=== PATIENT | female | born 1935 | race Caucasian/White ===

== ENCOUNTER → 2021-12-27 14:00 | Outpatient (CLI) | payer MEDICARE, OTHER, SELFPAY ==
--- NOTE | ~2021-12-27 | XR_ITS ---
XR thoracic spine 2V DATE: 12/27/2021 14:44 INDICATION: Thoracic back pain TECHNIQUE: AP, lateral, swimmer views COMPARISON: None FINDINGS: There is diffuse osteopenia. There is severe degenerative disc disease at C4-5, C5-6 and C6-7. There is prominent loss of height and anterior wedging consistent with compression fracture at approx imately T7. There is biconcavity of multiple lower thoracic vertebral bodies. There is moderate compression fracture deformity at approximately L1. There is degenerative change of the thoracic and lumbar spine. There is rotatory levoscoliosis of the lumbar spine. Cardiomegaly, aortic atherosclerosis. Large hiatal hernia with air-fluid levels. IMPRESSION: Diffuse osteopenia; multiple compression fracture deformities of the thoracic and upper l umbar spine Large hiatal hernia Cardiomegaly, aortic atherosclerosis Reviewed, dictated and finalized at location B. CTOR CONSUMER AFFAIRS IMPRESSION: Diffuse osteopenia; multiple compression fracture deformities of th e thoracic and upper lumbar spine Large hiatal hernia Cardiomegaly, aortic atherosclerosis
--- NOTE | ~2021-12-27 | XR_ITS ---
XR lumbar spine 2-3V DATE: 12/27/2021 14:44 INDICATION: Low back pain TECHNIQUE: Standing AP, lateral and coned lateral lumbosacral views COMPARISON: None FINDINGS: There is prominent diffuse osteopenia. There is prominent rotatory levoscoliosis of the lumbar spine. There is severe degenerative disc disease throughout the lumbar and lumbosacral spine. The sacroiliac joints are intact. Multiple surgical clips are noted along the lower aortic, aortocaval and bilateral iliac lymph node c hains. IMPRESSION: Diffuse osteopenia Prominent rotatory levoscoliosis and severe degenerative disc disease of the lumbar spine Reviewed, dictated and finalized at location B. TRICAL MAINTENANCE WORKER IMPRESSION: Diffuse osteopenia Prominent rotatory levoscoliosis and severe degenerative disc disease of the lenin mbar spine
== END ==
PROVIDERS: PCP Internal Medicine; Visit Provider Nurse Practitioner Family
DX: M54.50 Low back pain, unspecified (principal); M85.88 Other specified disorders of bone density and structure, other site; M41.86 Other forms of scoliosis, lumbar region; M51.36 Other intervertebral disc degeneration, lumbar region; K44.9 Diaphragmatic hernia without obstruction or gangrene; I51.7 Cardiomegaly; I70.0 Atherosclerosis of aorta; M53.84 Other specified dorsopathies, thoracic region
CPT/HCPCS: 72070; 72100

== ENCOUNTER → 2022-01-03 09:47 | Outpatient (CLI) | payer MEDICARE, OTHER, SELFPAY ==
--- NOTE | ~2022-01-03 | MR_ITS ---
EXAMINATION: MR thoracic spine wo con EXAM DATE: 01/03/2022 10:57 INDICATION: Closed fracture of thoracic vertebra. TECHNIQUE: Multi-sequential, multiplanar MR images of the thoracic spine were obtained without contra st. Sagittal T1, T2, T2 fat saturation, axial T2 weighted images reviewed. There is no prior study for comparison. FINDINGS: There is mild acute compression fracture of the T10 vertebral body. Loss of multiple other vertebral body heights, moderate at the T7 level but no other thoracic vertebral bodies have edema to suggest acute compressions. There is moderate thoracolumbar levoscoliosis. The spinal cord signal in tensity and intrinsic morphology is normal. Mild to moderate thoracic disc disease. The thoracic cent ral canal and neural foramen are patent. Mild to moderate thoracic facet arthropathy. IMPRESSION: 1. Mild acute compression fracture superior endplate of T10. 2. Other chronic midthoracic compression fractures. 3. Mild to moderate spondylosis. Reviewed, dictated and finalized at location B. WAY PAINTER
--- NOTE | ~2022-01-03 | MR_ITS ---
EXAMINATION: MR lumbar spine wo [facility] EXAM DATE: 01/03/2022 11:05 INDICATION: Low back pain . TECHNIQUE: Multi-sequential, multiplanar MR images of the lumbar spine were obtained without contrast . Sagittal T1, T2, T2 fat saturation images. Axial T2 weighted images. There is no prior study for comparison. FINDINGS: There is moderate thoracolumbar levoscoliosis. Moderate to severe disc disease L3-4 and L5- S1, moderate at the other lumbar levels. Mild diffuse loss of lumbar vertebral body heights, with gail ma in the L3 and L4 vertebral bodies which suggests mild subacute compression fractures. There is 2 m m retrolisthesis L2 on L3, 3 mm retrolisthesis L3 on L4, 4 mm retrolisthesis L4 on L5. The conus medu llaris terminates at the L1/2 level and has normal signal intensity and morphology. Level by level evaluation: T12-L1: Disc does not extend beyond the endplate margin. Facet arthropathy: Minimal. Neural foraminal stenosis: No stenosis. Central canal stenosis: No stenosis. L1-L2: There is a mild diffuse disc bulge. Facet arthropathy: Mild. Neural foraminal stenosis: Mild right. Central canal stenosis: No stenosis. L2-L3: There is a mild to moderate diffuse disc bulge. Facet arthropathy: Mild to moderate. Neural foraminal stenosis: Mild to moderate right, mild left. Central canal stenosis: Mild. L3-L4: There is a moderate diffuse disc bulge. Facet arthropathy: Mild. Neural foraminal stenosis: Moderate right, mild to moderate left. Central canal stenosis: Mild. L4-L5: There is a moderate diffuse disc bulge. Facet arthropathy: Moderate. Ligamentum flavum enlargement. Neural foraminal stenosis: Moderate to severe left, mild to moderate right. Central canal stenosis: Mild to moderate. L5-S1: [id number] Facet arthropathy: Moderate left, mild to moderate right. Neural foraminal stenosis: Moderate to severe left, mild right. Central canal stenosis: Mild. IMPRESSION: 1. L4-5 and L5-S1 moderate to severe left neural foraminal stenosis. 2. Diffuse mild loss of vertebral body height with L3 and L4 edema suggesting subacute component. 3. Moderate thoracolumbar levoscoliosis. 4. Spondylosis as above. Reviewed, dictated and finalized at location B. DARD MACHINE STITCHER
== END ==
PROVIDERS: PCP Internal Medicine; Visit Provider Nurse Practitioner Family
DX: M48.54XA Collapsed vertebra, not elsewhere classified, thoracic region, initial encounter for fracture (principal); M54.6 Pain in thoracic spine; M47.814 Spondylosis without myelopathy or radiculopathy, thoracic region; M48.07 Spinal stenosis, lumbosacral region; M41.85 Other forms of scoliosis, thoracolumbar region; M47.816 Spondylosis without myelopathy or radiculopathy, lumbar region
CPT/HCPCS: 72146; 72148

== ENCOUNTER 2023-01-06 14:38 | Inpatient (IN) | payer MEDICARE, OTHER, SELFPAY ==
--- NOTE | ~2023-01-06 | CT_ITS ---
EXAMINATION: CT brain wo con DATE: 01/06/2023 15:43 INDICATION: fall . TECHNIQUE: Computed tomography (CT) of the head was performed without intravenous contrast. The mA wa s adjusted according to patient size. Iterative reconstruction technique was employed. The dose-lengt h product was 605.33 mGy-cm. COMPARISON: None. FINDINGS: No acute intracranial hemorrhage or extra-axial fluid collection. No hydrocephalus, mass, or herniation. No acute ischemic infarct. Unremarkable dural venous sinus attenuation. No acute osseous abnormality. The aerated spaces are clear. Mild atrophy and moderate chronic white matter change. Mild atherosclerotic intracranial calcificatio n. Bilateral old basal ganglia lacunar infarcts. IMPRESSION: No acute intracranial process. Reviewed, dictated and finalized at location K. KSMITH SUPERVISOR
--- NOTE | ~2023-01-06 | CT_ITS ---
EXAMINATION: CT cervical spine wo con DATE: 01/06/2023 15:43 INDICATION: fall TECHNIQUE: Computed tomography (CT) of the cervical spine was performed without intravenous contrast. Automated exposure control and iterative reconstruction technique were employed. The dose-length pro duct was 95.54 mGy-cm. COMPARISON: None. FINDINGS: Vertebral Body Alignment: Intact. . Craniocervical and atlantoaxial alignment: Moderate degenerative change. Alignment intact. Osseous structures/fracture: No evidence of a lytic or blastic process in the visualized spine. No e vidence of acute fracture. . Cervical soft tissues: The paraspinal soft tissues planes are maintained. Biapical pleural scarring. Subcentimeter thyroid hypodensities which require no additional workup. Degenerative changes: Degenerative changes, without severe neural foraminal or central canal narrowin g. IMPRESSION: No acute fracture or traumatic malalignment in the cervical spine. Reviewed, dictated and finalized at location K. KNITTER HELPER
--- NOTE | ~2023-01-06 | XR_ITS ---
EXAM: XR wrist RT 2V DATE: 01/06/2023 16:17 HISTORY: fall . COMPARISON: None available. FINDINGS: Decreased mineralization. Comminuted, intra-articular fracture of the distal right radius with one shaft width anterior displacement and mild impaction. No lytic or blastic lesion. Joint spac es are maintained. No erosion or periosteal change. Soft tissue swelling about the wrist. IMPRESSION: Comminuted, intra-articular, anteriorly displaced and mildly impacted fracture of the dis daniel right radius. Reviewed, dictated and finalized at location K. UM ARC WELDER IMPRESSION: Comminuted, intra-articular, anteriorly displaced and mildly impact ed fracture of the distal right radius.
--- NOTE | ~2023-01-06 | XR_ITS ---
EXAM: XR hip RT 2V w AP pelvis DATE: 01/06/2023 16:17 HISTORY: fall, pain Rt wrist, Rt hip . COMPARISON: None available. FINDINGS: Decreased mineralization. Numerous surgical clips project over the lower abdomen and pelvi s. Severe degenerative change in the lumbar spine. Mildly comminuted fracture of the right femoral ne ck. Medial angulation of the femur, with mild superior and anterior displacement. IMPRESSION: Mildly comminuted fracture of the right femoral neck. Reviewed, dictated and finalized at location K. RWRITER SOLICITATION DIRECTOR
--- NOTE | ~2023-01-06 | XR_ITS ---
EXAM: XR hip RT min 2V DATE: 01/09/2023 20:33 HISTORY: RT BIPOLAR HIP - POST OP . COMPARISON: 01/06/2023. FINDINGS: Osteopenia. Multiple surgical clips overlying the right iliac vessels. New right hip arthr oplasty, in good position. Subcutaneous gas. No unexpected radiopaque foreign body. IMPRESSION: Expected postsurgical changes, with no radiographic evidence of procedure or hardware rel ated complication. Reviewed, dictated and finalized at location K. PING MACHINE OPERATOR IMPRESSION: Expected postsurgical changes, with no radiographic evidence of pro cedure or hardware related complication.
--- NOTE | ~2023-01-06 | US_ITS ---
EXAMINATION: US venous doppler UE RT DATE: 01/08/2023 21:10 INDICATION: New discoloration in the upper extremity. TECHNIQUE: Grayscale ultrasound images without and with compression and Doppler ultrasound images of the right upper extremity veins were obtained. COMPARISON: None. FINDINGS: The right radial and ulnar veins were obscured by bandage material and not visualized The visualized portions of the right internal jugular vein, subclavian vein, axillary vein, brachial veins, basilic vein, and cephalic vein are patent. Irregular hypoechoic area in the deep soft tissues deep in the ar ea of clinical concern. IMPRESSION: 1. Radial and ulnar veins not evaluable. 2. No deep venous thrombosis in the remaining visualized right upper extremity veins. 3. Irregular, hypoechoic area in the region of clinical concern, which may represent a hematoma, phle gmon, or early abscess, depending on the clinical context Reviewed, dictated and finalized at location K. LITIES MECHANICAL DESIGN ENGINEER IMPRESSION: 1. Radial and ulnar veins not evaluable. 2. No deep venous thrombosis in the remaining visualized right upper extremity veins. 3. Irregular, hypoechoic area in the region of clinical concern, which may repr esent a hematoma, phlegmon, or early abscess, depending on the clinical context
--- NOTE | ~2023-01-06 | XR_ITS ---
EXAMINATION: XR surgery orthopedic DATE: 01/09/2023 16:00 SUPPORTABILITY ENGINEER INDICATION: ORIF RT WRIST . TECHNIQUE: 3 fluoroscopic images of the right wrist were obtained during ORIF right wrist performed b y the surgeon. I was not present in the operating room. Fluoroscopy exposure time was 5 minutes and 5 seconds. Air Kerma 7.2663 mGy. DAP 0.1440 mGym2. COMPARISON: Right wrist 01/06/2023 FINDINGS: Screw and plate fixation of a distal right radial fracture, into near-anatomic alignment. IMPRESSION: Fluoroscopic documentation of ORIF right wrist. Please refer to the operative note for complete proce dural details . Reviewed, dictated and finalized at location K. ORTABILITY ENGINEER IMPRESSION: Fluoroscopic documentation of ORIF right wrist. Please refer to the operative n ote for complete procedural details .
--- NOTE | ~2023-01-06 | XR_ITS ---
EXAMINATION: XR chest 1V Exam Date/Time: 01/06/2023 15:54 WILDLIFE CONTROL OPERATOR HISTORY: ams Comparison: None available. RESULT: Lines, tubes, and devices: None. Lungs and pleura: Lordotic positioning with mild rightward rotation. Senescent change, otherwise rajan ar. Cardiomediastinal silhouette: Aortic ectasia. Likely hiatal hernia.. Other: No acute osseous or upper abdominal finding. Osteopenia. IMPRESSION: No acute cardiopulmonary process. Reviewed, dictated and finalized at location K. LIFE CONTROL OPERATOR
[2023-01-06 14:50] VITALS: BP 147/83; PULSE 69; RESP 18; TEMP 36.8; O2SAT 94
[2023-01-06 15:39] LABS: Basophils Percent Auto 0.3 % (0.2-1.2); Eosinophils Absolute Auto 0.1 K/mm3 (0-0.3); Eosinophils Percent Auto 0.5 % (0-4.4); Hematocrit 34.8 % (37.0-47.0); Hemoglobin 11.5 g/dL (12.0-15.0); Immature Granulocyte Absolute 0.07 K/mm3 (0.00-0.031); Immature Granulocyte Percent A 0.6 % (0-0.5); Lymphocytes Absolute Auto 2.48 K/mm3 (0.9-3.2); Lymphocytes Percent Auto 21.7 % (18.3-44.2); Mean Corpuscular Hemoglobin 31.9 pg (26-34); Mean Corpuscular Volume 96.7 fl (80-100); Mean Platelet Volume 8.4 fl (7.4-10.4); Monocytes Absolute Auto 0.8 K/mm3 (0.1-0.6); Neutrophils Percent Auto 69.9 % (45.5-73.1); Platelet Count Result 327 k/mm3 (150-375); Red Cell Distribution Width 12.9 % (11.5-14.5); White Blood Count 11.4 K/mm3 (4.5-10.0)
[2023-01-06 15:49] LABS: Alanine Aminotransferase 23 U/L (6-35); Albumin Level 4.3 g/dL (3.5-5.1); Alkaline Phosphatase 112 U/L (38-126); Anion Gap 6 mmol/L (8-16); Aspartate Amino Transferase 32 U/L (14-36); Bilirubin,Total 0.5 mg/dL (0.2-1.3); Blood Urea Nitrogen 13 mg/dL (7-17); Calcium 8.4 mg/dL (8.4-10.2); Carbon Dioxide 27 mmol/L (22-30); Chloride 98 mmol/L (98-107); Estimated CRCL calculation 33 ml/min; Estimated Glomerular Filt Rate 59; Glucose 132 mg/dL (65-110); INR 1.1; Partial Thromboplastin Time 24.2 SECONDS (22.3-36.8); Prothrombin Time 13.4 Seconds (11.1-14.7); Sodium 131 mmol/L (137-145)
[2023-01-06 15:51] LABS: Appearance Urine Clear (Clear); Bilirubin Urine Negative (Negative); Blood Urine Negative (Negative); Color Urine Yellow (Yellow); Glucose Urine UA Negative (Negative); Ketones Urine Negative (Negative); Leukocyte Esterase Ur Negative LEU/UL (Negative); Nitrate Urine Negative (Negative); Protein Urine Negative (Negative); Specific Grav Ur 1.015 (1.001-1.035); Urobilinogen Urine 0.2 mg/dL (<2.0)
[2023-01-06 15:53] LABS: Mucus Urine Rare /lpf; RBC Urine 0-2 /hpf (0-2); WBC Urine 0-3 /hpf
[2023-01-06 15:54] LABS: Add Urine Microscopic? NO
[2023-01-06 16:09] LABS: Influenza A QL RT-PCR Negative (Negative); Influenza B QL RT-PCR Negative (Negative); SARS-CoV-2 RNA PCR Negative
--- NOTE | 2023-01-06 16:15 | PC.NURSE ---
Pt was stuck multiple times for IV access to bilateral arms.
[2023-01-06 16:29] VITALS: BP 149/79; PULSE 70; RESP 18; O2SAT 96
[2023-01-06] MEDS: MORPHINE SULFATE (*CRX) 2 MG/ML INJ IV PUSH (16:33)
--- NOTE | 2023-01-06 17:00 | ED.FALL ---
HPI - Fall General Chief Complaint: Fall Stated Complaint: right groin pain, right rib pain Time Seen by Provider: 01/06/23 14:57 Source: RN notes reviewed History of Present Illness HPI Narrative: Patient presents emergency department from home via EMS for fall. Patient states she was walking her house with her arms fall when she tripped on the step and fell states she landed on her right side and notes pain to her right hip and her right wrist. States she does not believe she struck her head and denies any loss of consciousness she states she is on a Plavix daily. She was unable to get up and ambulate following the fall she denies any vision changes, chest pain shortness of breath abdominal pain nausea vomiting or any other symptoms for Related Data Home Medications Medication Instructions Recorded Confirmed clopidogrel 75 mg tablet (Plavix) 75 mg PO DAILY 07/14/20 B-complex with vitamin C 1 tablet PO DAILY 09/22/20 calcium carbonate 200 mg calcium 200 mg PO ONCE 09/22/20 (500 mg) chewable tablet (Tums) Allergies Allergy/AdvReac Type Severity Reaction Status Date / Time cetirizine [From Zyrtec] Allergy Unknown unknown Verified 01/06/23 14:56 levofloxacin Allergy Unknown unknown Verified 01/06/23 14:56 Penicillins Allergy Unknown unknown Verified 01/06/23 14:56 Sulfa (Sulfonamide Allergy Unknown unknown Verified 01/06/23 14:56 Antibiotics) Review of Systems Review of Systems: Gen.: Denies fevers or chills Eyes: Denies eye pain or visual change ENT: Denies congestion Respiratory: Denies shortness of breath or cough CV: Denies chest pain or palpitations GI: Denies abdominal pain nausea, emesis or diarrhea Musculoskeletal: See HPI Neuro: Denies numbness, tingling, weakness or focal weakness Skin: Denies rash Except as documented, all other systems reviewed and negative [facility] Past Medical History Medical History (Updated 01/06/23 @ 17:05 by Wong Mckinney DO) GERD (gastroesophageal reflux disease) Social History Social History Smoking status: Never smoker Alcohol use details: Occasional Substance use: never Exam Narrative: APPEARANCE: No acute distress, nontoxic, resting in bed EYES: EOMI PERRL HEENT: Normocephalic, atraumatic, OMM Neck: C-collar present, no midline cervical spine tenderness to palpation, mild tenderness bilateral perigee muscles C5-7 RESPIRATORY: No respiratory distress Clear to auscultation bilaterally with no rhonchi wheezing or rales. CARDIOVASCULAR: Regular rate and rhythm without murmurs rubs or gallops. ABDOMINAL: Soft, nontender, nondistended, no rebound or guarding MUSCULOSKELETAl: Moves all extremities. No clubbing, cyanosis or edema. Tender palpation diffusely of the right wrist pain with any movement of the wrist no tenderness of the right elbow or shoulder, radial pulse 2+ neurovascular intact, no tenderness of the left upper extremity in the left lower extremity, tender palpation of the right anterior and lateral hip pain with any movement of the hip no tenderness of the right knee or ankle dorsalis pedis pulse 2+ neurovascular intact NEURO: Awake and alert x 3. Following commands, speech normal, no focal deficits SKIN:: Warm, dry. No rashes lesions or abrasions PSYCHIATRIC: Normal affect/mood, Course Course Emergency Course: Discussed with patient and son who is present results of work-up the patient states she has seen Dr. Hamilton before in the past Called and discussed with Dr. Yancey orthopedics presentation work-up he is unable as it is the weekend to evaluate and see the patient Discussed with Dr. Palomo orthopedics presentation work-up agrees with consult Discussed with ELY Lewis for Dr. Mclean presentation work-up agrees with admission Discussed with patient and family results of workup and diagnosis. Discussed need for admission. Patient and family understand and agree to current treatment pl
[2023-01-06] MEDS: ONDANSETRON INJ 4 MG/2 ML VIAL IV PUSH (17:24)
[2023-01-06 17:30] VITALS: BP 148/77; PULSE 74; RESP 16; O2SAT 95
--- NOTE | 2023-01-06 17:30 | PM.IMHP ---
H&P: HPI History of Present Illness Date/Time: 01/06/23 17:30 Chief Complaint: Right wrist and hip pain after fall. Narrative: This is a very pleasant and remarkably healthy 87-year-old female with history of TIA in 2020 and ovarian cancer in 1999 who presented to the ED via EMS from home for evaluation of right wrist and hip pain after a fall. Patient provides the following history. She was in her usual state of health today and when out to lunch with some friends. Upon returning home she had her arms full when walking into her apartment. Her shoe got tripped up on the 1st step and she fell onto her side, landing on her right hand/arm and hip. She does not think that she struck her head and there was no loss consciousness. She also denies antecedent symptoms prior to the fall, stating it was purely mechanical. At the time my evaluation a majority of her pain is in her right groin and she describes a severe spasming pain. EMS was summoned and when they were in the process of transferring her to the cot she had what sounded like a vagal episode where she became pale, sweaty, nauseated, lightheaded, and her heart rate was briefly in the 30s. She has not had any further episodes. She was found to have fractures of the distal right radius and right femoral neck. She is being admitted in this setting. Review of Systems Review of Systems: Twelve systems were reviewed. She denies paresthesias, skin color, and temperature changes distal to the fracture sites. No recent cold or flu symptoms. No exertional chest pain shortness a breath. No syncope or near syncope. Occasional constipation. No urinary symptoms. No history of venous thromboembolism. Except as documented, all other systems were reviewed and are negative. [facility] Past Medical History Medical History Closed displaced fracture of right femoral neck Gastroesophageal reflux disease Ovarian cancer (1999) Transient ischemic attack (2020) Surgical History Surgical History History of appendectomy History of total hysterectomy Family History Family History Other Family history non-contributory Social History Social History (Reviewed 01/07/23 @ 15:03 by OSCAR Cordova Social History: Surrogate medical decision maker: Francisco Lang, son. Code status: Full code. Smoking status: Never smoker Second hand tobacco smoke exposure: No Alcohol intake: never Alcohol use details: Occasional Substance use: never Lack of Transportation: No Lack of Food: Never True Current Housing: I Have Housing Concerned About Future Housing: No Difficulty Paying Gas/Electric Bills: No Difficulty Paying for Meds: No Currently Unemployed: No Education: Trade/Vocational Certificate Difficulty w/ Childcare or Family Care: No Additional living arrangements comments: Lives alone in [place]. Has 2 sons, 1 passed from lung cancer. She is very active and enjoys dancing several days a week. 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 care concerns: No Meds Home Medications and Allergies Home Medications Medication Instructions Recorded Confirmed Type clopidogrel 75 mg tablet (Plavix) 75 mg PO DAILY 07/14/20 01/06/23 History B-complex with vitamin C 1 tablet PO DAILY 09/22/20 01/06/23 History calcium carbonate 200 mg calcium 200 mg PO ONCE 09/22/20 01/06/23 History (500 mg) chewable tablet (Tums) Flonase Allergy Relief 1 puff EACH NARE BID 01/06/23 01/06/23 History Tylenol 500 mg BYMOUTH PRN PRN Pain 01/06/23 01/06/23 History docusate sodium 100 mg capsule 100 mg PO QID PRN Allergy Symptoms 01/06/23 01/06/23 History (Dulcolax Stool Softener (docusate)) furosemide 20 mg tablet 20 mg PO DAILY 01/06/23 01/06/23 History polyethylene glycol 3350 17 gram 17 g P
[2023-01-06] MEDS: diazePAM INJ (*CRX) 10 MG/2 ML SYRINGE 2.5 MG IV PUSH (17:52)
[2023-01-06 18:00] VITALS: BMI 22.8
--- NOTE | 2023-01-06 18:20 | ADMGEN ---
This patient, Jossy Lang, was admitted to 3 [facility] Surg Room 311-01 @ 1800. Patient/family oriented to hospital policies and general routines including ID bracelet, bed and alarms, visiting hours, pain management, procedures, bathroom and other care routines, personal items, smoking policy, room service/diet, and visiting hours. Information on how to activate the Rapid Response Team has been discussed. Patient/Family are encouraged to report perceived risks to care and to ask questions if they do not understand what they are told or what they should do.
[2023-01-06 18:55] VITALS: BMI 22.8
[2023-01-06 20:00] VITALS: PULSE 78; RESP 16; O2SAT 94
[2023-01-06 22:00] VITALS: BP 130/58; PULSE 85; RESP 16; TEMP 37; O2SAT 89
[2023-01-06] MEDS: HYDROcodone/acetaminophen (*CRX) 5-325 MG TABLET 1 TAB PO (22:07)
[2023-01-06] MEDS: SODIUM CHLORIDE 0.9% IV 1,000 ML 100 ML IV CONT (22:08)
[2023-01-06] MEDS: BACLOFEN 5 MG TABLET PO (22:08)
[2023-01-07] VITALS (11 sets, daily range): BP systolic 129–144; BP diastolic 62–74; PULSE 72–83; RESP 16–18; TEMP 36.8–37; O2SAT 88–97
[2023-01-07] MEDS: diazePAM INJ (*CRX) 10 MG/2 ML SYRINGE 2.5 MG IV PUSH (01:42)
[2023-01-07 06:26] LABS: Basophils Percent Auto 0.2 % (0.2-1.2); Eosinophils Percent Auto 0.2 % (0-4.4); Hemoglobin 9.9 g/dL (12.0-15.0); Immature Granulocyte Absolute 0.05 K/mm3 (0.00-0.031); Immature Granulocyte Percent A 0.5 % (0-0.5); Lymphocytes Absolute Auto 1.34 K/mm3 (0.9-3.2); Lymphocytes Percent Auto 13.3 % (18.3-44.2); Mean Corpuscular Hemoglobin 31.8 pg (26-34); Mean Corpuscular Volume 96.5 fl (80-100); Mean Platelet Volume 8.5 fl (7.4-10.4); Monocytes Absolute Auto 0.8 K/mm3 (0.1-0.6); Monocytes Percent Auto 8.3 % (2.6-8.5); Neutrophils Absolute Auto 7.8 K/mm3 (1.3-6.7); Neutrophils Percent Auto 77.5 % (45.5-73.1); Platelet Count Result 243 k/mm3 (150-375); Red Blood Count 3.11 M/mm3 (4.2-5.4); Red Cell Distribution Width 13.2 % (11.5-14.5); White Blood Count 10.1 K/mm3 (4.5-10.0)
[2023-01-07 06:50] LABS: Alanine Aminotransferase 20 U/L (6-35); Albumin Level 3.5 g/dL (3.5-5.1); Alkaline Phosphatase 80 U/L (38-126); Anion Gap 1 mmol/L (8-16); Aspartate Amino Transferase 25 U/L (14-36); Blood Urea Nitrogen 13 mg/dL (7-17); Calcium 7.8 mg/dL (8.4-10.2); Carbon Dioxide 28 mmol/L (22-30); Chloride 101 mmol/L (98-107); Estimated CRCL calculation 33 ml/min; Estimated Glomerular Filt Rate 59; Glucose 118 mg/dL (65-110); Magnesium 2.4 mg/dL (1.6-2.3); Potassium 4.5 mmol/L (3.4-5.0); Sodium 130 mmol/L (137-145)
--- NOTE | 2023-01-07 09:15 | PM.IMPN ---
Progress Note: A&P Assessment and Plan (1) Closed fracture of right distal radius: Code(s): S52.501A - Unspecified fracture of the lower end of right radius, initial encounter for closed fracture Status: Acute Assessment and Plan: Xray shows Comminuted, intra-articular, anteriorly displaced and mildly impacted fracture of the distal right radius. Ortho consulted await recommendations Ortho to manage Pain medications adjusted for severe pain Add tizanidine for muscle spasm (2) Closed displaced fracture of right femoral neck: Code(s): S72.001A - Fracture of unspecified part of neck of right femur, initial encounter for closed fracture Status: Acute Assessment and Plan: Hip xray shows mildly comminuted fracture of the right femoral neck Ortho consulted thank you for your help Ortho to manage care Pain medications ordered DVT deferred to ortho PT/OT when appropriate (3) Vasovagal response: Code(s): R55 - Syncope and collapse Status: Acute Assessment and Plan: Echo ordered Probably the reason for the fall Na does appear to be a bit low 130 Consider giving fluids will need ortho BP when able (4) Fall from ground level: Code(s): W18.30XA - Fall on same level, unspecified, initial encounter Status: Acute Assessment and Plan: Stated that she tripped and fell PT/OT when appropriate Orthostatic BP Adjust therapy as indicated (5) Hyponatremia: Code(s): E87.1 - Hypo-osmolality and hyponatremia Status: Acute Assessment and Plan: Na 130 Continue to trend sodium Adjust therapy as indicated Urine labs (6) History of TIA (transient ischemic attack): Code(s): Z86.73 - Personal history of transient ischemic attack (TIA), and cerebral infarction without residual deficits Status: Acute Assessment and Plan: Stable at this time Time Spent With Patient Time: 52 minutes Time with patient: Greater than 35 minutes Subjective Date/time seen: 01/07/23914 Interval history: 01/07/23914 Patient was lying in bed flat as a board. Patient stated that she is in lot of pain. she stated that if she moves just a little bit that she is in excruciating pain and she is also experiencing a lot of spasms especially in the right groin. Patient denies any chest pain, shortness a breath, nausea, vomiting. patient is currently on oxygen however does not wear oxygen at home. Will adjust pain medications and add a muscle relaxer since she said she that did help her last night. 01/06/231729 This is a very pleasant and remarkably healthy 87-year-old female with history of TIA in 2020 and ovarian cancer in 1999 who presented to the ED via EMS from home for evaluation of right wrist and hip pain after a fall. Patient provides the following history. She was in her usual state of health today and when out to lunch with some friends. Upon returning home she had her arms full when walking into her apartment. Her shoe got tripped up on the 1st step and she fell onto her left side, landing on her right hand/arm and hip. She does not think that she struck ground and there was no loss consciousness. She also denies antecedent symptoms prior to the fall, stating it was purely mechanical. At the time my evaluation a majority of her pain is in her right groin and she describes a severe spasming pain. EMS was summoned and when they were in the process of transferring her to the cot she had what sounded like a vagal episode where she became pale, sweaty, nauseated, lightheaded, and her heart rate was briefly in the 30s. She has not had any further episodes. She was found to have fractures of the distal right radius and right femoral neck. She is being admitted in this setting. Review of Systems Review of Systems: All systems reviewed & are unremarkable except a
[2023-01-07] MEDS: SODIUM CHLORIDE 0.9% IV 1,000 ML 100 ML IV CONT ×2 (09:57→21:15)
[2023-01-07] MEDS: FUROSEMIDE 20 MG TABLET PO (09:57)
[2023-01-07] MEDS: FLUTICASONE PROPIONATE 0.05% NA SPR 16 GM BTL (*BKC) 1 SPRAY NASAL ×2 (09:58→21:13)
[2023-01-07] MEDS: HYDROmorphone HCL INJ (*CRX) 1 MG/ML SYR 0.5 MG IV PUSH ×3 (09:58→21:11)
--- NOTE | 2023-01-07 10:59 | PM.CNOR ---
Assessment and Plan Assessment and plan (1) Closed displaced fracture of right femoral neck: Code(s): S72.001A - Fracture of unspecified part of neck of right femur, initial encounter for closed fracture Status: Acute Assessment and Plan: 87 YO FEMALE WITH FALL AND NOW WITH BOTH RIGHT FEMORAL NECK AND RIGHT DISTAL RADIUS FRACTURE. SHE WILL REQUIRE BOTH RIGHT HIP HEMIARTHROPLASTY WITH BIPOLAR PROSTHESIS AND ORIF RIGHT DISTAL RADIUS IN ORDER TO FACILITATE HER WEIGHT BEARING WITH A WALKER. SHE IS VERY ACTIVE AND ORIENTED TO HER SURROUNDINGS. DISCUSSED NONOPERATIVE AND OPERATIVE TREATMENT OPTIONS WITH THE PATIENT. THE PATIENT'S QUESTIONS WERE ANSWERED. THE PATIENT DESIRES OPERATIVE TREATMENT. DISCUSSED RIGHT HIP HEMIARTHROPLASTY AND ORIF RIGHT DISTAL RADIUS . RISKS OF SURGERY INCLUDING BUT NOT LIMITED TO NEUROVASCULAR DAMAGE, WOUND COMPLICATIONS, BLOOD CLOT, PULMONARY EMBOLUS, STROKE, UT, ANESTHETIC RISKS UP TO AND INCLUDING WERE REVIEWED. CONTINUED PAIN AND POSSIBLE DYSFUNCTION WERE EXPLAINED. NO GUARANTEES WERE OFFERED. THE PATIENT UNDERSTANDS AND WISHES TO PROCEED. (2) Closed fracture of right distal radius: Code(s): S52.501A - Unspecified fracture of the lower end of right radius, initial encounter for closed fracture Status: Acute History of Present Illness HPI Consult date: 01/07/23 Chief complaint: Right hip fracture, right distal radius fracture Narrative: GIOVANY IS HERE FOR EVALUATION OF HER RIGHT HIP PAIN AND RIGHT WRIST PAIN. SHE HAD A FALL ONTO HER RIGHT HIP AND WRIST AND WAS SEEN IN THE ED AND DIAGNOSED WITH A RIGHT FEMORAL NECK FRACTURE AND COMMINUTED RIGHT DISTAL RADIUS FRACTURE. SHE C/O RIGHT HIP AND WRIST PAIN AND DENIES ANY OTHER UPPER AND LOWER EXTREMITY PAIN OR BACK AND NECK PAIN. Review of Systems Review of Systems: All systems reviewed & are unremarkable except as noted in HPI and below Eyes: Eyes: Reports no additional eye complaints ENT: Reports system reviewed and no additional complaints, except as documented Cardiovascular: Cardiovascular: Reports no additional cardiovascular complaints Respiratory: Respiratory: Reports no additional respiratory complaints Gastrointestinal: Gastrointestinal: Reports no additional gastrointestinal complaints Genitourinary: Genitourinary: Reports no additional female genitourinary complaints Musculoskeletal: Musculoskeletal: Reports no additional musculoskeletal complaints Neurologic: Reports system reviewed and no additional complaints, except as documented PMFSH Past Medical History Medical History (Updated 01/07/23 @ 11:12 by Arsen Dockery MD) Closed displaced fracture of right femoral neck Gastroesophageal reflux disease Ovarian cancer (1999) Transient ischemic attack (2020) Surgical History Surgical History History of appendectomy History of total hysterectomy Family History Family History Other Family history non-contributory Social History Social History Social History: Surrogate medical decision maker: Francisco Lang, adela. Code status: Full code. Smoking status: Never smoker Second hand tobacco smoke exposure: No Alcohol intake: never Alcohol use details: Occasional Substance use: never Lack of Transportation: No Lack of Food: Never True Current Housing: I Have Housing Concerned About Future Housing: No Difficulty Paying Gas/Electric Bills: No Difficulty Paying for Meds: No Currently Unemployed: No Education: Trade/Vocational Certificate Difficulty w/ Childcare or Family Care: No Additional living arrangements comments: Lives alone in [place]. Has 2 sons, 1 passed from lung cancer. She is very active and enjoys dancing several days a week. Additional occupation/education comments: Retired
[2023-01-07] MEDS: SENNA/DOCUSATE SODIUM TABLET 1 TAB PO (21:12)
[2023-01-07] MEDS: TIZANIDINE HCL 2 MG TABLET PO (21:12)
[2023-01-08] VITALS (11 sets, daily range): BP systolic 124–140; BP diastolic 61–73; PULSE 70–82; RESP 13–18; TEMP 36.6–37.2; O2SAT 93–95
[2023-01-08 05:52] LABS: Basophils Percent Auto 0.2 % (0.2-1.2); Eosinophils Absolute Auto 0.2 K/mm3 (0-0.3); Eosinophils Percent Auto 1.5 % (0-4.4); Hematocrit 30.3 % (37.0-47.0); Hemoglobin 10.1 g/dL (12.0-15.0); Immature Granulocyte Absolute 0.03 K/mm3 (0.00-0.031); Immature Granulocyte Percent A 0.3 % (0-0.5); Lymphocytes Absolute Auto 1.28 K/mm3 (0.9-3.2); Lymphocytes Percent Auto 11.8 % (18.3-44.2); Mean Corpuscular HGB Conc 33.3 g/dl (32-36); Mean Corpuscular Hemoglobin 32.4 pg (26-34); Mean Corpuscular Volume 97.1 fl (80-100); Mean Platelet Volume 8.4 fl (7.4-10.4); Monocytes Absolute Auto 0.8 K/mm3 (0.1-0.6); Monocytes Percent Auto 7.6 % (2.6-8.5); Neutrophils Absolute Auto 8.6 K/mm3 (1.3-6.7); Neutrophils Percent Auto 78.6 % (45.5-73.1); Platelet Count Result 193 k/mm3 (150-375); Red Blood Count 3.12 M/mm3 (4.2-5.4); Red Cell Distribution Width 12.9 % (11.5-14.5); White Blood Count 10.9 K/mm3 (4.5-10.0)
[2023-01-08 06:02] LABS: Alanine Aminotransferase 19 U/L (6-35); Albumin Level 3.4 g/dL (3.5-5.1); Alkaline Phosphatase 78 U/L (38-126); Anion Gap 5 mmol/L (8-16); Aspartate Amino Transferase 29 U/L (14-36); Bilirubin,Total 1.3 mg/dL (0.2-1.3); Blood Urea Nitrogen 10 mg/dL (7-17); Calcium 7.7 mg/dL (8.4-10.2); Carbon Dioxide 24 mmol/L (22-30); Chloride 99 mmol/L (98-107); Estimated CRCL calculation 36 ml/min; Estimated Glomerular Filt Rate > 60; Glucose 105 mg/dL (65-110); Potassium 3.7 mmol/L (3.4-5.0); Sodium 128 mmol/L (137-145)
[2023-01-08] MEDS: HYDROmorphone HCL INJ (*CRX) 1 MG/ML SYR 0.5 MG IV PUSH ×2 (06:03→10:37)
[2023-01-08] MEDS: FLUTICASONE PROPIONATE 0.05% NA SPR 16 GM BTL (*BKC) 1 SPRAY NASAL ×2 (08:19→20:23)
[2023-01-08] MEDS: FUROSEMIDE 20 MG TABLET PO (08:19)
--- NOTE | 2023-01-08 12:28 | PM.IMPN ---
Progress Note: A&P Assessment and Plan (1) Closed fracture of right distal radius: Code(s): S52.501A - Unspecified fracture of the lower end of right radius, initial encounter for closed fracture Status: Acute Assessment and Plan: The patient presented to the ED for evaluation of right wrist and hip pain following a mechanical ground level fall as detailed in HPI. X-ray revealed fractures of the right distal radius and femoral neck. Analgesics as needed Plavix has been placed on hold in anticipation of surgery which she has been taking for a couple of years for suspected TIA. Patient started on normal saline due to low sodium. This was discontinued when sodium continued to drop. Orthopedics consulted Patient plan for right hip surgery on 01/09/2023 (2) Closed displaced fracture of right femoral neck: Code(s): S72.001A - Fracture of unspecified part of neck of right femur, initial encounter for closed fracture Status: Acute Assessment and Plan: X-ray positive for comminuted, intra-articular, anteriorly displaced and mildly impacted fracture of the distal right radius. orthopedics following right arm splinted (3) Vasovagal response: Code(s): R55 - Syncope and collapse Status: Acute Assessment and Plan: She had a vagal response when EMS was transferring her to the cot, likely due to pain. She has not had a recurrence of these symptoms. She does not give any history to suggest that she would be at an increased risk for adverse cardiac events with surgery however I think it would be prudent to monitor her on telemetry overnight given these events. Echocardiogram ordered. (4) Fall from ground level: Code(s): W18.30XA - Fall on same level, unspecified, initial encounter Status: Acute Assessment and Plan: see above (5) Hyponatremia: Code(s): E87.1 - Hypo-osmolality and hyponatremia Status: Acute Assessment and Plan: Patient originally started on normal saline due to a sodium of 130. Repeat labs revealed sodium of 128 on normal saline. Normal saline discontinued. Will order urine sodium and creatinine to calculate FENA score (6) History of TIA (transient ischemic attack): Code(s): Z86.73 - Personal history of transient ischemic attack (TIA), and cerebral infarction without residual deficits Status: Acute Assessment and Plan: Patient on Plavix because of this. Plan Her home medications will be reviewed and resumed as appropriate. Time Spent With Patient Time with patient: Greater than 35 minutes Subjective Date/time seen: 01/08/23 12:28 Interval history: Patient lying in bed when I enter the room. Patient stated that she is unable to move the lower half of her body due to the her right hip pain. Patient is eagerly waiting for Ortho to conduct surgery. Patient denies any other complaints. Review of Systems Review of Systems: All systems reviewed & are unremarkable except as noted in HPI and below Exam Narrative: GENERAL: uncomfortable, no acute distress HENMT: moist mucous membranes EYES: EOM intact b/l NECK: no lymphadenopathy RESPIRATORY: clear to auscultation CARDIO: RRR GI: soft, nontender, bowel sounds present SKIN: no rashes EXTREMITIES: tenderness over right hip; no swelling, bruising or redness present over the right hip. Right arm bandaged and patient moving it freely. Cap refill +2. Objective Data Vital Signs Vital Signs: Vital Signs - 24 hr 01/07/23 14:00 01/07/23 16:00 01/07/23 20:00 Temperature 98.6 F Pulse Rate 76 83 78 Respiratory Rate 16 18 Blood Pressure 144/71 H Pulse Oximetry 94 96 Oxygen Delivery Nasal Cannula Oxygen Flow Rate 2 01/07/23 20:00 01/08/23 00:00 01/07/23 22:00 Temperature 98.3 F Pulse Rate 78 75 80 Respiratory Rate 17 Blood Pressure 143/74 H Pulse Oximetry 97 Oxygen Del
[2023-01-08] MEDS: HYDROcodone/acetaminophen (*CRX) 5-325 MG TABLET 1 TAB PO ×2 (12:53→18:51)
--- NOTE | 2023-01-08 15:34 | WPDANESEPPF ---
Anes - Initial Pre Proc Eval Procedure: Operation Date: 01/09/23 14:00 Proposed Procedures p Right Bipolar Hip Replacement - Arsen Dockery MD s Open Reduction Internal Fixation Right Distal Radius Fracture - Arsen Dockery MD Date/Time: 01/08/23 15:34 Surgeon: Kyle Mclean MD Pre Op Diagnosis: Right hip fracture, right distal radius fracture Patient Data Age: 87 Gender: F Height: 1.6 m Weight: 57.4 kg Last Vital Signs Temp 36.8 C 01/08/23 14:00 Pulse 76 01/08/23 14:00 Resp 18 01/08/23 14:00 BP 133/69 01/08/23 14:00 Pulse Ox 95 01/08/23 14:00 O2 Del Method Nasal Cannula 01/08/23 08:51 O2 Flow Rate 2 01/08/23 08:51 Allergies Allergy/AdvReac Type Severity Reaction Status Date / Time [facility] Allergy Unknown unknown Verified 01/06/23 14:56 levofloxacin Allergy Unknown unknown Verified 01/06/23 14:56 Penicillins Allergy Unknown unknown Verified 01/06/23 14:56 Sulfa (Sulfonamide Allergy Unknown unknown Verified 01/06/23 14:56 Antibiotics) Home Medications Medication Instructions Recorded Confirmed Type clopidogrel 75 mg tablet (Plavix) 75 mg PO DAILY 07/14/20 01/06/23 History B-complex with vitamin C 1 tablet PO DAILY 09/22/20 01/06/23 History calcium carbonate 200 mg calcium 200 mg PO ONCE 09/22/20 01/06/23 History (500 mg) chewable tablet (Tums) Flonase Allergy Relief 1 puff EACH NARE BID 01/06/23 01/06/23 History Tylenol 500 mg BYMOUTH PRN PRN Pain 01/06/23 01/06/23 History docusate sodium 100 mg capsule 100 mg PO QID PRN Allergy Symptoms 01/06/23 01/06/23 History (Dulcolax Stool Softener (docusate)) furosemide 20 mg tablet 20 mg PO DAILY 01/06/23 01/06/23 History polyethylene glycol 3350 17 gram 17 g PO PRN PRN Constipation 01/06/23 01/06/23 History oral powder packet (Miralax) Laboratory Tests 0201/08/23 01/08/23 05:33 05:33 14:41 WBC 10.9 K/mm3 H K/mm3 (4.5-10.0) RBC 3.12 M/mm3 L M/mm3 (4.2-5.4) Hgb 10.1 g/dL L g/dL (12.0-15.0) Hct 30.3 % L % (37.0-47.0) MCV 97.1 fl fl (80-100) MCH 32.4 pg pg (26-34) MCHC 33.3 g/dl g/dl (32-36) RDW 12.9 % % (11.5-14.5) Plt Count 193 k/mm3 k/mm3 (150-375) MPV 8.4 fl fl (7.4-10.4) Immature Gran % (Auto) 0.3 % % (0-0.5) Neut % (Auto) 78.6 % H % (45.5-73.1) Lymph % (Auto) 11.8 % L % (18.3-44.2) Lassen % (Auto) 7.6 % % (2.6-8.5) Eos % (Auto) 1.5 % % (0-4.4) Baso % (Auto) 0.2 % % (0.2-1.2) Lymph # (Auto) 1.28 K/mm3 K/mm3 (0.9-3.2) Lassen # (Auto) 0.8 K/mm3 H K/mm3 (0.1-0.6) Eos # (Auto) 0.2 K/mm3 K/mm3 (0-0.3) Baso # (Auto) 0.0 K/mm3 K/mm3 (0.0-0.1) Abs Immat Gran (auto) 0.03 K/mm3 K/mm3 (0.00-0.031) Absolute Neuts (auto) 8.6 K/mm3 H K/mm3 (1.3-6.7) Absolute Nucleated RBC 0.0 K/mm3 K/mm3 (0.0-0.012) Nucleated RBC % 0.0 % % (0.0-0.2) Sodium 128 mmol/L L mmol/L (137-145) Potassium 3.7 mmol/L mmol/L (3.4-5.0) Chloride 99 mmol/L mmol/L (98-107) Carbon Dioxide 24 mmol/L mmol/L (22-30) Anion Gap 5 mmol/L L mmol/L (8-16) BUN 10 mg/dL mg/dL (7-17) Creatinine 0.80 mg/dL mg/dL (0.7-1.0) Estim Creat Clear Calc 36 ml/min ml/min Estimated GFR > 60 (59 - ) Glucose 105 mg/dL mg/dL (65-110) Calcium 7.7 mg/dL L mg/dL (8.4-10.2) Magnesium 2.0 mg/dL mg/dL (1.6-2.3) Total Bilirubin 1.3 mg/dL mg/dL (0.2-1.3) AST 29 U/L U/L (14-36) ALT 19 U/L U/L (6-35) Alkaline Phosphatase 78 U/L U/L (38-126) Total Protein 6.0 g/dL L g/dL (6.3-8.2) Albumin 3.4 g/dL L g/dL (3.5-5.1) Ur Random Sodium Pending Urine Creatinine
[2023-01-08 17:16] LABS: Creatinine Urine 45.7 mg/dL
[2023-01-08 17:19] LABS: Sodium Urine Random 98 meq/L
[2023-01-08] MEDS: SENNA/DOCUSATE SODIUM TABLET 1 TAB PO (20:23)
--- NOTE | 2023-01-08 21:43 | ECHO_ITS ---
Patient Info Name: Jossy Lang Age: 87 years : 1935 Gender: Female Ht: 63 in Wt: 128 lbs BSA: 1.61 m2 HR: 79 bpm BP: 143 / 74 mmHg Technical Quality: Good Exam Date: 01/08/2023 11:20 AM Exam Location: [facility] Pulmonary Exam Room: 311 Patient Status: Inpatient Admit Date: 01/06/2023 Staff Ordering Physician: Debbie Apple PA-C [employer] Superintendent: Jossy Timmons RDCS Attending Provider: Kyle Mclean MD Referring Physician: Ambika FLAHERTY; Exam Type: CA echo doppler color flow Study Info Indications - murmur vasovagel response Complete two-dimensional, color flow and Doppler transthoracic echocardiogram is performed. Summary 1. Complete two-dimensional, color flow and Doppler transthoracic echocardiogram is performed. 2. Left ventricular chamber dimension is normal. 3. Left ventricular systolic function is normal, estimated at 60-65%. 4. The left ventricular diastolic function is grade I diastolic dysfunction. 5. E/e' 10 is mildly elevated. 6. Left atrial chamber dimension is mildly enlarged. 7. There is mild aortic valve sclerosis. 8. There is trace mitral valve regurgitation. 9. Mild pulmonary hypertension, estimated pulmonary arterial systolic pressure is 42 mmHg. Left Ventricle E/e' 10 is mildly elevated. Left ventricular chamber dimension is normal. Left ventricular systolic function is normal, estimated at 60-65%. The left ventricular diastolic function is grade I diastolic dysfunction. Right Ventricle Right ventricular chamber dimension is normal. Right ventricular systolic function is normal. Left Atria Left atrial chamber dimension is mildly enlarged. Right Atria Right atrial chamber dimension is normal. Aortic Valve The aortic valve is trileaflet. There is mild aortic valve sclerosis. There is no aortic valve stenosis. There is no aortic valve regurgitation. Pulmonic Valve There is no pulmonic regurgitation. Mitral Valve There is no mitral valve stenosis. There is trace mitral valve regurgitation. Tricuspid Valve There is no tricuspid valve regurgitation. Mild pulmonary hypertension, estimated pulmonary arterial systolic pressure is 42 mmHg. Pericardium/Pleural There is no pericardial effusion. Inferior Vena Cava Normal inferior vena cava with >50% collapse upon inspiration consistent with normal right atrial pressure, 5 mmHg. Aorta The aortic root size at the sinus of Valsalva is normal. Left Ventricular Outflow Tract Name Value Normal LVOT 2D LVOT Diameter 2.0 cm LVOT Doppler LVOT Peak Gradient 8 mmHg LVOT Mean Gradient 5 mmHg LVOT VTI 29 cm LVOT VTI/AV VTI Ratio 0.8 LVOT Stroke Volume 87 ml LVOT CO 18.7 l/min LVOT CI 11.6 l/min/m2 Pulmonic Valve Name Value Normal
[2023-01-09] VITALS (14 sets, daily range): BP systolic 113–144; BP diastolic 62–84; PULSE 62–74; RESP 12–16; TEMP 36.1–36.6; O2SAT 94–99
--- NOTE | 2023-01-09 07:11 | WPDHPUPDATE1 ---
History and Physical Update Update Date/Time: 01/09/23 07:11 History and Physical has been reviewed, including an updated exam of the patient. There are NO changes in the patient's condition. Risks, benefits, and alternatives have been discussed and questions answered. Patient agrees to proceed with procedure.
[2023-01-09 07:31] LABS: Basophils Percent Auto 0.2 % (0.2-1.2); Eosinophils Absolute Auto 0.2 K/mm3 (0-0.3); Eosinophils Percent Auto 2.2 % (0-4.4); Hematocrit 32.4 % (37.0-47.0); Hemoglobin 10.7 g/dL (12.0-15.0); Immature Granulocyte Absolute 0.04 K/mm3 (0.00-0.031); Immature Granulocyte Percent A 0.4 % (0-0.5); Lymphocytes Absolute Auto 1.25 K/mm3 (0.9-3.2); Lymphocytes Percent Auto 13.8 % (18.3-44.2); Mean Corpuscular Hemoglobin 32.2 pg (26-34); Mean Corpuscular Volume 97.6 fl (80-100); Mean Platelet Volume 8.8 fl (7.4-10.4); Monocytes Absolute Auto 0.8 K/mm3 (0.1-0.6); Monocytes Percent Auto 9.2 % (2.6-8.5); Neutrophils Absolute Auto 6.7 K/mm3 (1.3-6.7); Neutrophils Percent Auto 74.2 % (45.5-73.1); Platelet Count Result 201 k/mm3 (150-375); Red Blood Count 3.32 M/mm3 (4.2-5.4); Red Cell Distribution Width 12.6 % (11.5-14.5); White Blood Count 9.1 K/mm3 (4.5-10.0)
[2023-01-09 07:38] LABS: Alanine Aminotransferase 18 U/L (6-35); Albumin Level 3.6 g/dL (3.5-5.1); Alkaline Phosphatase 84 U/L (38-126); Anion Gap 2 mmol/L (8-16); Aspartate Amino Transferase 27 U/L (14-36); Bilirubin,Total 1.4 mg/dL (0.2-1.3); Blood Urea Nitrogen 11 mg/dL (7-17); Carbon Dioxide 30 mmol/L (22-30); Chloride 93 mmol/L (98-107); Estimated CRCL calculation 36 ml/min; Estimated Glomerular Filt Rate > 60; Glucose 112 mg/dL (65-110); Potassium 3.4 mmol/L (3.4-5.0); Sodium 125 mmol/L (137-145)
[2023-01-09] MEDS: FUROSEMIDE 20 MG TABLET PO (08:06)
[2023-01-09] MEDS: SENNA/DOCUSATE SODIUM TABLET 1 TAB PO (08:06)
[2023-01-09] MEDS: VITAMIN B COMPLEX/VIT C CAPSULE 1 EACH PO (08:07)
[2023-01-09] MEDS: FLUTICASONE PROPIONATE 0.05% NA SPR 16 GM BTL (*BKC) 1 SPRAY NASAL ×2 (08:07→21:06)
[2023-01-09] MEDS: TIZANIDINE HCL 2 MG TABLET PO (08:07)
[2023-01-09] MEDS: HYDROmorphone HCL INJ (*CRX) 1 MG/ML SYR 0.5 MG IV PUSH (08:11)
[2023-01-09 09:31] LABS: Urea Random Urine 699 MG/DL
--- NOTE | 2023-01-09 11:45 | PC.NURSE ---
Pt transferred off floor to OR at 1145AM . Report given.
[2023-01-09] MEDS: LACTATED RINGERS 1,000 ML 30 ML IV CONT ×2 (12:20→17:41)
[2023-01-09] MEDS: TRANEXAMIC ACID 1,000MG/ISO100 1,000 MG/100 ML BAG 200 MG IVPB (12:45)
[2023-01-09] MEDS: ceFAZolin 2 GM/D5W 50 ML 2 GM/50 ML BAG IVPB (13:45)
--- NOTE | 2023-01-09 14:09 | PM.IMPN ---
Progress Note: A&P Assessment and Plan (1) Closed fracture of right distal radius: Code(s): S52.501A - Unspecified fracture of the lower end of right radius, initial encounter for closed fracture Status: Acute Assessment and Plan: The patient presented to the ED for evaluation of right wrist and hip pain following a mechanical ground level fall as detailed in HPI. X-ray revealed fractures of the right distal radius and femoral neck. Analgesics as needed Plavix has been placed on hold in anticipation of surgery which she has been taking for a couple of years for suspected TIA. Patient started on normal saline due to low sodium. This was discontinued when sodium continued to drop. Orthopedics consulted Patient plan for right hip surgery on 01/09/2023 (2) Closed displaced fracture of right femoral neck: Code(s): S72.001A - Fracture of unspecified part of neck of right femur, initial encounter for closed fracture Status: Acute Assessment and Plan: X-ray positive for comminuted, intra-articular, anteriorly displaced and mildly impacted fracture of the distal right radius. orthopedics following right arm splinted (3) Vasovagal response: Code(s): R55 - Syncope and collapse Status: Acute Assessment and Plan: She had a vagal response when EMS was transferring her to the cot, likely due to pain. She has not had a recurrence of these symptoms. She does not give any history to suggest that she would be at an increased risk for adverse cardiac events with surgery however I think it would be prudent to monitor her on telemetry overnight given these events. Echocardiogram ordered. (4) Fall from ground level: Code(s): W18.30XA - Fall on same level, unspecified, initial encounter Status: Acute Assessment and Plan: see above (5) Hyponatremia: Code(s): E87.1 - Hypo-osmolality and hyponatremia Status: Acute Assessment and Plan: Patient originally started on normal saline due to a sodium of 130. Repeat labs revealed sodium of 128 on normal saline. Normal saline discontinued. Will order urine sodium and creatinine inaccurate due to patient being furosemide. Will discontinue furosemide and reorder labs tomorrow. Patient stated today that she has a chronic history of hyponatremia and and has dealt with it for many years. (6) History of TIA (transient ischemic attack): Code(s): Z86.73 - Personal history of transient ischemic attack (TIA), and cerebral infarction without residual deficits Status: Acute Assessment and Plan: Patient on Plavix because of this. Plan Her home medications will be reviewed and resumed as appropriate. Time Spent With Patient Time with patient: 25 - 35 minutes Subjective Date/time seen: 01/09/23 14:09 Interval history: Patient resting in bed with [id number] and family friend at bedside. patient's stay that it was okay to discuss medical care in front of visitors. Patient undergoing right hip and arm surgery today. Patient is still having right hip/ groin pain. Right arm is not bothering her much. Patient denies shortness of breath, calf swelling, calf tenderness, and chest pain Review of Systems Review of Systems: All systems reviewed & are unremarkable except as noted in HPI and below Exam Narrative: GENERAL: uncomfortable, no acute distress HENMT: moist mucous membranes EYES: EOM intact b/l NECK: no lymphadenopathy RESPIRATORY: clear to auscultation CARDIO: RRR GI: soft, nontender, bowel sounds present SKIN: no rashes EXTREMITIES: tenderness over right hip; no swelling, bruising or redness present over the right hip. Right arm bandaged and patient moving it freely. Cap refill +2. Objective Data Vital Signs Vital Signs: Vital Signs - 24 hr 01/08/23 16:00 01/08/23 20:00 01/08/23 21:46 Temperature 99.0 F Pulse Ra
[2023-01-09] MEDS: TRANEXAMIC ACID 1,000 MG/10 ML AMPUL 1000 MG IV PUSH (15:23)
[2023-01-09] MEDS: BUPivacaine HCL 0.5% 10 ML AMP INFILTRATE (17:19)
--- NOTE | 2023-01-09 17:47 | W.PM.PROC2 ---
Procedure Note - Detailed Date of Procedure 01/09/23 Pre-op Diagnosis Right hip fracture, right distal radius fracture Post-op Diagnosis Same Procedure Performed RIGHT HIP HEMIARTHROPLASTY WITH BIPOLAR PROSTHESIS, RIGHT DISTAL RADIUS ORIF Surgeon Arsen Dockery MD Anesthesia General Description of Procedure THE PATIENT WAS TAKEN TO THE OPERATING ROOM IN STABLE CONDITION. SHE WAS PLACED IN THE LATERAL DECUBITUS AND THE RIGHT LOWER EXTREMITY WAS PREPPED AND DRAPED IN THE STERILE FASHION. INCISION WAS MADE IN THE POSTERIOR LATERAL SIDE OF THE HIP, DOWN TO THE FASCIA LAYER. THE FASCIA WAS INCISED. THE HIP WAS EXPOSED. THE SHORT EXTERNAL ROTATORS WERE EXPOSED AND THERE WAS A LARGE HEMATOMA. THE CAPSULE WAS INCISED EXPOSING THE FRACTURE. THE FRACTURE EXTENDED JUST PROXIMAL TO THE CALCAR. THE FEMORAL HEAD WAS REMOVED. IT MEASURED 45 MM. AN OSTEOTOMY WAS MADE TO THE FEMORAL NECK ABOUT 1 CM PROXIMAL TO THE LESSER TROCHANTER. NEXT THE FEMUR WAS PREPARED WITH INITIAL CANAL FINDER THEN SEQUENTIAL REAMING UNTIL A #11 REAMER AND BROACHING TILL A #11 BROACH FIT WELL IN 15 OF ANTE VERSION. EVENTUALLY A +9 STANDARD OFFSET NECK BIPOLAR TRIAL IN A 45 MM SHELL WAS PLACED. THE SHUCK TEST WAS EXCELLENT AND THE STABILITY IN FLEXION AND ROTATION WAS EXCELLENT. LEG LENGTHS WERE GROSSLY EQUAL. TRIALS WERE REMOVED. AN ECHO FRACTURE STEM #11 PRESS FIT STEM WAS PLACED WITH A STANDARD OFFSET IN 15 DEG OF ANTEVERSION. A +9 BIPOLAR HEAD NECK TRIAL WAS PLACED AGAIN. THE HIP WAS TRIALED AND THE STABILITY WAS EXCELLENT WERE THE LEG LENGTHS AND THE SHUCK TEST. NEXT A BIPOLAR HEAD NECK +9 IMPLANT WITH A 45 MM COBALT CHROME SHELL WAS PLACED AND TRIALED ONCE AGAIN SHOWING EXCELLENT STABILITY AND GROSSLY EQUAL LEG LENGTHS. THE WOUND WAS IRRIGATED WITH STERILE BETADINE AND WATER FOR 3 MIN. THEN WASHED AGAIN. THE CAPSULE AND THE EXTERNAL ROTATORS WERE APPROXIMATED WITH NUMBER 1 VICRYL. THE FASCIA WITH No 2 QUIL AND THE SUB CUTANEOUS LAYER WITH 2-0 ABSORBABLE SUTURE WITH A RUNNING 3-0 SUBCUTICULAR LAYER WITH STRATAFIX WELL. DERMABOND WAS PLACED AND STERILE DRESSING WAS APPLIED. PATIENT WAS PLACED BACK ON TO THE SUPINE POSITION. NEXT, THE RIGHT UPPER EXTREMITY WAS PREPPED AND DRAPED. THE SURGICAL TEAM WAS RE GOWNED AND GLOVED. THE TOURNIQUET WAS INFLATED. A STANDARD HENRYS APPROACH TO THE FOREARM AND DISTAL RADIUS WAS USED. DISSECTION CONTINUED UNTIL THE FCR WAS IDENTIFIED AND RETRACTED. THE FLEXOR DIGITORUM AND FLEXOR POLLICIS WAS IDENTIFIED AND RETRACTED. THE PRONATOR QUADRATUS MUSCLE WAS IDENTIFIED THEN INCISED EXPOSING THE FRACTURE SITE. THE FRACTURE WAS HIGHLY COMMINUTED. THE FRACTURE WAS REDUCED AND HELD WITH GUIDE WIRES. A [employer] BIOMET VOLAR LOCKING PLATE WAS PLACED AND SECURED WITH MULTIPLE SCREWS. THE XRAYS SHOWED FRACTURE AND HARDWARE IN GOOD POSITION. THE WOUND WAS WASHED. THE TOURNIQUET WAS DEFLATED, THE BLEEDERS WERE CAUTERIZED. THE FASCIAL LAYER AND SUBCUTANEOUS LAYER WAS APPROXIMATED WITH 3-0 VICRYL. THE SKIN WAS REPAIRED WITH BUDDY. A STERILE DRESSING WAS PLACED AND PLASTER SPLINT WAS APPLIED. THE PATIENT WAS EXTUBATED. Estimated Blood Loss -200.0 Urine Output -650.0 Drains No Pathology None sent Complications No immediate complications Condition Stable Disposition PACU
[2023-01-09 19:45] LABS: Sodium 129 mmol/L (137-145)
[2023-01-09] MEDS: HYDROcodone/acetaminophen (*CRX) 5-325 MG TABLET 1 TAB PO (22:40)
[2023-01-09] MEDS: DEXTROSE 5%/0.45% SOD CHL 1,000 ML 80 ML IV CONT (22:40)
[2023-01-10] VITALS (13 sets, daily range): BP systolic 103–116; BP diastolic 53–66; PULSE 72–87; RESP 16–18; TEMP 36.2–37.7; O2SAT 92–100
[2023-01-10 01:31] LABS: Sodium 124 mmol/L (137-145)
[2023-01-10] MEDS: HYDROcodone/acetaminophen (*CRX) 5-325 MG TABLET 1 TAB PO ×2 (05:41→17:05)
[2023-01-10 07:51] LABS: Basophils Percent Auto 0.3 % (0.2-1.2); Eosinophils Percent Auto 0.2 % (0-4.4); Hematocrit 25.6 % (37.0-47.0); Hemoglobin 8.5 g/dL (12.0-15.0); Immature Granulocyte Absolute 0.07 K/mm3 (0.00-0.031); Immature Granulocyte Percent A 0.7 % (0-0.5); Lymphocytes Absolute Auto 1.16 K/mm3 (0.9-3.2); Lymphocytes Percent Auto 11.1 % (18.3-44.2); Mean Corpuscular HGB Conc 33.2 g/dl (32-36); Mean Corpuscular Hemoglobin 32.6 pg (26-34); Mean Corpuscular Volume 98.1 fl (80-100); Mean Platelet Volume 9.2 fl (7.4-10.4); Monocytes Absolute Auto 1.1 K/mm3 (0.1-0.6); Neutrophils Absolute Auto 8.2 K/mm3 (1.3-6.7); Neutrophils Percent Auto 77.7 % (45.5-73.1); Platelet Count Result 197 k/mm3 (150-375); Red Blood Count 2.61 M/mm3 (4.2-5.4); Red Cell Distribution Width 12.4 % (11.5-14.5); White Blood Count 10.5 K/mm3 (4.5-10.0)
[2023-01-10 07:57] LABS: Alanine Aminotransferase 19 U/L (6-35); Albumin Level 2.9 g/dL (3.5-5.1); Alkaline Phosphatase 70 U/L (38-126); Anion Gap 4 mmol/L (8-16); Aspartate Amino Transferase 39 U/L (14-36); Bilirubin,Total 0.9 mg/dL (0.2-1.3); Blood Urea Nitrogen 15 mg/dL (7-17); Calcium 7.5 mg/dL (8.4-10.2); Carbon Dioxide 28 mmol/L (22-30); Chloride 94 mmol/L (98-107); Estimated CRCL calculation 36 ml/min; Estimated Glomerular Filt Rate > 60; Glucose 134 mg/dL (65-110); Potassium 3.8 mmol/L (3.4-5.0); Sodium 126 mmol/L (137-145)
--- NOTE | 2023-01-10 08:05 | P.PNAN_ITS ---
Anes - Prog Note Post-Op Date/Time: 01/10/23 08:05 Cardiovascular status: normal Respiratory status: other (On NC O2) Airway patency: baseline Mental status: baseline Post-Op hydration status: normal Vital Signs: Last Vital Signs Temp 36.3 C L 01/10/23 04:12 Pulse 79 01/10/23 04:12 Resp 16 01/10/23 04:12 BP 116/66 01/10/23 04:12 Pulse Ox 97 01/10/23 04:12 O2 Del Method Nasal Cannula 01/09/23 20:00 O2 Flow Rate 2 01/09/23 20:00 Pain Score (VAS): 2 I/O: Intake & Output 01/09/23 01/10/23 01/10/23 23:59 07:59 15:59 Intake Total 550 Output Total 90 350 Balance 460 -350 Laboratory Tests 01/10/23 07:00 01/10/23 07:00 01/09/23 01/09/23 01/10/23 09:12 19:22 01:20 WBC RBC Hgb Hct MCV MCH MCHC RDW Plt Count MPV Immature Gran % (Auto) Neut % (Auto) Lymph % (Auto) [place] % (Auto) Eos % (Auto) Baso % (Auto) Lymph # (Auto) [place] # (Auto) Eos # (Auto) Baso # (Auto) Abs Immat Gran (auto) Absolute Neuts (auto) Absolute Nucleated RBC Nucleated RBC % Sodium 129 L 124 L Potassium Chloride Carbon Dioxide Anion Gap BUN Creatinine Estim Creat Clear Calc Estimated GFR Glucose Calcium Total Bilirubin AST ALT Alkaline Phosphatase Total Protein Albumin Ur Random Urea 699 01/10/23 01/10/23 07:00 07:00 WBC 10.5 H RBC 2.61 L Hgb 8.5 L Hct 25.6 L MCV 98.1 MCH 32.6 MCHC 33.2 RDW 12.4 Plt Count 197 MPV 9.2 Immature Gran % (Auto) 0.7 H Neut % (Auto) 77.7 H Lymph % (Auto) 11.1 L [place] % (Auto) 10.0 H Eos % (Auto) 0.2 Baso % (Auto) 0.3 Lymph # (Auto) 1.16 [place] # (Auto) 1.1 H Eos # (Auto) 0.0 Baso # (Auto) 0.0 Abs Immat Gran (auto) 0.07 H Absolute Neuts (auto) 8.2 H Absolute Nucleated RBC 0.0 Nucleated RBC % 0.0 Sodium 126 L Potassium 3.8 Chloride 94 L Carbon Dioxide 28 Anion Gap 4 L BUN 15 Creatinine 0.80 Estim Creat Clear Calc 36 Estimated GFR > 60 Glucose 134 H Calcium 7.5 L Total Bilirubin 0.9 AST 39 H ALT 19 Alkaline Phosphatase 70 Total Protein 6.0 L Albumin 2.9 L Ur Random Urea Post-procedural complaints: none Patient Feedback: Patient satisfied with anesthetic care.
[2023-01-10] MEDS: FUROSEMIDE 20 MG TABLET PO (08:27)
[2023-01-10] MEDS: ENOXAPARIN 40 MG/0.4 ML SYRINGE SUB-Q (08:27)
[2023-01-10] MEDS: VITAMIN B COMPLEX/VIT C CAPSULE 1 EACH PO (08:27)
[2023-01-10] MEDS: SENNA/DOCUSATE SODIUM TABLET 2 TAB PO ×2 (08:27→16:58)
[2023-01-10] MEDS: FLUTICASONE PROPIONATE 0.05% NA SPR 16 GM BTL (*BKC) 1 SPRAY NASAL ×2 (08:27→20:05)
[2023-01-10] MEDS: CLOPIDOGREL BISULFATE 75 MG TABLET PO (08:27)
[2023-01-10] MEDS: polyethylene glycoL 3350 17 GM POWD.PACK PO (08:29)
[2023-01-10] MEDS: DEXTROSE 5%/0.45% SOD CHL 1,000 ML 80 ML IV CONT (10:41)
--- NOTE | 2023-01-10 14:29 | PM.IMPN ---
Progress Note: A&P Assessment and Plan (1) Closed fracture of right distal radius: Code(s): S52.501A - Unspecified fracture of the lower end of right radius, initial encounter for closed fracture Status: Acute Assessment and Plan: The patient presented to the ED for evaluation of right wrist and hip pain following a mechanical ground level fall as detailed in HPI. X-ray revealed fractures of the right distal radius and femoral neck. Analgesics as needed Plavix has been placed on hold in anticipation of surgery which she has been taking for a couple of years for suspected TIA. Patient started on normal saline due to low sodium. This was discontinued when sodium continued to drop. Orthopedics consulted Patient plan for right hip surgery on 01/09/2023 01/10/23 Patient postop day 1 patient working with PT and OT at discharge patient will go to [facility]. (2) Closed displaced fracture of right femoral neck: Code(s): S72.001A - Fracture of unspecified part of neck of right femur, initial encounter for closed fracture Status: Acute Assessment and Plan: X-ray positive for comminuted, intra-articular, anteriorly displaced and mildly impacted fracture of the distal right radius. orthopedics following right arm splinted 01/10/23 Patient postop day 1 swelling in the right fingers minimal pain (3) Vasovagal response: Code(s): R55 - Syncope and collapse Status: Acute Assessment and Plan: She had a vagal response when EMS was transferring her to the cot, likely due to pain. She has not had a recurrence of these symptoms. She does not give any history to suggest that she would be at an increased risk for adverse cardiac events with surgery however I think it would be prudent to monitor her on telemetry overnight given these events. Echocardiogram revealed EF at 60 65%, grade 1 diastolic dysfunction, mild pulmonary hypertension, valve disease (4) Fall from ground level: Code(s): W18.30XA - Fall on same level, unspecified, initial encounter Status: Acute Assessment and Plan: see above (5) Hyponatremia: Code(s): E87.1 - Hypo-osmolality and hyponatremia Status: Acute Assessment and Plan: Patient originally started on normal saline due to a sodium of 130. Normal ceiling discontinued after sodium continued to drop. Will discontinue furosemide and reorder labs tomorrow. Patient stated today that she has a chronic history of hyponatremia and and has dealt with it for many years. (6) History of TIA (transient ischemic attack): Code(s): Z86.73 - Personal history of transient ischemic attack (TIA), and cerebral infarction without residual deficits Status: Acute Assessment and Plan: Patient on Plavix because of this. Plan Her home medications will be reviewed and resumed as appropriate. Time Spent With Patient Time with patient: 25 - 35 minutes Subjective Date/time seen: 01/10/23 14:29 Interval history: Patient sitting up in chair talking to her sister at the bedside. Patient is in good spirits and states that she is in a lot of pain still. She has a working with therapy. Patient postop day 1. Patient has no new complaints at this time other than persistent hip pain. Review of Systems Review of Systems: All systems reviewed & are unremarkable except as noted in HPI and below Exam Narrative: GENERAL: uncomfortable, no acute distress HENMT: moist mucous membranes EYES: EOM intact b/l NECK: no lymphadenopathy RESPIRATORY: clear to auscultation CARDIO: RRR GI: soft, nontender, bowel sounds present SKIN: no rashes EXTREMITIES: tenderness over right hip; minimal swelling and bruising at surgical site, Tegaderm intact and dry.. Right arm bandaged and patient moving it freely. Cap refill +2. Right fingers swollen postoperatively. Objective Data
--- NOTE | 2023-01-10 20:00 | PM.PNORT ---
Progress Note: A&P Assessment and Plan (1) Closed displaced fracture of right femoral neck: Code(s): S72.001A - Fracture of unspecified part of neck of right femur, initial encounter for closed fracture Status: Acute Assessment and Plan: POD 1 DOING WELL. CONTINUE PT. SNF ONCE STABLE PER MEDICINE (2) Closed fracture of right distal radius: Code(s): S52.501A - Unspecified fracture of the lower end of right radius, initial encounter for closed fracture Status: Acute Subjective Subjective Date/Time Seen: 01/10/23 20:00 POD 1 DOING WELL. WAS IN CHAIR ALL DAY. NO CALF PAIN Exam Extrem: Other: VSS AFEBRILE DRESSING DRY NV INTACT NEG HOMANS SIGN, FINGERS PINK AND WARM CAP REFILL BRISK , NV INTACT RIGHT HAND Objective Data Vital Signs Vital Signs: Vital Signs - 24 hr 01/09/23 20:45 01/10/23 00:00 01/10/23 04:11 Temperature 36.6 C 36.3 C L Pulse Rate 74 78 79 Respiratory Rate 16 16 Blood Pressure 127/70 116/66 Pulse Oximetry 98 97 Oxygen Delivery Oxygen Flow Rate 01/10/23 04:12 01/10/23 04:00 01/10/23 08:31 Temperature 36.3 C L 36.9 C Pulse Rate 79 82 73 Respiratory Rate 16 18 Blood Pressure 116/66 103/58 L Pulse Oximetry 97 98 Oxygen Delivery Oxygen Flow Rate 01/10/23 10:11 01/10/23 09:45 01/10/23 08:00 Temperature Pulse Rate 72 Respiratory Rate Blood Pressure Pulse Oximetry Oxygen Delivery Nasal Cannula Nasal Cannula Oxygen Flow Rate 2 1 01/10/23 08:00 01/10/23 12:00 01/10/23 12:31 Temperature 36.9 C Pulse Rate 77 73 Respiratory Rate 18 Blood Pressure 103/58 L Pulse Oximetry 98 98 Oxygen Delivery Nasal Cannula Oxygen Flow Rate 2 01/10/23 16:00 01/10/23 16:31 Temperature 37.7 C H Pulse Rate 80 87 Respiratory Rate 18 Blood Pressure 112/57 L Pulse Oximetry 100 Oxygen Delivery Oxygen Flow Rate Intake/Output Intake/Output: Intake & Output 01/07/23 01/08/23 01/09/23 01/10/23 23:59 23:59 23:59 23:59 Intake Total 2880 220 1200 1300 Output Total 1600 2600 690 675 Balance 1280 -2380 510 625 Meds/Results Medications: Active Medications Generic Name Dose Route Start Last Admin Trade Name Freq PRN Reason Stop Dose Admin Acetaminophen 650 mg 01/06/23 21:43 Acetaminophen 325 Mg Tablet PO Q6H PRN Mild Pain (1-3) or Fever Acetaminophen 650 mg 01/09/23 18:46 Acetaminophen 325 Mg Tablet PO Q6H PRN Mild Pain (1-3) or Fever Hydrocodone Bitart/Acetaminophen 1 tab 01/09/23 18:46 01/10/23 17:05 Hydrocodone/Acetaminophen (*Crx) 5-325 Mg Tablet PO 1 tab Q3H PRN Administration Pain Rated 4-6 Calcium Carbonate 400 mg 01/07/23 00:05 Calcium Carbonate (Tums) 500 Mg (200 Mg Elemental) PO Q4H PRN Heartburn Clopidogrel Bisulfate 75 mg 01/10/23 09:00 01/10/23 08:27 Clopidogrel Bisulfate 75 Mg Tablet PO 75 mg DAILY CAPRICE Administration Docusate Sodium 100 mg 01/07/23 00:02 Docusate Sodium 100 Mg Capsule PO QID PRN Constipation Enoxaparin Sodium 40 mg 01/09/23 09:00 01/10/23 08:27 Enoxaparin 40 Mg/0.4 Ml Syringe SUB-Q 40 mg DAILY CAPRICE Administration Fluticasone Propionate 1 spray 01/07/23 09:00 01/10/23 08:27 Fluticasone Propionate 0.05% Na Spr 16 Gm Btl (*Bkc) NASAL 1 spray Q12HR CAPRICE Administration Hydromorphone HCl 0.5 mg 01/07/23 09:34 01/09/23 08:11 Hydromorphone Hcl Inj (*Crx) 1 Mg/Ml Syr IV PUSH 0.5 mg Q4H PRN Administration Pain Rated 7-10 Dextrose/Sodium Chloride 1,000 mls @ 80 mls/hr 01/09/23 18:46 01/10/23 10:41 Dextrose 5% Sodium Chloride 0.45% IV CONT 80 mls/hr .[id number] CAPRICE Administration Morphine Sulfate 2 mg 01/09/23 18:46 Morphine Sulfate (*Crx) 2 Mg/Ml Inj IV PUSH Q3H PRN Pain Rated 7-10 Naloxone HCl 0.1 mg 01/09/23 18:46 Naloxone Hcl 0.4 Mg/Ml Vial IV PUSH Q2M PRN Opiate Reversal Ondansetron HCl 4 mg 01/09/23 1
[2023-01-10 20:58] LABS: Glucose Point of Care 122 mg/dl (65-105)
[2023-01-11] VITALS (9 sets, daily range): BP systolic 115–119; BP diastolic 59–66; PULSE 73–85; RESP 16; TEMP 36.8–37; O2SAT 92–95
[2023-01-11] MEDS: HYDROcodone/acetaminophen (*CRX) 5-325 MG TABLET 1 TAB PO ×2 (08:27→17:39)
[2023-01-11] MEDS: SENNA/DOCUSATE SODIUM TABLET 2 TAB PO ×2 (08:28→17:30)
[2023-01-11] MEDS: ENOXAPARIN 40 MG/0.4 ML SYRINGE SUB-Q (08:28)
[2023-01-11] MEDS: CLOPIDOGREL BISULFATE 75 MG TABLET PO (08:29)
[2023-01-11] MEDS: polyethylene glycoL 3350 17 GM POWD.PACK PO (08:29)
[2023-01-11] MEDS: FLUTICASONE PROPIONATE 0.05% NA SPR 16 GM BTL (*BKC) 1 SPRAY NASAL ×2 (08:29→20:36)
[2023-01-11] MEDS: VITAMIN B COMPLEX/VIT C CAPSULE 1 EACH PO (08:30)
--- NOTE | 2023-01-11 10:02 | PM.PNORT ---
Progress Note: A&P Assessment and Plan (1) Closed displaced fracture of right femoral neck: Code(s): S72.001A - Fracture of unspecified part of neck of right femur, initial encounter for closed fracture Status: Acute Assessment and Plan: POD #2: Right Hip Bipolar Continue PT/OT. WBAT. Walker. HIGH FALL RISK. Continue pain control. Add on IV Tylenol 1x dose. Ice hip. Protect skin. DVT prophylaxis with resumed home medications. SCDs. Incentive Spirometry Use reviewed. Monitor Dressing. Change daily. Bowel Regimen. Dispo: SNF vs [facility] pending progress with PT/OT, pain control and medical stability. (2) Closed fracture of right distal radius: Code(s): S52.501A - Unspecified fracture of the lower end of right radius, initial encounter for closed fracture Status: Acute Assessment and Plan: POD #2: ORIF Right Wrist Ice/Elevate. Per Dr. Dockery, okay to weight bear as tolerated to improve lower extremity mobility. Forearm walker would be helpful for pain control. Pain medication as needed. Add on NOW dose IV tylenol. Goal to transition off of IV narcotics. Monitor skin. NV checks. Dispo: SNF vs. [facility] Follow up with Dr. Dockery in 2 weeks for splint change. Appt scheduled. Subjective Subjective Date/Time Seen: 01/11/23 10:02 Post Op day: 2 Interval history: POD #2: RIGHT HIP HEMIARTHROPLASTY WITH BIPOLAR PROSTHESIS RIGHT DISTAL RADIUS ORIF Patient reports uncontrolled pain this AM. Difficulty working with PT due to pain. Right wrist with minimal pain. Right groin pain is most significant. No other concerns. Review of Systems Review of Systems: All systems reviewed & are unremarkable except as noted in HPI and below Exam Const: General: comfortable and no acute distress Resp: Effort & Inspection: normal respiratory effort Cardio: Rate: regular rate Rhythm: regular rhythm GI: Inspection: non-distended : Other: Kowalski catheter in place. Urinary Catheter: Urinary Catheter: patent and draining and urine clear Skin: General skin exam: normal color Other: Incision right hip c/d/i. Surrounding tissue without redness/warmth. Mild swelling consistent with recent surgery. No drainage. Neuro: Cognition (Neuro): normal cognition Speech: normal speech Extrem: Right upper extremity: elbow/forearm (splint in place forearm to wrist ), wrist (diffuse tenderness ) and Extremity exam: right hand (moderate swelling, sensation intact, moves fingers, good capillary refill ) Right lower extremity: normal to inspection, normal capillary refill, hip/thigh Details: tenderness Location: of the hip (Thigh soft ) Location: laterally and anteriorly, swelling Location: at the hip, abnormal ROM (limited consistent with recent surgery ) Details: pain with active ROM during and pain with passive ROM during and other (Incision c/d/i. ); no deformity and no unusual warmth, knee Details: normal to inspection; no tenderness and no swelling, lower leg (Negative Vahe's Sign ) Details: normal to inspection and no edema; no tenderness, ankle (+ankle dorsiflexion/plantarflexion) Details: normal to inspection and no edema; no tenderness, no swelling and no ecchymosis and foot Details: normal capillary refill, toes with normal ROM, vascular exam Details: dorsalis pedis pulse present and motor-sensory exam Details: light-touch normal; no tenderness Objective Data Vital Signs Vital Signs: Vital Signs - 24 hr 01/10/23 10:11 01/10/23 12:00 01/10/23 12:31 Temperature 36.9 C Pulse Rate 77 73 Respiratory Rate 18 Blood Pressure 103/58 L Pulse Oximetry 98 Oxygen Delivery Nasal Cannula Oxygen Flow Rate 2 01/10/23 16:00 01/10/23 16:31 01/10/23 20:04 Temperature 37.7 C H 37.1 C Pulse Rate 80 87 Respiratory Rate 18 Blood Pressure 112/57 L Pulse Oximetry 100 92 Oxygen Delivery Oxygen Flow Rate 01/10/23 21:01 01/10/23 20:00 01/10/23 20:00 Temperature 36.2 C L Pul
[2023-01-11] MEDS: MORPHINE SULFATE (*CRX) 2 MG/ML INJ IV PUSH (11:15)
[2023-01-11 12:22] LABS: Hematocrit 24.5 % (37.0-47.0); Hemoglobin 8.3 g/dL (12.0-15.0); Mean Corpuscular HGB Conc 33.9 g/dl (32-36); Mean Corpuscular Hemoglobin 32.4 pg (26-34); Mean Corpuscular Volume 95.7 fl (80-100); Platelet Count Result 214 k/mm3 (150-375); Red Blood Count 2.56 M/mm3 (4.2-5.4); Red Cell Distribution Width 12.6 % (11.5-14.5); White Blood Count 9.3 K/mm3 (4.5-10.0)
[2023-01-11 12:35] LABS: Anion Gap 2 mmol/L (8-16); Blood Urea Nitrogen 14 mg/dL (7-17); Calcium 7.4 mg/dL (8.4-10.2); Carbon Dioxide 29 mmol/L (22-30); Chloride 93 mmol/L (98-107); Estimated CRCL calculation 41 ml/min; Estimated Glomerular Filt Rate > 60; Glucose 104 mg/dL (65-110); Potassium 3.4 mmol/L (3.4-5.0); Sodium 124 mmol/L (137-145)
--- NOTE | 2023-01-11 15:19 | PM.IMPN ---
Progress Note: A&P Assessment and Plan (1) Closed fracture of right distal radius: Code(s): S52.501A - Unspecified fracture of the lower end of right radius, initial encounter for closed fracture Status: Acute Assessment and Plan: The patient presented to the ED for evaluation of right wrist and hip pain following a mechanical ground level fall as detailed in HPI. X-ray revealed fractures of the right distal radius and femoral neck. Analgesics as needed Plavix has been placed on hold in anticipation of surgery which she has been taking for a couple of years for suspected TIA. Patient started on normal saline due to low sodium. This was discontinued when sodium continued to drop. Orthopedics consulted Patient plan for right hip surgery on 01/09/2023 01/10/23 Patient postop day 1 patient working with PT and OT at discharge patient will go to [facility]. 01/11/23 POD2 continue with PT/OT awaiting placement (2) Closed displaced fracture of right femoral neck: Code(s): S72.001A - Fracture of unspecified part of neck of right femur, initial encounter for closed fracture Status: Acute Assessment and Plan: X-ray positive for comminuted, intra-articular, anteriorly displaced and mildly impacted fracture of the distal right radius. orthopedics following right arm splinted 01/10/23 Patient postop day 1 swelling in the right fingers minimal pain (3) Vasovagal response: Code(s): R55 - Syncope and collapse Status: Acute Assessment and Plan: She had a vagal response when EMS was transferring her to the cot, likely due to pain. She has not had a recurrence of these symptoms. She does not give any history to suggest that she would be at an increased risk for adverse cardiac events with surgery however I think it would be prudent to monitor her on telemetry overnight given these events. Echocardiogram revealed EF at 60 65%, grade 1 diastolic dysfunction, mild pulmonary hypertension, valve disease (4) Fall from ground level: Code(s): W18.30XA - Fall on same level, unspecified, initial encounter Status: Acute Assessment and Plan: see above (5) Hyponatremia: Code(s): E87.1 - Hypo-osmolality and hyponatremia Status: Acute Assessment and Plan: Patient originally started on normal saline due to a sodium of 130. Normal ceiling discontinued after sodium continued to drop. Will discontinue furosemide and reorder labs tomorrow. Patient stated today that she has a chronic history of hyponatremia and and has dealt with it for many years. (6) History of TIA (transient ischemic attack): Code(s): Z86.73 - Personal history of transient ischemic attack (TIA), and cerebral infarction without residual deficits Status: Acute Assessment and Plan: Patient on Plavix because of this. Plan Her home medications will be reviewed and resumed as appropriate. Subjective Date/time seen: 01/11/23 15:19 Interval history: patient in bed today while being interviewed. Patient stated that she was unable to work with PT this morning due to the pain. Other than right hip pain patient has no other complaints. Review of Systems Review of Systems: All systems reviewed & are unremarkable except as noted in HPI and below Exam Narrative: GENERAL: uncomfortable, no acute distress HENMT: moist mucous membranes EYES: EOM intact b/l NECK: no lymphadenopathy RESPIRATORY: clear to auscultation CARDIO: RRR GI: soft, nontender, bowel sounds present SKIN: no rashes EXTREMITIES: tenderness over right hip; minimal swelling and bruising at surgical site, Tegaderm intact and dry.. Right arm bandaged and patient moving it freely. Cap refill +2. Right fingers swollen postoperatively. Objective Data Vital Signs Vital Signs: Vital Signs - 24 hr 01/10/23 16:00 01/10/23 16:31 01/10
[2023-01-11 16:27] LABS: Anion Gap 4 mmol/L (8-16); Blood Urea Nitrogen 15 mg/dL (7-17); Calcium 7.9 mg/dL (8.4-10.2); Carbon Dioxide 31 mmol/L (22-30); Chloride 90 mmol/L (98-107); Estimated CRCL calculation 33 ml/min; Estimated Glomerular Filt Rate 59; Glucose 141 mg/dL (65-110); Potassium 3.2 mmol/L (3.4-5.0); Sodium 125 mmol/L (137-145)
[2023-01-12] VITALS (8 sets, daily range): BP systolic 107–118; BP diastolic 56–57; PULSE 60–87; RESP 12; TEMP 36.6–37.3; O2SAT 91–100
[2023-01-12] MEDS: HYDROcodone/acetaminophen (*CRX) 5-325 MG TABLET 1 TAB PO ×3 (04:01→11:54)
[2023-01-12 07:54] LABS: Sodium Urine Random 17 meq/L
[2023-01-12 08:14] LABS: Hematocrit 24.5 % (37.0-47.0); Mean Corpuscular HGB Conc 32.7 g/dl (32-36); Mean Corpuscular Hemoglobin 32.4 pg (26-34); Mean Corpuscular Volume 99.2 fl (80-100); Mean Platelet Volume 9.1 fl (7.4-10.4); Platelet Count Result 248 k/mm3 (150-375); Red Blood Count 2.47 M/mm3 (4.2-5.4); Red Cell Distribution Width 12.8 % (11.5-14.5); White Blood Count 8.3 K/mm3 (4.5-10.0)
[2023-01-12] MEDS: ENOXAPARIN 40 MG/0.4 ML SYRINGE SUB-Q (08:20)
[2023-01-12] MEDS: SENNA/DOCUSATE SODIUM TABLET 2 TAB PO ×2 (08:20→16:46)
[2023-01-12] MEDS: CLOPIDOGREL BISULFATE 75 MG TABLET PO (08:20)
[2023-01-12] MEDS: VITAMIN B COMPLEX/VIT C CAPSULE 1 EACH PO (08:20)
[2023-01-12] MEDS: FLUTICASONE PROPIONATE 0.05% NA SPR 16 GM BTL (*BKC) 1 SPRAY NASAL (08:20)
[2023-01-12] MEDS: polyethylene glycoL 3350 17 GM POWD.PACK PO (08:21)
[2023-01-12 08:22] LABS: Anion Gap 1 mmol/L (8-16); Blood Urea Nitrogen 11 mg/dL (7-17); Calcium 7.6 mg/dL (8.4-10.2); Carbon Dioxide 31 mmol/L (22-30); Chloride 95 mmol/L (98-107); Estimated CRCL calculation 41 ml/min; Estimated Glomerular Filt Rate > 60; Glucose 104 mg/dL (65-110); Potassium 3.3 mmol/L (3.4-5.0); Sodium 127 mmol/L (137-145)
--- NOTE | 2023-01-12 09:31 | PM.PNORT ---
Progress Note: A&P Assessment and Plan (1) Closed displaced fracture of right femoral neck: Code(s): S72.001A - Fracture of unspecified part of neck of right femur, initial encounter for closed fracture Status: Acute Assessment and Plan: POD #3: Right Hip Bipolar Continue PT/OT. WBAT. Walker. HIGH FALL RISK. Continue pain control. Ice hip. Protect skin. DVT prophylaxis with resumed home medications. SCDs. Incentive Spirometry Use reviewed. Monitor Dressing. Change daily. Bowel Regimen. Dispo: SNF vs [facility] pending progress with PT/OT, pain control and medical stability. (2) Closed fracture of right distal radius: Code(s): S52.501A - Unspecified fracture of the lower end of right radius, initial encounter for closed fracture Status: Acute Assessment and Plan: POD #3: ORIF Right Wrist Ice/Elevate. Per Dr. Dockery, okay to weight bear as tolerated to improve lower extremity mobility. Forearm walker would be helpful for pain control. Requires assistance with meals due to limited use of right hand. Pain medication as needed. Monitor skin. NV checks. Dispo: SNF vs. [facility] Follow up with Dr. Dockery in 2 weeks for splint change. Appt scheduled. Subjective Subjective Date/Time Seen: 01/12/23 09:31 Post Op day: 3 Interval history: POD #3: RIGHT HIP HEMIARTHROPLASTY WITH BIPOLAR PROSTHESIS RIGHT DISTAL RADIUS ORIF Patient reports improvement in pain this AM. She has not yet worked with PT. No new concerns. Review of Systems Review of Systems: All systems reviewed & are unremarkable except as noted in HPI and below Exam Const: General: comfortable and no acute distress Resp: Effort & Inspection: normal respiratory effort Cardio: Rate: regular rate Rhythm: regular rhythm GI: Inspection: non-distended Skin: General skin exam: normal color Other: Incision right hip c/d/i. Surrounding tissue without redness/warmth. Mild swelling consistent with recent surgery. No drainage. Neuro: Cognition (Neuro): normal cognition Speech: normal speech Extrem: Right upper extremity: elbow/forearm (splint in place forearm to wrist ), wrist (diffuse tenderness ) and Extremity exam: right hand (moderate swelling, sensation intact, moves fingers, good capillary refill ) Right lower extremity: normal to inspection, normal capillary refill, hip/thigh Details: tenderness Location: of the hip (Thigh soft ) Location: laterally and anteriorly, swelling Location: at the hip, abnormal ROM (limited consistent with recent surgery ) Details: pain with active ROM during and pain with passive ROM during and other (Incision c/d/i. ); no deformity and no unusual warmth, knee Details: normal to inspection; no tenderness and no swelling, lower leg (Negative Vahe's Sign ) Details: normal to inspection and no edema; no tenderness, ankle (+ankle dorsiflexion/plantarflexion) Details: normal to inspection and no edema; no tenderness, no swelling and no ecchymosis and foot Details: normal capillary refill, toes with normal ROM, vascular exam Details: dorsalis pedis pulse present and motor-sensory exam Details: light-touch normal; no tenderness Objective Data Vital Signs Vital Signs: Vital Signs - 24 hr 01/11/23 12:00 01/11/23 16:00 01/11/23 20:00 Temperature Pulse Rate 75 82 82 Respiratory Rate 16 Blood Pressure Pulse Oximetry 95 Oxygen Delivery Room Air 01/11/23 22:09 01/11/23 20:00 01/12/23 00:00 Temperature 37.0 C Pulse Rate 85 83 87 Respiratory Rate 16 Blood Pressure 115/59 L Pulse Oximetry 95 Oxygen Delivery 01/12/23 04:00 01/12/23 05:22 Temperature 37.3 C Pulse Rate 82 84 Respiratory Rate 12 Blood Pressure 118/57 L Pulse Oximetry 91 Oxygen Delivery Intake/Output Intake/Output: Intake & Output 01/09/23 01/10/23 01/11/23 01/12/23 23:59 23:59 23:59 23:59 Intake Total 1200 1300 1390 250 Output Total 146 936 1727 350 Balance 510 625 -360 -100
[2023-01-12] MEDS: ONDANSETRON INJ 4 MG/2 ML VIAL IV PUSH (11:54)
--- NOTE | 2023-01-12 13:24 | PCDIET ---
Brief nutrition note: Screened for length of stay after fracture of hip and radius post fall. Appetite has been fair, 53% average intakes. Pt says she is not very hungry. Likely discharge today so no further intervention. Continue to follow until discharge.
--- NOTE | 2023-01-12 15:31 | PM.DS ---
DS: Admitting Diagnosis Discharge Date 01/12/23 Admitting Diagnosis fall, right hip and radius fracture DS: Discharge Diagnosis Discharge Diagnosis (1) Closed fracture of right distal radius: Code(s): S52.501A - Unspecified fracture of the lower end of right radius, initial encounter for closed fracture Status: Acute Assessment and Plan: The patient presented to the ED for evaluation of right wrist and hip pain following a mechanical ground level fall as detailed in HPI. X-ray revealed fractures of the right distal radius and femoral neck. Analgesics as needed Plavix has been placed on hold in anticipation of surgery which she has been taking for a couple of years for suspected TIA. Patient started on normal saline due to low sodium. This was discontinued when sodium continued to drop. Orthopedics consulted Patient plan for right hip surgery on 01/09/2023 01/10/23 Patient postop day 1 patient working with PT and OT at discharge patient will go to [facility]. 01/11/23 POD2 continue with PT/OT awaiting placement 01/12/2023 patient accepted into rehab Postop day 3 Clear to discharge. (2) Closed displaced fracture of right femoral neck: Code(s): S72.001A - Fracture of unspecified part of neck of right femur, initial encounter for closed fracture Status: Acute Assessment and Plan: X-ray positive for comminuted, intra-articular, anteriorly displaced and mildly impacted fracture of the distal right radius. orthopedics following right arm splinted 01/10/23 Patient postop day 1 swelling in the right fingers minimal pain See above for more detailed information (3) Vasovagal response: Code(s): R55 - Syncope and collapse Status: Acute Assessment and Plan: She had a vagal response when EMS was transferring her to the cot, likely due to pain. She has not had a recurrence of these symptoms. She does not give any history to suggest that she would be at an increased risk for adverse cardiac events with surgery however I think it would be prudent to monitor her on telemetry overnight given these events. Echocardiogram revealed EF at 60 65%, grade 1 diastolic dysfunction, mild pulmonary hypertension, valve disease (4) Fall from ground level: Code(s): W18.30XA - Fall on same level, unspecified, initial encounter Status: Acute Assessment and Plan: see above (5) Hyponatremia: Code(s): E87.1 - Hypo-osmolality and hyponatremia Status: Acute Assessment and Plan: Patient originally started on normal saline due to a sodium of 130. Normal ceiling discontinued after sodium continued to drop. Will discontinue furosemide and reorder labs tomorrow. Patient stated today that she has a chronic history of hyponatremia and and has dealt with it for many years. 01/12/23 improving, stable (6) History of TIA (transient ischemic attack): Code(s): Z86.73 - Personal history of transient ischemic attack (TIA), and cerebral infarction without residual deficits Status: Acute Assessment and Plan: Patient on Plavix because of this. Plan Her home medications will be reviewed and resumed as appropriate. DS: Summary Hospital Course Reason for hospitalization: fall, right hip and right radius fracture Hospital Course: Patient presented to the ED on 01/06/2023 via EMS for a fall. Patient had been walking in her house and tripped over the step and fell on her right hip and right wrist. Patient on Plavix. Patient did not hit her head or lose consciousness. X-ray of the right arm revealed comminuted, intra-articular, anterior displaced and mildly impacted fracture of the right distal radius. Hip x-ray revealed mildly comminuted fracture of the right femoral neck. Orthopedics consulted. Pain medications as needed. Patient's Plavix put on hold. Patient found to have be
== END 2023-01-12 17:50 | DRG 522 ==
LOC: ANHED 17:05 → ANH3MEDSUR 17:35
PROVIDERS: Nurse Practitioner; Orthopaedic Surgery; Admitting Provider Chiropractor; Emergency Provider Emergency Medicine; PCP Internal Medicine; Visit Provider Internal Medicine Critical Care Medicine
PROC: 0SRR01A Replacement of Right Hip Joint, Femoral Surface with Metal Synthetic Substitute, Uncemented, Open Approach (ICD-10-PCS; CPT 27125; principal; 2023-01-09 14:00)
PROC: 0SRR01A Replacement of Right Hip Joint, Femoral Surface with Metal Synthetic Substitute, Uncemented, Open Approach (ICD-10-PCS; CPT 25575; 2023-01-09 14:00)
DX: S72.001A Fracture of unspecified part of neck of right femur, initial encounter for closed fracture (principal); S52.571A Other intraarticular fracture of lower end of right radius, initial encounter for closed fracture; E87.1 Hypo-osmolality and hyponatremia; K21.9 Gastro-esophageal reflux disease without esophagitis; R55 Syncope and collapse; W19.XXXA Unspecified fall, initial encounter; Z20.822 Contact with and (suspected) exposure to COVID-19; Z79.02 Long term (current) use of antithrombotics/antiplatelets; Z86.73 Personal history of transient ischemic attack (TIA), and cerebral infarction without residual deficits; Z85.43 Personal history of malignant neoplasm of ovary
CPT/HCPCS: 29125; 36415; 51702; 70450; 71045; 72125; 73100; 73502; 80048; 80053; 81003; 82570; 82948; 83735; 84295; 84300; 84540; 85025; 85027; 85610; 85730; 86850; 86900; 86901; 87636; 93306; 93971; 96374; 96375; 97110; 97161; 97165; 97530; 97535; 99199; 99285; A9270; C1713; C1776; G0378; J0131; J0171; J0690; J1170; J1650; J1885; J2270; J2405; J2704; J2795; J3010; J3360; J7030; J7120

== ENCOUNTER 2023-03-13 09:56 | Outpatient (CLI) | payer MEDICARE, OTHER, SELFPAY ==
--- NOTE | ~2023-03-13 | US_ITS ---
EXAMINATION:US venous doppler LE RT INDICATION:DVT of the lower extremity TECHNIQUE: Multiple grayscale, color flow and Doppler images of the right lower extremity deep venous systems were obtained and reviewed. COMPARISON:No prior studies for comparison. FINDINGS: The common femoral, superficial femoral and popliteal veins demonstrate normal respiratory variation, augmentation and compressibility. Color flow is also seen within the posterior tibial, pe roneal, greater saphenous and profunda veins. IMPRESSION: 1: No lower extremity deep venous thrombosis. Reviewed, dictated and finalized at location A.
== END 2023-03-13 09:57 | disposition home or self-care (01) ==
PROVIDERS: PCP Internal Medicine; Visit Provider Internal Medicine
DX: I82.409 Acute embolism and thrombosis of unspecified deep veins of unspecified lower extremity (principal)
CPT/HCPCS: 93971

== ENCOUNTER 2023-06-25 12:19 | Outpatient (CLI) | payer MEDICARE, OTHER, SELFPAY ==
--- NOTE | ~2023-06-25 | XR_ITS ---
AP view of the pelvis and AP and lateral views of the left hip Clinical history: Pain Findings: No acute fracture or dislocation is seen. Osseous alignment is anatomic. Right hip arthropl asty is in place. There is minimal degenerative change of the left hip joint. Also surgical clips are present in the pelvis and visualized abdomen. Impression: No fracture or dislocation seen. Right hip arthroplasty in place. Reviewed, dictated and finalized at location M. Impression: No fracture or dislocation seen. Right hip arthroplasty in place.
== END 2023-06-25 12:20 | disposition home or self-care (01) ==
LOC: ANHIMG 12:21
PROVIDERS: PCP Internal Medicine; Visit Provider Internal Medicine
DX: R10.32 Left lower quadrant pain (principal); Z96.641 Presence of right artificial hip joint
CPT/HCPCS: 73502

== ENCOUNTER 2023-06-29 14:37 | Inpatient (IN) | payer MEDICARE, OTHER, SELFPAY ==
[2023-06-29] VITALS (7 sets, daily range): BP systolic 100–132; BP diastolic 40–68; PULSE 62–79; RESP 12–18; TEMP 36.2–37.3; O2SAT 97–100; BMI 23.3
--- NOTE | ~2023-06-29 | XR_ITS ---
EXAMINATION: XR hip LT 2V w AP pelvis INDICATION: Left hip pain TECHNIQUE: AP view the pelvis and two views of the left hip are obtained. COMPARISON: 06/25/2023 FINDINGS: There is an acute subcapital left femoral neck fracture. Changes of right hip arthroplasty are noted. No additional fracture is identified. There are phleboliths of the left pelvis. Abdominal and pelvic surgical clips likely reflect lymph node dissection. IMPRESSION: 1. Subcapital left femoral neck fracture. Reviewed, dictated and finalized at location F.
--- NOTE | ~2023-06-29 | XR_ITS ---
EXAMINATION: XR surgery orthopedic DATE: 06/30/2023 11:17 INDICATION: Left hip fracture TECHNIQUE: 2 fluoroscopic images of the left hip were obtained during procedure performed by Dr. Giovany peterson. Radiologist was not present for the imaging or procedure. The amount of fluoroscopy time used du ring this procedure was 2.5 minutes. COMPARISON: 06/29/2023 FINDINGS: Interval reduction and leg screw fixation of the previously seen subcapital fracture of the proximal left femur which is in essentially anatomic alignment on the provided images. No new fractures identi fied. Minimal osteoarthritis at the left hip. Unchanged surgical clips in the left pelvis. IMPRESSION: 1. Essentially anatomic alignment post reduction leg screw fixation of a subcapital fracture of the p roximal left femur. Reviewed, dictated and finalized at location B. IMPRESSION: 1. Essentially anatomic alignment post reduction leg screw fixation of a subcap ital fracture of the proximal left femur.
[2023-06-29 15:39] LABS: Basophils Percent Auto 0.3 % (0.2-1.2); Eosinophils Absolute Auto 0.1 K/mm3 (0-0.3); Eosinophils Percent Auto 1.4 % (0-4.4); Hematocrit 31.3 % (37.0-47.0); Hemoglobin 10.1 g/dL (12.0-15.0); Immature Granulocyte Absolute 0.01 K/mm3 (0.00-0.031); Immature Granulocyte Percent A 0.2 % (0-0.5); Lymphocytes Absolute Auto 2.34 K/mm3 (0.9-3.2); Lymphocytes Percent Auto 36.6 % (18.3-44.2); Mean Corpuscular HGB Conc 32.3 g/dl (32-36); Mean Corpuscular Hemoglobin 31.4 pg (26-34); Mean Corpuscular Volume 97.2 fl (80-100); Mean Platelet Volume 8.5 fl (7.4-10.4); Monocytes Absolute Auto 0.7 K/mm3 (0.1-0.6); Monocytes Percent Auto 10.9 % (2.6-8.5); Neutrophils Absolute Auto 3.2 K/mm3 (1.3-6.7); Neutrophils Percent Auto 50.6 % (45.5-73.1); Platelet Count Result 313 k/mm3 (150-375); Red Blood Count 3.22 M/mm3 (4.2-5.4); White Blood Count 6.4 K/mm3 (4.5-10.0)
[2023-06-29 15:49] LABS: INR 1.1; Prothrombin Time 14.1 Seconds (11.1-14.7)
[2023-06-29 15:50] LABS: Partial Thromboplastin Time 28.5 SECONDS (22.3-36.8)
[2023-06-29 15:54] LABS: Alanine Aminotransferase 15 U/L (6-35); Albumin Level 3.7 g/dL (3.5-5.1); Alkaline Phosphatase 91 U/L (38-126); Anion Gap 6 mmol/L (8-16); Aspartate Amino Transferase 26 U/L (14-36); Bilirubin,Total 0.7 mg/dL (0.2-1.3); Blood Urea Nitrogen 14 mg/dL (7-17); Calcium 8.5 mg/dL (8.4-10.2); Carbon Dioxide 28 mmol/L (22-30); Chloride 95 mmol/L (98-107); Estimated Glomerular Filt Rate 59; Glucose 101 mg/dL (65-110); Potassium 3.6 mmol/L (3.4-5.0); Sodium 129 mmol/L (137-145)
--- NOTE | 2023-06-29 16:05 | ED.GENADULT ---
HPI - General Adult General Chief complaint: Extremity Injury, Lower Stated complaint: Hip Fracture after Fall Time Seen by Provider: 06/29/23 15:01 History of Present Illness HPI narrative: 88-year-old female presented to ED for evaluation of left hip pain. Patient did have an outpatient x-ray on 06/25 that was negative. Patient was having continued pain so she had an outpatient CT scan on 06/29 which did show a left femur fracture. Patient presented to the ED for evaluation. Patient denies any falls or specific injury. Patient states she had been walking at the [employer] in [place] and afterward she began having left hip pain. Patient did have a prior fall in December resulting in a hip fracture that was repaired by Dr. Dockery. Related Data Home Medications Medication Instructions Recorded Confirmed B-complex with vitamin C 1 tablet PO DAILY 09/22/20 06/29/23 Flonase Allergy Relief 1 puff EACH NARE DAILY PRN 01/06/23 06/29/23 allergies polyethylene glycol 3350 17 gram 17 g PO DAILY PRN Constipation 01/06/23 06/29/23 oral powder packet (Miralax) Miralax 17 mg PO DAILY PRN Constipation 06/29/23 06/29/23 acetaminophen 325 mg tablet 650 mg PO Q4H PRN pain 1-3 06/29/23 06/29/23 (Tylenol) melatonin 10 mg capsule 10 mg PO HS 06/29/23 06/29/23 simethicone 80 mg chewable tablet 80 mg PO DAILY PRN flatulence 06/29/23 06/29/23 tramadol 50 mg tablet 50 mg PO Q8H PRN Pain (Scale Score 06/29/23 06/29/23 4-6) Allergies Allergy/AdvReac Type Severity Reaction Status Date / Time cetirizine [From Zyr[facility]] Allergy Unknown unknown Verified 06/29/23 18:17 levofloxacin Allergy Unknown unknown Verified 06/29/23 18:17 Penicillins Allergy Unknown unknown Verified 06/29/23 18:17 Sulfa (Sulfonamide Allergy Unknown unknown Verified 06/29/23 18:17 Antibiotics) Review of Systems Review of Systems: All systems reviewed & are unremarkable except as noted in HPI and below PMFSH Past Medical History Medical History Closed displaced fracture of right femoral neck Gastroesophageal reflux disease History of TIA (transient ischemic attack) Ovarian cancer (1999) Pulmonary HTN Transient ischemic attack (2020) Surgical History Surgical History History of appendectomy History of total hysterectomy Family History Family History Other Family history non-contributory Social History Social History Social History: Surrogate medical decision maker: Francisco Lang, adela. Code status: Full code. Smoking status: Never smoker Second hand tobacco smoke exposure: No Alcohol intake: never Alcohol use details: Occasional Substance use: never Lack of Transportation: No Lack of Food: Never True Current Housing: I Have Housing Concerned About Future Housing: No Difficulty Paying Gas/Electric Bills: No Difficulty Paying for Meds: No Currently Unemployed: No Education: Don't Know Difficulty w/ Childcare or Family Care: No Additional living arrangements comments: Lives alone in [place]. Has 2 sons, 1 passed from lung cancer. She is very active and enjoys dancing several days a week. 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 care concerns: No Exam Narrative: APPEARANCE: Well appearing, no pain, no distress, well-nourished. HEAD: normocephalic, atraumatic. EYES: PERRLA/EOMI, conjunctivae clear. NOSE: Normal no drainage EARS:TMS clear with good light reflex. THROAT: Pharynx clear, no exudate. NECK: Supple. No adenopathy, no masses. RESPIRATORY: Airway patent, respirations nonlabored. Clear to auscultation bilaterally, no rales, rhonchi, wheezing. CARDIOVASCULAR: Regular rate and rhythm without murmurs rubs or gallops. ABDOMINAL: Soft, nontender, non
[2023-06-29 17:22] LABS: Appearance Urine Clear (Clear); Bacteria Urine None Seen /hpf; Bilirubin Urine Negative (Negative); Blood Urine Negative (Negative); Color Urine Yellow (Yellow); Glucose Urine UA Negative (Negative); Ketones Urine Negative (Negative); Leukocyte Esterase Ur 1+ LEU/UL (Negative); Nitrate Urine Negative (Negative); Non Pathogenic Casts 0-2; Protein Urine Negative (Negative); RBC Urine 0-2 /hpf (0-2); Specific Grav Ur 1.006 (1.001-1.035); Squamous Epithelial Cell Urine None seen /hpf (Few); Urobilinogen Urine 0.2 mg/dL (<2.0)
[2023-06-29 17:24] LABS: Add Urine Microscopic? YES
--- NOTE | 2023-06-29 18:09 | ADMGEN ---
This patient, Jossy Lang, was admitted to [facility] Surg Room 307-01. Patient/family oriented to hospital policies and general routines including ID bracelet, bed and alarms, visiting hours, pain management, procedures, bathroom and other care routines, personal items, smoking policy, room service/diet, and visiting hours. Information on how to activate the Rapid Response Team has been discussed. Patient/Family are encouraged to report perceived risks to care and to ask questions if they do not understand what they are told or what they should do.
--- NOTE | 2023-06-29 23:28 | PM.IMHP ---
H&P: HPI History of Present Illness Date/Time: 06/29/23 23:28 Chief Complaint: Left hip pain Narrative: 88-year-old female presented to ED for evaluation of left hip pain.? Patient did have an outpatient x-ray on 06/25 that was negative.? Patient was having continued pain so she had an outpatient CT scan on 06/29 which did show a left femur fracture.? Patient presented to the ED for evaluation.? Patient denies any falls or specific injury.? Patient states she had been walking at the [employer] in [place] and afterward she began having left hip pain.? Patient did have a prior fall in December resulting in a hip fracture that was repaired by Dr. Dockery. She currently denies any pain at rest however pain is triggered by any movement. No pain in upper body. No history of hypertension, prior cardiac procedure, or chronic oxygen use Review of Systems Review of Systems: All systems reviewed & are unremarkable except as noted in HPI and below PMFSH Past Medical History Medical History Closed displaced fracture of right femoral neck Gastroesophageal reflux disease History of TIA (transient ischemic attack) Ovarian cancer (1999) Pulmonary HTN Transient ischemic attack (2020) Surgical History Surgical History History of appendectomy History of total hysterectomy Family History Family History Other Family history non-contributory Social History Social History Social History: Surrogate medical decision maker: Francisco Lang, adela. Code status: Full code. Smoking status: Never smoker Second hand tobacco smoke exposure: No Alcohol intake: never Alcohol use details: Occasional Substance use: never Lack of Transportation: No Lack of Food: Never True Current Housing: I Have Housing Concerned About Future Housing: No Difficulty Paying Gas/Electric Bills: No Difficulty Paying for Meds: No Currently Unemployed: No Education: Don't Know Difficulty w/ Childcare or Family Care: No Additional living arrangements comments: Lives alone in [place]. Has 2 sons, 1 passed from lung cancer. She is very active and enjoys dancing several days a week. 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 mg PO DAILY PRN Constipation 06/29/23 06/29/23 History acetaminophen 325 mg tablet 650 mg PO Q4H PRN pain 1-3 06/29/23 06/29/23 History (Tylenol) melatonin 10 mg capsule 10 mg PO HS 06/29/23 06/29/23 History simethicone 80 mg chewable tablet 80 mg PO DAILY PRN flatulence 06/29/23 06/29/23 History tramadol 50 mg tablet 50 mg PO Q8H PRN Pain (Scale Score 06/29/23 06/29/23 History 4-6) Allergies Allergy/AdvReac Type Severity Reaction Status Date / Time cetirizine [From [facility]] Allergy Unknown unknown Verified 06/29/23 18:17 levofloxacin Allergy Unknown unknown Verified 06/29/23 18:17 Penicillins Allergy Unknown unknown Verified 06/29/23 18:17 Sulfa (Sulfonamide Allergy Unknown unknown Verified 06/29/23 18:17 Antibiotics) Vital Signs Vital Signs - 24 hr 06/29/23 14:43 06/29/23 14:55 06/29/23 15:01 Temperature 97.9 F Pul
[2023-06-29] MEDS: MELATONIN 5 MG TABLET 10 MG PO (23:52)
[2023-06-30] VITALS (19 sets, daily range): BP systolic 111–151; BP diastolic 58–85; PULSE 64–96; RESP 12–20; TEMP 35.5–36.7; O2SAT 92–100
[2023-06-30] LABS: INR 1.1; Prothrombin Time 14.2 Seconds (11.1-14.7)
[2023-06-30 00:01] LABS: Partial Thromboplastin Time 30.2 SECONDS (22.3-36.8)
[2023-06-30 04:39] LABS: Anion Gap 3 mmol/L (8-16); Basophils Percent Auto 0.8 % (0.2-1.2); Blood Urea Nitrogen 12 mg/dL (7-17); Calcium 8.4 mg/dL (8.4-10.2); Carbon Dioxide 28 mmol/L (22-30); Chloride 98 mmol/L (98-107); Eosinophils Absolute Auto 0.2 K/mm3 (0-0.3); Eosinophils Percent Auto 3.3 % (0-4.4); Estimated CRCL calculation 34 ml/min; Estimated Glomerular Filt Rate > 60; Glucose 97 mg/dL (65-110); Hematocrit 30.7 % (37.0-47.0); Hemoglobin 10.1 g/dL (12.0-15.0); Immature Granulocyte Absolute 0.01 K/mm3 (0.00-0.031); Immature Granulocyte Percent A 0.2 % (0-0.5); Lymphocytes Absolute Auto 2.04 K/mm3 (0.9-3.2); Lymphocytes Percent Auto 39.3 % (18.3-44.2); Mean Corpuscular HGB Conc 32.9 g/dl (32-36); Mean Corpuscular Volume 97.2 fl (80-100); Mean Platelet Volume 8.6 fl (7.4-10.4); Monocytes Absolute Auto 0.6 K/mm3 (0.1-0.6); Monocytes Percent Auto 12.1 % (2.6-8.5); Neutrophils Absolute Auto 2.3 K/mm3 (1.3-6.7); Neutrophils Percent Auto 44.3 % (45.5-73.1); Platelet Count Result 322 k/mm3 (150-375); Potassium 3.4 mmol/L (3.4-5.0); Red Blood Count 3.16 M/mm3 (4.2-5.4); Sodium 129 mmol/L (137-145); White Blood Count 5.2 K/mm3 (4.5-10.0)
--- NOTE | 2023-06-30 08:05 | PM.CNOR ---
Assessment and Plan Assessment and plan (1) Closed left hip fracture: Qualifiers: Encounter type: initial encounter Qualified Code(s): S72.002A - Fracture of unspecified part of neck of left femur, initial encounter for closed fracture Code(s): S72.002A - Fracture of unspecified part of neck of left femur, initial encounter for closed fracture Status: Acute Assessment and Plan: GIOVANY IS HERE FOR LEFT FEMORAL NECK FRACTURE. SHE WILL REQUIRE PERCUTANEOUS PINNING LEFT FEMORAL NECK FRACTURE. DISCUSSED NONOPERATIVE AND OPERATIVE TREATMENT OPTIONS WITH THE PATIENT. THE PATIENT'S QUESTIONS WERE ANSWERED. THE PATIENT DESIRES OPERATIVE TREATMENT. RISKS OF SURGERY INCLUDING BUT NOT LIMITED TO NEUROVASCULAR DAMAGE, WOUND COMPLICATIONS, BLOOD CLOT, PULMONARY EMBOLUS, STROKE, [place], ANESTHETIC RISKS UP TO AND INCLUDING WERE REVIEWED. CONTINUED PAIN AND POSSIBLE DYSFUNCTION WERE EXPLAINED. NO GUARANTEES WERE OFFERED. THE PATIENT UNDERSTANDS AND WISHES TO PROCEED. History of Present Illness HPI Consult date: 06/30/23 Chief complaint: Left Femur Fracture Narrative: GIOVANY FELL ABOT A WEEK AGO AND HAD LEFT HIP PAIN. SHE EVENTUALLY WAS SEEN BY HER 1A MD WHO ORDERED A CT SCAN AND THIS SHOWED A MINIMALLY DISPLACED LEFT FEMORAL NECK FRACTURE. SHE WAS SEEN IN THE ED AND THIS WAS CONFIRMED WITH A XRAY. SHE C/O OF LEFT HIP PAIN. SHE DENIES ANY OTHER EXTREMITY OR BACK OR NEDCK PAIN. HISTORY, EXAM AND RADIOGRAPHS REVIEWED WITH THE PATIENT. REFERRING PHYSICIAN RECORDS AND IMAGES REVIEWED. CONDITION, NATURE, ETIOLOGY AND COURSE OF NATURAL HISTORY REVIEWED. CONSERVATIVE AND OPERATIVE TREATMENT OPTIONS REVIEWED WELL THE RISKS AND BENEFITS OF EACH. Review of Systems Review of Systems: All systems reviewed & are unremarkable except as noted in HPI and below PMFSH Past Medical History Medical History (Updated 06/30/23 @ 08:11 by Arsen Dockery MD) Closed displaced fracture of right femoral neck Closed left hip fracture Gastroesophageal reflux disease History of TIA (transient ischemic attack) Ovarian cancer (1999) Pulmonary HTN Transient ischemic attack (2020) Surgical History Surgical History History of appendectomy History of total hysterectomy Family History Family History Other Family history non-contributory Social History Social History Social History: Surrogate medical decision maker: Francisco Lang, son. Code status: Full code. Smoking status: Never smoker Second hand tobacco smoke exposure: No Alcohol intake: never Alcohol use details: Occasional Substance use: never Lack of Transportation: No Lack of Food: Never True Current Housing: I Have Housing Concerned About Future Housing: No Difficulty Paying Gas/Electric Bills: No Difficulty Paying for Meds: No Currently Unemployed: No Education: Don't Know Difficulty w/ Childcare or Family Care: No Additional living arrangements comments: Lives alone in [place]. Has 2 sons, 1 passed from lung cancer. She is very active and enjoys dancing several days a week. 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
--- NOTE | 2023-06-30 09:36 | WPDANESEPPF ---
Anes - Initial Pre Proc Eval Procedure: Operation Date: 06/30/23 11:00 Proposed Procedures p Hip Pinning Cannulated Screws(Left) - Arsen Dockery MD Date/Time: 06/30/23 09:36 Surgeon: Doroteo Walker MD Pre Op Diagnosis: Left Femur Fracture Patient Data Age: 88 Gender: F Height: 1.57 m Weight: 58 kg Last Vital Signs Temp 36.3 C L 06/30/23 06:00 Pulse 64 06/30/23 08:20 Resp 16 06/30/23 06:00 BP 142/76 H 06/30/23 06:00 Pulse Ox 94 06/30/23 08:20 O2 Del Method Room Air 06/30/23 08:20 Allergies Allergy/AdvReac Type Severity Reaction Status Date / Time cetirizine [From [facility]] Allergy Unknown unknown Verified 06/29/23 18:17 levofloxacin Allergy Unknown unknown Verified 06/29/23 18:17 Penicillins Allergy Unknown unknown Verified 06/29/23 18:17 Sulfa (Sulfonamide Allergy Unknown unknown Verified 06/29/23 18:17 Antibiotics) Home Medications Medication Instructions Recorded Confirmed Type B-complex with vitamin C 1 tablet PO DAILY 09/22/20 06/29/23 History Flonase Allergy Relief 1 puff EACH NARE DAILY PRN 01/06/23 06/29/23 History allergies polyethylene glycol 3350 17 gram 17 g PO DAILY PRN Constipation 01/06/23 06/29/23 History oral powder packet (Miralax) clopidogrel 75 mg tablet 75 mg PO QAM #30 tabs 01/26/23 06/29/23 Rx docusate sodium 100 mg capsule 100 mg PO Q12HR #30 caps 01/26/23 06/29/23 Rx furosemide 20 mg tablet 20 mg PO DAILY #30 tabs 01/26/23 06/29/23 Rx Miralax 17 mg PO DAILY PRN Constipation 06/29/23 06/29/23 History acetaminophen 325 mg tablet 650 mg PO Q4H PRN pain 1-3 06/29/23 06/29/23 History (Tylenol) melatonin 10 mg capsule 10 mg PO HS 06/29/23 06/29/23 History simethicone 80 mg chewable tablet 80 mg PO DAILY PRN flatulence 06/29/23 06/29/23 History tramadol 50 mg tablet 50 mg PO Q8H PRN Pain (Scale Score 06/29/23 06/29/23 History 4-6) Laboratory Tests 06/29/23 06/29/23 06/29/23 15:28 17:11 23:40 WBC 6.4 K/mm3 (4.5-10.0) RBC 3.22 L M/mm3 (4.2-5.4) Hgb 10.1 L g/dL (12.0-15.0) Hct 31.3 L % (37.0-47.0) MCV 97.2 fl (80-100) MCH 31.4 pg (26-34) MCHC 32.3 g/dl (32-36) RDW 14.0 % (11.5-14.5) Plt Count 313 D k/mm3 (150-375) MPV 8.5 fl (7.4-10.4) Immature Gran % (Auto) 0.2 % (0-0.5) Neut % (Auto) 50.6 % (45.5-73.1) Lymph % (Auto) 36.6 % (18.3-44.2) [place] % (Auto) 10.9 H % (2.6-8.5) Eos % (Auto) 1.4 % (0-4.4) Baso % (Auto) 0.3 % (0.2-1.2) Lymph # (Auto) 2.34 K/mm3 (0.9-3.2) [place] # (Auto) 0.7 H K/mm3 (0.1-0.6) Eos # (Auto) 0.1 K/mm3 (0-0.3) Baso # (Auto) 0.0 K/mm3 (0.0-0.1) Abs Immat Gran (auto) 0.01 K/mm3 (0.00-0.031) Absolute Neuts (auto) 3.2 K/mm3 (1.3-6.7) Absolute Nucleated RBC 0.0 K/mm3 (0.0-0.012) Nucleated RBC % 0.0 % (0.0-0.2) PT 14.1 Seconds 14.2 Seconds (11.1-14.7) (11.1-14.7) INR 1.1 1.1 APTT 28.5 SECONDS 30.2 SECONDS (22.3-36.8) (22.3-36.8) Sodium 129 L mmol/L (137-145) Potassium 3.6 mmol/L (3.4-5.0) Chloride 95 L mmol/L (98-107) Carbon Dioxide 28 mmol/L (22-30) Anion Gap 6 L mmol/L (8-16) BUN 14 D mg/dL (7-17) Creatinine 0.90 mg/dL (0.7-1.0) Estim Creat Clear Calc Not Reportable Estimated GFR 59 (59 - ) Glucose 101 mg/dL (65-110) Calcium 8.5 mg/dL (8.4-10.2) Total Bilirubin 0.7 mg/dL (0.2-1.3) AST 26 U/L (14-36) ALT 15 U/L (6-35) Alkaline Phosphatase 91 U/L (38-126) Total Protein 7.0 g/dL (6.3-8.2) Albumin 3.7 g/dL (3.5-5.1) Urine Color Yellow (Yellow) Urine Appearance Clear (Clear) Ur
--- NOTE | 2023-06-30 09:49 | P.OP_ITS ---
Procedure Note - Detailed Date of Procedure 06/30/23 Pre-op Diagnosis Left Femur Fracture Post-op Diagnosis Same Procedure Performed PERCUTANEOUS PINNING LEFT FEMORAL NECK FRACTURE Surgeon Arsen Dockery MD Anesthesia General Description of Procedure THE PATIENT WAS TAKEN TO THE OPERATING ROOM AND PLACED UNDER GENERAL ANESTHESIA. THE PATIENT WAS PLACED ON A FRACTURE TABLE. C ARM WAS USED TO REDUCE THE FRACTURE TO NEAR ANATOMIC POSITION. THE LEFT LOWER EXTREMITY WAS PREPPED AND DRAPED IN THE STERIL FASHION FROM THE KNEE TO THE ILIAC CREST. THE INCISION WAS MADE ON THE LATERAL HIP JUST DISTAL TO THE GREATER TROCHANTER DOWN TO THE BONE. BLEEDERS WERE CAUTERIZED. 3 GUIDE PINS WERE PLACED THROUGH THE FEMORAL NECK AND PASSED THE FRACTURE SITE AND IN TO THE SUBCHONDRAL BONE OF THE FEMORAL HEAD. THREE ARTHREX 7.0 CANNULATED SCREWS WERE PLACED OVER THE GUIDE PINS AND THESE WERE SHOWN TO BE IN GOOD POSITION PER FLUOROSCOPY ON BOTH THE AP AND LATERAL VIEWS. ALL SCREWS HAD EXCELLENT BITES. THE WOUND WAS WASHED WELL. THE DEEP FASCIAL LAYER WAS APPROXIMATED WITH #1 VICRYL SUTURE, THE SUBCUTANEOUS LAYE R WITH 2-0 VICRYL AND THE SKIN WAS APPROXIMATED WITH BUDDY. A STERILE DRESSING WAS PLACED. THE PATIENT WAS EXTUBATED AND SENT TO RECOVERY ROOM Estimated Blood Loss 20 Drains No Complications No immediate complications Condition Stable Disposition PACU
[2023-06-30] MEDS: ceFAZolin 2 GM/D5W 50 ML 2 GM/50 ML BAG IVPB ×2 (10:25→20:52)
[2023-06-30] MEDS: TRANEXAMIC ACID 1,000 MG/10 ML AMPUL 1000 MG IV PUSH (10:40)
[2023-06-30] MEDS: SODIUM CHLORIDE 0.9% IV 1,000 ML 30 ML IV CONT ×2 (11:17→12:33)
[2023-06-30] MEDS: fentaNYL CITRATE INJ (*CRX) 100 MCG/2 ML VIAL 25 MCG IV PUSH ×6 (11:31→12:02)
[2023-06-30] MEDS: ONDANSETRON INJ 4 MG/2 ML VIAL IV PUSH (12:11)
[2023-06-30] MEDS: diphenhydrAMINE HCl INJ 50 MG/ML VIAL 12.5 MG IV PUSH (12:33)
[2023-06-30] MEDS: TRANEXAMIC ACID 1,000MG/ISO100 1,000 MG/100 ML BAG 200 MG IVPB (12:54)
--- NOTE | 2023-06-30 14:29 | PM.IMPN ---
Progress Note: A&P Assessment and Plan (1) Closed left hip fracture: Qualifiers: Encounter type: initial encounter Qualified Code(s): S72.002A - Fracture of unspecified part of neck of left femur, initial encounter for closed fracture Code(s): S72.002A - Fracture of unspecified part of neck of left femur, initial encounter for closed fracture Status: Acute Assessment and Plan: Patient presents to the ED after outpatient x-ray for evaluation of left hip pain revealed a left femur fracture. Orthopedics consulted. Patient does not know what the cause of the fracture would be. Denies osteoporosis and cancer. Percutaneous pinning of left femoral neck fracture done on 06/30/2023. Pain control, DVT prophylaxis and PT and OT per Orthopedics. (2) History of TIA (transient ischemic attack): Code(s): Z86.73 - Personal history of transient ischemic attack (TIA), and cerebral infarction without residual deficits Status: Acute Assessment and Plan: Plavix on hold. Restart per Orthopedics Recommendation. (3) GERD (gastroesophageal reflux disease): Qualifiers: Esophagitis presence: without esophagitis Qualified Code(s): K21.9 - Gastro-esophageal reflux disease without esophagitis Code(s): K21.9 - Gastro-esophageal reflux disease without esophagitis Status: Acute Assessment and Plan: IV Protonix b.i.d.. For GI prophylaxis. Subjective Date/time seen: 06/30/23 14:29 Interval history: I examined patient postoperatively. she is doing well although her left hip is really bothering her. She does not know how she fractured her hip. She is not have any history of osteoporosis or cancer. My concern would be for a pathological fracture. She recently had right hip surgery due to a fracture caused by a fall. Planus have PT and OT evaluate patient and assess her for rehab. She does have edema around the incision site approximately the size of a grapefruit. There would be concern for a hematoma. Plan to monitor her H& H. Dr. Dockery has been contacted. Insert all of patient's and son's questions to the best my ability. Exam Narrative: GENERAL: Comfortable, no acute distress HENMT: moist mucous membranes EYES: EOM intact b/l NECK: no lymphadenopathy RESPIRATORY: clear to auscultation CARDIO: RRR GI: soft, nontender, bowel sounds present SKIN: no rashes EXTREMITIES: lateral Left hip edema, no bruising or redness. Objective Data Vital Signs Vital Signs: Vital Signs - 24 hr 06/29/23 14:43 06/29/23 14:55 06/29/23 15:01 Temperature 97.9 F Pulse Rate 77 Respiratory Rate 18 Blood Pressure 119/40 L 121/68 100/67 Pulse Oximetry 97 Oxygen Delivery Room Air Oxygen Flow Rate 06/29/23 16:00 06/29/23 17:13 06/29/23 18:13 Temperature 99.1 F Pulse Rate 62 73 79 Respiratory Rate 16 Blood Pressure 112/67 132/65 131/68 Pulse Oximetry 100 97 98 Oxygen Delivery Oxygen Flow Rate 06/29/23 22:00 06/30/23 06:00 06/30/23 08:20 Temperature 97.1 F L 97.3 F L Pulse Rate 63 67 64 Respiratory Rate 12 16 Blood Pressure 123/59 L 142/76 H Pulse Oximetry 97 94 94 Oxygen Delivery Room Air Oxygen Flow Rate 06/30/23 08:00 06/30/23 11:17 06/30/23 11:30 Temperature 97.6 F Pulse Rate 96 89 Respiratory Rate 14 18 Blood Pressure 123/83 131/72 Pulse Oximetry 100 100 Oxygen Delivery Room Air Simple Face Mask Simple Face Mask Oxygen Flow Rate 8 8 06/30/23 11:45 06/30/23 11:47 06/30/23 12:00 Temperature Pulse Rate 85 85 Respiratory Rate 12 16 Blood Pressure 140/75 141/71 H Pulse Oximetry 100 98 95 Oxygen Delivery Simple Face Mask Room Air Room Air Oxygen Flow Rate 8 06/30/23 12:15 06/30/23 12:30 06/30/23 12:45 Temperature Pulse Rate 80 82 82 Respiratory Rate 18 16 20 Blood Pressure 151/68 H 142/70 H 139/71 Pulse Oximetry 97 95 94 Oxygen Delivery Room Air Ro
[2023-06-30 14:54] LABS: Hematocrit 39.6 % (37.0-47.0); Hemoglobin 12.5 g/dL (12.0-15.0)
[2023-06-30] MEDS: SENNA/DOCUSATE SODIUM TABLET 2 TAB PO (17:15)
[2023-06-30] MEDS: FUROSEMIDE 20 MG TABLET PO (17:16)
[2023-06-30] MEDS: VITAMIN B COMPLEX/VIT C CAPSULE 1 EACH PO (17:16)
[2023-06-30] MEDS: diazePAM (*CRX) 5 MG TABLET PO (20:51)
[2023-06-30] MEDS: PANTOPRAZOLE SODIUM IV 40 MG VIAL IV PUSH (20:51)
[2023-06-30] MEDS: MELATONIN 5 MG TABLET 10 MG PO (20:51)
[2023-06-30] MEDS: FAMOTIDINE 20 MG TABLET PO (20:53)
[2023-06-30] MEDS: DOCUSATE SODIUM 100 MG CAPSULE PO (20:55)
[2023-06-30 21:16] LABS: Hematocrit 32.3 % (37.0-47.0); Hemoglobin 10.2 g/dL (12.0-15.0)
[2023-07-01] MEDS: ceFAZolin 2 GM/D5W 50 ML 2 GM/50 ML BAG IVPB ×2 (01:56→10:31)
[2023-07-01] MEDS: HYDROcodone/acetaminophen (*CRX) 7.5-325 MG TABLET 1 TAB PO (02:04)
[2023-07-01 04:30] VITALS: BP 121/55; PULSE 70; RESP 14; TEMP 35.8; O2SAT 93
[2023-07-01 06:21] LABS: Basophils Percent Auto 0.2 % (0.2-1.2); Eosinophils Absolute Auto 0.1 K/mm3 (0-0.3); Hematocrit 27.5 % (37.0-47.0); Hemoglobin 8.8 g/dL (12.0-15.0); Immature Granulocyte Absolute 0.03 K/mm3 (0.00-0.031); Immature Granulocyte Percent A 0.3 % (0-0.5); Lymphocytes Absolute Auto 2.39 K/mm3 (0.9-3.2); Lymphocytes Percent Auto 26.4 % (18.3-44.2); Mean Corpuscular Hemoglobin 31.8 pg (26-34); Mean Corpuscular Volume 99.3 fl (80-100); Mean Platelet Volume 8.6 fl (7.4-10.4); Monocytes Absolute Auto 1.1 K/mm3 (0.1-0.6); Monocytes Percent Auto 11.6 % (2.6-8.5); Neutrophils Absolute Auto 5.5 K/mm3 (1.3-6.7); Neutrophils Percent Auto 60.5 % (45.5-73.1); Platelet Count Result 308 k/mm3 (150-375); Red Blood Count 2.77 M/mm3 (4.2-5.4); Red Cell Distribution Width 13.9 % (11.5-14.5); White Blood Count 9.1 K/mm3 (4.5-10.0)
[2023-07-01 06:38] LABS: Anion Gap 3 mmol/L (8-16); Blood Urea Nitrogen 11 mg/dL (7-17); Carbon Dioxide 26 mmol/L (22-30); Chloride 99 mmol/L (98-107); Estimated CRCL calculation 31 ml/min; Estimated Glomerular Filt Rate 59; Glucose 92 mg/dL (65-110); Potassium 3.4 mmol/L (3.4-5.0); Sodium 128 mmol/L (137-145)
[2023-07-01 07:23] VITALS: BP 106/44; PULSE 69; RESP 18; TEMP 36.1; O2SAT 91
[2023-07-01] MEDS: PANTOPRAZOLE SODIUM IV 40 MG VIAL IV PUSH ×2 (08:37→20:12)
[2023-07-01] MEDS: VITAMIN B COMPLEX/VIT C CAPSULE 1 EACH PO (08:37)
[2023-07-01] MEDS: SENNA/DOCUSATE SODIUM TABLET 2 TAB PO (08:37)
[2023-07-01] MEDS: ACETAMINOPHEN 325 MG TABLET 650 MG PO (08:39)
[2023-07-01] MEDS: polyethylene glycoL 3350 17 GM POWD.PACK PO (08:39)
[2023-07-01] MEDS: DOCUSATE SODIUM 100 MG CAPSULE PO ×2 (08:39→20:12)
--- NOTE | 2023-07-01 08:43 | WPDANESPN ---
Anes - Prog Note Post-Op Date/Time: 07/01/23 08:43 Cardiovascular status: normal Respiratory status: normal Airway patency: baseline Mental status: baseline Post-Op hydration status: normal Vital Signs: Last Vital Signs Temp 36.1 C L 07/01/23 07:23 Pulse 69 07/01/23 07:23 Resp 18 07/01/23 07:23 BP 106/44 L 07/01/23 07:23 Pulse Ox 91 07/01/23 07:23 O2 Del Method Room Air 06/30/23 22:40 O2 Flow Rate 8 06/30/23 11:45 Pain Score (VAS): 03/05 I/O: Intake & Output 06/30/23 07/01/23 07/01/23 23:59 07:59 15:59 Intake Total 290 650 Output Total 600 Balance 290 50 Laboratory Tests 07/01/23 06:02 07/01/23 06:02 06/30/23 06/30/23 07/01/23 14:44 21:05 06:02 WBC 9.1 RBC 2.77 L Hgb 12.5 10.2 L 8.8 L Hct 39.6 32.3 L 27.5 L MCV 99.3 MCH 31.8 MCHC 32.0 RDW 13.9 Plt Count 308 MPV 8.6 Immature Gran % (Auto) 0.3 Neut % (Auto) 60.5 Lymph % (Auto) 26.4 [place] % (Auto) 11.6 H Eos % (Auto) 1.0 Baso % (Auto) 0.2 Lymph # (Auto) 2.39 [place] # (Auto) 1.1 H Eos # (Auto) 0.1 Baso # (Auto) 0.0 Abs Immat Gran (auto) 0.03 Absolute Neuts (auto) 5.5 Absolute Nucleated RBC 0.0 Nucleated RBC % 0.0 Sodium 128 L Potassium 3.4 Chloride 99 Carbon Dioxide 26 Anion Gap 3 L BUN 11 Creatinine 0.90 Estim Creat Clear Calc 31 Estimated GFR 59 Glucose 92 Calcium 8.0 L Microbiology 06/29/23 17:11 Unspecified Urine Culture - Final Post-procedural complaints: none Patient Feedback: Patient satisfied with anesthetic care.
--- NOTE | 2023-07-01 09:27 | PCOTNOTE ---
The patient's OT eval was not able to be completed on 06/30/2023.
--- NOTE | 2023-07-01 09:29 | PCOTNOTE ---
The patient's OT eval was not able to be completed on 07/01/2023.
[2023-07-01] MEDS: FAMOTIDINE 20 MG TABLET PO ×2 (09:30→20:12)
[2023-07-01] MEDS: FUROSEMIDE 20 MG TABLET PO (09:30)
[2023-07-01 11:23] VITALS: BP 106/63; PULSE 61; RESP 20; TEMP 36.2; O2SAT 100
--- NOTE | 2023-07-01 12:34 | PM.IMPN ---
Progress Note: A&P Assessment and Plan (1) Closed left hip fracture: Qualifiers: Encounter type: initial encounter Qualified Code(s): S72.002A - Fracture of unspecified part of neck of left femur, initial encounter for closed fracture Code(s): S72.002A - Fracture of unspecified part of neck of left femur, initial encounter for closed fracture Status: Acute Assessment and Plan: Patient presents to the ED after outpatient x-ray for evaluation of left hip pain revealed a left femur fracture. Orthopedics consulted. Patient does not know what the cause of the fracture would be. Denies osteoporosis and cancer. Percutaneous pinning of left femoral neck fracture done on 06/30/2023. Pain control, DVT prophylaxis and PT and OT per Orthopedics. Postop day 1 (2) History of TIA (transient ischemic attack): Code(s): Z86.73 - Personal history of transient ischemic attack (TIA), and cerebral infarction without residual deficits Status: Acute Assessment and Plan: Plavix on hold. Restart per Orthopedics Recommendation. (3) GERD (gastroesophageal reflux disease): Qualifiers: Esophagitis presence: without esophagitis Qualified Code(s): K21.9 - Gastro-esophageal reflux disease without esophagitis Code(s): K21.9 - Gastro-esophageal reflux disease without esophagitis Status: Acute Assessment and Plan: IV Protonix b.i.d.. For GI prophylaxis. Subjective Date/time seen: 07/01/23 12:34 Interval history: Patient doing well today with no new complaints. She continues to have pain in her left hip. She is working with PT and OT. She will likely need rehab at discharge. Her hemoglobin did drop for points from the surgery. Dr. Winkler will be in to see her and together we will determine if she needs transfusion. Patient does not have any symptoms of lightheadedness, dizziness, shortness of breath, fatigue or flushing. Exam Narrative: GENERAL: Comfortable, no acute distress HENMT: moist mucous membranes EYES: EOM intact b/l NECK: no lymphadenopathy RESPIRATORY: clear to auscultation CARDIO: RRR GI: soft, nontender, bowel sounds present SKIN: no rashes EXTREMITIES: lateral Left hip edema that is improved from day of surgery, mild bruising around incision site Objective Data Vital Signs Vital Signs: Vital Signs - 24 hr 06/30/23 12:45 06/30/23 13:00 06/30/23 13:15 Temperature Pulse Rate 82 73 71 Respiratory Rate 20 14 16 Blood Pressure 139/71 124/67 129/70 Pulse Oximetry 94 96 96 Oxygen Delivery Room Air Room Air Room Air 06/30/23 14:25 06/30/23 13:35 06/30/23 13:50 Temperature 96.9 F L 96.6 F L Pulse Rate 66 71 Respiratory Rate 18 18 Blood Pressure 126/61 124/74 Pulse Oximetry 95 92 Oxygen Delivery Room Air 06/30/23 14:20 06/30/23 15:20 06/30/23 19:23 Temperature 97.6 F 98.0 F 96.4 F L Pulse Rate 70 65 81 Respiratory Rate 18 18 16 Blood Pressure 116/85 123/60 111/61 Pulse Oximetry 94 95 97 Oxygen Delivery 06/30/23 22:40 06/30/23 23:23 07/01/23 04:30 Temperature 96 F L 96.4 F L Pulse Rate 80 73 70 Respiratory Rate 16 14 Blood Pressure 119/58 L 121/55 L Pulse Oximetry 97 92 93 Oxygen Delivery Room Air 07/01/23 07:23 07/01/23 08:00 07/01/23 11:23 Temperature 96.9 F L 97.2 F L Pulse Rate 69 61 Respiratory Rate 18 20 Blood Pressure 106/44 L 106/63 Pulse Oximetry 91 100 Oxygen Delivery Room Air Intake/Output Intake/Output: Intake & Output 06/28/23 06/29/23 06/30/23 07/01/23 23:59 23:59 23:59 23:59 Intake Total 890 1180 Output Total 600 Balance 890 580 Meds/Results Medications: Active Medications Generic Name Dose Route Start Last Admin Trade Name Freq PRN Reason Stop Dose Admin Acetaminophen 650 mg 06/30/23 13:38 07/01/23 08:39 Acetaminophen 325 Mg Tablet PO 650 mg Q4H PRN Administration pain 1-3 Hydrocodon
[2023-07-01 12:48] LABS: Hematocrit 32.7 % (37.0-47.0); Hemoglobin 10.3 g/dL (12.0-15.0)
--- NOTE | 2023-07-01 13:49 | PM.PNORT ---
Progress Note: A&P Assessment and Plan (1) Closed left hip fracture: Qualifiers: Encounter type: initial encounter Qualified Code(s): S72.002A - Fracture of unspecified part of neck of left femur, initial encounter for closed fracture Code(s): S72.002A - Fracture of unspecified part of neck of left femur, initial encounter for closed fracture Status: Acute Assessment and Plan: POD 1 DOING WELL. OBSERVE HEMATOMA FOR NOW, HGB STABLE, RESUME PLAVIX TMRW AFTER MORNING H AND H, SNF WHEN STABLE Subjective Subjective Date/Time Seen: 07/01/23 13:49 Interval history: POD 1 DOING WELL, MILD HEMATOMA AT ICISISON SITE, NO CALF OR THIGH PAIN Exam Extrem: Other: VSS AFEBRILE DRESSING DRY MILD TO MODERATE HEMATOMA OVER INCISION, MILD TENDER, THIGH AND CALF ARE SOFT, AROM WITH MINIMAL PAIN IN HIP, NV INTACT NEG HOMANS SIGN Objective Data Vital Signs Vital Signs: Vital Signs - 24 hr 06/30/23 14:25 06/30/23 13:50 06/30/23 14:20 Temperature 35.9 C L 36.4 C Pulse Rate 71 70 Respiratory Rate 18 18 Blood Pressure 124/74 116/85 Pulse Oximetry 92 94 Oxygen Delivery Room Air 06/30/23 15:20 06/30/23 19:23 06/30/23 22:40 Temperature 36.7 C 35.8 C L Pulse Rate 65 81 80 Respiratory Rate 18 16 Blood Pressure 123/60 111/61 Pulse Oximetry 95 97 97 Oxygen Delivery Room Air 06/30/23 23:23 07/01/23 04:30 07/01/23 07:23 Temperature 35.5 C L 35.8 C L 36.1 C L Pulse Rate 73 70 69 Respiratory Rate 16 14 18 Blood Pressure 119/58 L 121/55 L 106/44 L Pulse Oximetry 92 93 91 Oxygen Delivery 07/01/23 08:00 07/01/23 11:23 Temperature 36.2 C L Pulse Rate 61 Respiratory Rate 20 Blood Pressure 106/63 Pulse Oximetry 100 Oxygen Delivery Room Air Intake/Output Intake/Output: Intake & Output 06/28/23 06/29/23 06/30/23 07/01/23 23:59 23:59 23:59 23:59 Intake Total 890 1420 Output Total 600 Balance 890 820 Meds/Results Medications: Active Medications Generic Name Dose Route Start Last Admin Trade Name Freq PRN Reason Stop Dose Admin Acetaminophen 650 mg 06/30/23 13:38 07/01/23 08:39 Acetaminophen 325 Mg Tablet PO 650 mg Q4H PRN Administration pain 1-3 Hydrocodone Bitart/Acetaminophen 1 tab 06/30/23 13:38 07/01/23 02:04 Hydrocodone/Acetaminophen (*Crx) 7.5-325 Mg Tablet PO 1 tab Q3H PRN Administration Pain Rated 4-6 Hydrocodone Bitart/Acetaminophen 2 tab 06/30/23 13:38 Hydrocodone/Acetaminophen (*Crx) 7.5-325 Mg Tablet PO Q6H PRN Pain Rated 7-10 Clopidogrel Bisulfate 75 mg 07/01/23 09:00 Clopidogrel Bisulfate 75 Mg Tablet PO QAM CAPRICE Diazepam 5 mg 06/30/23 13:38 06/30/23 20:51 Diazepam (*Crx) 5 Mg Tablet PO 5 mg Q8H PRN Administration Muscle Spasm Docusate Sodium 100 mg 06/30/23 09:00 07/01/23 08:39 Docusate Sodium 100 Mg Capsule PO 100 mg Q12HR CAPRICE Administration Famotidine 20 mg 06/30/23 21:00 07/01/23 09:30 Famotidine 20 Mg Tablet PO 20 mg Q12HR CAPRICE Administration Fluticasone Propionate 1 spray 06/30/23 13:38 Fluticasone Propionate 0.05% Na Spr 16 Gm Btl (*Bkc) NASAL DAILY PRN allergies Furosemide 20 mg 06/30/23 09:00 07/01/23 09:30 Furosemide 20 Mg Tablet PO 20 mg DAILY CAPRICE Administration Melatonin 10 mg 06/30/23 21:00 06/30/23 20:51 Melatonin 5 Mg Tablet PO 10 mg HS CAPRICE Administration Naloxone HCl 0.1 mg 06/30/23 13:38 Naloxone Hcl 0.4 Mg/Ml Vial IV PUSH Q2M PRN Opiate Reversal Ondansetron HCl 4 mg 06/30/23 13:38 Ondansetron Inj 4 Mg/2 Ml Vial IV PUSH Q4H PRN Nausea And Vomiting Pantoprazole Sodium 40 mg 06/30/23 21:00 07/01/23 08:37 Pantoprazole Sodium Iv 40 Mg Vial IV PUSH 40 mg Q12HR CAPRICE Administration Polyethylene Glycol 17 gm 06/29/23 23:25 Polyethylene Glycol 3350 17 Gm Powd.Pack PO DAILY PRN Constipation Polyethylene Glycol 17 gm 07/01
[2023-07-01 15:23] VITALS: BP 115/58; PULSE 62; RESP 18; TEMP 36.4; O2SAT 98
--- NOTE | 2023-07-01 15:40 | PCPTNOTE ---
Talked to Dr. Palomo, patient is okay to go from [facility] to [facility], he reports he will change the weightbearing order.
[2023-07-01 20:00] VITALS: O2SAT 98
[2023-07-01] MEDS: diazePAM (*CRX) 5 MG TABLET PO (20:12)
[2023-07-01] MEDS: MELATONIN 5 MG TABLET 10 MG PO (20:12)
[2023-07-01 20:35] VITALS: BP 142/79; PULSE 75; RESP 18; TEMP 36.3; O2SAT 95
[2023-07-02 00:05] VITALS: BP 115/60; PULSE 84; RESP 16; TEMP 37; O2SAT 92
[2023-07-02] MEDS: HYDROcodone/acetaminophen (*CRX) 7.5-325 MG TABLET 1 TAB PO (01:51)
[2023-07-02 06:22] VITALS: BP 122/58; PULSE 69; RESP 20; TEMP 36.4; O2SAT 93
[2023-07-02 06:28] LABS: Hematocrit 27.1 % (37.0-47.0); Hemoglobin 8.9 g/dL (12.0-15.0); Mean Corpuscular HGB Conc 32.8 g/dl (32-36); Mean Corpuscular Volume 97.5 fl (80-100); Mean Platelet Volume 8.5 fl (7.4-10.4); Platelet Count Result 308 k/mm3 (150-375); Red Blood Count 2.78 M/mm3 (4.2-5.4); White Blood Count 8.1 K/mm3 (4.5-10.0)
[2023-07-02 06:44] LABS: Anion Gap 3 mmol/L (8-16); Blood Urea Nitrogen 11 mg/dL (7-17); Carbon Dioxide 29 mmol/L (22-30); Chloride 99 mmol/L (98-107); Estimated CRCL calculation 34 ml/min; Estimated Glomerular Filt Rate > 60; Glucose 104 mg/dL (65-110); Potassium 3.5 mmol/L (3.4-5.0); Sodium 131 mmol/L (137-145)
[2023-07-02] MEDS: PANTOPRAZOLE SODIUM IV 40 MG VIAL IV PUSH (08:33)
[2023-07-02] MEDS: VITAMIN B COMPLEX/VIT C CAPSULE 1 EACH PO (08:34)
[2023-07-02] MEDS: polyethylene glycoL 3350 17 GM POWD.PACK PO (08:34)
[2023-07-02] MEDS: SENNA/DOCUSATE SODIUM TABLET 2 TAB PO (08:34)
[2023-07-02] MEDS: diazePAM (*CRX) 5 MG TABLET PO (08:34)
[2023-07-02] MEDS: FUROSEMIDE 20 MG TABLET PO (08:34)
[2023-07-02] MEDS: DOCUSATE SODIUM 100 MG CAPSULE PO (08:34)
[2023-07-02] MEDS: FAMOTIDINE 20 MG TABLET PO (08:34)
--- NOTE | 2023-07-02 13:16 | PM.IMPN ---
Progress Note: A&P Assessment and Plan (1) Closed left hip fracture: Qualifiers: Encounter type: initial encounter Qualified Code(s): S72.002A - Fracture of unspecified part of neck of left femur, initial encounter for closed fracture Code(s): S72.002A - Fracture of unspecified part of neck of left femur, initial encounter for closed fracture Status: Acute Assessment and Plan: Patient presents to the ED after outpatient x-ray for evaluation of left hip pain revealed a left femur fracture. Orthopedics consulted. Patient does not know what the cause of the fracture would be. Denies osteoporosis and cancer. Percutaneous pinning of left femoral neck fracture done on 06/30/2023. Pain control, DVT prophylaxis and PT and OT per Orthopedics. Postop day 2 (2) History of TIA (transient ischemic attack): Code(s): Z86.73 - Personal history of transient ischemic attack (TIA), and cerebral infarction without residual deficits Status: Acute Assessment and Plan: Plavix on hold. Restart per Orthopedics Recommendation. (3) GERD (gastroesophageal reflux disease): Qualifiers: Esophagitis presence: without esophagitis Qualified Code(s): K21.9 - Gastro-esophageal reflux disease without esophagitis Code(s): K21.9 - Gastro-esophageal reflux disease without esophagitis Status: Acute Assessment and Plan: IV Protonix b.i.d.. For GI prophylaxis. Subjective Date/time seen: 07/02/23 13:16 Interval history: Patient doing well with PT and OT. Awaiting placement at this time. Review of Systems Review of Systems: All systems reviewed & are unremarkable except as noted in HPI and below Exam Narrative: GENERAL: Comfortable, no acute distress HENMT: moist mucous membranes EYES: EOM intact b/l NECK: no lymphadenopathy RESPIRATORY: clear to auscultation CARDIO: RRR GI: soft, nontender, bowel sounds present SKIN: no rashes EXTREMITIES: lateral Left hip edema that is improved from day of surgery, mild bruising around incision site Objective Data Vital Signs Vital Signs: Vital Signs - 24 hr 07/01/23 15:23 07/01/23 20:00 07/01/23 20:35 Temperature 97.5 F L 97.3 F L Pulse Rate 62 75 Respiratory Rate 18 18 Blood Pressure 115/58 L 142/79 H Pulse Oximetry 98 98 95 Oxygen Delivery Room Air 07/02/23 00:05 07/02/23 06:22 07/02/23 08:30 Temperature 98.6 F 97.5 F L Pulse Rate 84 69 Respiratory Rate 16 20 Blood Pressure 115/60 122/58 L Pulse Oximetry 92 93 Oxygen Delivery Room Air Intake/Output Intake/Output: Intake & Output 06/29/23 06/30/23 07/01/23 07/02/23 23:59 23:59 23:59 23:59 Intake Total 890 2400 540 Output Total 600 Balance 890 1800 540 Meds/Results Medications: Active Medications Generic Name Dose Route Start Last Admin Trade Name Freq PRN Reason Stop Dose Admin Acetaminophen 650 mg 06/30/23 13:38 07/01/23 08:39 Acetaminophen 325 Mg Tablet PO 650 mg Q4H PRN Administration pain 1-3 Hydrocodone Bitart/Acetaminophen 1 tab 06/30/23 13:38 07/02/23 01:51 Hydrocodone/Acetaminophen (*Crx) 7.5-325 Mg Tablet PO 1 tab Q3H PRN Administration Pain Rated 4-6 Hydrocodone Bitart/Acetaminophen 2 tab 06/30/23 13:38 Hydrocodone/Acetaminophen (*Crx) 7.5-325 Mg Tablet PO Q6H PRN Pain Rated 7-10 Bisacodyl 10 mg 07/03/23 09:00 Bisacodyl 10 Mg Suppository RECTAL QAM CAPRICE Clopidogrel Bisulfate 75 mg 07/01/23 09:00 07/01/23 16:14 Clopidogrel Bisulfate 75 Mg Tablet PO Not Given QAM CAPRICE Diazepam 5 mg 06/30/23 13:38 07/02/23 08:34 Diazepam (*Crx) 5 Mg Tablet PO 5 mg Q8H PRN Administration Muscle Spasm Docusate Sodium 100 mg 06/30/23 09:00 07/02/23 08:34 Docusate Sodium 100 Mg Capsule PO 100 mg Q12HR CAPRICE Administration Famotidine 20 mg 06/30/23 21:00 07/02/23 08:34 Famotidine 20 Mg
[2023-07-02 14:00] VITALS: BP 100/53; PULSE 70; RESP 18; TEMP 36.2; O2SAT 99
--- NOTE | 2023-07-02 15:42 | PM.DS ---
DS: Admitting Diagnosis Discharge Date 07/02/23 Admitting Diagnosis Left hip fracture DS: Discharge Diagnosis Discharge Diagnosis (1) Closed left hip fracture: Qualifiers: Encounter type: initial encounter Qualified Code(s): S72.002A - Fracture of unspecified part of neck of left femur, initial encounter for closed fracture Code(s): S72.002A - Fracture of unspecified part of neck of left femur, initial encounter for closed fracture Status: Acute (2) History of TIA (transient ischemic attack): Code(s): Z86.73 - Personal history of transient ischemic attack (TIA), and cerebral infarction without residual deficits Status: Acute (3) GERD (gastroesophageal reflux disease): Qualifiers: Esophagitis presence: without esophagitis Qualified Code(s): K21.9 - Gastro-esophageal reflux disease without esophagitis Code(s): K21.9 - Gastro-esophageal reflux disease without esophagitis Status: Acute DS: Summary Hospital Course Hospital Course: 88-year-old female that presented to the ED due to left hip pain. She had an outpatient x-ray on 06/25 that was negative and had outpatient CT on 06/29 which did reveal a left femur fracture. She was evaluated in the ED and orthopedics was consulted. She had a fall in December of this year which resulted in a right hip fracture which was repaired by Dr. Dockery. patient underwent percutaneous pinning of the left femoral neck on 06/30/2023. PT, OT, analgesics and DVT prophylaxis per Orthopedics. Patient was accepted into SNF on 07/02/2023. Her labs and vital signs are stable and she is medically clear for discharge. It is recommended that she follow up with Orthopedics in 2 months. Time Spent with Patient Time attestation: Total time spent providing and/or coordinating discharge services: Exam Narrative: GENERAL: Comfortable, no acute distress HENMT: moist mucous membranes EYES: EOM intact b/l NECK: no lymphadenopathy RESPIRATORY: clear to auscultation CARDIO: RRR GI: soft, nontender, bowel sounds present SKIN: no rashes EXTREMITIES: lateral Left hip edema that is improved from day of surgery, mild bruising around incision site DS: Data Data Completed and Pending Labs on day of discharge: Labs from last 24 hours 07/02/23 07/02/23 14:53 06:10 WBC 8.1 RBC 2.78 L Hgb 8.9 L Hct 27.1 L MCV 97.5 MCH 32.0 MCHC 32.8 RDW 14.0 Plt Count 308 MPV 8.5 Sodium 131 L Potassium 3.5 Chloride 99 Carbon Dioxide 29 Anion Gap 3 L BUN 11 Creatinine 0.80 Estim Creat Clear Calc 34 Estimated GFR > 60 Glucose 104 Calcium 8.0 L SARS-CoV-2 RNA (RT-PCR) Pending Discharge Plan Discharge Attending physician on discharge: Ani Day Consulting providers: Arsen Dockery Discharging Clinician: Shameka Hamilton Patient Disposition: SNF Activity: follow weight bearing status Diet: regular Discharge Instructions: Take medications as prescribed Remain active, follow weight-bearing status Continue with physical therapy and occupational therapy to improve strength and endurance and returned back to baseline strength Continue with fall precautions, remove rugs within the home, use hand rails when climbing stairs and use assistive devices when needed to ambulate Follow-up with primary care provider within 1 weeks Follow-up with Orthopedics in 2 months. Thank you for choosing [facility] for your healthcare needs Stand Alone Forms: General Discharge Information Follow-up/Referrals: Arsen Dockery MD [Physician] - Rick,Delmer Dumont MD [Primary Care Provider] - Discharge Medications: Continued B-complex with vitamin C Tablet 1 tablet PO DAILY polyethylene glycol 3350 [Miralax] 17 gram Powder In Packet 17 g PO DAILY PRN (Reason: Constipation) Flonase Allergy Relief aerosol 1 puff EACH NARE DAILY PRN (Reason: allergies)
[2023-07-02 15:49] LABS: SARS-CoV-2 RNA PCR Negative (Negative)
[2023-07-02] MEDS: HYDROcodone/acetaminophen (*CRX) 7.5-325 MG TABLET 2 TAB PO (16:43)
== END 2023-07-02 18:17 | DRG 481 ==
LOC: ANHED 15:23 → ANH3MEDSUR 16:58
PROVIDERS: Orthopaedic Surgery; Student in an Organized Health Care Education/Training Program; Admitting Provider Internal Medicine; Emergency Provider Emergency Medicine; PCP Internal Medicine; Visit Provider Internal Medicine Critical Care Medicine
PROC: 0QH734Z Insertion of Internal Fixation Device into Left Upper Femur, Percutaneous Approach (ICD-10-PCS; principal; 2023-06-30 11:00)
DX: S72.012A Unspecified intracapsular fracture of left femur, initial encounter for closed fracture (principal); M96.840 Postprocedural hematoma of a musculoskeletal structure following a musculoskeletal system procedure; K21.9 Gastro-esophageal reflux disease without esophagitis; W19.XXXA Unspecified fall, initial encounter; Z20.822 Contact with and (suspected) exposure to COVID-19; Z86.73 Personal history of transient ischemic attack (TIA), and cerebral infarction without residual deficits; Z85.43 Personal history of malignant neoplasm of ovary; Z90.49 Acquired absence of other specified parts of digestive tract; Z90.710 Acquired absence of both cervix and uterus
CPT/HCPCS: 36415; 73502; 80048; 80053; 81001; 85014; 85018; 85025; 85027; 85610; 85730; 87086; 87635; 97110; 97161; 97165; 97530; 99199; 99285; A9270; C9113; G0378; J0690; J1100; J1170; J1200; J2405; J2704; J3010; J7030; J7040

== ENCOUNTER 2023-09-07 16:10 | Emergency (ER) | payer MEDICARE, OTHER, SELFPAY ==
[2023-09-07] VITALS (16 sets, daily range): BP systolic 103–129; BP diastolic 58–84; PULSE 66–93; RESP 12–28; TEMP 36.9; O2SAT 97
--- NOTE | ~2023-09-07 | XR_ITS ---
EXAMINATION: XR abdomen gastric tube insert DATE: 09/08/2023 04:07 INDICATION: Nasogastric tube placement. TECHNIQUE: An upright view of the abdomen was obtained. COMPARISON: CT abdomen and pelvis 09/07/2023 FINDINGS: The lower abdomen is excluded. There are no dilated loops of bowel. There are surgical clip s in the abdomen. There is a large hiatal hernia. The nasogastric tube tip is in the hiatal hernia ab ove the diaphragm. IMPRESSION: 1. Nasogastric tube tip in the large hiatal hernia above the diaphragm. Reviewed, dictated and finalized at location E.
--- NOTE | ~2023-09-07 | XR_ITS ---
EXAMINATION: XR abdomen gastric tube rechec DATE: 09/08/2023 05:35 INDICATION: Nasogastric tube placement. TECHNIQUE: An upright view of the abdomen was obtained. COMPARISON: CT abdomen and pelvis 09/07/2023 FINDINGS: The lower abdomen is excluded. There are no dilated loops of bowel. There are surgical clip s in the abdomen. There is a large hiatal hernia. The nasogastric tube tip is in the hiatal hernia ab ove the diaphragm. IMPRESSION: 1. Nasogastric tube tip in the hiatal hernia above the diaphragm. Reviewed, dictated and finalized at location E.
--- NOTE | ~2023-09-07 | CT_ITS ---
EXAMINATION: CT abdomen pelvis w con DATE: 09/07/2023 23:07 INDICATION: Lower abdominal pain. UTI. TECHNIQUE: Computed tomography (CT) of the abdomen and pelvis was performed without intravenous contr ast. The dose-length product was 218.16 mGy-cm. Automated exposure control and iterative reconstructi on technique were employed. COMPARISON: None. FINDINGS: There is a large hiatal hernia. There is atherosclerosis of the aorta without aneurysm. The re is a right total hip arthroplasty. There are 3 lag screws transfixing the left femoral neck. The liver, spleen, pancreas, adrenal glands and kidneys are unremarkable. Colonic diverticulosis with out evidence for diverticulitis. Evaluation of the pelvis limited by streak artifact from hardware in the hips. No definite free fluid. No lymphadenopathy. No significant vascular abnormality. There is severe levoscoliosis of the lumbar spine. There are severe lower thoracic and lumbar spondylosis. IMPRESSION: 1. No acute abdominal abnormality. 2: Large hiatal hernia with possible gastric volvulus. Reviewed, dictated and finalized at location A.
[2023-09-07 16:42] LABS: Basophils Percent Auto 0.3 % (0.2-1.2); Eosinophils Absolute Auto 0.1 K/mm3 (0-0.3); Eosinophils Percent Auto 0.9 % (0-4.4); Hematocrit 36.6 % (37.0-47.0); Hemoglobin 11.7 g/dL (12.0-15.0); Immature Granulocyte Absolute 0.03 K/mm3 (0.00-0.031); Immature Granulocyte Percent A 0.3 % (0-0.5); Lymphocytes Absolute Auto 2.83 K/mm3 (0.9-3.2); Lymphocytes Percent Auto 25.1 % (18.3-44.2); Mean Corpuscular Hemoglobin 31.5 pg (26-34); Mean Corpuscular Volume 98.7 fl (80-100); Mean Platelet Volume 8.3 fl (7.4-10.4); Monocytes Absolute Auto 0.8 K/mm3 (0.1-0.6); Monocytes Percent Auto 7.1 % (2.6-8.5); Neutrophils Absolute Auto 7.5 K/mm3 (1.3-6.7); Neutrophils Percent Auto 66.3 % (45.5-73.1); Platelet Count Result 353 k/mm3 (150-375); Red Blood Count 3.71 M/mm3 (4.2-5.4); Red Cell Distribution Width 13.7 % (11.5-14.5); White Blood Count 11.3 K/mm3 (4.5-10.0)
[2023-09-07 16:54] LABS: Alanine Aminotransferase 16 U/L (6-35); Albumin Level 4.2 g/dL (3.5-5.1); Alkaline Phosphatase 87 U/L (38-126); Anion Gap 5 mmol/L (8-16); Aspartate Amino Transferase 27 U/L (14-36); Bilirubin,Total 0.6 mg/dL (0.2-1.3); Blood Urea Nitrogen 20 mg/dL (7-17); Calcium 8.8 mg/dL (8.4-10.2); Carbon Dioxide 30 mmol/L (22-30); Chloride 99 mmol/L (98-107); Estimated CRCL calculation 25 ml/min; Estimated Glomerular Filt Rate 52; Glucose 122 mg/dL (65-110); Lipase 112 U/L (23-300); Potassium 4.3 mmol/L (3.4-5.0); Sodium 134 mmol/L (137-145)
[2023-09-07 17:16] LABS: Appearance Urine Turbid (Clear); Bacteria Urine 1+ /hpf; Bilirubin Urine Negative (Negative); Blood Urine 2+ (Negative); Color Urine Dark Yellow (Yellow); Glucose Urine UA Negative (Negative); Ketones Urine Trace mg/dL (Negative); Leukocyte Esterase Ur 3+ LEU/UL (Negative); Need Manual Microscopic Reviewed; Nitrate Urine Negative (Negative); Protein Urine 1+ mg/dL (Negative); Specific Grav Ur 1.018 (1.001-1.035); Squamous Epithelial Cell Urine Occasional /hpf (Few); Urobilinogen Urine 0.2 mg/dL (<2.0); WBC Urine >100 /hpf; pH Urine 5.5 (5.0-9.0)
[2023-09-07 17:18] LABS: Add Urine Microscopic? YES
[2023-09-07] MEDS: SODIUM CHLORIDE 0.9% IV 1,000 ML 999 ML IV CONT (22:48)
--- NOTE | 2023-09-07 22:55 | ED.ABDPAIN ---
HPI - Abdominal Pain General Chief Complaint: Abdominal Pain Stated Complaint: Low abd pain and incontinence Time Seen by Provider: 09/07/23 22:00 Source: patient Mode of arrival: ambulatory Limitations: no limitations History of Present Illness HPI narrative: Patient is an 88-year-old female who presents ED with report of lower abdominal pain. Patient reports she developed pain in her lower abdomen last night which has persisted into today. Pain is intermittent and fairly severe when it presents. She states when the pain is present and she attempts to stand up or walk, she has urinary incontinence. She does not typically have issues with this. She is concerned she may have an infection. Denies dysuria or hematuria. Denies nausea, vomiting, fevers, back pain, flank pain, diarrhea, constipation, bowel incontinence, saddle anesthesia, numbness, weakness. She has not taken anything for pain. Patient has history of recent bilateral hip fractures. She is currently wheelchair-bound and states she is beginning to move to walker ambulation soon. Related Data Home Medications Medication Instructions Recorded Confirmed B-complex with vitamin C 1 tablet PO DAILY 09/22/20 08/30/23 Flonase Allergy Relief 1 puff EACH NARE DAILY PRN 01/06/23 08/30/23 allergies polyethylene glycol 3350 17 gram 17 g PO DAILY PRN Constipation 01/06/23 08/30/23 oral powder packet (Miralax) Miralax 17 mg PO DAILY PRN Constipation 06/29/23 08/30/23 acetaminophen 325 mg tablet 650 mg PO Q4H PRN pain 1-3 06/29/23 08/30/23 (Tylenol) melatonin 10 mg capsule 10 mg PO HS 06/29/23 08/30/23 simethicone 80 mg chewable tablet 80 mg PO DAILY PRN flatulence 06/29/23 08/30/23 tramadol 50 mg tablet 50 mg PO Q8H PRN Pain (Scale Score 06/29/23 08/30/23 4-6) Allergies Allergy/AdvReac Type Severity Reaction Status Date / Time [facility] Allergy Unknown unknown Verified 06/29/23 18:17 levofloxacin Allergy Unknown unknown Verified 06/29/23 18:17 Penicillins Allergy Unknown unknown Verified 06/29/23 18:17 Sulfa (Sulfonamide Allergy Unknown unknown Verified 06/29/23 18:17 Antibiotics) Review of Systems Review of Systems: CONSTITUTIONAL: Denies fever, chills, or sweats. CARDIOVASCULAR: Denies chest pain. RESPIRATORY: Denies dyspnea. GASTROINTESTINAL: See HPI. GENITOURINARY: See HPI. SKIN: Denies rash or itching. MUSCULOSKELETAL: Denies back pain, flank pain. All systems reviewed & are unremarkable except as noted in HPI and below PMFSH Past Medical History Medical History Closed displaced fracture of right femoral neck Closed left hip fracture Gastroesophageal reflux disease History of TIA (transient ischemic attack) Ovarian cancer (1999) Pulmonary HTN Transient ischemic attack (2020) Surgical History Surgical History History of appendectomy History of total hysterectomy Status post-operative repair of closed fracture of left hip DOS 06/30/23 Family History Family History Other Family history non-contributory Social History Social History Social History: Surrogate medical decision maker: Francisco Lang, son. Code status: Full code. Smoking status: Never smoker Second hand tobacco smoke exposure: No Alcohol intake: never Alcohol use details: Occasional Substance use: never Lack of Transportation: No Lack of Food: Never True Current Housing: I Have Housing Concerned About Future Housing: No Difficulty Paying Gas/Electric Bills: No Difficulty Paying for Meds: No Currently Unemployed: No Education: Don't Know Difficulty w/ Childcare or Family Care: No Additional living arrangements comments: Lives alone in [place]. Has 2 sons, 1 passed from lung cancer
--- NOTE | 2023-09-07 23:25 | PC.NURSE ---
report and care given to MARILIA Herrera. all questions answered.
[2023-09-08] VITALS (26 sets, daily range): BP systolic 118–166; BP diastolic 70–92; PULSE 74–86; RESP 12–27; O2SAT 97–98
--- NOTE | 2023-09-08 00:31 | PC.NURSE ---
THis RN assumed care of patient. This RN took patient report from MARILIA Landon.
--- NOTE | 2023-09-08 01:45 | PC.NURSE ---
spoke w/ [facility] transfer center for pt. triage info. states pt. is on a waitlist and will not have a bed tonight.
--- NOTE | 2023-09-08 03:14 | PC.NURSE ---
This RN attempted to place NG tube in pt and was unsuccessful. Cat, RN attempted to place NG tube in patient which was also unsuccessful. EDP VALERIE Pinto made aware and verbal order to not place NG tube and await transfer. Pt made aware. Pt family member asked for pt update once pt was able to get a bed assigned at [facility]. Family member, Mireille's number is
== END 2023-09-08 05:56 | disposition short-term general hospital (02) ==
PROVIDERS: Emergency Medicine; Emergency Provider Physician Assistant; PCP Internal Medicine
DX: K31.89 Other diseases of stomach and duodenum (principal); K44.9 Diaphragmatic hernia without obstruction or gangrene; N30.01 Acute cystitis with hematuria; Z98.890 Other specified postprocedural states; K21.9 Gastro-esophageal reflux disease without esophagitis; Z86.73 Personal history of transient ischemic attack (TIA), and cerebral infarction without residual deficits; Z85.41 Personal history of malignant neoplasm of cervix uteri; I27.20 Pulmonary hypertension, unspecified; Z90.710 Acquired absence of both cervix and uterus
CPT/HCPCS: 36415; 74177; 80053; 81001; 83690; 85025; 87077; 87086; 87186; 96361; 96365; 99284; J0696; J7030; Q9967

== ENCOUNTER 2023-12-18 15:05 | Outpatient (CLI) | payer MEDICARE, OTHER, SELFPAY ==
--- NOTE | ~2023-12-18 | MR_ITS ---
MRI of the thoracic spine Clinical History: Back pain Technique: Axial T2-weighted and gradient images, and sagittal T1-weighted, T2-weighted, and STIR leopoldo ges were acquired. COMPARISON: 01/03/2022 Findings: There is extensive marrow edema of the T11 vertebral body, with probable fracture line and minimal loss of height, compatible with acute mild compression fracture. There are chronic compressio n fracture deformities, without marrow edema, involving T7, T9, and T10. Probable minimal chronic wed ging deformity of T12 and L1. No significant disc bulge or herniation evident in the thoracic spine. No spinal canal stenosis or co rd compression. No epidural mass or collection seen. Paravertebral soft tissues are unremarkable. Large hiatal hernia noted. Impression: Acute mild compression fracture T11. Chronic compression fracture deformities of T7, T9, T10, T12, L1, as detailed above. Large hiatal hernia. Reviewed, dictated and finalized at [facility]. MANAGER Impression: Acute mild compression fracture T11. Chronic compression fracture deformities of T7, T9, T10, T12, L1, as detailed a fior. Large hiatal hernia.
--- NOTE | ~2023-12-18 | MR_ITS ---
MRI of the lumbar spine Clinical History: Back pain Technique: Axial T2-weighted images, and sagittal T1-weighted, T2-weighted, and and T2 fat-sat images were acquired. COMPARISON: 01/03/2022 Findings: There is no fracture of the lumbar spine. There are mild grade 1 retrolistheses, of L1 over L2, L2 over L3, and of L3 over L4, and of L4 over L5. No suspicious bone marrow signal abnormality s een in the lumbar spine. At L1-L2, there is advanced degenerative disc narrowing. There is mild disc bulge and mild facet arth ropathy. No central canal stenosis. There is moderate to advanced bilateral neural foraminal narrowin g. At L2-L3, there is moderate to advanced degenerative disc narrowing. There is disc bulge and moderate facet arthropathy. No central canal stenosis. There is severe right neural foraminal narrowing, and moderate left neural foraminal narrowing. At L3-L4, there is severe degenerative disc narrowing. There is mild disc bulge and mild facet arthro kayy. No central canal stenosis. There is severe right neural foraminal narrowing, and moderate to a dvanced left neural foraminal narrowing. At L4-L5, there is diffuse disc bulge with superimposed central disc protrusion, with advanced facet arthropathy. There is moderate central canal stenosis. There is severe bilateral neural foraminal norris rowing, left worse than right. At L5-S1, there is mild disc bulge and mild facet arthropathy. No central canal stenosis. There is se lana left neural foraminal narrowing, and moderate right neural foraminal narrowing. Paravertebral soft tissues are unremarkable. Impression: Moderate to severe degenerative spondylosis, as detailed above. Numerous grade 1 retrolistheses in the lumbar spine, as detailed above. Reviewed, dictated and finalized at location M. 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 Numerous grade 1 retrolistheses in the lumbar spine, as detailed above.
== END 2023-12-18 15:06 | disposition home or self-care (01) ==
LOC: ANHIMG 15:06
PROVIDERS: PCP Internal Medicine; Visit Provider Internal Medicine
DX: M43.16 Spondylolisthesis, lumbar region (principal); S22.060A Wedge compression fracture of T7-T8 vertebra, initial encounter for closed fracture; S22.070A Wedge compression fracture of T9-T10 vertebra, initial encounter for closed fracture; S22.080A Wedge compression fracture of T11-T12 vertebra, initial encounter for closed fracture; S32.010A Wedge compression fracture of first lumbar vertebra, initial encounter for closed fracture; K44.9 Diaphragmatic hernia without obstruction or gangrene; X58.XXXA Exposure to other specified factors, initial encounter
CPT/HCPCS: 72146; 72148

== ENCOUNTER 2024-04-14 10:06 | Emergency (ER) | payer MEDICARE, OTHER, SELFPAY ==
[2024-04-14 10:16] VITALS: BP 120/58; PULSE 67; RESP 18; TEMP 36.6; O2SAT 99
[2024-04-14 10:33] VITALS: BP 129/64; PULSE 67; RESP 15; O2SAT 95
--- NOTE | 2024-04-14 11:28 | ED.GENADULT ---
HPI - General Adult General Chief complaint: Extremity Injury, Lower <Jasmyne Payne March,N - Last Filed: 04/14/24 12:19> Stated complaint: right ankle bleeding <Jasmyne Payne March, SPECIAL DAY CLASS TEACHER - Last Filed: 04/14/24 12:19> Time Seen by Provider: 04/14/24 10:21 <Jasmyne Payne March,N - Last Filed: 04/14/24 12:19> History of Present Illness HPI narrative: Jossy Lang is an 89 y/o female who presents with reports of having bleeding from a vericrose vein this AM that was squirting and she could not get it stopped. EMS came and applied a pressure dressing and bleeding has stopped at this time She is on blood thinners and she is worried she lost too much blood. Denies any injury or pain to her ankle <Jasmyne Payne March,N - Last Filed: 04/14/24 12:19> Related Data Home medications: Home Medications Medication Instructions Recorded Confirmed B-complex with vitamin C 1 tablet PO DAILY 09/22/20 11/01/23 Flonase Allergy Relief 1 puff EACH NARE DAILY PRN 01/06/23 11/01/23 allergies polyethylene glycol 3350 17 gram 17 g PO DAILY PRN Constipation 01/06/23 11/01/23 oral powder packet (Miralax) Miralax 17 mg PO DAILY PRN Constipation 06/29/23 11/01/23 acetaminophen 325 mg tablet 650 mg PO Q4H PRN pain 1-3 06/29/23 11/01/23 (Tylenol) melatonin 10 mg capsule 10 mg PO HS 06/29/23 11/01/23 simethicone 80 mg chewable tablet 80 mg PO DAILY PRN flatulence 06/29/23 11/01/23 tramadol 50 mg tablet 50 mg PO Q8H PRN Pain (Scale Score 06/29/23 11/01/23 4-6) <Jasmyne Payne March, SPECIAL DAY CLASS TEACHER - Last Filed: 04/14/24 12:19> Allergies/adverse reactions: Allergies Allergy/AdvReac Type Severity Reaction Status Date / Time cetirizine [From Zyrtec] Allergy Unknown unknown Verified 04/14/24 10:28 levofloxacin Allergy Unknown unknown Verified 04/14/24 10:28 Penicillins Allergy Unknown unknown Verified 04/14/24 10:28 Sulfa (Sulfonamide Allergy Unknown unknown Verified 04/14/24 10:28 Antibiotics) <Jasmyne Payne March, - Last Filed: 04/14/24 12:19> Review of Systems Review of Systems: All systems reviewed & are unremarkable except as noted in HPI and below <Jasmyne Payne March,N - Last Filed: 04/14/24 12:19> PMFSH Past Medical History Medical History: Medical History Closed displaced fracture of right femoral neck Closed left hip fracture Gastroesophageal reflux disease History of TIA (transient ischemic attack) Ovarian cancer (1999) Pulmonary HTN Transient ischemic attack (2020) <Jasmyne Payne March,N - Last Filed: 04/14/24 12:19> Surgical History Surgical History: Surgical History History of appendectomy History of total hysterectomy Status post-operative repair of closed fracture of left hip DOS 06/30/23 <Jasmyne Payne March,N - Last Filed: 04/14/24 12:19> Family History Family History: Family History Other Family history non-contributory <Jasmyne Payne March, - Last Filed: 04/14/24 12:19> Social History Social History: Social History Social History: Surrogate medical decision maker: Fracnisco Lang, adela. Code status: Full code. Smoking status: Never smoker Second hand tobacco smoke exposure: No Alcohol intake: never Alcohol use details: Occasional Substance use: never Lack of Transportation: No Lack of Food: Never True Current Housing: I Have Housing Concerned About Future Housing: No Difficulty Paying Gas/Electric Bills: No Difficulty Paying for Meds: No Currently Unemployed: No Education: Don't Know Difficulty w/ Childcare or Family Care: No Additional living arrangements comments: Lives alone in [place]. Has 2 sons, 1 passed from lung cancer. She is very active and enjoys dancing several days a week. 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
[2024-04-14 11:41] LABS: Basophils Percent Auto 0.2 % (0.2-1.2); Eosinophils Percent Auto 0.6 % (0-4.4); Hematocrit 32.6 % (37.0-47.0); Immature Granulocyte Absolute 0.03 K/mm3 (0.00-0.031); Immature Granulocyte Percent A 0.5 % (0-0.5); Lymphocytes Absolute Auto 1.27 K/mm3 (0.9-3.2); Mean Corpuscular HGB Conc 33.7 g/dl (32-36); Mean Corpuscular Hemoglobin 31.4 pg (26-34); Mean Corpuscular Volume 93.1 fl (80-100); Mean Platelet Volume 8.2 fl (7.4-10.4); Monocytes Absolute Auto 0.6 K/mm3 (0.1-0.6); Neutrophils Absolute Auto 4.4 K/mm3 (1.3-6.7); Neutrophils Percent Auto 69.7 % (45.5-73.1); Platelet Count Result 330 k/mm3 (150-375); Red Cell Distribution Width 13.7 % (11.5-14.5); White Blood Count 6.4 K/mm3 (4.5-10.0)
[2024-04-14 11:51] LABS: Prothrombin Time 13.4 Seconds (11.1-14.7)
[2024-04-14 11:52] LABS: Partial Thromboplastin Time 27.4 Seconds (22.3-36.8)
[2024-04-14 13:00] VITALS: BP 131/74; PULSE 67; RESP 15; TEMP 36.8; O2SAT 98
== END 2024-04-14 13:02 | disposition home or self-care (01) ==
PROVIDERS: Emergency Provider Nurse Practitioner Family; PCP Internal Medicine
DX: I83.891 Varicose veins of right lower extremity with other complications (principal); I27.20 Pulmonary hypertension, unspecified; K21.9 Gastro-esophageal reflux disease without esophagitis; Z86.73 Personal history of transient ischemic attack (TIA), and cerebral infarction without residual deficits; Z85.41 Personal history of malignant neoplasm of cervix uteri; Z90.710 Acquired absence of both cervix and uterus; Z79.01 Long term (current) use of anticoagulants
CPT/HCPCS: 36415; 85025; 85610; 85730; 99283

== ENCOUNTER 2024-04-14 14:41 | Inpatient (IN) | payer MEDICARE, OTHER, SELFPAY ==
[2024-04-14] VITALS (11 sets, daily range): BP systolic 102–133; BP diastolic 59–74; PULSE 59–92; RESP 13–20; TEMP 36.2–36.8; O2SAT 97–99
--- NOTE | ~2024-04-14 | MR_ITS ---
EXAMINATION: MR brain/brain stem wo/w con DATE: 04/15/2024 17:42 INDICATION: Syncope with loss of consciousness and probable transient ischemic episode TECHNIQUE: Magnetic resonance imaging (MRI) of the brain and brainstem was performed without intraven ous contrast. Sequences included sagittal and axial T1-weighted SE, axial diffusion-weighted FS SE, a xial 3D SWAN, axial T2-weighted FLAIR, and axial T2-weighted FSE. Postcontrast axial and coronal T1-w eighted SE was obtained. Apparent diffusion coefficient (ADC) maps were created. COMPARISON: Head CT dated 04/14/2024 FINDINGS: There are no areas of restricted diffusion to suggest acute infarction. Small old lacunar infarcts at the bilateral basal ganglia. No intracranial hemorrhage or abnormal intracranial mass lesion. There are scattered areas of nonspecific increased T2-weighted signal intensity in the cerebral white matte r, predominantly involving the deep and periventricular white matter. There are no intraparenchymal s ignal abnormalities seen on the other pulse sequences. Symmetric prominence of the sulci consistent w ith mild age-appropriate diffuse cerebral volume loss. The ventricles are symmetric and normal in si ze. There are no abnormal extra-axial fluid collections. Flow voids are seen in the cerebral arteries on the T2-weighted sequences consistent with their expected patency. Visualized orbits and soft tiss ues are unremarkable. There are no areas of abnormal enhancement on the post contrast images. Moderat e cervical spondylosis. IMPRESSION: 1. Old lacunar infarcts in the bilateral basal ganglia. No acute intracranial process. 2. Age-related changes including mild diffuse volume loss and moderate scattered calcific white matte r T2 hyperintensity consistent with chronic small vessel ischemic disease. Reviewed, dictated and finalized at location A. IMPRESSION: 1. Old lacunar infarcts in the bilateral basal ganglia. No acute intracranial p rocess. 2. Age-related changes including mild diffuse volume loss and moderate scattere d calcific white matter T2 hyperintensity consistent with chronic small vessel ischemic disease.
--- NOTE | ~2024-04-14 | CT_ITS ---
EXAMINATION: CT brain wo con DATE: 04/14/2024 17:01 INDICATION: Syncope. TECHNIQUE: Computed tomography (CT) of the head was performed without intravenous contrast. The mA wa s adjusted according to patient size. Iterative reconstruction technique was employed. The dose-lengt h product was 756.67 mGy-cm. COMPARISON: Head CT 01/06/2023 FINDINGS: There are old infarcts involving the bilateral basal ganglia. There are scattered areas of low attenuation in the cerebral white matter. There is no intracranial hemorrhage, acute infarction, or abnormal intracranial mass lesion. The ventricles are normal in size. The paranasal sinuses are cl ear. The mastoid air cells are normal. IMPRESSION: 1. 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 2. Stable moderate nonspecific cerebral white matter disease, which likely represents chronic small v essel ischemic disease. Reviewed, dictated and finalized at location A. IMPRESSION: 1. 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 2. Stable moderate nonspecific cerebral white matter disease, which likely repr esents chronic small vessel ischemic disease.
--- NOTE | ~2024-04-14 | MR_ITS ---
EXAMINATION: MRA brain wo con DATE: 04/15/2024 08:26 INDICATION: Syncope. Transient ischemic attack. TECHNIQUE: Magnetic resonance angiography (MRA) of the brain was performed without intravenous contra st with T1-weighted SPGR by the 3D [id number] technique. Maximum intensity projection 3D-reconstr uctions were obtained. COMPARISON: Head CT 04/14/2024 FINDINGS: The vertebral arteries are codominant. There is no significant stenosis of basilar artery or the post erior cerebral arteries. Right posterior communicating artery is normal. A left posterior communicati ng artery is not identified. There is a 5 mm saccular aneurysm of cavernous segment of left internal carotid artery. There is no significant stenosis of the anterior or middle cerebral arteries. Anterio r communicating artery is normal. IMPRESSION: 1. 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 Reviewed, dictated and finalized at location A.
--- NOTE | 2024-04-14 15:08 | ECG_ITS ---
SEE SCANNED COPY FOR CONFIRMED REPORT MTDD
[2024-04-14] MEDS: SODIUM CHLORIDE 0.9% IV 500 ML 999 ML IV CONT (16:52)
[2024-04-14 17:24] LABS: Basophils Percent Auto 0.2 % (0.2-1.2); Eosinophils Percent Auto 0.1 % (0-4.4); Hematocrit 32.5 % (37.0-47.0); Hemoglobin 10.8 g/dL (12.0-15.0); Immature Granulocyte Absolute 0.04 K/mm3 (0.00-0.031); Immature Granulocyte Percent A 0.4 % (0-0.5); Lymphocytes Absolute Auto 1.04 K/mm3 (0.9-3.2); Lymphocytes Percent Auto 11.3 % (18.3-44.2); Mean Corpuscular HGB Conc 33.2 g/dl (32-36); Mean Corpuscular Hemoglobin 31.4 pg (26-34); Mean Corpuscular Volume 94.5 fl (80-100); Mean Platelet Volume 8.3 fl (7.4-10.4); Monocytes Absolute Auto 0.6 K/mm3 (0.1-0.6); Neutrophils Absolute Auto 7.5 K/mm3 (1.3-6.7); Platelet Count Result 324 k/mm3 (150-375); Red Blood Count 3.44 M/mm3 (4.2-5.4); Red Cell Distribution Width 13.6 % (11.5-14.5); White Blood Count 9.2 K/mm3 (4.5-10.0)
[2024-04-14 17:34] LABS: Alanine Aminotransferase 15 U/L (6-35); Albumin Level 4.4 g/dL (3.5-5.1); Alkaline Phosphatase 113 U/L (38-126); Anion Gap 5 mmol/L (4-12); Aspartate Amino Transferase 30 U/L (14-36); Bilirubin,Total 0.6 mg/dL (0.2-1.3); Blood Urea Nitrogen 20 mg/dL (7-17); Calcium 8.6 mg/dL (8.4-10.2); Carbon Dioxide 30 mmol/L (22-30); Chloride 87 mmol/L (98-107); Estimated CRCL calculation 28 ml/min; Estimated Glomerular Filt Rate 52; Glucose 116 mg/dL (65-110); Potassium 3.9 mmol/L (3.4-5.0); Sodium 122 mmol/L (137-145)
[2024-04-14 17:45] LABS: Prothrombin Time 13.5 Seconds (11.1-14.7); Troponin I < 0.012 ng/mL (0.000-0.034)
--- NOTE | 2024-04-14 18:32 | ED.SYNCOPE ---
HPI - Syncope General Chief Complaint: Syncope Stated Complaint: syncopal episode Time Seen by Provider: 04/14/24 15:35 Source: patient and family Mode of arrival: EMS Limitations: no limitations History of Present Illness HPI narrative: 89-year-old with a history of pulmonary hypertension TIA was brought in by his son with a complaint of having had a syncopal episode. he stated that they were. They are early this morning for ruptured varicose vein in her ankle soon after they were discharged from the hospital he went to drop her at her home . few minutes later when he went to check on her she felt faint ,pale and passed ot for about 5 mins . he also stated that he had similar episode in the past and was diagnosed with TIA. Patient upon arrival to the ER denies any headache, chest pain or shortness of breath or weakness MD complaint: loss of consciousness and felt faint Prodromal symptoms: none Witnessed: Yes - by Other ( son) Context: standing up Injuries sustained associated with event: none Current symptoms: none Treatments prior to arrival: none Related Data Home Medications Medication Instructions Recorded Confirmed B-complex with vitamin C 1 tablet PO DAILY 09/22/20 11/01/23 Flonase Allergy Relief 1 puff EACH NARE DAILY PRN 01/06/23 11/01/23 allergies polyethylene glycol 3350 17 gram 17 g PO DAILY PRN Constipation 01/06/23 11/01/23 oral powder packet (Miralax) Miralax 17 mg PO DAILY PRN Constipation 06/29/23 11/01/23 acetaminophen 325 mg tablet 650 mg PO Q4H PRN pain 1-3 06/29/23 11/01/23 (Tylenol) melatonin 10 mg capsule 10 mg PO HS 06/29/23 11/01/23 simethicone 80 mg chewable tablet 80 mg PO DAILY PRN flatulence 06/29/23 11/01/23 tramadol 50 mg tablet 50 mg PO Q8H PRN Pain (Scale Score 06/29/23 11/01/23 4-6) Allergies Allergy/AdvReac Type Severity Reaction Status Date / Time cetirizine [From Zyrte] Allergy Unknown unknown Verified 04/14/24 10:28 levofloxacin Allergy Unknown unknown Verified 04/14/24 10:28 Penicillins Allergy Unknown unknown Verified 04/14/24 10:28 Sulfa (Sulfonamide Allergy Unknown unknown Verified 04/14/24 10:28 Antibiotics) Review of Systems Review of Systems: All systems reviewed & are unremarkable except as noted in HPI and below Constitutional: Constitutional: Reports no additional constitutional complaints Eyes: Eyes: Reports no additional eye complaints ENT: Reports system reviewed and no additional complaints, except as documented Cardiovascular: Cardiovascular: Reports no additional cardiovascular complaints Respiratory: Respiratory: Reports no additional respiratory complaints Gastrointestinal: Gastrointestinal: Reports no additional gastrointestinal complaints Musculoskeletal: Musculoskeletal: Reports no additional musculoskeletal complaints Integumentary/Breasts: Skin/Breast: Reports system reviewed and no additional complaints, except as docu Neurologic: Reports system reviewed and no additional complaints, except as documented Psychiatric: Psychiatric: Reports no additional psychiatric complaints PMFSH Past Medical History Medical History Closed displaced fracture of right femoral neck Closed left hip fracture Gastroesophageal reflux disease History of TIA (transient ischemic attack) Ovarian cancer (1999) Pulmonary HTN Transient ischemic attack (2020) Surgical History Surgical History History of appendectomy History of total hysterectomy Status post-operative repair of closed fracture of left hip DOS 06/30/23 Family History Family History Other Family history non-contributory Social History Social History Social History: Surrogate medical decision maker: Francisco Lang, son. Code status: Full code. Smoking status: Never
--- NOTE | 2024-04-14 22:11 | ADMGEN ---
This patient, Jossy Lang, was admitted to Medical Room 246-01. Patient/family oriented to hospital policies and general routines including ID bracelet, bed and alarms, visiting hours, pain management, procedures, bathroom and other care routines, personal items, smoking policy, room service/diet, and visiting hours. Information on how to activate the Rapid Response Team has been discussed. Patient/Family are encouraged to report perceived risks to care and to ask questions if they do not understand what they are told or what they should do.
[2024-04-15] VITALS (11 sets, daily range): BP systolic 100–125; BP diastolic 46–67; PULSE 57–93; RESP 12–20; TEMP 36.2–36.9; O2SAT 96–100
--- NOTE | 2024-04-15 | ECHO_ITS ---
Patient Info Name: Jossy Lang Age: 89 years : 1935 Gender: Female Ht: 63 in Wt: 122 lbs BSA: 1.57 m2 HR: 63 bpm BP: 115 / 58 mmHg Heart Rhythm: Sinus Rhythm Technical Quality: Good Exam Date: 04/15/2024 10:10 AM Exam Location: Echo Lab Patient Status: Inpatient Admit Date: 04/14/2024 Staff Ordering Physician: Erwin Caputo MD Senior Credit Analyst: Roz Hill RDCS Attending Provider: Erwin Caputo MD Referring Physician: Harshal SMITH; Exam Type: CA echo doppler color flow Study Info Indications R55 - Syncope and collapse Complete two-dimensional, color flow and Doppler transthoracic echocardiogram is performed. Summary 1. Complete two-dimensional, color flow and Doppler transthoracic echocardiogram is performed. 2. Left ventricular chamber dimension is normal. 3. Left ventricular systolic function is normal, estimated at 65-70%. 4. The left ventricular diastolic function is grade I diastolic dysfunction. 5. E/e' 10 is mildly elevated. 6. Left atrial chamber dimension is mildly enlarged. 7. There is mild aortic valve sclerosis. 8. There is mild mitral valve regurgitation. 9. There is mild tricuspid valve regurgitation. 10. No pulmonary hypertension, estimated pulmonary arterial systolic pressure is 31 mmHg. Left Ventricle E/e' 10 is mildly elevated. Left ventricular chamber dimension is normal. Left ventricular systolic function is normal, estimated at 65-70%. The left ventricular diastolic function is grade I diastolic dysfunction. Right Ventricle Right ventricular systolic function is normal and with normal TAPSE 2.2 cm. Right ventricular chamber dimension is normal. Left Atria Left atrial chamber dimension is mildly enlarged. Right Atria Right atrial chamber dimension is normal. Aortic Valve The aortic valve is trileaflet. There is mild aortic valve sclerosis. There is no aortic valve stenosis. There is no aortic valve regurgitation. Pulmonic Valve There is no pulmonic regurgitation. Mitral Valve There is no mitral valve stenosis. There is mild mitral valve regurgitation. Tricuspid Valve There is mild tricuspid valve regurgitation. No pulmonary hypertension, estimated pulmonary arterial systolic pressure is 31 mmHg. Pericardium/Pleural There is no pericardial effusion. Inferior Vena Cava Normal inferior vena cava with >50% collapse upon inspiration consistent with normal right atrial pressure, 5 mmHg. Aorta The aortic root size at the sinus of Valsalva is normal. Left Ventricular Outflow Tract Name Value Normal LVOT 2D LVOT Diameter 2.0 cm LVOT Doppler LVOT Peak Gradient 8 mmHg LVOT Mean Gradient 4 mmHg LVOT VTI 31 cm LVOT VTI/AV VTI Ratio 1.0 LVOT Stroke Volume 96 ml LVOT CO 6.4 l/min LVOT CI 4.1 l/min/m2 Pulmonic Valve Name Value Normal R
[2024-04-15 02:33] LABS: Basophils Percent Auto 0.5 % (0.2-1.2); Eosinophils Absolute Auto 0.1 K/mm3 (0-0.3); Eosinophils Percent Auto 1.5 % (0-4.4); Hematocrit 29.5 % (37.0-47.0); Immature Granulocyte Absolute 0.01 K/mm3 (0.00-0.031); Immature Granulocyte Percent A 0.2 % (0-0.5); Lymphocytes Absolute Auto 2.65 K/mm3 (0.9-3.2); Lymphocytes Percent Auto 43.4 % (18.3-44.2); Mean Corpuscular HGB Conc 33.9 g/dl (32-36); Mean Corpuscular Hemoglobin 31.7 pg (26-34); Mean Corpuscular Volume 93.7 fl (80-100); Mean Platelet Volume 8.2 fl (7.4-10.4); Monocytes Absolute Auto 0.7 K/mm3 (0.1-0.6); Monocytes Percent Auto 11.3 % (2.6-8.5); Neutrophils Absolute Auto 2.6 K/mm3 (1.3-6.7); Neutrophils Percent Auto 43.1 % (45.5-73.1); Platelet Count Result 284 k/mm3 (150-375); Red Blood Count 3.15 M/mm3 (4.2-5.4); Red Cell Distribution Width 13.8 % (11.5-14.5); White Blood Count 6.1 K/mm3 (4.5-10.0)
[2024-04-15 02:46] LABS: Alanine Aminotransferase 15 U/L (6-35); Albumin Level 3.7 g/dL (3.5-5.1); Alkaline Phosphatase 97 U/L (38-126); Anion Gap 4 mmol/L (4-12); Aspartate Amino Transferase 30 U/L (14-36); Bilirubin,Total 0.7 mg/dL (0.2-1.3); Blood Urea Nitrogen 14 mg/dL (7-17); Calcium 8.6 mg/dL (8.4-10.2); Carbon Dioxide 28 mmol/L (22-30); Chloride 92 mmol/L (98-107); Estimated CRCL calculation 35 ml/min; Estimated Glomerular Filt Rate > 60; Glucose 98 mg/dL (65-110); Potassium 3.4 mmol/L (3.4-5.0); Sodium 124 mmol/L (137-145)
--- NOTE | 2024-04-15 04:42 | PM.IMHP ---
H&P: HPI History of Present Illness Date/Time: 04/15/24 04:42 Chief Complaint: 1. Syncope Narrative: Jossy Lang is an 89 yo F with a mHx significant for insomnia, TIA, allergic rhinitis Over the last 24 hours she has visited the ED twice; the first was to evaluate for a right aminata variceal bleed; this was dressed with pressure and she was discharge home without issues; however on arriving home with her son accompanying her, he glo the suddenly lost consciousness; this lasted about 1-3 minutes. with no known modifying factors, it was associated with fatigue and poor functionality. Per son, this has occurred in the past and the working diagnosis was TIA She does not smoke/chew tobacco, drink alcohol or consume recreational drugs; Work-up findings: CT head wo contrast: 1. 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 2. Stable moderate nonspecific cerebral white matter disease, which likely represents chronic small vessel ischemic disease. Hb 10 WBC 6 PLt 284 Na 124 K 3.4 Cl 92 BUN 14 Cr 0.8 Jossy Lang will ebe admitted, evaluated and managed for a syncopal episode Review of Systems Constitutional: Constitutional: Reports body ache(s), Denies difficulty sleeping, Reports fatigue, Reports lethargy and Denies night sweats Eyes: Eyes: Reports no additional eye complaints, Denies blurry vision and Denies photophobia ENT: Denies dysphagia, Denies epistaxis and Denies nasal congestion Cardiovascular: Cardiovascular: Denies no additional cardiovascular complaints, Denies leg edema, Denies lightheadedness and Denies palpitations Respiratory: Respiratory: Denies dyspnea and Denies dyspnea on exertion Gastrointestinal: Gastrointestinal: Denies hematochezia, Denies diarrhea, Denies nausea and Denies vomiting Genitourinary: Genitourinary: Denies dysuria and Denies urinary hesitancy Musculoskeletal: Musculoskeletal: Denies arthralgias, Denies joint swelling and Denies neck pain Integumentary/Breasts: Skin/Breast: Denies dry skin and Denies erythema Neurologic: Denies abnormal gait, Denies confusion, Denies vertigo and Denies headache(s) Psychiatric: Psychiatric: Reports anxiety, Denies behavioral changes, Denies depression and Denies homicidal ideation PMFSH Past Medical History Medical History Closed displaced fracture of right femoral neck Closed left hip fracture Gastroesophageal reflux disease History of TIA (transient ischemic attack) Ovarian cancer (1999) Pulmonary HTN Transient ischemic attack (2020) Surgical History Surgical History History of appendectomy History of total hysterectomy Status post-operative repair of closed fracture of left hip DOS 06/30/23 Family History Family History Other Family history non-contributory Social History Social History Social History: Surrogate medical decision maker: Francisco Lang, son. Code status: Full code. Smoking status: Never smoker Second hand tobacco smoke exposure: No Alcohol intake: never Alcohol use details: Occasional Substance use: never Do You Feel Safe in your Home?: Yes Lack of Transportation: No Lack of Food: Never True Current Housing: I Have Housing Concerned About Future Housing: No Difficulty Paying Gas/Electric Bills: No Difficulty Paying for Meds: No Currently Unemployed: No Education: Associate Degree Difficulty w/ Childcare or Family Care: No Additional living arrangements comments: Lives alone in [place]. Has 2 sons, 1 passed from lung cancer. She is very active and enjoys dancing several days a week. 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 care concerns: No Meds Home Medications and Allergies Home Medications Medication Instructi
[2024-04-15] MEDS: SODIUM CHLORIDE 0.9% IV 1,000 ML 100 ML IV CONT (06:50)
[2024-04-15] MEDS: ENOXAPARIN 40 MG/0.4 ML SYRINGE SUB-Q (08:15)
[2024-04-15 08:36] LABS: Appearance Urine Clear (Clear); Bacteria Urine None Seen /hpf; Bilirubin Urine Negative (Negative); Blood Urine Negative (Negative); Color Urine Yellow (Yellow); Glucose Urine UA Negative (Negative); Ketones Urine Negative (Negative); Leukocyte Esterase Ur Trace LEU/UL (Negative); Nitrate Urine Negative (Negative); Non Pathogenic Casts 0-2; Protein Urine Negative (Negative); RBC Urine 0-2 /hpf (0-2); Specific Grav Ur 1.008 (1.001-1.035); Squamous Epithelial Cell Urine None Seen /hpf (Few); Urobilinogen Urine 0.2 mg/dL (<2.0); WBC Urine 0-5 /hpf (0-3)
[2024-04-15 08:42] LABS: Add Urine Microscopic? YES
--- NOTE | 2024-04-15 10:43 | PM.TDS ---
Transfer Discharge Sum: Prov Provider Date of admission: 04/14/24 21:10 Primary care physician: Delmer Rick, Admitting clinician: Erwin Caputo MD Consults: none Attending physician on discharge: Jb Salvador Discharging clinician: Madie Cheatham Anticipated date of transfer: 04/15/24 DS: Admitting Diagnosis Discharge Date 04/15/24 Admitting Diagnosis syncope DS: Discharge Diagnosis Discharge Diagnosis (1) Syncope: Qualifiers: Syncope type: unspecified Qualified Code(s): R55 - Syncope and collapse Code(s): R55 - Syncope and collapse Status: Acute (2) GERD (gastroesophageal reflux disease): Qualifiers: Esophagitis presence: without esophagitis Qualified Code(s): K21.9 - Gastro-esophageal reflux disease without esophagitis Code(s): K21.9 - Gastro-esophageal reflux disease without esophagitis Status: Acute Transfer Discharge Sum: Med Medications Active and Home Medications: Home Medications B-complex with vitamin C 1 tablet PO DAILY 09/22/20 [History Confirmed 04/14/24] Flonase Allergy Relief 1 puff EACH NARE DAILY PRN allergies 01/06/23 [History Confirmed 04/14/24] polyethylene glycol 3350 17 gram oral powder packet (Miralax) 17 g PO DAILY PRN Constipation 01/06/23 [History Confirmed 04/14/24] clopidogrel 75 mg tablet 75 mg PO QAM #30 tabs 01/26/23 [Rx Confirmed 04/14/24] docusate sodium 100 mg capsule 100 mg PO Q12HR #30 caps 01/26/23 [Rx Confirmed 04/14/24] Miralax 17 mg PO DAILY PRN Constipation 06/29/23 [History Confirmed 04/14/24] acetaminophen 325 mg tablet (Tylenol) 650 mg PO Q4H PRN pain 1-3 06/29/23 [History Confirmed 04/14/24] melatonin 10 mg capsule 10 mg PO HS PRN Insomnia 06/29/23 [History Confirmed 04/14/24] simethicone 80 mg chewable tablet 80 mg PO DAILY PRN flatulence 06/29/23 [History Confirmed 04/14/24] furosemide 20 mg tablet 40 mg PO DAILY 04/14/24 [History Confirmed 04/14/24] Active Medications Acetaminophen (Acetaminophen 325 Mg Tablet) 650 mg PO Q4H PRN PRN Reason: Mild Pain (1-3) or Fever Sodium Chloride (Normal Saline Iv) 1,000 mls @ 100 mls/hr IV CONT .Q10H CAPRICE Last Admin: 04/15/24 06:50 Dose: 100 mls/hr Ondansetron HCl (Ondansetron Inj 4 Mg/2 Ml Vial) 4 mg IV PUSH Q4H PRN PRN Reason: Nausea Perflutren Lipid Microsphere (Perflutren Lipid Microspheres 1.5 Ml Vial Diluted To 10 Ml Total Volume) 0 ml IV PUSH ONCE PRN; Protocol PRN Reason: adequate visualization Stop: 04/18/24 04:59 Transfer Discharge Sum: Hosp Hospital Course Hospital course: Jossy Lang is a 89 year old female who presented to the hospital on 04/14/2024 with complaints of a syncopal episode. Patient presented to the hospital earlier yesterday due to bleeding from a varicose vein for they applied pressure and stop the bleed. Her son took her home from the hospital yesterday and checked on her a few minutes later and found that she felt faint, pale and passed out for about 5 minutes. Patient's son said that she had a similar episode in the past and was diagnosed with a TIA. No other MRI or MRA was obtained in our system in the past. Workup in the hospital included Head CT showed old infarcts involving the bilateral basal ganglia, stable moderate nonspecific cerebral white matter disease likely representing chronic small-vessel ischemic disease. 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 They did orthostatic blood pressures while in the ED which did not show a drop in the heart rate or the blood pressure. Her vital signs are stable, she is on room air, and she is afebrile. She denies any fever, chills, nausea, vomiting, diarrhea, abdominal pain, chest pain, shortness a breath, lightheadedness, dizziness, headache. Discussed the results of her brain MRA in the need for transfer to a tertiary hospital for vascular Services. Patient wishes to proceed with full treatment options. She also wish
--- NOTE | 2024-04-15 14:54 | PM.IMPN ---
Progress Note: A&P Assessment and Plan (1) Syncope: Qualifiers: Syncope type: unspecified Qualified Code(s): R55 - Syncope and collapse Code(s): R55 - Syncope and collapse Status: Acute Assessment and Plan: Patient was recently discharged from the hospital due to a bleeding varicose vein that required pressure dressing. When she got home patient felt faint, became pale and then passed out for about 5 minutes. The son stated that she had similar episode in the past and was diagnosed with a TIA. Head CT showed old infarcts involving the bilateral basal ganglia, stable moderate nonspecific cerebral white matter disease likely representing chronic small vessel ischemic disease. 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 spoke with Dr. Cummins, neurosurgery at [facility] who states that patient seen a neurosurgeon in the past over there and was noted to have this 5 mm saccular aneurysm on the left internal carotid artery back in April of 2021 and they were not concerned that this was the cause of her syncope due to where it was located. Plan for an echo today continue monitoring neuro status continue orthostatic blood pressure readings Q shift will get MRI of the brain and brainstem with and without contrast to rule out infarct continue cardiac monitoring (2) GERD (gastroesophageal reflux disease): Qualifiers: Esophagitis presence: without esophagitis Qualified Code(s): K21.9 - Gastro-esophageal reflux disease without esophagitis Code(s): K21.9 - Gastro-esophageal reflux disease without esophagitis Status: Acute Assessment and Plan: start Protonix (3) Hyponatremia: Code(s): E87.1 - Hypo-osmolality and hyponatremia Status: Acute Assessment and Plan: likely secondary to dehydration versus salt wasting due to possible TIA versus history of ovarian cancer will check serum osmolarity, urine osmolarity, urine sodium, cortisol level fluid restriction ordered DC IV fluid Time Spent With Patient Time with patient: 25 - 35 minutes Subjective Date/time seen: 04/15/24 14:54 Interval history: Jossy Lang is a 89 year old female who presented to the hospital on 04/14/2024 with complaints of a syncopal episode.? Patient presented to the hospital earlier yesterday due to bleeding from a varicose vein for they applied pressure and stop the bleed.? Her son took her home from the hospital yesterday and checked on her a few minutes later and found that she felt faint, pale and passed out for about 5 minutes.? Patient's son said that she had a similar episode in the past and was diagnosed with a TIA.? No other MRI or MRA was obtained in our system in the past. Workup in the hospital included Head CT showed old infarcts involving the bilateral basal ganglia, stable moderate nonspecific cerebral white matter disease likely representing chronic small-vessel ischemic disease. 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 They did orthostatic blood pressures while in the ED which did not show a drop in the heart rate or the blood pressure.? Her vital signs are stable, she is on room air, and she is afebrile.? She denies any fever, chills, nausea, vomiting, diarrhea, abdominal pain, chest pain, shortness a breath, lightheadedness, dizziness, headache.? Discussed the results of her brain MRA in the need for transfer to a tertiary hospital for vascular Services.? Patient wishes to proceed with full treatment options.? She also wishes to be a full code.? [facility] transfer center was called for neurosurgery. Dr. Cummins stated that patient seen Dr. Ceja in April of 2021 and that she was noted to have this 5mm aneurysm then which is not a concern for syncope given where it is located. Patient will remain here inpatient and will get Echo today and an MRI of the brain and brainstem with and withou
[2024-04-15] MEDS: CLOPIDOGREL BISULFATE 75 MG TABLET PO (16:32)
[2024-04-15 16:36] LABS: Cortisol Random 5.23 ug/dL
[2024-04-15] MEDS: DOCUSATE SODIUM 100 MG CAPSULE PO (20:16)
[2024-04-15] MEDS: SIMETHICONE 80 MG TAB.CHEW PO (20:16)
[2024-04-15] MEDS: MELATONIN 5 MG TABLET 10 MG PO (21:22)
[2024-04-15 23:40] LABS: Sodium Urine Random 78 meq/L
[2024-04-16] VITALS (14 sets, daily range): BP systolic 107–157; BP diastolic 51–81; PULSE 59–105; RESP 12–18; TEMP 35.9–36.7; O2SAT 94–100
[2024-04-16 05:24] LABS: Basophils Percent Auto 0.4 % (0.2-1.2); Eosinophils Absolute Auto 0.2 K/mm3 (0-0.3); Eosinophils Percent Auto 2.9 % (0-4.4); Hematocrit 30.2 % (37.0-47.0); Hemoglobin 9.8 g/dL (12.0-15.0); Immature Granulocyte Absolute 0.02 K/mm3 (0.00-0.031); Immature Granulocyte Percent A 0.4 % (0-0.5); Lymphocytes Absolute Auto 2.42 K/mm3 (0.9-3.2); Lymphocytes Percent Auto 43.8 % (18.3-44.2); Mean Corpuscular HGB Conc 32.5 g/dl (32-36); Mean Corpuscular Hemoglobin 31.5 pg (26-34); Mean Corpuscular Volume 97.1 fl (80-100); Mean Platelet Volume 8.6 fl (7.4-10.4); Monocytes Absolute Auto 0.6 K/mm3 (0.1-0.6); Monocytes Percent Auto 11.4 % (2.6-8.5); Neutrophils Absolute Auto 2.3 K/mm3 (1.3-6.7); Neutrophils Percent Auto 41.1 % (45.5-73.1); Platelet Count Result 326 k/mm3 (150-375); Red Blood Count 3.11 M/mm3 (4.2-5.4); Red Cell Distribution Width 14.2 % (11.5-14.5); White Blood Count 5.5 K/mm3 (4.5-10.0)
[2024-04-16 05:35] LABS: Alanine Aminotransferase 13 U/L (6-35); Albumin Level 3.6 g/dL (3.5-5.1); Alkaline Phosphatase 94 U/L (38-126); Anion Gap 5 mmol/L (4-12); Aspartate Amino Transferase 26 U/L (14-36); Bilirubin,Total 0.7 mg/dL (0.2-1.3); Blood Urea Nitrogen 12 mg/dL (7-17); Calcium 8.5 mg/dL (8.4-10.2); Carbon Dioxide 25 mmol/L (22-30); Chloride 99 mmol/L (98-107); Estimated CRCL calculation 40 ml/min; Estimated Glomerular Filt Rate > 60; Glucose 97 mg/dL (65-110); Potassium 3.9 mmol/L (3.4-5.0); Sodium 129 mmol/L (137-145)
[2024-04-16] MEDS: CLOPIDOGREL BISULFATE 75 MG TABLET PO (08:07)
[2024-04-16] MEDS: DOCUSATE SODIUM 100 MG CAPSULE PO ×2 (08:07→20:32)
[2024-04-16] MEDS: PANTOPRAZOLE 40 MG TABLET PO (08:07)
--- NOTE | 2024-04-16 08:15 | PM.IMPN ---
Progress Note: A&P Assessment and Plan (1) Syncope: Qualifiers: Syncope type: unspecified Qualified Code(s): R55 - Syncope and collapse Code(s): R55 - Syncope and collapse Status: Acute Assessment and Plan: 04/15/24: Patient was recently discharged from the hospital due to a bleeding varicose vein that required pressure dressing. When she got home patient felt faint, became pale and then passed out for about 5 minutes. The son stated that she had similar episode in the past and was diagnosed with a TIA. Head CT showed old infarcts involving the bilateral basal ganglia, stable moderate nonspecific cerebral white matter disease likely representing chronic small vessel ischemic disease. 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 spoke with Dr. Cummins, neurosurgery at [facility] who states that patient seen a neurosurgeon in the past over there and was noted to have this 5 mm saccular aneurysm on the left internal carotid artery back in April of 2021 and they were not concerned that this was the cause of her syncope due to where it was located. Plan for an echo today continue monitoring neuro status continue orthostatic blood pressure readings Q shift will get MRI of the brain and brainstem with and without contrast to rule out infarct continue cardiac monitoring 04/16/24: MRI of the brain showed old lacunar infarcts in the bilateral basal ganglia, no acute intracranial process, age-related changes. Echocardiogram showing normal LV systolic function with an estimated EF of 65-70%, grade 1 diastolic dysfunction. Continue orthostatic blood pressures Q shift Continue cardiac monitoring continue to hold Lasix Will find out from the son wanted other diuretic she was put on recently. Nursing also states that she takes baclofen as well which could be contributing to her symptoms. (2) GERD (gastroesophageal reflux disease): Qualifiers: Esophagitis presence: without esophagitis Qualified Code(s): K21.9 - Gastro-esophageal reflux disease without esophagitis Code(s): K21.9 - Gastro-esophageal reflux disease without esophagitis Status: Acute Assessment and Plan: 04/15/24: start Protonix 04/16/24: No change to current treatment plan (3) Hyponatremia: Code(s): E87.1 - Hypo-osmolality and hyponatremia Status: Acute Assessment and Plan: 04/15/24: likely secondary to dehydration versus salt wasting due to possible TIA versus history of ovarian cancer will check serum osmolarity, urine osmolarity, urine sodium, cortisol level fluid restriction ordered DC IV fluid 04/16/24: Continue with fluid restriction Serum osmolarity and urine osmolarity are still pending. Cortisol level within normal limits Sodium today is 129 Continue to trend labs Time Spent With Patient Time with patient: 25 - 35 minutes Subjective Date/time seen: 04/16/24 08:15 Interval history: 04/15/24: Jossy Lang is a 89 year old female who presented to the hospital on 04/14/2024 with complaints of a syncopal episode.? Patient presented to the hospital earlier yesterday due to bleeding from a varicose vein for they applied pressure and stop the bleed.? Her son took her home from the hospital yesterday and checked on her a few minutes later and found that she felt faint, pale and passed out for about 5 minutes.? Patient's son said that she had a similar episode in the past and was diagnosed with a TIA.? No other MRI or MRA was obtained in our system in the past. Workup in the hospital included Head CT showed old infarcts involving the bilateral basal ganglia, stable moderate nonspecific cerebral white matter disease likely representing chronic small-vessel ischemic disease. 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 They did orthostatic blood pressures while in the ED which did not show
[2024-04-17] VITALS: BP 117/53; PULSE 68; PULSE 72; RESP 18; TEMP 36.6; O2SAT 94
[2024-04-17 04:00] VITALS: BP 124/63; PULSE 66; PULSE 71; RESP 18; TEMP 36.4; O2SAT 98
[2024-04-17 05:34] LABS: Basophils Percent Auto 0.5 % (0.2-1.2); Eosinophils Absolute Auto 0.2 K/mm3 (0-0.3); Eosinophils Percent Auto 2.8 % (0-4.4); Hematocrit 30.6 % (37.0-47.0); Immature Granulocyte Absolute 0.01 K/mm3 (0.00-0.031); Immature Granulocyte Percent A 0.2 % (0-0.5); Lymphocytes Absolute Auto 2.27 K/mm3 (0.9-3.2); Lymphocytes Percent Auto 37.4 % (18.3-44.2); Mean Corpuscular HGB Conc 32.7 g/dl (32-36); Mean Corpuscular Hemoglobin 31.7 pg (26-34); Mean Corpuscular Volume 97.1 fl (80-100); Mean Platelet Volume 8.6 fl (7.4-10.4); Monocytes Absolute Auto 0.7 K/mm3 (0.1-0.6); Monocytes Percent Auto 11.7 % (2.6-8.5); Neutrophils Absolute Auto 2.9 K/mm3 (1.3-6.7); Neutrophils Percent Auto 47.4 % (45.5-73.1); Platelet Count Result 325 k/mm3 (150-375); Red Blood Count 3.15 M/mm3 (4.2-5.4); Red Cell Distribution Width 14.3 % (11.5-14.5); White Blood Count 6.1 K/mm3 (4.5-10.0)
[2024-04-17 05:39] LABS: Alanine Aminotransferase 14 U/L (6-35); Albumin Level 3.7 g/dL (3.5-5.1); Alkaline Phosphatase 87 U/L (38-126); Anion Gap 5 mmol/L (4-12); Aspartate Amino Transferase 24 U/L (14-36); Bilirubin,Total 0.7 mg/dL (0.2-1.3); Blood Urea Nitrogen 12 mg/dL (7-17); Calcium 8.7 mg/dL (8.4-10.2); Carbon Dioxide 25 mmol/L (22-30); Chloride 100 mmol/L (98-107); Estimated CRCL calculation 35 ml/min; Estimated Glomerular Filt Rate > 60; Glucose 94 mg/dL (65-110); Potassium 4.4 mmol/L (3.4-5.0); Sodium 130 mmol/L (137-145)
[2024-04-17 08:00] VITALS: BP 125/68; PULSE 75; RESP 16; TEMP 36.4; O2SAT 98
[2024-04-17 08:01] VITALS: PULSE 71
[2024-04-17] MEDS: PANTOPRAZOLE 40 MG TABLET PO (08:24)
[2024-04-17] MEDS: CLOPIDOGREL BISULFATE 75 MG TABLET PO (08:24)
[2024-04-17] MEDS: DOCUSATE SODIUM 100 MG CAPSULE PO (08:24)
[2024-04-17] MEDS: polyethylene glycoL 3350 17 GM POWD.PACK PO (08:26)
--- NOTE | 2024-04-17 11:30 | PM.IMPN ---
Progress Note: A&P Assessment and Plan (1) Syncope: Qualifiers: Syncope type: unspecified Qualified Code(s): R55 - Syncope and collapse Code(s): R55 - Syncope and collapse Status: Acute (2) GERD (gastroesophageal reflux disease): Qualifiers: Esophagitis presence: without esophagitis Qualified Code(s): K21.9 - Gastro-esophageal reflux disease without esophagitis Code(s): K21.9 - Gastro-esophageal reflux disease without esophagitis Status: Acute (3) Hyponatremia: Code(s): E87.1 - Hypo-osmolality and hyponatremia Status: Acute Plan Jossy Lang is a 89 year old female who presented to the hospital on 04/14/2024 with complaints of a syncopal episode.? Patient presented to the hospital earlier yesterday due to bleeding from a varicose vein for Which they applied pressure and stop the bleed.? Her son took her home from the hospital yesterday and checked on her a few minutes later and found that she felt faint, pale and passed out for about 5 minutes.? Patient's son said that she had a similar episode in the past and was diagnosed with a TIA.? No other MRI or MRA was obtained in our system in the past. Workup in the hospital included Head CT showed old infarcts involving the bilateral basal ganglia, stable moderate nonspecific cerebral white matter disease likely representing chronic small-vessel ischemic disease. 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 They did orthostatic blood pressures while in the ED which did not show a drop in the heart rate or the blood pressure.? Her vital signs are stable, she is on room air, and she is afebrile.? She denies any fever, chills, nausea, vomiting, diarrhea, abdominal pain, chest pain, shortness a breath, lightheadedness, dizziness, headache.? Discussed the results of her brain MRA in the need for transfer to a tertiary hospital for vascular Services.? Patient wishes to proceed with full treatment options.? She also wishes to be a full code.? [facility] transfer center was called for neurosurgery. Dr. Cummins stated that patient seen Dr. Ceja in April of 2021 and that she was noted to have this 5mm aneurysm then which is not a concern for syncope given where it is located. Since stable no need for transfer. Brain MRI showed old lacunar infarct in the bilateral basal ganglia with no acute intracranial process. Age-related changes include mild diffuse volume loss and moderate scattered calcific white matter T2 hyperintensity consistent with chronic small vessel ischemic disease. Echocardiogram 04/15/24 with LVEF 65-70% and grade 1 diastolic dysfunction no significant valvular abnormality.Mild chronic anemia with stable counts. Mild hyponatremia on admission 122Which indicates acute on chronic hyponatremia. Cortisol level 5.23. Fluid restriction added. She was recently placed on diuretic.Sodium continues to improve and currently at 130. Feels well PT OT evaluated the patientDid fairly well. Labs were reviewed. We will plan to DC back to home today.She will follow-up with neurosurgery as an outpatient basis Subjective Date/time seen: 04/17/24 11:30 Interval history: Jossy Lang is a 89 year old female who presented to the hospital on 04/14/2024 with complaints of a syncopal episode.? Patient presented to the hospital earlier yesterday due to bleeding from a varicose vein for Which they applied pressure and stop the bleed.? Her son took her home from the hospital yesterday and checked on her a few minutes later and found that she felt faint, pale and passed out for about 5 minutes.? Patient's son said that she had a similar episode in the past and was diagnosed with a TIA.? No other MRI or MRA was obtained in our system in the past. Workup in the hospital included Head CT showed old infarcts involving the bilateral basal ganglia, stable moderate nonspecific cerebral white matter disease likely representing chroni
--- NOTE | 2024-04-17 11:48 | PM.DS ---
DS: Admitting Diagnosis Discharge Date 04/17/2024 Admitting Diagnosis syncope DS: Discharge Diagnosis Discharge Diagnosis (1) Syncope: Qualifiers: Syncope type: unspecified Qualified Code(s): R55 - Syncope and collapse Code(s): R55 - Syncope and collapse Status: Acute (2) GERD (gastroesophageal reflux disease): Qualifiers: Esophagitis presence: without esophagitis Qualified Code(s): K21.9 - Gastro-esophageal reflux disease without esophagitis Code(s): K21.9 - Gastro-esophageal reflux disease without esophagitis Status: Acute (3) Hyponatremia: Code(s): E87.1 - Hypo-osmolality and hyponatremia Status: Acute DS: Summary Hospital Course Hospital Course: Jossy Lang is a 89 year old female who presented to the hospital on 04/14/2024 with complaints of a syncopal episode.? Patient presented to the hospital earlier yesterday due to bleeding from a varicose vein for Which they applied pressure and stop the bleed.? Her son took her home from the hospital yesterday and checked on her a few minutes later and found that she felt faint, pale and passed out for about 5 minutes.? Patient's son said that she had a similar episode in the past and was diagnosed with a TIA.? No other MRI or MRA was obtained in our system in the past. Workup in the hospital included Head CT showed old infarcts involving the bilateral basal ganglia, stable moderate nonspecific cerebral white matter disease likely representing chronic small-vessel ischemic disease. 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 They did orthostatic blood pressures while in the ED which did not show a drop in the heart rate or the blood pressure.? Her vital signs are stable, she is on room air, and she is afebrile.? She denies any fever, chills, nausea, vomiting, diarrhea, abdominal pain, chest pain, shortness a breath, lightheadedness, dizziness, headache.? Discussed the results of her brain MRA in the need for transfer to a tertiary hospital for vascular Services.? Patient wishes to proceed with full treatment options.? She also wishes to be a full code.? [facility] transfer center was called for neurosurgery. Dr. Cummins stated that patient seen Dr. Ceja in April of 2021 and that she was noted to have this 5mm aneurysm then which is not a concern for syncope given where it is located. Since stable no need for transfer. Brain MRI showed old lacunar infarct in the bilateral basal ganglia with no acute intracranial process.? Age-related changes include mild diffuse volume loss and moderate scattered calcific white matter T2 hyperintensity consistent with chronic small vessel ischemic disease.? Echocardiogram 04/15/24 with LVEF 65-70% and grade 1 diastolic dysfunction no significant valvular abnormality.Mild chronic anemia with stable counts.? Mild hyponatremia on admission 122Which indicates acute on chronic hyponatremia.? Cortisol level 5.23.? Fluid restriction added.? She was recently placed on diuretic.Sodium continues to improve and currently at 130.? Feels well PT OT evaluated the patientDid fairly well.? Labs were reviewed.? We will plan to DC back to home today.She will follow-up with neurosurgery as an outpatient basis Time Spent with Patient Time attestation: Total time spent providing and/or coordinating discharge services:45 mins Exam Narrative: General: In no acute distress, well nourished, pleasant Head: atraumatic, no encephalopathy Eyes: EOMI, PERRLA, sclera clear ENT: moist mucous membranes, nasal passages clear Neck: supple, no JVD, no adenopathy, trachea midline Cardiac: Normal S1 and S2. RRR,? No murmur, gallops or friction rubs, peripheral pulses intact. Respiratory: Lungs clear to auscultation, no adventitious lung sounds, currently on room air Gastrointestinal: soft, non-distended, non-tender, normoactive bowel sounds. : voiding without difficulty. Extremities: moves all extremiti
[2024-04-17 12:04] VITALS: PULSE 86
[2024-04-18 15:33] LABS: Osmolality, Urine 353 mOsm/kg (50-1200)
== END 2024-04-17 14:00 | disposition home or self-care (01) | DRG 641 ==
LOC: ANHED 19:03 → ANH2MED 22:37
PROVIDERS: Internal Medicine; Nurse Practitioner Acute Care; Admitting Provider Internal Medicine; Emergency Provider Family Medicine; PCP Internal Medicine; Visit Provider Internal Medicine
DX: E86.0 Dehydration (principal); E87.1 Hypo-osmolality and hyponatremia; I95.1 Orthostatic hypotension; I67.1 Cerebral aneurysm, nonruptured; D64.9 Anemia, unspecified; G47.00 Insomnia, unspecified; K21.9 Gastro-esophageal reflux disease without esophagitis; Z85.43 Personal history of malignant neoplasm of ovary; Z90.49 Acquired absence of other specified parts of digestive tract; Z90.710 Acquired absence of both cervix and uterus; Z86.73 Personal history of transient ischemic attack (TIA), and cerebral infarction without residual deficits
CPT/HCPCS: 36415; 70450; 70544; 70553; 80053; 81001; 82533; 83930; 83935; 84300; 84484; 85025; 85610; 85730; 93005; 93306; 96360; 97110; 97161; 97165; 97530; 99283; 99285; A9270; A9577; J1650; J7030; J7040

== ENCOUNTER 2025-03-23 12:15 | Emergency (ER) | payer MEDICARE, OTHER, SELFPAY ==
[2025-03-23] VITALS (9 sets, daily range): BP systolic 130–141; BP diastolic 69–81; PULSE 65–87; RESP 14–18; TEMP 36.6–37.3; O2SAT 93–99
--- NOTE | ~2025-03-23 | XR_ITS ---
EXAMINATION: XR chest 2V DATE: 03/23/2025 15:00 INDICATION: Cough TECHNIQUE: PA and lateral views of the chest were obtained. COMPARISON: Chest radiograph dated 01/06/2023 FINDINGS: Mild biapical pleural-parenchymal scarring along with a few scattered calcified pulmonary nodules con sistent with old granulomatous disease. No other airspace opacities, pulmonary edema, pleural effusio n or pneumothorax. Heart size is normal. Tortuous thoracic aorta. There are surgical clips in the upp er abdomen the previously seen large hiatal hernia is no longer visualized suggesting interval hiatal hernia repair. Consistent multiple chronic compression fractures in the mid to lower thoracic spine. Severe lumbar spondylosis. IMPRESSION: 1. No acute cardiopulmonary disease. Reviewed, dictated and finalized at location B.
--- OUTSIDE RECORDS SUMMARY | 2025-03-23 13:58 | XMS_ITS ---
Author Organization [facility] Address [address] [place] [id number] Care Team Providers Care Gin Feeder Name Role Phone Delmer Rick MD Primary Care Provider Dominick Nguyen MD Unavailable [phone] Ana Maria Lafleur MD Unavailable [phone] Active Problems Problem Noted Date Diagnosed Date History of repair of hiatal hernia 01/30/2025 Hiatal hernia with GERD 09/10/2023 Left cavernous carotid aneurysm 05/09/2021 Gastroesophageal reflux disease 10/02/2011 Carcinoma of ovary 10/02/2011 Malignant neoplastic disease 03/14/2010 Cephalalgia 03/14/2010 Current Treatment and Therapy Plans No current plan information found. Past Treatment and Therapy Plans No past plan information found. Lifetime Dose Tracking * Chemical Lifetime Dose Automatic Entry Manual Entr y Fluoro Time 5.8 minutes 5.8 minutes 0 minutes Air kerma at the reference point (Ka,r) 64.2 mGy 6 4.2 mGy 0 mGy Resolved Problems Problem Noted Date Diagnosed Date Resolved Date Paraesophageal hernia 10/30/20232024 Hiatal hernia 09/08/2023 01/30/2025
--- OUTSIDE RECORDS SUMMARY | 2025-03-23 13:58 | XMS_ITS ---
Author Name Auto Generated, Auto Generated Organization [facility] [address] [facility] ices Address [address] [place] [address] Phone [phone] Care Team Providers Care Healthcare Specialist Name Role Phone Oswaldo Garza Unavailable Kyle Bailey Unavailable Functional Status No Results Mental Status No Results Allergies and Intolerances Name Onset Date Reaction Severity Sulfa (Sulfonamide Antibiotics) (Allergy) Sat 15:43:00 EST 3 Penicillins (Allergy) Sat Jan 27 15:43:00 EST 20 23 levofloxacin (Allergy) Sat Jan 27 15:43:00 EST 2 023 cetirizine (Allergy) Sat Jan 27 15:43:00 EST 202 3 Medications Medication Directions Start Date End Date sodium chloride 1,000 mg soluble tablet 1 tablet TABLET, SOLUBLE Oral 2 Times Daily for 7 Days Indication: Hyponatremia SunJul 21 07:00:00 EDT 2022Jul 26 01:00:00 EDT 2022 loratadine 10 mg tablet 1 tab TABLET Ora l 1 Time Daily Indication: antihistamine SunJul 17 12:00:00 EDT 2022Jul 26 01:00:00 EDT 2022 Med Pass 2.0 Nutritional Supplement 120 mL 120 mL 120 cc Oral 1 Time Daily Indication: For weight maintenance and healing SunJul 06 17:00:00 EDT 2022Jul 26 01:00:00 EDT 2022 bisacodyL 5 mg tablet,delayed release 1 tablet TABLET, DELAYED RELEASE (ENTERIC COATED) Oral PRN 1 Time Daily Indication: Constipation SunJul 05 14:00:00 EDT 2022Jul 26 01:00:00 EDT 2022 Vitamin D2 1,250 mcg (50,000 unit) capsule 1 capsule CAPSULE Oral 1 Time Weekly Indication: Vitamin D deficiency SunJul 05 14:00:00 EDT 2022Jul 26 01:00:00 EDT 2022 B-complex with vitamin C tablet 1 TABLET TABLET Oral 1 Time Daily Indication: VITAMIN SUPPLEMENT SunJul 02 18:30:00 EDT 2022Jul 26 01:00:00 EDT 2022 fluticasone propionate 50 mcg/actuation nasal spray,suspension 1 PUFF SPRAY, SUSPENSION (ML) Intranasal - Both Nostrils PRN 1 Time Daily Indication: ALLERGIES SunJul 02 18:30:00 EDT 2022Jul 26 01:00:00 EDT 2022 polyethylene glycoL 3350 17 gram/dose oral powder 17 GRAMS POWDER (GRAM) Oral PRN 1 Time Daily Indication: CONSTIPATION DISSOLVE IN 4-8OZ OF LIQUID SunJul 02 18:30:00 EDT 2022Jul 26 01:00:00 EDT 2022 clopidogreL 75 mg tablet 1 TABLET TABLET Oral Every Morning Indication: Blood thinner SunJul 02 18:30:00 EDT 2022Jul 26 01:00:00 EDT 2022 docusate sodium 100 mg capsule 1 CAPSULE CAPSULE Oral Every 12 Hours Indication: CONSTIPATION SunJul 02 18:30:00 EDT 2022Jul 26 01:00:00 EDT 2022 furosemide 20 mg tablet 1 TABLET TABLET Oral 1 Time Daily Indication: FLUID RETENTION SunJul 02 18:30:00 EDT 2022Jul 26 01:00:00 EDT 2022 acetaminophen 325 mg tablet 2 TABLETS TA BLET Oral PRN Every 4 Hours Indication: PAIN 1-3 (2 [id number])DO NOT EXCEED 3GM/DAY APAP FROM ALL SOURCES SunJul 02 18:30:00 EDT 2022Jul 26 01:00:00 EDT 2022 Gas Relief (simethicone) 80 mg chewable tablet 1 TABLET TABLET,CHEWABLE Oral PRN 1 Time Daily Indication: FLATULENCE SunJul 02 18:30:00 EDT 2022Jul 26 01:00:00 EDT 2022 traMADoL 50 mg tablet 1 TABLET TABLET Or al PRN Every 8 Hours Indication: PAIN 4-6 SunJul 02 18:30:00 2022Jul 26 01:00:00 EDT 2022 melatonin 10 mg capsule 1 CAPSULE CAPSUL E Oral Hour Of Sleep Indication: SLEEP SunJul 02 18:30:00 EDT 2022Jul 26 01:00:00 EDT 2022 traZODone 50 mg tablet 1 tablet TABLET O ral 1 Time Daily Indication: Insomnia SunFeb 20 14:00:00 EDT 2022Feb 27 01:00:00 EDT 2022 melatonin 10 mg tablet 1 tablet TABLET O ral 1 Time Daily Indication: Insomnia SunFeb 16 16:00:00 EDT 2022Feb 27 01:00:00 EDT 2022 fexofenadine 60 mg tablet 1 tab TABLET O ral 2 Times Daily Indication: Allergies SunFeb 09 16:32:00 EDT 2022Feb 27 01:00:00 ED2022 bisacodyL 5 mg tablet,delayed release 2 TABS TABLET, DELAYED RELEASE (ENTERIC COATED) Oral PRN 1 Time Daily Indication: CONSTIPATION 2 TABS=10MG SunFeb 02 14:13:00 EST 2022Feb 27 01:00:00 EDT 2022 melatonin 5 mg tablet 1 tablet TABLET Or al 1 Time Daily Indication: Insomnia SunFeb 02 17:00:00 EST 2022Feb 16 16:32:00 EDT 2022 HYDROcodone 5 mg-acetaminophen 325 mg tablet 1 tab TABLET Oral PRN Every 6 Hours Indication: pain pain SunJan 30 15:40:00 2022Feb 27 01:00:00 ED2022 ergocalciferol (vitamin D2) 1,250 mcg (50,000 unit) capsule 1 cap CAPSULE Oral 1 Time Weekly Indication: vit D deficiency SunJan 31 00:00:00 EST 2022Feb 27 01:00:00 EDT 2022 acetaminophen 325 mg tablet 2 tabs TABLE T Oral PRN Every 6 Hours Indication: pain SunJan 29 15:22:00 EST 2022Feb 27 01:00:00 EDT 2022 TUBErsoL 5 tub. unit/0.1 mL intradermal injection solution 0.1 ml VIAL (ML) Intradermal 1 Time Weekly for 2 Weeks Indication: Tb Test 1st injection on admission, then one week after. Read between 48 and 72 hours SunJan 29 16:00:00 2022Feb 12 15:59:00 EDT 2022 TUBErsoL 5 tub. unit/0.1 mL intradermal injection solution Read Results VIAL (ML) Other 1 Time Weekly for 2 Weeks Indication: Tb Test Read results between 48-72 hours after 1st and 2nd (1 week apart). If positive do chest x-ray. SunJan 29 16:00:00 2022Feb 12 15:59:00 EDT 2022 Eliquis 5 mg tablet 1 TAB TABLET Oral Ev teresa 12 Hours Indication: CLOT PREVENTION SunJan 27 16:00:00 2022Feb 27 01:00:00 EDT 2022 clopidogreL 75 mg tablet 1 TAB TABLET Or al 1 Time Daily Indication: CLOT PREVENTION SunJan 27 16:00:00 2022Feb 27 01:00:00 EDT 2022 docusate sodium 100 mg capsule 1 CAP CAPSULE Oral Every 12 Hours Indication: CONSTIPATION SunJan 27 16:00:00 2022Feb 27 01:00:00 EDT 2022 sodium chloride 1,000 mg soluble tablet 1 TAB TABLET, SOLUBLE Oral 2 Times Daily Indication: HYPONATREMIA SunJan 27 16:00:00 2022Feb 06 13:59:00 EDT 2022 bisacodyL 5 mg tablet,delayed release 2 TABS TABLET, DELAYED RELEASE (ENTERIC COATED) Oral 1 Time Daily Indication: CONSTIPATION 2 TABS=10MG SunJan 27 16:00:00 2022Feb 02 14:14:00 EST 2022 furosemide 20 mg tablet 1 TAB TABLET Ora l 1 Time Daily Indication: HTN SunJan 27 16:00:00 2022Feb 27 01:00:00 EDT 2022 B-complex with vitamin C tablet 1 TAB TABLET Oral 1 Time Daily Indication: SUPPLEMENT SunJan 27 16:00:00 2022Feb 27 01:00:00 EDT 2022 fluticasone propionate 50 mcg/actuation nasal spray,suspension 1 SPRAY SPRAY, SUSPENSION Intranasal - Both Nostrils 1 Time Daily Indication: ALLERGIC RHINITIS SunJan 27 16:00:00 2022Feb 09 16:26:00 EDT 2022 polyethylene glycoL 3350 17 gram/dose oral powder 17 GRAM POWDER (GRAM) Oral PRN 1 Time Daily Indication: CONSTIPATION MIX 1 CAPFUL IN LIQUID SunJan 27 01:00:00 2022Feb 27 01:00:00 EDT 2022 Problems Active Concerns * Presence of other bone and tendon implants* Code: * Start Date: SunJan 27 00:00:00 EST 2022 * End Date: * Text: * Unspecified fall, subsequent encounter* Code: * Start Date: SunJan 27 00:00:00 2022 * End Date: * Text: * Pulmonary hypertension, unspecified* Code: * Start Date: SunJan 27 00:00:00 2022 * End Date: * Text: * Chronic diastolic (congestive) heart failure* Code: * Start Date: SunJan 27 00:00:00 2022 * End Date: * Text: * Gastro-esophageal reflux disease without esophagitis* Code: * Start Date: SunJan 27 00:00:00 EST 2022 * End Date: * Text: * Hypo-osmolality and hyponatremia* Code: * Start Date: SunJan 27 00:00:00 2022 * End Date: * Text: * Personal history of other venous thrombosis and embolism* Code: * Start Date: SunJan 27 00:00:00 2022 * End Date: * Text: * Personal history of transient ischemic attack (TIA), and cerebral infarction without residual deficits* Code: * Start Date: SunJan 27 00:00:00 2022 * End Date: * Text: * Allergic rhinitis, unspecified* Code: * Start Date: SunJan 27 00:00:00 2022 * End Date: * Text: * Slow transit constipation* Code: * Start Date: SunJan 27 00:00:00 2022 * End Date: * Text: * Drug induced constipation* Code: * Start Date: SunJan 27 00:00:00 2022 * End Date: * Text: * Adverse effect of other opioids, subsequent encounter* Code: * Start Date: SunJan 27 00:00:00 EST 2022 * End Date: * Text: * residential (current) use of antithrombotics/antiplatelets* Code: * Start Date: SunJan 27 00:00:00 EST 2022 * End Date: * Text: * Anemia, unspecified* Code: * Start Date: SunJan 27 00:00:00 2022 * End Date: * Text: * Vitamin D deficiency, unspecified* Code: * Start Date: SunJan 27 00:00:00 EST 2022 * End Date: * Text: * Primary insomnia* Code: * Start Date: SunJan 27:00:00 EST 2022 * End Date: * Text: * Personal history of (healed) traumatic fracture* Code: * Start Date: SunJul 02 00:00:00 EDT 2022 * End Date: * Text: * Fracture of unspecified part of neck of left femur, subsequent encounter for closed fracture with routine healing* Code: * Start Date: SunJul 02 00:00:00 EDT 2022 * End Date: * Text: * Personal history of malignant neoplasm of ovary* Code: * Start Date: SunJul 02 00:00:00 EDT 2022 * End Date: * Text: * Acquired absence of both cervix and uterus* Code: * Start Date: SunJul 02 00:00:00 EDT 2022 * End Date: * Text: * Chronic kidney disease, stage 3a* Code: * Start Date: SunJul 02 00:00:00 EDT 2022 * End Date: * Text: Reason for Referral Past Medical History Resolved Concerns * Problem Fracture of unspecified part of neck of right femur, subsequent encounter for closed fracture with routine healing* Code: * Start Date: SunJan 27 00:00:00 EST 2022 * End Date: SunJul 04 00:00:00 EDT 2022 * Problem Unspecified fracture of the lower end of right radius, subsequent encounter for closed fracture with routine healing* Code: * Start Date: SunJan 27 00:00:00 EST 2022 * End Date: SunJul 04 00:00:00 EDT 2022 * 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
--- OUTSIDE RECORDS SUMMARY | 2025-03-23 13:58 | XMS_ITS | Referral Summary ---
Author Organization [facility] Address [address] [place] [address] Care Team Providers Care Publication Designer Name Role Phone Delmer Rick MD Primary Care Provider Dominick Nguyen MD Unavailable [phone] Ana Maria Lafleur MD Unavailable [phone] Encounters Date Type Department Care Team Description 01/30/2025 10:36 AM DEVOPS ENGINEER - 01/30/2025 11:59 PM DEVOPS ENGINEER Hospital Encounter [facility] [address] [place] [address] History of repair of hiatal hernia Discharge Disposition: Discharge to home or self care 01/30/2025 1:00 PM DEVOPS ENGINEER Office Visit [facility] - [facility] Minimally Invasive Surgery [address] [facility] [address] [facility] [address], [place] [address] Olga Lidia Holder NP History of repair of hiatal hernia 01/29/2025 Telephone [facility] ([facility] - [facility] [address], [place] [address] Olga Lidia Holder NP Medical Question/Miscellane ous from Last 3 Months Allergies Active Allergy Reactions Criticality Noted Date Comments Cetirizine Other (See comments) Low 10/02/2017 Pain in stomach Levofloxacin Other (See comments),Joint pain Low 10/02/2017 Reaction: Joint Pain, Stiffness Penicillins Hives,Rash High 10/02/2017 Sulfa (Sulfonamide Antibiotics) Hives,Rash High 10/02/2017 Medications vitamin B complex (B COMPLEX 1 ORAL)Indications:Wick pplement Take 1 tablet by mouth every morning Active polyethylene glycol (Miralax) 17 gram packetIndications:c onstipation Take 1 packet (17 g total) by mouth daily as needed for constipation Active levocetirizine (XYZAL) 2.5 mg/5 mL solutionIndications :Allergic Rhinitis Take 10 mL (5 mg total) by mouth every evening Active simethicone (MYLICON) 80 mg chewable tabletIndications:F latulence Take 1 tablet (80 mg total) by mouth every 6 (six) hours as needed for flatulence Crush medications for 1 week after surgery, after the 1 week may take whole pills 01/18/20 24 Active furosemide (LASIX) 20 mg tabletIndications:E carli Take 2 tablets (40 mg total) by mouth every morning Crush medications for 1 week after surgery, after the 1 week may take whole pills 01/18/20 24 Active melatonin 10 mg tabletIndications:s leep Take 1 tablet (10 mg total) by mouth nightly Crush medications for 1 week after surgery, after the 1 week may take whole pills 01/18/20 24 Active ergocalciferol (Vitamin D2) 50,000 unit capsuleIndications: Osteoporosis,Vitami n D Deficiency Take 1 capsule (50,000 Units total) by mouth once a week Fridays, restart on 01/25/2024 01/25/20 24 Active docusate sodium (DOK) 100 mg tabletIndications:c onstipation Take 1 tablet (100 mg total) by mouth 2 (two) times a day Crush medications for 1 week after surgery, after the 1 week may take whole pills 01/18/20 24 Active clopidogreL (PLAVIX) 75 mg tabletIndications:C erebral Thromboembolism Prevention Take 1 tablet (75 mg total) by mouth every morning Restart on Sunday, 01/2201/22/20 24 Active hydrocortisone (ANUSOL-HC) 2.5 % rectal cream APPLY THIN LAYER TOPICALLY TO THE AFFECTED AREA 2 TO 4 TIMES DAILY 04/23/[address] (PROTONIX) 40 mg EC tablet Take 1 tablet (40 mg total) by mouth daily 03/04/20 24 Active Active Problems Problem Noted Date Diagnosed Date History of repair of hiatal hernia 01/30/2025 Hiatal hernia with GERD 09/10/2023 Left cavernous carotid aneurysm 05/09/2021 Gastroesophageal reflux disease 10/02/2011 Carcinoma of ovary 10/02/2011 Malignant neoplastic disease 03/14/2010 Cephalalgia 03/14/2010 Resolved Problems Problem Noted Date Diagnosed Date Resolved Date Paraesophageal hernia 10/30/20232024 Hiatal hernia 09/08/2023 01/30/2025 Social History Tobacco Use Types Packs/Day Years Used Date Smoking Tobacco: Never Passive Smoke Exposure: Past Smokeless Tobacco: Never AUDIT-C Answer Date Recorded Q1: How often do you have a drink containing alcohol? Never 01/16/2024 Q2: How many drinks containi ng alcohol do you have on a typical day when you are drinking? Patient does not drink Q3: How often do you have si x or more drinks on one occasion? Never 01/16/2024 Personal Safety Answer Date Recorded Have you ever been in or are you currently in a harmful physical or emotional relationship or is someone making you feel afraid or unsafe? Denies 01/16/2024 Comments No Sex and Gender Information Value Date Recorded Sex Assigned at Not on file Legal Sex Female 3:36 AM DEVOPS ENGINEER Gender Identity Not on file Sexual Orientation Not on file Last Filed Vital Signs Vital Sign Reading Time Taken Comments Blood Pressure 125/73 01/30/2025 1:04 PM DEVOPS ENGINEER Pulse 77 01/30/2025 1:04 PM DEVOPS ENGINEER Temperature 36.9 C (98.5 F) 01/30/2025 1:04 PM DEVOPS ENGINEER Respiratory Rate 16 01/19/2024 11:00 AM DEVOPS ENGINEER Oxygen Saturation 97% 01/30/2025 1:04 PM DEVOPS ENGINEER Inhaled Oxygen Concentration - - Weight 53.5 kg (118 lb) 01/30/2025 1:04 PM DEVOPS ENGINEER Height 162.6 cm (5' 4 ) 01/30/2025 1:04 PM DEVOPS ENGINEER Body Mass Index 20.25 01/30/2025 1:04 PM DEVOPS ENGINEER Plan of Treatment Not on file Procedures Procedure Name Priority Date/Time Associated Diagnosis Comments FL ESOPHAGRAM, DOUBLE CONTRAST Schedule KARUNA, Read KARUNA (Appt Today, Awaiting Results) 01/30/2025 11:26 AM DEVOPS ENGINEER History of repair of hiatal hernia from Last 3 Months Results * FL Esophagram, Double Contrast (01/30/2025 11:26 AM DEVOPS ENGINEER) Anatomical Region Laterality Modality Body N/A Radio Fluoroscop y 01/30/2025 11:3 4 AM DEVOPS ENGINEER Impressions 01/30/2025 12:14 PM DEVOPS ENGINEER Postprocedural changes of hiatal hernia repair with fundoplication without evidence of hernia recurrence. Dictated by: Vin Evangelista MD PHD The radiology attending physician has personally reviewed this study, and had reviewed and/or edited this written report and agrees with it. Electronically signed by: Kyle Decker M.D. Narrative 01/30/2025 12:14 PM DEVOPS ENGINEER EXAMINATION: DOUBLE CONTRAST BARIUM ESOPHAGRAM HISTORY: History of hiatal hernia repair TECHNIQUE: The patient was given barium and effervescent crystals to drink, and multiple fluoroscopic and conventional overhead radiographs were obtained. FINDINGS: The patient's swallowing function is normal. 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 The esophageal motility is normal. Postprocedural changes of hiatal hernia repair with fundoplication. Fundoplication wrap is seen below the level of the diaphragmatic hiatus. No recurrent hernia. Contrast readily passes through the gastroesophageal junction. The visualized portions of the stomach are normal. No reflux was elicited with provocative maneuvers. Procedure Note Kyle Decker MD PhD - 01/30/2025 EXAMINATION: DOUBLE CONTRAST BARIUM ESOPHAGRAM HISTORY: History of hiatal hernia repair TECHNIQUE: The patient was given barium and effervescent crystals to drink, and multiple fluoroscopic and conventional overhead radiographs were obtained. FINDINGS: The patient's swallowing function is normal. 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 The esophageal motility is normal. Postprocedural changes of hiatal hernia repair with fundoplication. Fundoplication wrap is seen below the level of the diaphragmatic hiatus. No recurrent hernia. Contrast readily passes through the gastroesophageal junction. The visualized portions of the stomach are normal. No reflux was elicited with provocative maneuvers. IMPRESSION: Postprocedural changes of hiatal hernia repair with fundoplication without evidence of hernia recurrence. Dictated by: Vin Evangelista MD PHD The radiology attending physician has personally reviewed this study, and had reviewed and/or edited this written report and agrees with it. Electronically signed by: Kyle Decker M.D. 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 Expl anation ADVANCE DIRECTIVE 01/16/2024 7:58 AM Power of Nurse General Duty-Medical Power of Nurse General Duty 10/17/2023 9:02 AM * Full Code (Latest Code Status on File) Date Activated Date Inactivated Comments 01/16/2024 2:30 PM 01/19/2024 7:56 PM * Full Code Date Activated Date Inactivated Comments 10/17/2023 9:16 AM 10/17/2023 2:57 PM * Full Code Date Activated Date Inactivated Comments 09/08/2023 7:54 AM 09/09/2023 6:54 PM Care Teams Publication Designer Relationship Specialty Start Date End Date Delmer Rick MD [address] [facility] [address] [place] [address] PCP - General Internal Medicine 05/17/20 Dominick Nguyen MD [address] [place] [address] Referring Physician General Surgery 09/09/23 Ana Maria Lafleur MD [address] [place] [address] Consulting Physician Gastroenterology 01/09/24
--- OUTSIDE RECORDS SUMMARY | 2025-03-23 13:58 | XMS_ITS | Clinical Summary ---
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 Hiatal hernia 09/08/2023 01/30/2025 Encounters Date Type Department Care Team Description 01/30/2025 1:00 PM PUBLIC ACCOUNTANT Office Visit [facility] ([facility]) - [facility] Minimally Invasive Surgery [address] [facility] [address], [place] [address] Olga Lidia Holder NP History of repair of hiatal hernia 01/30/2025 10:36 AM PUBLIC ACCOUNTANT - 01/30/2025 11:59 PM PUBLIC ACCOUNTANT Hospital Encounter [facility] ([facility] [address] [place] [address] History of repair of hiatal hernia Discharge Disposition: Discharge to home or self care 01/29/2025 [facility] ([facility]) - [facility] Minimally Invasive Surgery [address] [facility] 12th Floor, [place] [id number] Olga Lidia Holder NP Medical Question/Miscellane ous from Last 3 Months Surgical History Surgery Date Site/Laterality Comments APPENDECTOMY Appendectomy - (Added by TW Conv) HYSTERECTOMY Hysterectomy - (Added by TW Conv) TOTAL HIP ARTHROPLASTY 12/27/2022 - 01/23/2023 Right ORIF WRIST FRACTURE 12/27/2022 - 01/23/2023 Right OTHER SURGICAL HISTORY 06/26/2023 - 07/26/2023 Left Left hip pinning Medical History Medical History Date Comments Cancer (HCC) Anxiety Arthritis Anemia Depression GERD (gastroesophageal reflux disease) Transient ischemic attack Motion sickness Hiatal hernia 09/08/2023 Family History Medical History Relation Name Comments Throat cancer Brother Throat cancer - (Added by TW Conv) Alcohol abuse Father Cancer Father Cirrhosis Father Family history of hepatic cirrhosis - (Added by TW Conv) Heart disease Mother Relation Name Status Comments Brother Father Mother Social History Tobacco Use Types Packs/Day Years [...] on file Legal Sex Female 3:36 AM PUBLIC ACCOUNTANT Gender Identity Not on file Sexual Orientation Not on file Obstetrics History Comments S/p Hysterectomy in 1999 for ovarian cancer Last Filed Vital Signs Vital Sign Reading Time Taken Comments Blood Pressure 125/73 01/30/2025 1:04 PM PUBLIC ACCOUNTANT Pulse 77 01/30/2025 1:04 PM PUBLIC ACCOUNTANT Temperature 36.9 C (98.5 F) 01/30/2025 1:04 PM PUBLIC ACCOUNTANT Respiratory Rate 16 01/19/2024 11:00 AM PUBLIC ACCOUNTANT Oxygen Saturation 97% 01/30/2025 1:04 PM PUBLIC ACCOUNTANT Inhaled Oxygen Concentration - - Weight 53.5 kg (118 lb) 01/30/2025 1:04 PM PUBLIC ACCOUNTANT Height 162.6 cm (5' 4 ) 01/30/2025 1:04 PM PUBLIC ACCOUNTANT Body Mass Index 20.25 01/30/2025 1:04 PM PUBLIC ACCOUNTANT Plan of Treatment Health Maintenance Due Date Last Done Comments Depression Screening 1935 Hepatitis B Screening 02/11/1953 Pneumococcal vaccine 65+ (1 of 2 - PCV) 02/11/1955 Zoster Vaccine (1 of 2) 02/11/1986 Well Visit 65+ 02/11/2001 DTaP/Tdap/Td Vaccine (1 - Tdap) 09/12/2019 9 Fall Risk Assessment 01/19/2025 01/19/2024 Influenza Vaccine Completed 09/01/2024, , 09/03/2020, Additional history exists Procedures Procedure Name Priority Date/Time Associated Diagnosis Comments FL ESOPHAGRAM, DOUBLE CONTRAST Schedule KARUNA, Read KARUNA (Appt Today, Awaiting Results) 01/30/2025 11:26 AM PUBLIC ACCOUNTANT History of repair of hiatal hernia from Last 3 Months Results * FL Esophagram, Double Contrast (01/30/2025 11:26 AM PUBLIC ACCOUNTANT) Anatomical Region Laterality Modality Body N/A Radio Fluoroscop y 01/30/2025 11:3 4 AM PUBLIC ACCOUNTANT Impressions 01/30/2025 12:14 PM PUBLIC ACCOUNTANT Postprocedural changes of hiatal hernia repair with fundoplication without evidence of hernia recurrence. Dictated by: Vin Evangelista MD PHD The radiology attending physician has personally reviewed this study, and had reviewed and/or edited this written report and agrees with it. Electronically signed by: Kyle Decker M.D. Narrative 01/30/2025 12:14 PM PUBLIC ACCOUNTANT EXAMINATION: DOUBLE CONTRAST BARIUM ESOPHAGRAM HISTORY: History [...] was elicited with provocative maneuvers. Procedure Note Kyel Decker MD PhD - 01/30/2025 EXAMINATION: DOUBLE [...] it. Electronically signed by: Kyle Decker M.D. [facility]. Kyle Nguyen MD IMG FLUOROSCOPY PROCEDURES F inal Result from Last 3 Months Insurance MEDICARE [facility] [place] [facility]ICARE [facility] [place] MEDICARE [facility] Advance Directives For more information, please contact: [phone] Documents on File Type Date Recorded Patient Director Of Restaurant Operations Expl anation ADVANCE DIRECTIVE 01/16/2024 7:58 AM Power of Professor Of Industrial Technology-Medical Power of Professor Of Industrial Technology 10/17/2023 9:02 AM * Full Code (Latest Code Status on File) Date Activated Date Inactivated Comments 01/16/2024 2:30 PM 01/19/2024 7:56 PM * Full Code Date Activated Date Inactivated Comments 10/17/2023 9:16 AM 10/17/2023 2:57 PM * Full Code Date Activated Date Inactivated Comments 09/08/2023 7:54 AM 09/09/2023 6:54 PM Care Teams Ur Coordinator Relationship Specialty Start Date End Date Delmer Rick MD [address] [place] [address] PCP - General Internal Medicine 05/17/20 Dominick Nguyen MD [address] [place] [address] Referring Physician General Surgery 09/09/23 Ana Maria Lafleur MD [address] [place] [address] Consulting Physician Gastroenterology 01/09/24
--- OUTSIDE RECORDS SUMMARY | 2025-03-23 13:58 | XMS_ITS | Clinical Summary ---
Author Organization [facility] Address [address] [place] [address] Care Team Providers Care Digital Camera Technician Name Role Phone Delmer Rick MD Primary Care Provider [phone] Source Comments [facility],non-[facility] Affiliates and Associated Physician Practices is amultiple site organization consisting of ambulatory clinics and hospital sitesin [place], [place], [place] and [place]. This disclosure is being madepursuant to the Care Everywhere program and may not contain all information available regarding this patient. Last updated 18.[facility] Allergies Active Allergy Reactions Criticality Noted Date Comments Cetirizine Other Low 10/02/2017 Pain in stomach Levaquin Other Low 10/02/2017 Stiffness Penicillins Skin Reactions Medium 10/02/2017 Sulfa Drugs Skin Reactions Medium 10/02/2017 Medications * Be aware that medications may not be up to date on this document. Alwaysverify current medications with the patient. calcium carbonate-vitam in D 600-400 MG-UNIT tablet Take by mouth BID. 10/02/2017 Active b complex-c capsule Take by mouth DAILY. 10/02/2017 Active Clopidogrel Bisulfate (PLAVIX PO) Active erythromycin (ROMYCIN) 5 MG/GM ophthalmic ointment Apply 1 cm to affected eye every 4 hours for 7 days. 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 Gender Identity Not on file Sexual Orientation Not on file Last Filed Vital Signs Vital Sign Reading Time Taken Comments Blood Pressure 118/62 09/10/2020 10:43 AM CDT Pulse 74 09/10/2020 10:43 AM CDT Temperature 36.5 C (97.7 F) 09/10/2020 10:43 AM CDT Respiratory Rate 14 09/10/2020 10:43 AM CDT Oxygen Saturation 98% 09/10/2020 10:43 AM CDT Inhaled Oxygen Concentration - - Weight 56.7 kg (125 lb) 09/10/2020 10:43 AM CDT Height 160 cm (5' 3 ) 09/10/2020 10:43 AM CDT Body Mass Index 22.14 09/10/2020 10:43 AM CDT Plan of Treatment Health Maintenance Due Date Last Done Comments BONE DENSITY TESTING 1935 DTAP/TDAP/TD VACCINES (1 - Tdap) 02/11/1955 PNEUMOCOCCAL VACCINE 50+ (1 of 1 - PCV) 02/11/1986 ZOSTER VACCINE (1 of 2) 02/11/1986 Respiratory Syncytial Virus (RSV) Vaccine Pt: or over 60 yrs (1 - 1-dose 75+ series) 02/11/2011 COVID-19 VACCINE ( - 2023-2 5 season) 2024 DEPRESSION SCREENING 11/26/2024 INFLUENZA VACCINE (Season Ended) 2025 HEPATITIS B VACCINE Aged Out No longe r eligible based on patient's age to complete this topic HIB VACCINE Aged Out No longer eligi ble based on patient's age to complete this topic HPV VACCINE Aged Out No longer eligi ble based on patient's age to complete this topic MENINGOCOCCAL (Group B) VACC INE SHARED DECISION-MAKING Aged Out No longer eligibl e based on patient's age to complete this topic MENINGOCOCCAL GROUPS A/C/Y/W VACCINE Aged Out No longer eligible b ased on patient's age to complete this topic Insurance MEDICARE MEDICARE [facility] MEDICARE Care Teams Digital Camera Technician Relationship Specialty Start Date End Date Delmer Rick MD [address] [place] [address] [place] [id number] PCP - General 10/02/17
--- NOTE | 2025-03-23 13:59 | ED.URI ---
HPI - URI/Sore Throat General Chief Complaint: Upper Respiratory Infection <Nimisha Haskins PA-C - Last Filed: 03/24/25 10:30> Stated Complaint: sinus infection, UTI symptoms <Nimisha Haskins PA-C - Last Filed: 03/24/25 10:30> Time Seen by Provider: 03/23/25 13:59 <Nimisha Haskins PA-C - Last Filed: 03/24/25 10:30> Focused HPI: This is a 89 year old female that presents to the ER for sinus infection. Also believes she may have a UTI. Reports cough, congestion, dysuria. Reports epigastric pain from coughing. She is currently taking Nitrofurantoin and Azithromycin prescribed by urgent care. Denies fever, vomiting, shortness of breath. GENERAL: Elderly, well-nourished, and in no acute distress. HEAD: Normocephalic, atraumatic. CHEST: Clear to auscultation. ?No respiratory distress. HEART: Regular rate and rhythm.? NEURO: ?Alert and oriented x3. Patient screened in triage and initial orders placed.? ?Additional care and disposition to be based upon?diagnostic testing and treatment. <Nimisha Haskins PA-C - Last Filed: 03/24/25 10:30> Focused HPI: This is a 89 year old female that presents to the ER for sinus infection. Also believes she may have a UTI. Reports cough, congestion, dysuria. Reports epigastric pain from coughing. She is currently taking Nitrofurantoin and Azithromycin prescribed by urgent care. Denies fever, vomiting, shortness of breath. GENERAL: Elderly, well-nourished, and in no acute distress. HEAD: Normocephalic, atraumatic. CHEST: Clear to auscultation. ?No respiratory distress. HEART: Regular rate and rhythm.? NEURO: ?Alert and oriented x3. Patient screened in triage and initial orders placed.? ?Additional care and disposition to be based upon?diagnostic testing and treatment. <VALERIE Snyder Last Filed: 03/24/25 00:16> Source: patient <VALERIE Snyder Last Filed: 03/24/25 00:16> Mode of arrival: ambulatory <Millie Maldonado PA-C - Last Filed: 03/24/25 00:16> Limitations: no limitations <Millie Maldonado PA-C - Last Filed: 03/24/25 00:16> History of Present Illness HPI Narrative: Agree with above HPI. Reports she has been on nitrofurantoin since , azithromycin since Sunday. Denies current abdominal pain. Denies shortness of breath, chest pain. Denies fevers. Patient is concerned she may be developing CHF. Denies swelling in legs. Denies previous history of CHF. She is on furosemide 20 mg for history of hypertension, per med rec. <Millie Maldonado PA-C - Last Filed: 03/24/25 00:16> Related Data Home Medications: Home Medications ?Medication ?Instructions ?Recorded ?Confirmed ?Last Taken ?Type B-complex with vitamin C 1 tablet PO DAILY 09/22/20 04/14/24 06/29/23 09:00 History Flonase Allergy Relief 1 puff EACH NARE DAILY PRN 01/06/23 04/14/24 Unknown History allergies polyethylene glycol 3350 17 gram 17 g PO DAILY PRN Constipation 01/06/23 04/14/24 Unknown History oral powder packet (Miralax) Miralax 17 mg PO DAILY PRN Constipation 06/29/23 04/14/24 Unknown History acetaminophen 325 mg tablet 650 mg PO Q4H PRN pain 1-3 06/29/23 04/14/24 Unknown History (Tylenol) melatonin 10 mg capsule 10 mg PO HS PRN Insomnia 06/29/23 04/14/24 06/28/23 21:00 History simethicone 80 mg chewable tablet 80 mg PO DAILY PRN flatulence 06/29/23 04/14/24 Unknown History furosemide 20 mg tablet 40 mg PO DAILY 04/14/24 04/14/24 Unknown History baclofen 10 mg tablet 10 mg TID 04/16/24 04/16/24 Unknown History ergocalciferol (vitamin D2) 1,250 50,000 unit PO WEEKLY 04/16/24 04/16/24 Unknown History mcg (50,000 unit) capsule loratadine 10 mg tablet (Claritin) 10 mg PO DAILY 04/16/24 04/16/24 Unknown History omeprazole 40 mg capsule,delayed 40 mg PO DAILY 04/16/24 04/16/24 Unknown History release <Nimisha Haskins PA-C - Last Filed: 03/24/25 10:30> Allergies/Adverse Reactions: Allergies Allergy/AdvReac Type Severity Reaction Status Date / Time cetirizine (From [facility]) Allergy Unknown unknown Verified 03/23/25 12:28 levofloxacin Allergy Unknown unknown Verified 03/23/25 12:28 Penicillins Allergy Unknown unknown Verified 03/23/25 12:28 Sulfa (Sulfonamide Allergy Unknown unknown Verified 03/23/25 12:28 Antibiotics) <Nimisha Haskins PA-C - Last Filed: 03/24/25 10:30> Review of Systems Review of Systems: All systems reviewed & are unremarkable except as noted in HPI. <Millie Maldonado PA-C - Last Filed: 03/24/25 00:16> All systems reviewed & are unremarkable except as noted in HPI and below <Millie Maldonado PA-C - Last Filed: 03/24/25 00:16> [facility] Past Medical History Medical History: Medical History Closed left hip fracture Pulmonary HTN History of TIA (transient ischemic attack) Transient ischemic attack (2020) Ovarian cancer (1999) Gastroesophageal reflux disease Closed displaced fracture of right femoral neck <Nimisha Haskins PA-C - Last Filed: 03/24/25 10:30> Surgical History Surgical History: Surgical History Status post-operative repair of closed fracture of left hip DOS 06/30/23 History of appendectomy History of total hysterectomy <Nimisha Haskins PA-C - Last Filed: 03/24/25 10:30> Family History Family History: Family History Other Family history non-contributory <Nimisha Haskins PA-C - Last Filed: 03/24/25 10:30> Social History Social History: Social History Social History: Surrogate medical decision maker: Francisco Lang, son. Code status: Full code. Smoking status: Never smoker Second hand tobacco smoke exposure: No Alcohol intake: never Alcohol use details: Occasional Substance use: never Do You Feel Safe in your Home?: Yes Lack of Transportation: No Lack of Food: Never True Current Housing: I Have Housing Concerned About Future Housing: No Difficulty Paying Gas/Electric Bills: No Difficulty Paying for Meds: No Currently Unemployed: No Education: Associate Degree Difficulty w/ Childcare or Family Care: No Additional living arrangements comments: Lives alone in [place]. Has 2 sons, 1 passed from lung cancer. She is very active and enjoys dancing several days a week. 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 care concerns: No <Nimisha Haskins PA-C - Last Filed: 03/24/25 10:30> Exam Narrative: GENERAL: Elderly, somewhat frail, non-toxic, in no acute distress. HEAD: Normocephalic, atraumatic. RESPIRATORY: Airway patent, respirations nonlabored. Clear to auscultation bilaterally, no rales, rhonchi, wheezing. Occasional coughing on exam. Nasal quality to voice. No focal lung sounds. CARDIOVASCULAR: Regular rate and rhythm without murmurs, rubs, or gallops. ABDOMINAL: Soft, no tenderness throughout abdomen, nondistended. Normoactive BS. MUSCULOSKELETAL: Moves all extremities. No gross deformities. No peripheral edema. No calf tenderness. SKIN: Warm, dry, normal color. NEURO: A&O X3. Speech clear. Cranial nerves II-XII grossly intact. Steady gait. No ataxic movements. PSYCHIATRIC: Appropriate mood and affect. Normal interaction. <Millie Maldonado PA-C - Last Filed: 03/24/25 00:16> Course Vital Signs Vital signs: Vital Signs Temperature 98.0 F 03/23/25 12:22 Pulse Rate 87 03/23/25 12:22 Respiratory Rate 18 03/23/25 12:22 Blood Pressure 141/69 H 03/23/25 12:22 Pulse Oximetry 97 03/23/25 12:22 Oxygen Delivery Room Air 03/23/25 12:22 Temperature 98 F 03/23/25 21:16 Pulse Rate 70 03/23/25 21:16 Respiratory Rate 16 03/23/25 21:16 Blood Pressure 135/72 03/23/25 21:16 Pulse Oximetry 97 03/23/25 21:16 Oxygen Delivery Room Air 03/23/25 12:22 <Nimisha Haskins PA-C - Last Filed: 03/24/25 10:30> Vital Signs Temperature 98.0 F 03/23/25 12:22 Pulse Rate 87 03/23/25 12:22 Respiratory Rate 18 03/23/25 12:22 Blood Pressure 141/69 H 03/23/25 12:22 Pulse Oximetry 97 03/23/25 12:22 Oxygen Delivery Room Air 03/23/25 12:22 Temperature 98 F 03/23/25 21:16 Pulse Rate 70 03/23/25 21:16 Respiratory Rate 16 03/23/25 21:16 Blood Pressure 135/72 03/23/25 21:16 Pulse Oximetry 97 03/23/25 21:16 Oxygen Delivery Room Air 03/23/25 12:22 <Millie Maldonado PA-C - Last Filed: 03/24/25 00:16> MDM - URI/Sore Throat MDM Narrative Medical decision making narrative: Patient presented to ED with symptoms of UTI, sinus infection. Currently on antibiotics for both of these. Concerned for CHF. Vital signs are stable upon arrival. Patient is in no acute distress. Oxygen stable on room air. Patient denying shortness of breath or chest pain. EKG with nonspecific ST changes, no concerning ischemic changes. Troponin undetectable. BNP within normal range per age, 336. Patient does not appear fluid overloaded. Chest x-ray is clear. No focal consolidation or evidence of pulmonary edema. Basic laboratory studies are otherwise unremarkable. No leukocytosis. Mild anemia, consistent with previous records. Sodium 130. Again consistent with previous records. Otherwise stable electrolytes. Stable kidney function. Viral swabs negative. UA with only trace leuk esterase, no other signs of infection. Discussed lab and imaging findings with patient, overall reassuring workup. Feel patient is safe for discharge home at this time. Advised to finish both antibiotic courses. Discussed utilizing [id number] cough/cold medications, will rx teslinetteon perles. Patient given strict return precautions. She agrees with plan, feels comfortable going home. Discharged in stable condition. Vital signs stable at time of D/C. <Millie Maldonado PA-C - Last Filed: 03/24/25 00:16> Medical Records Attestation: I reviewed the patient's medical records. <Millie Maldonado PA-C - Last Filed: 03/24/25 00:16> Lab Data Attestation: I reviewed the patient's lab results. <Millie Maldonado PA-C - Last Filed: 03/24/25 00:16> Result diagrams: 03/23/25 17:49 03/23/25 17:49 <Nimisha Haskins PA-C - Last Filed: 03/24/25 10:30> Labs: Lab Results 03/23/25 03/23/25 03/23/25 Range/Units 17:40 17:49 17:49 WBC 6.2 (4.5-10.0) K/mm3 RBC 3.50 L (4.2-5.4) M/mm3 Hgb 10.9 L (12.0-15.0) g/dL Hct 33.7 L (37.0-47.0) % MCV 96.3 (80-100) fl MCH 31.1 (26-34) pg MCHC 32.3 (32-36) g/dl RDW 13.9 (11.5-14.5) % Plt Count 288 (150-375) k/mm3 MPV 8.4 (7.4-10.4) fl Immature Gran % (Auto) 0.3 (0-0.5) % Neut % (Auto) 45.8 (45.5-73.1) % Lymph % (Auto) 36.5 (18.3-44.2) % [place] % (Auto) 16.5 H (2.6-8.5) % Eos % (Auto) 0.6 (0-4.4) % Baso % (Auto) 0.3 (0.2-1.2) % Lymph # (Auto) 2.25 (0.9-3.2) K/mm3 [place] # (Auto) 1.0 H (0.1-0.6) K/mm3 Eos # (Auto) 0.0 (0-0.3) K/mm3 Baso # (Auto) 0.0 (0.0-0.1) K/mm3 Abs Immat Gran (auto) 0.02 (0.00-0.031) K/mm3 Absolute Neuts (auto) 2.8 (1.3-6.7) K/mm3 Absolute Nucleated RBC 0.000 (0.0-0.012) K/mm3 Nucleated RBC % 0.0 (0.0-0.2) % Sodium 130 L (137-145) mmol/L Potassium 3.8 (3.4-5.0) mmol/L Chloride 97 L (98-107) mmol/L Carbon Dioxide 28 (22-30) mmol/L Anion Gap 5 (4-12) mmol/L BUN 14 (7-17) mg/dL Creatinine 0.88 (0.7-1.0) mg/dL Estim Creat Clear Calc 30 ml/min Estimated GFR > 60 (59 - ) Glucose 99 (65-110) mg/dL Calcium 8.9 (8.4-10.2) mg/dL Total Bilirubin 0.8 (0.2-1.3) mg/dL AST 36 (14-36) U/L ALT 17 (6-35) U/L Alkaline Phosphatase 73 (38-126) U/L Troponin I < 0.012 (0.000-0.034) ng/mL NT-Pro-B Natriuret Pep 336 H Cancelled (19.9-100) pg/mL Total Protein 7.0 (6.3-8.2) g/dL Albumin 4.1 (3.5-5.1) g/dL Lipase 73 (23-300) U/L Urine Color (Yellow) Urine Appearance (Clear) Urine pH (5.0-9.0) Ur Specific [place] (1.001-1.035) Urine Protein (Negative) mg/dL Urine Glucose (UA) (Negative) mg/dL Urine Ketones (Negative) mg/dL Ur Blood (Man) (Negative) Urine Nitrate (Negative) Urine Bilirubin (Negative) Urine Urobilinogen (<2.0) mg/dL Leukocyte Esterase Rfl (Negative) FELICITAS/UL Urine RBC (0-2) /hpf Urine WBC (0-3) /hpf Ur Squamous Epith Cells (Few) /hpf Urine Bacteria /hpf Urine Casts Influenza A (RT-PCR) Negative (Negative) Influenza B (RT-PCR) Negative (Negative) RSV (RT-PCR) Negative (Negative) SARS-CoV-2 RNA (RT-PCR) Negative (Negative) 03/23/25 Range/Units 18:51 WBC (4.5-10.0) K/mm3 RBC (4.2-5.4) M/mm3 Hgb (12.0-15.0) g/dL Hct (37.0-47.0) % MCV (80-100) fl MCH (26-34) pg MCHC (32-36) g/dl RDW (11.5-14.5) % Plt Count (150-375) k/mm3 MPV (7.4-10.4) fl Immature Gran % (Auto) (0-0.5) % Neut % (Auto) (45.5-73.1) % Lymph % (Auto) (18.3-44.2) % [place] % (Auto) (2.6-8.5) % Eos % (Auto) (0-4.4) % Baso % (Auto) (0.2-1.2) % Lymph # (Auto) (0.9-3.2) K/mm3 [place] # (Auto) (0.1-0.6) K/mm3 Eos # (Auto) (0-0.3) K/mm3 Baso # (Auto) (0.0-0.1) K/mm3 Abs Immat Gran (auto) (0.00-0.031) K/mm3 Absolute Neuts (auto) (1.3-6.7) K/mm3 Absolute Nucleated RBC (0.0-0.012) K/mm3 Nucleated RBC % (0.0-0.2) % Sodium (137-145) mmol/L Potassium (3.4-5.0) mmol/L Chloride (98-107) mmol/L Carbon Dioxide (22-30) mmol/L Anion Gap (4-12) mmol/L BUN (7-17) mg/dL Creatinine (0.7-1.0) mg/dL Estim Creat Clear Calc ml/min Estimated GFR (59 - ) Glucose (65-110) mg/dL Calcium (8.4-10.2) mg/dL Total Bilirubin (0.2-1.3) mg/dL AST (14-36) U/L ALT (6-35) U/L Alkaline Phosphatase (38-126) U/L Troponin I (0.000-0.034) ng/mL NT-Pro-B Natriuret Pep (19.9-100) pg/mL Total Protein (6.3-8.2) g/dL Albumin (3.5-5.1) g/dL Lipase (23-300) U/L Urine Color Dark yellow (Yellow) Urine Appearance Clear (Clear) Urine pH 6.5 (5.0-9.0) Ur Specific [place] 1.011 (1.001-1.035) Urine Protein Negative (Negative) mg/dL Urine Glucose (UA) Negative (Negative) mg/dL Urine Ketones Trace H (Negative) mg/dL Ur Blood (Man) Negative (Negative) Urine Nitrate Negative (Negative) Urine Bilirubin Negative (Negative) Urine Urobilinogen 0.2 (<2.0) mg/dL Leukocyte Esterase Rfl Trace H (Negative) FELICITAS/UL Urine RBC 0-2 (0-2) /hpf Urine WBC 0-5 (0-3) /hpf Ur Squamous Epith Cells None seen (Few) /hpf Urine Bacteria None seen /hpf Urine Casts 0-2 Influenza A (RT-PCR) (Negative) Influenza B (RT-PCR) (Negative) RSV (RT-PCR) (Negative) SARS-CoV-2 RNA (RT-PCR) (Negative) <Nimisha Haskins PA-C - Last Filed: 03/24/25 10:30> Lab Results 03/23/25 03/23/25 03/23/25 Range/Units 17:40 17:49 17:49 WBC 6.2 (4.5-10.0) K/mm3 RBC 3.50 L (4.2-5.4) M/mm3 Hgb 10.9 L (12.0-15.0) g/dL Hct 33.7 L (37.0-47.0) % MCV 96.3 (80-100) fl MCH 31.1 (26-34) pg MCHC 32.3 (32-36) g/dl RDW 13.9 (11.5-14.5) % Plt Count 288 (150-375) k/mm3 MPV 8.4 (7.4-10.4) fl Immature Gran % (Auto) 0.3 (0-0.5) % Neut % (Auto) 45.8 (45.5-73.1) % Lymph % (Auto) 36.5 (18.3-44.2) % [place] % (Auto) 16.5 H (2.6-8.5) % Eos % (Auto) 0.6 (0-4.4) % Baso % (Auto) 0.3 (0.2-1.2) % Lymph # (Auto) 2.25 (0.9-3.2) K/mm3 [place] # (Auto) 1.0 H (0.1-0.6) K/mm3 Eos # (Auto) 0.0 (0-0.3) K/mm3 Baso # (Auto) 0.0 (0.0-0.1) K/mm3 Abs Immat Gran (auto) 0.02 (0.00-0.031) K/mm3 Absolute Neuts (auto) 2.8 (1.3-6.7) K/mm3 Absolute Nucleated RBC 0.000 (0.0-0.012) K/mm3 Nucleated RBC % 0.0 (0.0-0.2) % Sodium 130 L (137-145) mmol/L Potassium 3.8 (3.4-5.0) mmol/L Chloride 97 L (98-107) mmol/L Carbon Dioxide 28 (22-30) mmol/L Anion Gap 5 (4-12) mmol/L BUN 14 (7-17) mg/dL Creatinine 0.88 (0.7-1.0) mg/dL Estim Creat Clear Calc 30 ml/min Estimated GFR > 60 (59 - ) Glucose 99 (65-110) mg/dL Calcium 8.9 (8.4-10.2) mg/dL Total Bilirubin 0.8 (0.2-1.3) mg/dL AST 36 (14-36) U/L ALT 17 (6-35) U/L Alkaline Phosphatase 73 (38-126) U/L Troponin I < 0.012 (0.000-0.034) ng/mL NT-Pro-B Natriuret Pep 336 H Cancelled (19.9-100) pg/mL Total Protein 7.0 (6.3-8.2) g/dL Albumin 4.1 (3.5-5.1) g/dL Lipase 73 (23-300) U/L Urine Color (Yellow) Urine Appearance (Clear) Urine pH (5.0-9.0) Ur Specific [place] (1.001-1.035) Urine Protein (Negative) mg/dL Urine Glucose (UA) (Negative) mg/dL Urine Ketones (Negative) mg/dL Ur Blood (Man) (Negative) Urine Nitrate (Negative) Urine Bilirubin (Negative) Urine Urobilinogen (<2.0) mg/dL Leukocyte Esterase Rfl (Negative) FELIICTAS/UL Urine RBC (0-2) /hpf Urine WBC (0-3) /hpf Ur Squamous Epith Cells (Few) /hpf Urine Bacteria /hpf Urine Casts Influenza A (RT-PCR) Negative (Negative) Influenza B (RT-PCR) Negative (Negative) RSV (RT-PCR) Negative (Negative) SARS-CoV-2 RNA (RT-PCR) Negative (Negative) 03/23/25 Range/Units 18:51 WBC (4.5-10.0) K/mm3 RBC (4.2-5.4) M/mm3 Hgb (12.0-15.0) g/dL Hct (37.0-47.0) % MCV (80-100) fl MCH (26-34) pg MCHC (32-36) g/dl RDW (11.5-14.5) % Plt Count (150-375) k/mm3 MPV (7.4-10.4) fl Immature Gran % (Auto) (0-0.5) % Neut % (Auto) (45.5-73.1) % Lymph % (Auto) (18.3-44.2) % [place] % (Auto) (2.6-8.5) % Eos % (Auto) (0-4.4) % Baso % (Auto) (0.2-1.2) % Lymph # (Auto) (0.9-3.2) K/mm3 [place] # (Auto) (0.1-0.6) K/mm3 Eos # (Auto) (0-0.3) K/mm3 Baso # (Auto) (0.0-0.1) K/mm3 Abs Immat Gran (auto) (0.00-0.031) K/mm3 Absolute Neuts (auto) (1.3-6.7) K/mm3 Absolute Nucleated RBC (0.0-0.012) K/mm3 Nucleated RBC % (0.0-0.2) % Sodium (137-145) mmol/L Potassium (3.4-5.0) mmol/L Chloride (98-107) mmol/L Carbon Dioxide (22-30) mmol/L Anion Gap (4-12) mmol/L BUN (7-17) mg/dL Creatinine (0.7-1.0) mg/dL Estim Creat Clear Calc ml/min Estimated GFR (59 - ) Glucose (65-110) mg/dL Calcium (8.4-10.2) mg/dL Total Bilirubin (0.2-1.3) mg/dL AST (14-36) U/L ALT (6-35) U/L Alkaline Phosphatase (38-126) U/L Troponin I (0.000-0.034) ng/mL NT-Pro-B Natriuret Pep (19.9-100) pg/mL Total Protein (6.3-8.2) g/dL Albumin (3.5-5.1) g/dL Lipase (23-300) U/L Urine Color Dark yellow (Yellow) Urine Appearance Clear (Clear) Urine pH 6.5 (5.0-9.0) Ur Specific [place] 1.011 (1.001-1.035) Urine Protein Negative (Negative) mg/dL Urine Glucose (UA) Negative (Negative) mg/dL Urine Ketones Trace H (Negative) mg/dL Ur Blood (Man) Negative (Negative) Urine Nitrate Negative (Negative) Urine Bilirubin Negative (Negative) Urine Urobilinogen 0.2 (<2.0) mg/dL Leukocyte Esterase Rfl Trace H (Negative) FELICITAS/UL Urine RBC 0-2 (0-2) /hpf Urine WBC 0-5 (0-3) /hpf Ur Squamous Epith Cells None seen (Few) /hpf Urine Bacteria None seen /hpf Urine Casts 0-2 Influenza A (RT-PCR) (Negative) Influenza B (RT-PCR) (Negative) RSV (RT-PCR) (Negative) SARS-CoV-2 RNA (RT-PCR) (Negative) <Millie N. Gaudreault, PA-C - Last Filed: 03/24/25 00:16> Imaging Data Attestation: I personally reviewed and interpreted this imaging study as follows: <Millie Maldonado PA-C - Last Filed: 03/24/25 00:16> Radiologist's impression: ITS Impressions Chest X-Ray 03/23/25 15:07 IMPRESSION: 1. No acute cardiopulmonary disease. <VALERIE Snyder Last Filed: 03/24/25 00:16> ECG Data EKG #1: Attestation: I personally reviewed and interpreted this ECG as follows: <VALERIE Snyder Last Filed: 03/24/25 00:16> ECG completion date: 03/23/25 <VALERIE Snyder Last Filed: 03/24/25 00:16> ECG completion time: 17:38 <VALERIE Snyder Last Filed: 03/24/25 00:16> EKG Interpretation: normal rate (65), sinus rhythm, non-specific ST changes and RBBB (Incomplete) <VALERIE Snyder Last Filed: 03/24/25 00:16> Critical Care Time Critical Care Time Critical Care Time: No <Nimisha Haskins PA-C - Last Filed: 03/24/25 10:30> Discharge Plan Discharge Clinical Impression: Upper respiratory infection Qualifiers: URI type: unspecified URI Qualified Code(s): J06.9 - Acute upper respiratory infection, unspecified UTI (urinary tract infection) Qualifiers: Urinary tract infection type: acute cystitis Hematuria presence: without hematuria Qualified Code(s): N30.00 - Acute cystitis without hematuria <VALERIE Riley Last Filed: 03/24/25 10:30> Patient Disposition: Home <VALERIE Riley Last Filed: 03/24/25 10:30> Condition: Stable <VALERIE Riley Last Filed: 03/24/25 10:30> Instructions: Antibiotic Form, Upper Respiratory Infection (ED), Viral Syndrome (ED), Cold Symptoms (ED) <Nimisha Haskins PA-C - Last Filed: 03/24/25 10:30> Additional Instructions: Your workup here was reassuring. Complete your antibiotic courses that were previously prescribed to you. Utilize Tessalon Perles as needed for cough. Recommend Tylenol as needed for sinus/facial pressure. You may also use [id number] cough and cold medicines for symptom relief as needed, such as Delsym, Mucinex, DayQuil, TheraFlu. Follow-up with your primary care doctor for further evaluation. Return to the ED if you experience worsening or severe symptoms, difficulty urinating, blood in urine, severe pain, shortness of breath, chest pain, unable to keep down food or drink, persistent fevers, or any other symptoms of concern. <Nimisha Haskins PA-C - Last Filed: 03/24/25 10:30> Patient Language: Frisian <Nimisha Haskins PA-C - Last Filed: 03/24/25 10:30> Prescriptions: New benzonatate 200 mg capsule 200 mg PO TID PRN (Reason: cough) Qty: 15 0RF No Action B-complex with vitamin C Tablet 1 tablet PO DAILY polyethylene glycol 3350 [Miralax] 17 gram Powder In Packet 17 g PO DAILY PRN (Reason: Constipation) Flonase Allergy Relief aerosol 1 puff EACH NARE DAILY PRN (Reason: allergies) acetaminophen [Tylenol] 325 mg Tablet 650 mg PO Q4H PRN (Reason: pain 1-3) simethicone 80 mg Tablet,Chewable 80 mg PO DAILY PRN (Reason: flatulence) melatonin 10 mg Capsule 10 mg PO HS PRN (Reason: Insomnia) Miralax 17 mg PO DAILY PRN (Reason: Constipation) furosemide 20 mg tablet 40 mg PO DAILY baclofen 10 mg Tablet 10 mg TID omeprazole 40 mg Capsule,Delayed Release(Dr/Ec) 40 mg PO DAILY ergocalciferol (vitamin D2) 1,250 mcg (50,000 unit) capsule 50,000 unit PO WEEKLY loratadine [Claritin] 10 mg Tablet 10 mg PO DAILY clopidogrel 75 mg Tablet 75 mg PO QAM Qty: 30 0RF docusate sodium 100 mg Capsule 100 mg PO Q12HR Qty: 30 0RF <Nimisha Haskins PA-C - Last Filed: 03/24/25 10:30> Follow-up/Referrals: Prabhjot,Delmer Dumont MD [Primary Care Provider] - <Nimisha Haskins PA-C - Last Filed: 03/24/25 10:30> Time of Disposition: 20:34 <Nimisha Haskins PA-C - Last Filed: 03/24/25 10:30> 20:34 <Millie Maldonado PA-C - Last Filed: 03/24/25 00:16>
--- OUTSIDE RECORDS SUMMARY | 2025-03-23 13:59 | XMS_ITS | Continuity of Care Document ---
Author Organization [facility] Address [address] [place] [address] Phone Care Team Providers Care Customer Resolution Specialist Name Role Phone Chalres Rodriguez Unavailable Unavailable Procedures Procedure Date Office/outpatient Visit, Est Eye Exam & Treatment No Script Office/outpatient Visit, Est Advance Directives Directive Yes / No Effective Date File Name No Information Encounters Encounter Description Practice Location Reason(s) For Visit Diagnoses Date Provider Providers Copied on Encounter Office/outpat ient Visit, [facility], [id number] [place] [address] [address], [place], [place], [id number], [place] tel:[phone] [facility] No Information 5-201 0 Michael Soto. [facility] , [address], [place], [place], [facility], . tel:[phone] [facility], [address] [place] [address] [address], [place], [place], [id number], [place] tel:[phone] [facility] No Information Jan-1 6-200 9 Krishnasamy Jairo. [address] [facility] [address], [place], [address], [place]. tel:[phone] Office/outpat ient Visit, [facility], [address], [place], [place], [id number], [place] tel:[phone] [facility] No Information Mar-0 7-200 8 Krishnasamy Jairo. [address] [facility] [address], [place], [address], [place]. tel:[phone] Family History Family Member Type Diagnosis Age At Onset No Information Payers Payer name Insurance type Covered alliance party ID Authoriza tion(s) Medicare [facility] [id number] [place] [id number] Social History Type Description Quantity Date Captured [...]
--- OUTSIDE RECORDS SUMMARY | 2025-03-23 13:59 | XMS_ITS | Data Portability ---
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 Plan of Treatment Reminders Order Date Submit Date Provider Last Modified By Organization Details Last Modified Time Details Appointments None recorded. Lab vitamin D, 25-hydroxy, total, serum 2024 025 [email or web address] [facility] Outpatient Lab, [address] [place], [address], 5 13:22:03 magnesium, serum or plasma 2024 025 [facility], [address] [place], [address], 5 13:04:10 vitamin B12, serum 2024 025 [facility], [address] [place], [address], 5 14:15:26 CBC w/ auto diff 2024 025 [facility], [address] [place], [address], 5 13:14:17 lipid panel, serum 2024 025 [facility], [address] [place], [address], 5 13:04:14 CMP, serum or plasma 2024 025 [facility], [address] [place], [address], 13:04:20 TSH, serum or plasma 2024 025 [facility], [address] [place], [address], 13:32:34 T4, free, serum 2024 025 [facility], [address] [place], [address], 13:30:18 CMP, serum or plasma 2023 024 [facility], [address] [place], [address], 13:14:30 CBC w/ auto diff 2023 024 [facility], [address] [place], [address], 13:07:25 TSH, serum or plasma 2023 024 [facility], [address] [place], [address], 13:48:02 T4, free, serum 2023 [facility], [address] [place], [address], 13:47:27 Referral None recorded. Procedures None recorded. Surgeries None recorded. Imaging None recorded. Medication Orders tobramycin 0.3 % eye drops 2023 [id number], [address] [facility] [place], [place], [id number], 12:15:07 benzonatate 200 mg capsule 2023 024 [email or web address] [facility] #[id number], [address], [place], [place], [id number], 5 11:58:00 metolazone 2.5 mg tablet 2023 024 [email or web address] [facility] #[id number], [address], [place], [place], [id number], 4 15:19:10 Zithromax Z-Juan 250 mg tablet 2023 024 [email or web address] [facility] #[id number], [address], [place], [place], [id number], 4 15:49:08 Patient TargetsNo targets recorded. Patient Instructions Encounter Date Encounter Id Patient Instructions Last Modified By Organization Details Last Modified Time 04/09/2024 [id number] Chronic cough possibly some associated infectious bronchitis, GERD, hyperlipidemia, transient cerebral ischemia by history. Plan is to continue with current Rx get a chest x-ray. Will continue on the Lasix dropped down to 40 mg daily along with some metolazone 2.5 mg daily. Will cover with a Z-Juan see if there is any improvement in the chest symptomatology. Chest x-ray chronic cough Keep Appointment: Sun 10:30 AM Ma[place] Portions of the record may have been created with voice recognition software. Occasional wrong-word or s ound-a-like substitutions may have occurred due to the inherent limitations of voice recognition software. Read the chart carefully and recognize, using context, where substitutions have occurred. [email or web address] Not available 04/09/2024 17:21:03 04/23/2024 [id number] Syncope, GERD an d hyperlipidemia all clinically stable. Patient has very complex history and with a number of other major medical problem is difficult to assess what may be causing the syncopal episodes. Could represent some form of cardiac or possible neurological syncope. Will set up with Cardiology in the seen see if she needs further evaluation of the cardiac workup. Will also set up with Neurology for evaluation possible seizure activity. Already has an appointment for Cammy will continue on current Rx and set her up for these appointments and follow-up on that scheduled appointment. Keep Appointment: Sun 10:30 AM [place] Portions of the record may have been created with voice recognition software. Occasional wrong-word or s ound-a-like substitutions may have occurred due to the inherent limitations of voice recognition software. Read the chart carefully and recognize, using context, where substitutions have occurred. [email or web address] Not available 04/23/2024 15:33:23 06/25/2024 [id number] Mild chronic obstructive lung disease stable with the exception of a chronic nonproductive cough, GERD, hyperlipidemia, paraesophageal hernia. All clinically stable. Overall is doing reasonably well. No interval complaints any new problems. Did have blood work performed back in February. Will check blood work in the form of CBC, CMP and thyroid. Follow-up in three months Next Appointment: 3 Months Approximate Date: 09/23/2024 Portions of the record may have been created with voice recognition software. Occasional wrong-word or s ound-a-like substitutions may have occurred due to the inherent limitations of voice recognition software. Read the chart carefully and recognize, using context, where substitutions have occurred. Not available 06/25/2024 11:46:49 09/24/2024 [id number] Follow-up GERD, hyperlipidemia, cough, acute conjunctivitis. Will give a trial some benzoate cough pills to see if there is any improvement in the current cough. If not may need to consider further evaluation even possibility of a modified barium swallow to check for any aspiration. Will also continue on current Rx. Will call in some eye drops for the right eye. Otherwise is doing well at this time. Have blood work back in May which looked adequate. Will continue on current Rx and follow-up in four months Follow Up: 4 Months Approximate Date: 01/22/2025 Portions of the record may have been created with voice recognition software. Occasional wrong-word or s ound-a-like substitutions may have occurred due to the inherent limitations of voice recognition software. Read the chart carefully and recognize, using context, where substitutions have occurred. Not available 09/24/2024 12:15:10 01/26/2025 [id number] Follow-up chroni c obstructive lung disease mild, GERD, hyperlipidemia edema lower extremities. Plan is to continue on current medications. Check blood work consisting of CBC, CMP, lipid, thyroid and vitamin-D level. Will increase her Lasix to 40 mg daily for 3-5 days and if resolves would go back to 20 mg daily. Also needs a mammogram. Follow-up in four months Additional Orders - Directives - Recommendations 1. Screening mammogram 2. Instructed to increase her Lasix to 40 mg daily for 3-5 days if improves then may do this continue the 40 mL and go back to 20 mg daily. Follow Up: 4 Months Approximate Date: 05/26/2025 Portions of record are template driven. When necessary additional context will be provided. Additionally some portions have been created with voice recognition software. Occasional wrong-word or s ound-a-like substitutions may have occurred due to the inherent limitations of voice recognition software. Read the chart carefully and recognize, using context, where substitutions may have occurred. Created: Wanda Rick M.D. 01.26.2025 11:16 AM [email or web address] Not available 01/26/2025 12:16:14 Reason for Referral None Reported. Results Created Date Observation Date Name Description Value Unit Range Abnormal Flag Note LastModifiedBy Organization Detail LastModifiedTime 03/20/20 24 03/20/2024 CBC/C OMPLE TE BLD COUNT W/DIF F white blood cells 5.7 x10'3 /uL 4.2-10 .8 Not Available [facility] (Lab) [address] [place], [address], 03/20/2024 14:23:17 03/20/2003/20/2024 CBC/C OMPLE TE BLD COUNT W/DIF F red blood cells 3.41 x10'6 /uL 3.80-5 .20 low Not Available [facility] (Lab) [address] [place], [address], 03/20/2024 14:23:17 03/20/20 24 03/20/2024 CBC/C OMPLE TE BLD COUNT W/DIF F hemoglobin 10.8 g/dL 12.0-1 5.6 low Not Available [facility] (Lab) [address] [place], [address], 03/20/2024 14:23:17 03/20/20 24 03/20/2024 CBC/C OMPLE TE BLD COUNT W/DIF F hematocrit 33.4 % 35.7-4 5.7 low Not Available [facility] (Lab) [address] [place], [address], 03/20/2024 14:23:17 03/20/20 24 03/20/2024 CBC/C OMPLE TE BLD COUNT W/DIF F mean red cell volume 97.9 fL 82.0-9 9.0 Not Available [facility] (Lab) [address] [place], [address], 03/20/2024 14:23:17 03/20/20 24 03/20/2024 CBC/C OMPLE TE BLD COUNT W/DIF F mean red cell hemoglobin 31.7 pg 27.0-3 3.0 Not Available [facility] (Lab) [address] [place], [address], 03/20/2024 14:23:17 03/20/20 24 03/20/2024 CBC/C OMPLE TE BLD COUNT W/DIF F mean RBC HGB concentratio n 32.3 g/dL 31.0-3 6.0 Not Available [facility] (Lab) [address] [place], [address], 03/20/2024 14:23:17 03/20/20 24 03/20/2024 CBC/C OMPLE TE BLD COUNT W/DIF F red cell distribution width 14.5 % 11.8-1 5.5 Not Available [facility] (Lab) [address] [place], [address], 03/20/2024 14:23:17 03/20/20 24 03/20/2024 CBC/C OMPLE TE BLD COUNT W/DIF F platelets 351 x10'3 /uL 150-40 0 Not Available [facility] (Lab) [address] [place], [address], 03/20/2024 14:23:17 03/20/20 24 03/20/2024 CBC/C OMPLE TE BLD COUNT W/DIF F mean platelet volume 9.0 fL 9.0-12 .4 Not Available [facility] (Lab) [address] [place], [address], 03/20/2024 14:23:17 03/20/20 24 03/20/2024 CBC/C OMPLE TE BLD COUNT W/DIF F neutrophils 50.9 % 39.0-7 2.0 Not Available [facility] (Lab) [address] [place], [address], 03/20/2024 14:23:17 03/20/20 24 03/20/2024 CBC/C OMPLE TE BLD COUNT W/DIF F lymphocytes 38.0 % 16.0-4 7.0 Not Available [facility] (Lab) [address] [place], [address], 03/20/2024 14:23:17 03/20/20 24 03/20/2024 CBC/C OMPLE TE BLD COUNT W/DIF F monocytes 8.9 % 5.0-12 .0 Not Available [facility] (Lab) [address] [place], [address], 03/20/2024 14:23:17 03/20/20 24 03/20/2024 CBC/C OMPLE TE BLD COUNT W/DIF F eosinophils 1.7 % 1.0-7. 0 Not Available [facility] (Lab) [address] [place], [address], 03/20/2024 14:23:17 03/20/20 24 03/20/2024 CBC/C OMPLE TE BLD COUNT W/DIF F basophils 0.3 % 0.0-2. 0 Not Available [facility] (Lab) [address] [place], [address], 03/20/2024 14:23:17 03/20/2003/20/2024 CBC/C OMPLE TE BLD COUNT W/DIF F immature granulocytes 0.2 % 0.00-0 .50 Not Available [facility] (Lab) [address] [place], [address], 03/20/2024 14:23:17 03/20/20 24 03/20/2024 CBC/C OMPLE TE BLD COUNT W/DIF F neutrophils, absolute count 2.91 x10'3 /uL 1.5-8. 0 Not Available [facility] (Lab) [address] [place], [address], 03/20/2024 14:23:17 03/20/20 24 03/20/2024 CBC/C OMPLE TE BLD COUNT W/DIF F lymphocytes, absolute count 2.18 x10'3 /uL 1.07-3 .43 Not Available [facility] (Lab) [address] [place], [address], 03/20/2024 14:23:17 03/20/20 24 03/20/2024 CBC/C OMPLE TE BLD COUNT W/DIF F monocytes, absolute count 0.51 x10'3 /uL 0.29-0 .99 Not Available [facility] (Lab) [address] [place], [address], 03/20/2024 14:23:17 03/20/20 24 03/20/2024 CBC/C OMPLE TE BLD COUNT W/DIF F eosinophils, absolute count 0.10 x10'3 /uL 0.02-0 .53 Not Available [facility] (Lab) [address] [place], [address], 03/20/2024 14:23:17 03/20/20 24 03/20/2024 CBC/C OMPLE TE BLD COUNT W/DIF F basophils, absolute count 0.02 x10'3 /uL 0.01-0 .08 Not Available [facility] (Lab) [address] [place], [address], 03/20/2024 14:23:17 03/20/20 24 03/20/2024 CBC/C OMPLE TE BLD COUNT W/DIF F immature granulocytes ,absolute 0.01 x10'3 /uL 0.00-0 .05 Not Available [facility] (Lab) [address] [place], [address], 03/20/2024 14:23:17 03/20/20 24 03/20/2024 CBC/C OMPLE TE BLD COUNT W/DIF F nucleated red blood cells 0.0 % -0 Not Available [facility] (Lab) [address] [place], [address], 03/20/2024 14:23:17 03/20/20 24 03/20/2024 CBC/C OMPLE TE BLD COUNT W/DIF F NRBC# 0.00 x10'3 /uL Not Available [facility] (Lab) [address] [place], [address], 03/20/2024 14:23:17 03/20/20 24 03/20/2024 BASIC METAB OLIC PANEL sodium 133 mmol/ L 137-14 5 low Not Available [facility] (Lab) [address] [place], [address], 03/20/2024 14:30:16 03/20/20 24 03/20/2024 BASIC METAB OLIC PANEL potassium 4.5 mmol/ L 3.5-5. 1 Not Available [facility] (Lab) [address] [place], [address], 03/20/2024 14:30:16 03/20/20 24 03/20/2024 BASIC METAB OLIC PANEL chloride 99 mmol/ L 98-107 Not Available [facility] (Lab) [address] [place], [address], 03/20/2024 14:30:16 03/20/20 24 03/20/2024 BASIC METAB OLIC PANEL carbon dioxide 28 mmol/ L 22-30 Not Available [facility] (Lab) [address] [place], [address], 03/20/2024 14:30:16 03/20/20 24 03/20/2024 BASIC METAB OLIC PANEL anion gap 10.5 mmol/ L 14-22 low Not Available [facility] (Lab) [address] [place], [address], 03/20/2024 14:30:16 03/20/20 24 03/20/2024 BASIC METAB OLIC PANEL glucose 82 mg/dL 70-99 Not Available [facility] (Lab) [address] [place], [address], 03/20/2024 14:30:16 03/20/20 24 03/20/2024 BASIC METAB OLIC PANEL BUN 15 mg/dL 8-19 Not Available [facility] (Lab) [address] [place], [address], 03/20/2024 14:30:16 03/20/20 24 03/20/2024 BASIC METAB OLIC PANEL creatinine 0.91 mg/dL 0.66-1 .25 Not Available [facility] (Lab) [address] [place], [address], 03/20/2024 14:30:16 03/20/20 24 03/20/2024 BASIC METAB OLIC PANEL GFR 58 Refer ence Range : [place] ge GFR Healt hy Adult : >60 mL/mi n/1.7 3 m2 Chron ic Kidne y Disea se: 15-60 mL/mi n/1.7 3 m2 Kidne y Failu re: <15/m L/min /1.73 m2 www.n iddk. nih.g ov The MDRD study equat ion has not been valid ated in child celestina <18 years of age; pregn ant women ; the elder ly >85 years of age; or in some racia l or ethni c subgr oups, such as Hispa nics. Outsi de the valid ated fatoumata eters , estim ated GFR is less accur ate, requi ring clini jw judgm ent on a case- by-ca se basis . Clini jw inter preta tion for other races and ages must be made by the clini leeann. The MDRD study equat ion has not been valid ated for the evalu ation of serum creat inine relat ed to nutri rosario l statu s or medic ation usage . For perso ns <18 years of age, a pedia tric GFR calcu lator is avail able on the [facility] websi te: https :[email or web address] sofia.maria antonia roa.o rg/pr ofess ional s/kdo qi/gf r_cal culat or Not Available [facility] (Lab) [address] [place], [address], 03/20/2024 14:30:16 03/20/20 24 03/20/2024 BASIC METAB OLIC PANEL calcium 8.7 mg/dL 8.4-10 .2 Not Available [facility] (Lab) [address] [place], [address], 03/20/2024 14:30:16 06/25/20 24 06/25/2024 CBC/C OMPLE TE BLD COUNT W/DIF F white blood cells 7.1 x10'3 /uL 4.2-10 .8 Not Available [facility] (Lab) [address] [place], [address], 06/25/2024 13:07:25 06/25/20 24 06/25/2024 CBC/C OMPLE TE BLD COUNT W/DIF F red blood cells 3.48 x10'6 /uL 3.80-5 .20 low Not Available [facility] (Lab) [address] [place], [address], 06/25/2024 13:07:25 06/25/20 24 06/25/2024 CBC/C OMPLE TE BLD COUNT W/DIF F hemoglobin 11.0 g/dL 12.0-1 5.6 low Not Available [facility] (Lab) [address] [place], [address], 06/25/2024 13:07:25 06/25/20 24 06/25/2024 CBC/C OMPLE TE BLD COUNT W/DIF F hematocrit 34.0 % 35.7-4 5.7 low Not Available [facility] (Lab) [address] [place], [address], 06/25/2024 13:07:25 06/25/20 24 06/25/2024 CBC/C OMPLE TE BLD COUNT W/DIF F mean red cell volume 97.7 fL 82.0-9 9.0 Not Available [facility] (Lab) [address] [place], [address], 06/25/2024 13:07:25 06/25/20 24 06/25/2024 CBC/C OMPLE TE BLD COUNT W/DIF F mean red cell hemoglobin 31.6 pg 27.0-3 3.0 Not Available [facility] (Lab) [address] [place], [address], 06/25/2024 13:07:25 06/25/20 24 06/25/2024 CBC/C OMPLE TE BLD COUNT W/DIF F mean RBC HGB concentratio n 32.4 g/dL 31.0-3 6.0 Not Available [facility] (Lab) [address] [place], [address], 06/25/2024 13:07:25 06/25/20 24 06/25/2024 CBC/C OMPLE TE BLD COUNT W/DIF F red cell distribution width 13.2 % 11.8-1 5.5 Not Available [facility] (Lab) [address] [place], [address], 06/25/2024 13:07:25 06/25/20 24 06/25/2024 CBC/C OMPLE TE BLD COUNT W/DIF F platelets 369 x10'3 /uL 150-40 0 Not Available [facility] (Lab) [address] [place], [address], 06/25/2024 13:07:25 06/25/20 24 06/25/2024 CBC/C OMPLE TE BLD COUNT W/DIF F mean platelet volume 9.0 fL 9.0-12 .4 Not Available [facility] (Lab) [address] [place], [address], 06/25/2024 13:07:25 06/25/20 24 06/25/2024 CBC/C OMPLE TE BLD COUNT W/DIF F neutrophils 59.8 % 39.0-7 2.0 Not Available [facility] (Lab) [address] [place], [address], 06/25/2024 13:07:25 06/25/20 24 06/25/2024 CBC/C OMPLE TE BLD COUNT W/DIF F lymphocytes 29.8 % 16.0-4 7.0 Not Available [facility] (Lab) [address] [place], [address], 06/25/2024 13:07:25 06/25/20 24 06/25/2024 CBC/C OMPLE TE BLD COUNT W/DIF F monocytes 8.8 % 5.0-12 .0 Not Available [facility] (Lab) [address] [place], [address], 06/25/2024 13:07:25 06/25/20 24 06/25/2024 CBC/C OMPLE TE BLD COUNT W/DIF F eosinophils 1.0 % 1.0-7. 0 Not Available [facility] (Lab) [address] [place], [address], 06/25/2024 13:07:25 06/25/20 24 06/25/2024 CBC/C OMPLE TE BLD COUNT W/DIF F basophils 0.3 % 0.0-2. 0 Not Available [facility] (Lab) [address] [place], [address], 06/25/2024 13:07:25 06/25/20 24 06/25/2024 CBC/C OMPLE TE BLD COUNT W/DIF F immature granulocytes 0.3 % 0.00-0 .50 Not Available [facility] (Lab) [address] [place], [address], 06/25/2024 13:07:25 06/25/20 24 06/25/2024 CBC/C OMPLE TE BLD COUNT W/DIF F neutrophils, absolute count 4.23 x10'3 /uL 1.5-8. 0 Not Available [facility] (Lab) [address] [place], [address], 06/25/2024 13:07:25 06/25/20 24 06/25/2024 CBC/C OMPLE TE BLD COUNT W/DIF F lymphocytes, absolute count 2.11 x10'3 /uL 1.07-3 .43 Not Available [facility] (Lab) [address] [place], [address], 06/25/2024 13:07:25 06/25/20 24 06/25/2024 CBC/C OMPLE TE BLD COUNT W/DIF F monocytes, absolute count 0.62 x10'3 /uL 0.29-0 .99 Not Available [facility] (Lab) [address] [place], [address], 06/25/2024 13:07:25 06/25/20 24 06/25/2024 CBC/C OMPLE TE BLD COUNT W/DIF F eosinophils, absolute count 0.07 x10'3 /uL 0.02-0 .53 Not Available [facility] (Lab) [address] [place], [address], 06/25/2024 13:07:25 06/25/20 24 06/25/2024 CBC/C OMPLE TE BLD COUNT W/DIF F basophils, absolute count 0.02 x10'3 /uL 0.01-0 .08 Not Available [facility] (Lab) [address] [place], [address], 06/25/2024 13:07:25 06/25/20 24 06/25/2024 CBC/C OMPLE TE BLD COUNT W/DIF F immature granulocytes ,absolute 0.02 x10'3 /uL 0.00-0 .05 Not Available [facility] (Lab) [address] [place], [address], 06/25/2024 13:07:25 06/25/20 24 06/25/2024 CBC/C OMPLE TE BLD COUNT W/DIF F nucleated red blood cells 0.0 % -0 Not Available [facility] (Lab) [address] [place], [address], 06/25/2024 13:07:25 06/25/20 24 06/25/2024 CBC/C OMPLE TE BLD COUNT W/DIF F NRBC# 0.00 x10'3 /uL Not Available [facility] (Lab) [address] [place], [address], 06/25/2024 13:07:25 06/25/20 24 06/25/2024 COMPR EHENS [place] METAB OLIC PANEL sodium 134 mmol/ L 137-14 5 low Not Available [facility] (Lab) [address] [place], [address], 06/25/2024 13:14:30 06/25/20 24 06/25/2024 COMPR EHENS [place] METAB OLIC PANEL potassium 4.8 mmol/ L 3.5-5. 1 Not Available [facility] (Lab) [address] [place], [address], 06/25/2024 13:14:30 06/25/20 24 06/25/2024 COMPR EHENS [place] METAB OLIC PANEL chloride 105 mmol/ L 98-107 Not Available [facility] (Lab) [address] [place], [address], 06/25/2024 13:14:30 06/25/20 24 06/25/2024 COMPR EHENS [place] METAB OLIC PANEL carbon dioxide 26 mmol/ L 22-30 Not Available [facility] (Lab) [address] [facility] [place], [address], 06/25/2024 13:14:30 06/25/20 24 06/25/2024 COMPR EHENS [place] METAB OLIC PANEL anion gap 7.8 mmol/ L 14-22 low Not Available [facility] (Lab) [address] [place], [address], 06/25/2024 13:14:30 06/25/20 24 06/25/2024 COMPR EHENS [place] METAB OLIC PANEL glucose 94 mg/dL 70-99 Not Available [facility] (Lab) [address] [place], [address], 06/25/2024 13:14:30 06/25/20 24 06/25/2024 COMPR EHENS [place] METAB OLIC PANEL BUN 15 mg/dL 8-19 Not Available [facility] (Lab) [address] [place], [address], 06/25/2024 13:14:30 06/25/20 24 06/25/2024 COMPR EHENS [place] METAB OLIC PANEL creatinine 1.08 mg/dL 0.66-1 .25 Not Available [facility] (Lab) [address] [place], [address], 06/25/2024 13:14:30 06/25/20 24 06/25/2024 COMPR EHENS [place] METAB OLIC PANEL GFR 48 Refer ence Range : [place] GFR Healt hy Adult : >60 mL/mi n/1.7 3 m2 Chron ic Kidne y Disea se: 15-60 mL/mi n/1.7 3 m2 Kidne y Failu re: <15/m L/min /1.73 m2 www.n iddk. nih.g ov The MDRD study equat ion has not been valid ated in child celestina <18 years of age; pregn ant women ; the elder ly >85 years of age; or in some racia l or ethni c subgr oups, such as Hispa nics. Outsi de the valid ated fatoumata eters , estim ated GFR is less accur ate, requi ring clini jw judgm ent on a case- by-ca se basis . Clini jw inter preta tion for other races and ages must be made by the clini leeann. The MDRD study equat ion has not been valid ated for the evalu ation of serum creat inine relat ed to nutri rosario l statu s or medic ation usage . For perso ns <18 years of age, a pedia tric GFR calcu lator is avail able on the [facility] websi te: https ://colleen sofia.maria antonia roa.o rg/pr ofess ional s/kdo qi/gf r_cal culat or Not Available [facility] (Lab) [address] [place], [address], 06/25/2024 13:14:30 06/25/20 24 06/25/2024 COMPR EHENS [place] METAB OLIC PANEL alkaline phosphatase 122 U/L 38-126 Not Available [facility] (Lab) [address] [place], [address], 06/25/2024 13:14:30 06/25/20 24 06/25/2024 COMPR EHENS [place] METAB OLIC PANEL alanine aminotransfe rase 14 U/L 0-35 Not Available [facility] (Lab) [address] [place], [address], 06/25/2024 13:14:30 06/25/20 24 06/25/2024 COMPR EHENS [place] METAB OLIC PANEL aspartate aminotransfe rase 29 U/L 15-37 Not Available [facility] (Lab) [address] [place], [address], 06/25/2024 13:14:30 06/25/20 24 06/25/2024 COMPR EHENS [place] METAB OLIC PANEL bilirubin, total 0.90 mg/dL 0.20-1 .30 Not Available [facility] (Lab) [address] [place], [address], 06/25/2024 13:14:30 06/25/20 24 06/25/2024 COMPR EHENS [place] METAB OLIC PANEL calcium 9.2 mg/dL 8.4-10 .2 Not Available [facility] (Lab) [address] [place], [address], 06/25/2024 13:14:30 06/25/20 24 06/25/2024 COMPR EHENS [place] METAB OLIC PANEL total protein 7.5 g/dL 6.3-8. 2 Not Available [facility] (Lab) [address] [place], [address], 06/25/2024 13:14:30 06/25/20 24 06/25/2024 COMPR EHENS [place] METAB OLIC PANEL albumin 4.3 g/dL 3.0-4. 4 Not Available [facility] (Lab) [address] [place], [address], 06/25/2024 13:14:30 06/25/20 24 06/25/2024 COMPR EHENS [place] METAB OLIC PANEL globulin 3.2 g/dL 2.6-4. 2 Not Available [facility] (Lab) [address] [place], [address], 06/25/2024 13:14:30 06/25/20 24 06/25/2024 COMPR EHENS [place] METAB OLIC PANEL A/G ratio 1.3 ratio 1.0-2. 0 Not Available [facility] (Lab) [address] [place], [address], 06/25/2024 13:14:30 06/25/20 24 06/25/2024 T4 FREE free T4 1.13 NG/dL 0.78-2 .19 Not Available [facility] (Lab) [address] [place], [address], 06/25/2024 13:47:27 06/25/20 24 06/25/2024 TSH thyroid-stim ulating hormone 1.640 uIU/m L 0.465- 4.680 Not Available [facility] (Lab) [address] [place], [address], 06/25/2024 13:48:02 01/29/20 25 01/28/2025 MAGNE SIUM magnesium 2.1 mg/dL 1.6-2. 3 Not Available [facility] (Lab) [address] [place], [address], 01/28/2025 13:04:10 01/29/20 25 01/28/2025 LIPID PANEL cholesterol 243 mg/dL 140-19 9 high NIH MARLENE NSUS RECOM MENDA TION FOR LILLY STERO L: ADULT CHILD LOW RISK: <200 <170 BORDE RLINE : <200- 239 ----- HIGH RISK: >240 >200 Not Available [facility] (Lab) [address] [place], [address], 01/28/2025 13:04:14 01/29/20 25 01/28/2025 LIPID PANEL triglyceride s 86 mg/dL 0-150 NIH MARLENE NSUS REPOR T RECOM MENDA TION FOR TRIGL YCERI MIGUEL: ADULT CHILD LOW RISK: <150 ----- BODER LINE: 150-1 99 ----- HIGH RISK: >200 ----- Not Available [facility] (Lab) [address] [place], [address], 01/28/2025 13:04:14 01/29/20 25 01/28/2025 LIPID PANEL HDL cholesterol 80 mg/dL 40- Not Available [facility] (Lab) [address] [place], [address], 01/28/2025 13:04:14 01/29/20 25 01/28/2025 LIPID PANEL LDL cholesterol, calculated 146 mg/dL 0-130 high NIH MARLENE NSUS REPOR T RECOM MENDA TIONS FOR LDL: ADULT CHILD LOW RISK <130 <110 (OPTI MAL LDL) <100 ----- BORDE RLINE : 130-1 59 ----- HIGH RISK: >160 >130 A TRIGL YCERI DE RESUL T >400 INVAL IDATE S THE CALCU LATIO N FOR LDL FRACT IONAT ION - THE LDL RESUL T WILL NOT BE REPOR TAM. Not Available [facility] (Lab) [address] [place], [address], 01/28/2025 13:04:14 01/29/20 25 01/28/2025 COMPR EHENS [place] METAB OLIC PANEL sodium 133 mmol/ L 137-14 5 low Not Available [facility] (Lab) [address] [place], [address], 01/28/2025 13:04:20 01/29/20 25 01/28/2025 COMPR EHENS [place] METAB OLIC PANEL potassium 4.3 mmol/ L 3.5-5. 1 Not Available [facility] (Lab) [address] [place], [address], 01/28/2025 13:04:20 01/29/20 25 01/28/2025 COMPR EHENS [place] METAB OLIC PANEL chloride 103 mmol/ L 98-107 Not Available [facility] (Lab) [address] [place], [address], 01/28/2025 13:04:20 01/29/20 25 01/28/2025 COMPR EHENS [place] METAB OLIC PANEL carbon dioxide 28 mmol/ L 22-30 Not Available [facility] (Lab) [address] [place], [address], 01/28/2025 13:04:20 01/29/20 25 01/28/2025 COMPR EHENS [place] METAB OLIC PANEL anion gap 6.3 mmol/ L 14-22 low Not Available [facility] (Lab) [address] [place], [address], 01/28/2025 13:04:20 01/29/20 25 01/28/2025 COMPR EHENS [place] METAB OLIC PANEL glucose 91 mg/dL 70-99 Not Available [facility] (Lab) [address] [place], [address], 01/28/2025 13:04:20 01/29/20 25 01/28/2025 COMPR EHENS [place] METAB OLIC PANEL BUN 16 mg/dL 8-19 Not Available [facility] (Lab) [address] [place], [address], 01/28/2025 13:04:20 01/29/20 25 01/28/2025 COMPR EHENS [place] METAB OLIC PANEL creatinine 1.09 mg/dL 0.66-1 .25 Not Available [facility] (Lab) [address] [place], [address], 01/28/2025 13:04:20 01/29/20 25 01/28/2025 COMPR EHENS [place] METAB OLIC PANEL GFR 47 Refer ence Range : [place] ge GFR Healt hy Adult : >60 mL/mi n/1.7 3 m2 Chron ic Kidne y Disea se: 15-60 mL/mi n/1.7 3 m2 Kidne y Failu re: <15/m L/min /1.73 m2 www.n iddk. nih.g ov The MDRD study equat ion has not been valid ated in child celestina <18 years of age; pregn ant women ; the elder ly >85 years of age; or in some racia l or ethni c subgr oups, such as Hisphilip nics. Outsi de the valid ated fatoumata eters , estim ated GFR is less accur ate, requi ring clini jw judgm ent on a case- by-ca se basis . Clini jw inter preta tion for other races and ages must be made by the clini leeann. The MDRD study equat ion has not been valid ated for the evalu ation of serum creat inine relat ed to nutri rosario l statu s or medic ation usage . For perso ns <18 years of age, a pedia tric GFR calcu lator is avail able on the [facility] websi te: https ://colleen sofia.maria antonia roa.o rg/pr ofess ional s/kdo qi/gf r_cal culat or Not Available [facility] (Lab) [address] [place], [address], 01/28/2025 13:04:20 01/29/20 25 01/28/2025 COMPR EHENS [place] METAB OLIC PANEL alkaline phosphatase 91 U/L 38-126 Not Available [facility] (Lab) [address] [place], [address], 01/28/2025 13:04:20 01/29/20 25 01/28/2025 COMPR EHENS [place] METAB OLIC PANEL alanine aminotransfe rase 17 U/L 0-35 Not Available [facility] (Lab) [address] [place], [address], 01/28/2025 13:04:20 01/29/20 25 01/28/2025 COMPR EHENS [place] METAB OLIC PANEL aspartate aminotransfe rase 33 U/L 15-37 Not Available [facility] (Lab) [address] [place], [address], 01/28/2025 13:04:20 01/29/20 25 01/28/2025 COMPR EHENS [place] METAB OLIC PANEL bilirubin, total 1.00 mg/dL 0.20-1 .30 Not Available [facility] (Lab) [address] [place], [address], 01/28/2025 13:04:20 01/29/20 25 01/28/2025 COMPR EHENS [place] METAB OLIC PANEL calcium 9.4 mg/dL 8.4-10 .2 Not Available [facility] (Lab) [address] [place], [address], 01/28/2025 13:04:20 01/29/20 25 01/28/2025 COMPR EHENS [place] METAB OLIC PANEL total protein 7.3 g/dL 6.3-8. 2 Not Available [facility] (Lab) [address] [place], [address], 01/28/2025 13:04:20 01/29/20 25 01/28/2025 COMPR EHENS [place] METAB OLIC PANEL albumin 4.5 g/dL 3.0-4. 4 high Not Available [facility] (Lab) [address] [place], [address], 01/28/2025 13:04:20 01/29/20 25 01/28/2025 COMPR EHENS [place] METAB OLIC PANEL globulin 2.8 g/dL 2.6-4. 2 Not Available [facility] (Lab) [address] [place], [address], 01/28/2025 13:04:20 01/29/20 25 01/28/2025 COMPR EHENS [place] METAB OLIC PANEL A/G ratio 1.6 ratio 1.0-2. 0 Not Available [facility] (Lab) [address] [place], [address], 01/28/2025 13:04:20 01/29/20 25 01/28/2025 CBC/C OMPLE TE BLD COUNT W/DIF F white blood cells 5.1 x10'3 /uL 4.2-10 .8 Not Available [facility] (Lab) [address] [place], [address], 01/28/2025 13:14:17 01/29/20 25 01/28/2025 CBC/C OMPLE TE BLD COUNT W/DIF F red blood cells 3.54 x10'6 /uL 3.80-5 .20 low Not Available [facility] (Lab) [address] [place], [address], 01/28/2025 13:14:17 01/29/20 25 01/28/2025 CBC/C OMPLE TE BLD COUNT W/DIF F hemoglobin 11.0 g/dL 12.0-1 5.6 low Not Available [facility] (Lab) [address] [place], [address], 01/28/2025 13:14:17 01/29/20 25 01/28/2025 CBC/C OMPLE TE BLD COUNT W/DIF F hematocrit 34.2 % 35.7-4 5.7 low Not Available [facility] (Lab) [address] [place], [address], 01/28/2025 13:14:17 01/29/20 25 01/28/2025 CBC/C OMPLE TE BLD COUNT W/DIF F mean red cell volume 96.6 fL 82.0-9 9.0 Not Available [facility] (Lab) [address] [place], [address], 01/28/2025 13:14:17 01/29/20 25 01/28/2025 CBC/C OMPLE TE BLD COUNT W/DIF F mean red cell hemoglobin 31.1 pg 27.0-3 3.0 Not Available [facility] (Lab) [address] [place], [address], 01/28/2025 13:14:17 01/29/20 25 01/28/2025 CBC/C OMPLE TE BLD COUNT W/DIF F mean RBC HGB concentratio n 32.2 g/dL 31.0-3 6.0 Not Available [facility] (Lab) [address] [place], [address], 01/28/2025 13:14:17 01/29/20 25 01/28/2025 CBC/C OMPLE TE BLD COUNT W/DIF F red cell distribution width 13.6 % 11.8-1 5.5 Not Available [facility] (Lab) [address] [place], [address], 01/28/2025 13:14:17 01/29/20 25 01/28/2025 CBC/C OMPLE TE BLD COUNT W/DIF F platelets 341 x10'3 /uL 150-40 0 Not Available [facility] (Lab) [address] [place], [address], 01/28/2025 13:14:17 01/29/20 25 01/28/2025 CBC/C OMPLE TE BLD COUNT W/DIF F mean platelet volume 9.0 fL 9.0-12 .4 Not Available [facility] (Lab) [address] [place], [address], 01/28/2025 13:14:17 01/29/20 25 01/28/2025 CBC/C OMPLE TE BLD COUNT W/DIF F neutrophils 50.3 % 39.0-7 2.0 Not Available [facility] (Lab) [address] [place], [address], 01/28/2025 13:14:17 01/29/20 25 01/28/2025 CBC/C OMPLE TE BLD COUNT W/DIF F lymphocytes 37.1 % 16.0-4 7.0 Not Available [facility] (Lab) [address] [place], [address], 01/28/2025 13:14:17 01/29/2001/28/2025 CBC/C OMPLE TE BLD COUNT W/DIF F monocytes 10.2 % 5.0-12 .0 Not Available [facility] (Lab) [address] [place], [address], 01/28/2025 13:14:17 01/29/2001/28/2025 CBC/C OMPLE TE BLD COUNT W/DIF F eosinophils 1.8 % 1.0-7. 0 Not Available [facility] (Lab) [address] [place], [address], 01/28/2025 13:14:17 01/29/2001/28/2025 CBC/C OMPLE TE BLD COUNT W/DIF F basophils 0.4 % 0.0-2. 0 Not Available [facility] (Lab) [address] [place], [address], 01/28/2025 13:14:17 01/29/2001/28/2025 CBC/C OMPLE TE BLD COUNT W/DIF F immature granulocytes 0.2 % 0.00-0 .50 Not Available [facility] (Lab) [address] [place], [address], 01/28/2025 13:14:17 01/29/2001/28/2025 CBC/C OMPLE TE BLD COUNT W/DIF F neutrophils, absolute count 2.56 x10'3 /uL 1.5-8. 0 Not Available [facility] (Lab) [address] [place], [address], 01/28/2025 13:14:17 01/29/20 25 01/28/2025 CBC/C OMPLE TE BLD COUNT W/DIF F lymphocytes, absolute count 1.89 x10'3 /uL 1.07-3 .43 Not Available [facility] (Lab) [address] [place], [address], 01/28/2025 13:14:17 01/29/2001/28/2025 CBC/C OMPLE TE BLD COUNT W/DIF F monocytes, absolute count 0.52 x10'3 /uL 0.29-0 .99 Not Available [facility] (Lab) [address] [place], [address], 01/28/2025 13:14:17 01/29/20 25 01/28/2025 CBC/C OMPLE TE BLD COUNT W/DIF F eosinophils, absolute count 0.09 x10'3 /uL 0.02-0 .53 Not Available [facility] (Lab) [address] [place], [address], 01/28/2025 13:14:17 01/29/20 25 01/28/2025 CBC/C OMPLE TE BLD COUNT W/DIF F basophils, absolute count 0.02 x10'3 /uL 0.01-0 .08 Not Available [facility] (Lab) [address] [place], [address], 01/28/2025 13:14:17 01/29/20 25 01/28/2025 CBC/C OMPLE TE BLD COUNT W/DIF F immature granulocytes ,absolute 0.01 x10'3 /uL 0.00-0 .05 Not Available [facility] (Lab) [address] [place], [address], 01/28/2025 13:14:17 01/29/20 25 01/28/2025 CBC/C OMPLE TE BLD COUNT W/DIF F nucleated red blood cells 0.0 % -0 Not Available [facility] (Lab) [address] [place], [address], 01/28/2025 13:14:17 01/29/20 25 01/28/2025 CBC/C OMPLE TE BLD COUNT W/DIF F NRBC# 0.00 x10'3 /uL Not Available [facility] (Lab) [address] [place], [address], 01/28/2025 13:14:17 01/29/20 25 01/28/2025 T4 FREE free T4 1.10 NG/dL 0.78-2 .19 Not Available [facility] (Lab) [address] [place], [address], 01/28/2025 13:30:18 01/29/20 25 01/28/2025 TSH thyroid-stim ulating hormone 1.440 uIU/m L 0.465- 4.680 Not Available [facility] (Lab) [address] [place], [address], 01/28/2025 13:32:34 01/29/20 25 01/28/2025 VITAM IN D 25-HY DROXY vd25oh 71.1 NG/mL 30-100 Vitam in D Statu s: Defic ient: <20 ng/mL Insuf ficie nt: 20-29 ng/mL Suffi cient : 30-10 0 ng/mL Not Available [facility] (Lab) [address] [place], [address], 01/28/2025 13:44:13 01/29/20 25 01/28/2025 VITAM IN B12 (STEPHANIE MIKE ) vb12 359 pg/mL 239-93 1 Not Available [facility] (Lab) [address] [place], [address], 01/28/2025 14:15:26 04/10/20 24 04/09/2024 XR, chest , 2 view [facility] [address] [place], [place] [id number] Patien t Name: JOSSY MCKINLEY [facility] ion #: [id number] Sex: F : 1934 6 Dictat ed By: Tristin Grey Attend ing Physic gagandeep: PILO MARTÍNEZ Orderi Physic gagandeep: PILO MARTÍNEZ Exam Date: 2023 16:42 PM Exam Name: XR CHEST 2V Admitt ing Diagno sis(es ): XR CHEST 2V CLINIC AL HISTOR Y: CHRON IC COUGH COMPAR NORMA: None TECHNI QUE: Fronta l and latera l view of the chest was obtain ed FINDIN GS: Lines and Tubes: None Lungs: Lungs are hyperi nflate d sugges tive of COPD. Pleura : No effusi on. No pneumo thorax . Cardio medias tinal contou rs: Unrema rkable Bones: No acute osseou s abnorm ality. IMPRES SINTIA: No acute cardio pulmon russel diseas e. Electr onical ly Signed by: Tristin Grey at 2023 07:12: 14 AM Page [address] (Imaging) [address] [place] [address], [address], 04/10/2024 08:48:50 04/14/20 24 04/14/2024 CT, brain , w/o contr ast No observ ation record ed. [address], [address], 04/15/2024 07:33:34 04/15/20 24 04/15/2024 MR, angio gram, brain , w/o contr ast No observ ation record ed. [address], [address], 04/15/2024 09:52:35 04/15/20 24 04/15/2024 US, echoc ardio gram No observ ation record ed. [address], [address], 04/15/2024 14:19:56 04/15/20 24 04/15/2024 MRI, brain + brain stem, w/o contr ast No observ ation record ed. [address], [place], [address], 04/16/2024 06:47:33 06/25/20 24 06/25/2024 XR, chest , 2 view [facility] [address] [place] [id number] [phone] Patien t Name: JOSSY MCKINLEY Access ion #: [id number] Sex: F : 1934 4 Dictat ed By: Chinmay Allen Attend ing Physic gagandeep: MIGUEL A RICK CE Orderi Physic gagandeep: MIGUEL A RICK CE Exam Date: 2023 11:55 AM Exam Name: XR CHEST 2V Admitt ing Diagno sis(es ): XR CHEST 2V CLINIC AL HISTOR Y: cough COMPAR NORMA: XR CHEST 2V on DOS: 4, XR CHEST 2V on DOS: 2 TECHNI QUE: Fronta l and latera l view of the chest was obtain ed FINDIN GS: Lines and Tubes: None Lungs: No focal consol idatio n. Pleura : No effusi on. No pneumo thorax . Cardio medias tinal contou rs: Unrema rkable Bones: No acute osseou s abnorm ality. IMPRES SINTIA: No acute cardio pulmon russel diseas e. Electr onical ly Signed by: Chinmay Allen at 2023 13:48: 19 PM Page [address] (Imaging) [address] [place], [address], 06/25/2024 16:27:09 01/28/20 25 01/27/2025 scree tamar fierro t tacho, bilat [facility] [address] [place] [address] [phone] Patien t Name: JOSSY MCKINLEY Access ion #: [id number] Sex: F : 1934 1 Dictat ed By: Paula Dhaliwal Attend ing Physic gagandeep: MIGUEL A RICK Orderi ng Physic gagandeep: MIGUEL A RICK CE Exam Date: 2024 12:50 PM Exam Name: MG NAIDU BREAST TACHO BILAT Admitt ing Diagno sis(es ): PROCED URE: SCREEN ING MAMMOG KENNEDY WITH TOMOSY NTHESI S REASON FOR EXAM: screen ing mammog kennedy COMPAR NORMA: None TECHNI QUE: Bilate ral CC and MLO views obtain ed. Images were obtain ed using a Digita l Tomosy nthesi s Unit. Standa rd 2D and 3D Tomosy nthesi s images were review ed. This examin ation was analyz ed using Lunit Insigh t DBT/MM G in additi on to a radiol ogist review , an ALEE torres re develo ped to enhanc e the effect ivenes s of breast cancer screen ing with mammog vincent. FINDIN GS: BREAST COMPOS ITION: A - The breast s are almost entire ly fatty. In the right breast , no asymme trical parenc hymal patter n, [place] ectura l distor tion, pleomo rphic microc alcifi cation s or masses . In the left breast , no asymme trical parenc hymal patter n, [place] ectura l distor tion, pleomo rphic microc alcifi cation s or masses . IMPRES SINTIA: No findin gs of malign lulú. RECOMM ENDATI ON: Recomm end annual mammog kennedy. ASSESS MENT: Page 1 [facility] [place] [phone] Patien t Name: JOSSY MCKINLEY Access ion #: [id number] Sex: F : 1934 1 Dictat ed By: Paula Dhaliwal Attend ing Physic gagandeep: MELVA GONZALEZ Physic gagandeep: MIGUEL A RICK Exam Date: 2024 12:50 PM Exam Name: MG NAIDU BREAST TACHO BILAT Admitt ing Diagno sis(es ): BIRADS : 1 - Negati ve Electr onical ly Signed by: Paula Dhaliwal at 2024 13:58: 17 PM Page 2 [email or web address] [facility] ([facility]) [address] [place], [address], 01/27/2025 15:00:45 Result Notes None recorded. Problems Name Problem SNOMED Code Status Onset Date Resolution Date Notes Provider Name and Address Organization Details Recorded Time Pain in lower limb 90813678 Active Not Available [facility] 3 06:45:46 Irritable bowel syndrome 05455515 Active 2021 Not Available [facility] 3 06:45:46 Contusion of left foot 8969985260409 9103 Active 2018 Not Available [facility] 3 06:45:46 Disorder of shoulder 909732987 Active Not Available [facility] 3 06:45:46 Esophagiti s 28922296 Active Not Available [facility] 3 06:45:46 Anxiety disorder 977831005 Active 2018 Not Available [facility] 3 06:45:46 Gastroesop hageal reflux disease 076930802 Active 2017 Not Available [facility] 3 06:45:46 Osteoarthr itis of knee 925176415 Active Not Available [facility] 3 06:45:47 Transient cerebral ischemia 481031590 Active 2018 Not Available [facility] 3 06:45:47 Malignant neoplasm of ovary 047850510 Active 2017 Not Available [facility] 3 06:45:47 Chronic sinusitis 63196073 Active Not Available [facility] 3 06:45:47 Contact dermatitis 07363417 Active Not Available [facility] 3 06:45:47 Pain of shoulder region 50051751 Active 2016 Not Available [facility] 3 06:45:47 Herpes zoster 9290372 Active Not Available [facility] 3 06:45:47 Compressio n fracture of thoracic vertebra 4471357879261 Active 2021 Not Available [facility] 3 06:45:47 Hyperlipid emia 45051305 Active Not Available [facility] 3 06:45:47 Osteomyeli tis 92109629 Active Not Available [facility] 3 06:45:47 Injury of chest wall 86832559 Active Not Available [facility] 3 06:45:47 Chronic cough 98613685 Active 2019 Not Available [facility] 3 06:45:47 Hiatal hernia 94177811 Active 2021 Not Available [facility] 3 06:45:47 Fatigue 14285148 Active Not Available [facility] 3 06:45:48 Hyponatrem ia 13928258 Active 2021 Not Available [facility] 3 06:45:48 Conjunctiv itis 6892253 Active Not Available [facility] 3 06:45:48 Deep venous thrombosis 853058578 Active 2022 Wanda Rick MD [address], [place], [address] , [facility] 3 12:30:18 Deep venous thrombosis of lower extremity 522978199 Active 2022 Pamela Garnett null, [place] [facility] 3 12:44:17 Vitamin D deficiency 77893822 Active 2022 Cindy Wei CMA null, [place] [facility] 3 16:36:14 Hordeolum externum of lower eyelid of left eye 8284674517126 02 Active 2022 Wanda Rick MD [address], [address], [place], [address] , [facility] 3 14:52:59 Edema of lower extremity 429546274 Active 2022 DIANNE Melendez, [place] [facility] 3 15:08:08 Inguinal pain 203957517 Active 2022 DIANNE Melendez, [place] [facility] 3 11:30:20 Pain of left hip joint 6967371989523 00 Active 2022 Wanda Rick MD [address], [address], [place], [address] , [place] [facility] 3 10:21:34 Mild chronic obstructiv e pulmonary disease 386225120 Active 2022 Paige Meyers MA null, [place] [facility] 3 12:38:48 Acute urinary tract infection 491394113 Active 2022 Wanda Rick MD [address], [address], [place], [address] , [place] [facility] 3 12:00:08 COVID-19 641992635 Active 2022 Wanda Rick MD [address], [address], [place], [address] , [place] [facility] 3 10:22:58 Paraesopha geal hernia 3905067 Active 2022 Wanda Rick MD [address], [address], [place], [address] , [place] [facility] 3 11:40:08 Low back pain 136153109 Active 2023 Cindy Wei CMA null, [place] [facility] 4 11:40:36 Chronic back pain 642534535 Active 2023 Cindy Wei CMA null, [place] [facility] 4 16:03:22 Muscle pain 89512548 Active 2023 Cindy Wei CMA null, [place] [facility] 4 15:53:14 Cough 44193644 Active 2023 Wanda Rick MD [address], [address], [place], [address] , [place] [facility] 4 14:24:45 Syncope 927758010 Active 2023 Wanda Rick MD [address], [address], [place], [address] , [place] [facility] 4 15:28:45 Syncope and collapse 375002073 Active 2023 Pamelaerik Whitleyadela luevano, [place] [employer] [facility] 4 11:14:52 Acute conjunctiv itis 43730065 Active 2023 Wanda Rick MD [address], [facility] [address], [place], [address] , [place] [employer] [facility] 4 12:14:32 Notes:Medical History: Anxie ty TIA Chronic hyponatremia Rhinosinusitis with postnasal drip Eosinophils 120/uL IgE 256 IU/mL Alpha-1 antitrypsin PiMM 167 mg% Mild COPD Granulomatous disease (chest, spleen) Hyperlipidemia Large hiatal hernia with MARTIN IBS Normocytic iron deficiency anemia Herpes zoster Cervical DDD T7, T9, T10 vertebral fractures Knee OA Procedure History: Appendectomy 1966 WYATT-BSO for ovarian ca 1999 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 Procedures Surgical History Date Name Laterality Status Provider Name and Address Organization Details Recorded Time 04/25/20 Medicare Wellness CPT Code, subsequent completed Farrah Ho RN [employer] [facility] 04/25/2023 11:42:23 Hysterectomy completed Not Available [facility] 01/24/2023 06:42:38 Appendectomy completed Not Available [facility] 01/24/2023 06:42:38 Imaging Results Imaging Date Name Status LastModified by Organization Details LastModified Time 04/09/2024 XR, chest, 2 view [address] (Imaging) [address] [place], [address], 04/10/2024 08:48:50 04/14/2024 CT, brain, w/o contrast completed [address], [address], 04/15/2024 07:33:34 04/15/2024 MR, angiogram, brain, w/o contrast completed [address], [address], 04/15/2024 09:52:35 04/15/2024 US, echocardiogram [place] [address] [facility] [address] [address], [place], [address], 04/15/2024 14:19:56 04/15/2024 MRI, brain + brain stem, w/o contrast completed [address], [place], [address], 04/16/2024 06:47:33 06/25/2024 XR, chest, 2 view completed [address] (Imaging) [address] [place], [address], 06/25/2024 16:27:09 01/27/2025 screening breast tacho, bilat completed [address] (Imaging) [address] [place], [address], 01/27/2025 15:00:45 Procedure Notes None recorded. Medical Equipment None Reported. Allergies Allergen ID Allergen Name Allergen Category Reaction Reaction Severity Criticality Documentation Date Start Date Code Code System Note Provider Name and Address Organization Details Recorded Time 61804 Zyrtec medicatio n Not available Not available Not available 01/24/2023 36487 RxNorm Not Available [facility] 3 06:50:32 10770 Substance with sulfonami de structure and antibacte rial mechanism of action (substanc e) medicatio n Not available Not available Not available 01/24/2023 36161 8003 SNOMED Not Available [facility] 3 06:50:32 44809 Product containin g penicilli n (product) medicatio n Not available Not available Not available 01/24/2023 49756 8001 SNOMED Not Available [facility] 3 06:50:32 38876 Levaquin medicatio n Not available Not available Not available 01/24/2023 95718 2 RxNorm Not Available [facility] 3 06:50:32 Medications Name Sig Start Date Stop Date Status Note LastModified by Organization Details LastModified Time Miralax 17 gram oral powder packet Take 1 packet every day by oral route as needed. 04/09 completed Not Available Not Available Not Available cyclobenzap rine 10 mg tablet TAKE ONE TABLET 3 TIMES DAILY active Not Available Not Available No t Available furosemide 40 mg tablet TAKE 1 TABLET BY MOUTH EVERY DAY 04/23 completed Not Available Not Available Not Available metolazone 2.5 mg tablet TAKE 1 TABLET BY MOUTH EVERY DAY 04/23 completed Not Available Not Available Not Available methocarbam ol 500 mg tablet TAKE 1 TABLET BY MOUTH EVERY DAY FOR 5 DAYS NEEDED 02/09 completed Not Available Not Available Not Available doxycycline hyclate 100 mg capsule TK 1 C PO BID active Not Available Not Available No t Available erythromyci n 500 mg tablet Take 1 tablet twice a day by oral route for 5 days. 10/24 completed Not Available Not Available Not Available clindamycin HCl 300 mg capsule TAKE 1 CAPSULE BY MOUTH EVERY 8 HOURS 02/02 completed Not Available Not Available Not Available albuterol sulfate 2.5 mg/3 mL (0.083 %) solution for nebulizatio n Inhale 3 mL 3 times a day by nebulizat ion route as needed. active Not Available Not Available No t Available trazodone 50 mg tablet Take 1 tablet every day by oral route at bedtime. 09/10 completed Not Available Not Available Not Available azithromyci n 250 mg tablet TAKE 2 TABLETS BY MOUTH EVERY DAY FOR 1 DAY THEN TAKE 1 TABLET BY MOUTH DAILY 04/23 completed Not Available Not Available Not Available benzonatate 200 mg capsule TAKE 1 CAPSULE BY MOUTH THREE TIMES DAILY FOR COUGH 01/26 completed Not Available Not Available Not Available valacyclovi r 1 gram tablet Take 1 tablet 3 times a day by oral route as directed for 7 days. active Not Available Not Available No t Available hydrocodone 5 mg-acetamin ophen 325 mg tablet Take 1 tablet every 6 hours by oral route as needed. 06/22 completed Not Available Not Available Not Available promethazin e 6.25 mg/5 mL oral syrup active Not Available Not Available Not Available Excedrin Migraine 250 mg-250 mg-65 mg tablet daily 07/07 completed Not Available Not Available Not Available clindamycin HCl 150 mg capsule Take 1 capsule 4 times a day by oral route. active Not Available Not Available No t Available oxycodone 5 mg/5 mL oral solution 03/20 completed Not Available Not Available Not Available potassium chloride ER 10 mEq tablet,exte nded release 03/20 completed Not Available Not Available Not Available clopidogrel 75 mg tablet TAKE 1 TABLET BY MOUTH EVERY DAY active Not Available Not Available No t Available fexofenadin e 180 mg tablet TAKE ONE TABLET DAILY 03/03 completed Not Available Not Available Not Available ciprofloxac in 500 mg tablet active Not Available Not Available Not Available omeprazole 40 mg capsule,del ayed release Take 1 capsule every day by oral route. 06/25 completed Not Available Not Available Not Available tramadol 50 mg tablet TAKE 1 TABLET BY MOUTH EVERY 8 HOURS NEEDED 09/10 completed Not Available Not Available Not Available Macrobid 100 mg capsule Take 1 capsule every 12 hours by oral route. 2024 active Not Available Not Available Not Avai lable meloxicam 7.5 mg tablet Take 1 tablet every day by oral route with meals for 10 days. active Not Available Not Available No t Available hydrocortis one 2.5 % topical cream with perineal applicator APPLY THIN LAYER TOPICALLY TO THE AFFECTED AREA 2 TO 4 TIMES DAILY active Not Available Not Available No t Available chlordiazep oxide 5 mg capsule Take 1 capsule every day by oral route for 30 days. active Not Available Not Available No t Available lorazepam 0.5 mg tablet TAKE 1 TABLET BY MOUTH EVERYDAY AT BEDTIME active Not Available Not Available No t Available Kenalog 10 mg/mL suspension for injection In office injection administe red by the provider 02/09 completed [facility]: 0003- 0494- 20 Not Available Not Available Not Available baclofen 10 mg tablet TAKE 1 TABLET BY MOUTH THREE TIMES DAILY 06/25 completed Not Available Not Available Not Available doxycycline monohydrate 100 mg capsule active Not Available Not Available Not Available cephalexin 500 mg capsule TAKE 1 CAPSULE BY MOUTH EVERY 6 HOURS 03/20 completed Not Available Not Available Not Available pantoprazol e 40 mg tablet,yehuda yed release TAKE 1 TABLET BY MOUTH EVERY DAY active Not Available Not Available No t Available erythromyci n 5 mg/gram (0.5 %) eye ointment APPLY THIN LAYER IN LEFT EYE FOUR TIMES DAILY active Not Available Not Available No t Available neomycin-po lymyxin-dex ameth 3.5 mg/mL-10,00 0 unit/mL-0.1 % eye drops INSTILL 1 DROP INTO AFFECTED EYE(S) BY OPHTHALMI C ROUTE EVERY 3-4 HOURS active Not Available Not Available No t Available tobramycin 0.3 % eye drops INSTILL 1 DROP INTO AFFECTED EYE(S) BY OPHTHALMI C ROUTE EVERY 4 HOURS active Not Available Not Available No t Available Advil 200 mg tablet Take 1 tablet every 6 hours by oral route. 11/27 completed Not Available Not Available Not Available omeprazole 20 mg capsule,del ayed release Take 1 capsule every day by oral route. active Not Available Not Available No t Available Tylenol 325 mg tablet Take 2 tablets every 6 hours by oral route as needed. active Not Available Not Available No t Available etodolac 400 mg tablet Take 1 tablet twice a day by oral route for 30 days. active Not Available Not Available No t Available montelukast 10 mg tablet Take 1 tablet every day by oral route. active Not Available Not Available No t Available mupirocin 2 % topical ointment APPLY TO WOUND TWICE DAILY AFTER CLEANING AND DRYING THE AREA. 04/07 completed Not Available Not Available Not Available furosemide 20 mg tablet TAKE 1 TABLET BY MOUTH EVERY DAY FOR HIGH BLOOD PRESSURE active Not Available Not Available No t Available ergocalcife rol (vitamin D2) 1,250 mcg (50,000 unit) capsule TAKE 1 CAPSULE BY MOUTH EVERY WEEK 01/26 completed Not Available Not Available Not Available polyethylen e glycol 3350 17 gram/dose oral powder active Not Available Not Available Not Available levofloxaci n 500 mg tablet TK 1 T PO D active Not Available Not Available No t Available methylpredn isolone 4 mg tablets in a dose pack As directed active Not Available Not Available No t Available albuterol sulfate HFA 90 mcg/actuati on aerosol inhaler INHALE 1 PUFF BY MOUTH EVERY 4 HOURS NEEDED 03/06 completed Not Available Not Available Not Available ipratropium bromide 42 mcg (0.06 %) nasal spray [place] 1 spray 4 times a day by intranasa l route as needed. 03/06 completed Not Available Not Available Not Available ondansetron 4 mg disintegrat ing tablet 03/20 completed Not Available Not Available Not Available cefdinir 300 mg capsule 03/20 completed Not Available Not Available Not Available fluticasone propionate 50 mcg/actuati on nasal spray,suspe nsion 1 spray each nostril once daily. 07/17 completed Not Available Not Available Not Available doxycycline hyclate 100 mg tablet TAKE ONE TABLET TWICE DAILY UNTIL ALL TAKEN active Not Available Not Available No t Available docusate sodium 100 mg tablet Take 1 tablet twice a day by oral route. 06/25 completed Not Available Not Available Not Available loratadine 10 mg tablet TAKE 1 TABLET BY MOUTH ONCE DAILY 06/25 completed Not Available Not Available Not Available simethicone 80 mg chewable tablet Take 1 tablet every day by oral route. active Not Available Not Available No t Available bisacodyl 5 mg tablet Take 2 tablets every day by oral route as needed. active Not Available Not Available No t Available escitalopra m 5 mg tablet TAKE 1 TABLET BY MOUTH EVERY DAY 06/22 completed Not Available Not Available Not Available chlorhexidi ne gluconate 0.12 % mouthwash active Not Available Not Available No t Available B Complex 07/06 completed Not Available Not Available Not Available Aspir-81 04/27 completed Not Available Not Available Not Available Claritin as needed 07/10 completed Not Available Not Available Not Available Advil 04/07 completed Not Available Not Available Not Available Sudafed 03/20 completed Not Available Not Available Not Available Tylenol 02/09 completed Not Available Not Available Not Available Miralax 08/02 completed Not Available Not Available Not Available B-complex with vitamin C 04/07 completed plus Zinc Not Available Not Available Not Available sodium chloride 1,000 mg soluble tablet TAKE 1 TABLET BY MOUTH TWICE DAILY FOR 7 DAYS 03/20 completed Not Available Not Available Not Available lidocaine (PF) 10 mg/mL (1 %) injection solution In office injection administe red by the provider 02/09 completed [facility]: 0409- 4276- 17 Not Available Not Available Not Available vitamin B complex and vit C no.3 15 mg-10 mg-50 mg-5 mg-300 mg capsule Take 1 capsule every day by oral route. 2022 active Not Available Not Available Not Avai lable Excedrin Extra Strength 03/20 completed Not Available Not Available Not Available Xyzal 5 mg tablet Take 1 tablet every day by oral route. 12/13 completed Not Available Not Available Not Available omeprazole 20 mg tablet,yehuda yed release Take 1 tablet every day by oral route. 03/20 completed Not Available Not Available Not Available azelastine 205.5 mcg (0.15 %) nasal spray [place] 1 spray every day by intranasa l route as directed for 30 days. active Not Available Not Available No t Available Stress B-Complex 500 mg-400 mcg-23.9 mg-3 mg tablet daily 04/27 completed Not Available Not Available Not Available Caltrate 600 plus D daily 04/27 completed Not Available Not Available Not Available Stress B With Zinc 08/02 completed Not Available Not Available Not Available melatonin 10 mg tablet Take 1 tablet every day by oral route at bedtime. active Not Available Not Available No t Available Sinus Rinse 04/07 completed Not Available Not Available Not Available Caltrate 600-D Minerals 600 mg (carbonate) -800 unit-40 mg chew tablet Take by oral route. 2021 active Not Available Not Available Not Avai lable Eliquis 5 mg tablet Take 1 tablet twice a day by oral route. 04/25 completed Not Available Not Available Not Available Caltrate 05/05 completed Not Available Not Available Not Available Caltrate-D3 Plus Minerals 07/06 completed Not Available Not Available Not Available Align (B.infantis ) 10.5 mg (10 million cell) chewable tablet Take 1 tablet every day by oral route. active Not Available Not Available No t Available Fluzone High-Dose 2018- (PF) 180 mcg/0.5 mL intramuscul ar syringe IMMUN 03/03 completed Not Available Not Available Not Available Fluzone High-Dose Quad (PF) 240 mcg/0.7 mL IM syringe ADM 0.7ML IM UTD 03/10 /2021 completed Not Available Not Available Not Available BinaxNOW COVID-19 Ag Self Test kit TEST DIRECTED TODAY 08/02 completed Not Available Not Available Not Available Paxlovid 300 mg (150 mg x 2)-100 mg tablets in a dose pack TAKE TWO OF THE 150MG TABLETS AND ONE OF THE 100MG TABLETS TWICE DAILY FOR FIVE DAYS 03/20 completed Not Available Not Available Not Available Vitals Date Recorded Body height Body mass index (BMI) Body weight Heart rate Body temperature Oxygen saturation Oxygen saturation in Arterial blood by Pulse oximetry Systolic blood pressure Diastolic blood pressure Provider Name and Address Organization Details Last Updated DateTime 4 157.48 cm 21 kg/m2 45752.1 2 g 92 /min 97.5 [degF] 95 % 95 % 116 mm[Hg] 62 mm[Hg] ENRIQUE Dent [employer] [facility] [employer] [facility] 4 17:02:09 Date Recorded Body height Body mass index (BMI) Body weight Heart rate Body temperature Oxygen saturation Oxygen saturation in Arterial blood by Pulse oximetry Systolic blood pressure Diastolic blood pressure Provider Name and Address Organization Details Last Updated DateTime 4 157.48 cm 21.6 kg/m2 40173.9 g 71 /min 98.3 [degF] 96 % 96 % 120 mm[Hg] 64 mm[Hg] ENRIQUE Dent [employer] [facility] 4 15:18:29 Date Recorded Body height Body mass index (BMI) Body weight Heart rate Body temperature Oxygen saturation Oxygen saturation in Arterial blood by Pulse oximetry Systolic blood pressure Diastolic blood pressure Provider Name and Address Organization Details Last Updated DateTime 4 157.48 cm 20.5 kg/m2 61864.3 5 g 79 /min 97.7 [degF] 96 % 96 % 112 mm[Hg] 80 mm[Hg] ENRIQUE Dent [employer] [facility] 4 11:35:49 Date Recorded Body height Body mass index (BMI) Body weight Heart rate Body temperature Oxygen saturation Oxygen saturation in Arterial blood by Pulse oximetry Systolic blood pressure Diastolic blood pressure Provider Name and Address Organization Details Last Updated DateTime 4 157.48 cm 20.9 kg/m2 81464.5 3 g 66 /min 97 [degF] 98 % 98 % 116 mm[Hg] 62 mm[Hg] ENRIQUE Dent [place] [employer] 4 11:59:26 Date Recorded Body height Body mass index (BMI) Body weight Heart rate Body temperature Oxygen saturation Oxygen saturation in Arterial blood by Pulse oximetry Systolic blood pressure Diastolic blood pressure Provider Name and Address Organization Details Last Updated DateTime 5 157.48 cm 22.4 kg/m2 19410.0 7 g 53 /min 97 [degF] 95 % 95 % 118 mm[Hg] 68 mm[Hg] Ting Blankenship [employer] 5 11:57:47 Social History Question Answer Notes LastModified by Organizat ion Details LastModified Time Tobacco Smoking Status Never Smoker Not Available [employer] 01/24/2023 06:42:16 Do You Have An Advance Directive? Yes [id number] Information not available 01/24/2023 What Is Your Level Of Alcohol Consumption? Occasional [id number] Information not available 01/24/2023 Are You Blind Or Do You Have Difficulty Seeing? No MIGRATION.[id number] Information not available 01/24/2023 In The 14 Days Before Symptom Onset, Have You Had Close Contact With A Laboratory-confir med COVID-19 While That Case Was Ill? No MIGRATION.[id number] Information not available 01/24/2023 In The 14 Days Before Symptom Onset, Have You Had Close Contact With A Person Who Is Under Investigation For COVID-19 While That Person Was Ill? No MIGRATION.[id number] Information not available 01/24/2023 Are You Deaf Or Do You Have Serious Difficulty Hearing? No MIGRATION.[id number] Information not available 01/24/2023 What Type Of Diet Are You Following? REGULAR MIGRATION.[id number] Information not available 01/24/2023 Do You Have An Electrostatic Air Filter? No MIGRATION.[id number] 1000 Information not available 01/24/2023 Have There Been Any Changes To Your Family Or Social Situation? No MIGRATION.[id number] 8128 Information not available 01/24/2023 What Is The Fluoride Status Of Your Home? Unknown MIGRATION.[id number] Information not available 01/24/2023 Are There Any Guns Present In Your Home? No MIGRATION.[id number] 8491 Information not available 01/24/2023 Do You Have A Humidifier? No MIGRATION.[id number] 7031 Information not available 01/24/2023 Do You Use Insect Repellent Routinely? No MIGRATION.[id number] 2485 Information not available 01/24/2023 Where Do You Live? Apartment MIGRATION.[id number] 0293 Information not available 01/24/2023 Do You Have A Medical Power Of Finance Attorney? Yes MIGRATION.[id number] 6160 Information not available 01/24/2023 Do You Have Moisture Problems In Your Home? No MIGRATION.308166 2667 Information not available 01/24/2023 What Was The Date Of Your Most Recent Tobacco Screening? 04/25/2023 [email or web address] Information not available 04/25/2023 Do You Have Any Pets? No MIGRATION.[id number] 0818 Information not available 01/24/2023 What Is Your Relationship Status? MIGRATION.[id number] 3243 Information not available 01/24/2023 Do You Use Your Seat Belt Or Car Seat Routinely? Yes MIGRATION.686645 0101 Information not available 01/24/2023 Do You Have Smoke And Carbon Monoxide Detectors In Your Home? Yes MIGRATION.[id number] 9813 Information not available 01/24/2023 Are You Passively Exposed To Smoke? No MIGRATION.[id number] 6951 Information not available 01/24/2023 Are There Any Smokers In Your House? No [email or web address] Information not available 04/25/2023 Do You Feel Stressed (tense, Restless, Nervous, Or Anxious, Or Unable To Sleep At Night)? [id number] Dont Sleep Well MIGRATION.[id number] 7238 Information not available 01/24/2023 Do You Use Sunscreen Routinely? No MIGRATION.[id number] 6853 Information not available 01/24/2023 Have You Recently Traveled Abroad? No MIGRATION.[id number] 0461 Information not available 01/24/2023 Do You Have Any Dietary Restrictions? No MIGRATION.606724 4829 Information not available 01/24/2023 Sex: Unknown Functional Status Question Answer Note LastModified by Organizat ion Details LastModified Time Do you have difficulty walking or climbing stairs? No MIGRATION.[id number] 026 Information not available 01/24/2023 Do you have transportation difficulties? No MIGRATION.[id number] 026 Information not available 01/24/2023 Are you able to walk? YESWOREST MIGRATION.[id number] 026 Information not available 01/24/2023 Do you have difficulty doing errands alone? No MIGRATION.[id number] 026 Information not available 01/24/2023 Are you able to care for yourself? Yes MIGRATION.[id number] 026 Information not available 01/24/2023 Do you have difficulty dressing or bathing? No MIGRATION.[id number] 026 Information not available 01/24/2023 What is your exercise level? Occasional MIGRATION.[id number] 026 Information not available 01/24/2023 Mental Status Question Answer Note LastModified by Organizat ion Details LastModified Time Do you have difficulty concentrating, remembering or making decisions? No [id number] Information not available 01/24/2023 Family History Nothing Reported. Medical History Condition Response NERVE DISEASE N BLINDNESS N RHEUMATIC FEVER N KIDNEY STONES N BLADDER PROBLEMS N OTHER # 1 N POLIO N LUNG DISEASE/DISORDER N COPD N RADIATION / CHEMOTHERAPY N Other # 2 N BLOOD DISEASES N SURGERY N EAR OR HEARING PROBLEMS N MUMPS N BOWEL PROBLEMS N DEPRESSION (INCLUDING POST ) N STROKE/TIA Y ULCERS N BENIGN PROSTATIC HYPERPLASIA N MEASLES N MYOCARDIAL INFARCTION N OBESITY N GERD/NAUSEA N ANEURYSM N URINARY/BLADDER/KIDNEY PROBLEMS N CORONARY ARTERY DISEASE (CAD) N INPATIENT PSYCH CARE N ADDICTION CONCERNS N ENDOMETRIOSIS N Impotence N USE OF BLOOD THINNERS N SKIN PROBLEMS N GASTROINTESTINAL DISORDER Y PERIPHERAL VASCULAR DISEASE N MUSCLE,JOINT OR BONE PROBLEMS Y GASTROINTESTINAL BLEEDING N BLOOD CLOTS N ASTHMA N CATARACTS N ERECTILE DYSFUNCTION N VARICOSITIES N GI PROBLEMS N Low Testosterone N INFERTILITY N AIDS/HIV N LIVER DISEASE N MALE HYPOGONADISM N HYPERTENSION N Deficiency N ANXIETY DISORDER Y BLOOD TRANSFUSION N ANEMIA/BLOOD DISORDER N CHRONIC EAR INFECTIONS N BRONCHITIS Y TUBERCULOSIS N GLAUCOMA N FOOT PROBLEM N DIVERTICULITIS N SLEEP APNEA N CHICKENPOX N INFECTIOUS DISEASE N HEART ARRHYTHMIA N PROSTATE N INSOMNIA N HIGH CHOLESTEROL / HYPERLIPIDEMIA Y HYPERTHYROIDISM N EYE PROBLEMS N NEUROLOGICAL PROBLEMS N EDEMA N CHRONIC PAIN SYNDROME N HYPOTHYROIDISM N CAROTID BLOCKAGE N CONSTIPATION N BACK / NECK PROBLEMS N HAVE YOU BEEN HOSPITALIZED OR SEEN IN [facility] IN THE PAST YEAR ? N ATHEROSCLEROSIS N BREAST PROBLEMS N DIALYSIS N ECZEMA N OSTEOPOROSIS N ARTHRITIS Y NO SIGNIFICANT PAST MEDICAL HISTORY N APPENDICITIS N DIABETES, TYPE N BAD TEETH N ENT N HEARTBURN / REFLUX N AUTISM SPECTRUM DISORDER (ASD) N HEPATITIS / LIVER DISEASE N PULMONARY DISEASE N GOUT N SLEEP DISORDER N ALZHEIMER'S DISEASE N Brain Problems N HERPES Y DEMENTIA N HEADACHES/MIGRAINES N SEIZURES/EPILEPSY N VASCULAR DISEASE N PACEMAKER N Blood Disorder N DIZZINESS N HEART DISEASE/HEART PROBLEMS N KIDNEY DISEASE N MULTIPLE SCLEROSIS N CARDIAC ARRHYTHMIA N CANCER: SPECIFY Y ANESTHESIA COMPLICATIONS N ATRIAL FIBRILLATION N Gall Stones N PULMONARY EMBOLISM N AUTOIMMUNE DISEASE N Gynecological HistoryNo gynecological history recorded. Obstetrics History GPAL:G 0 P 0 0 0 0 Immunizations Vaccine Type Date Status Note Provider Nam e and Address Organization Details Recorded Time Influenza, split virus, trivalent, preservative 3 completed Not Available [facility] 01/24/2023 06:50:22 Influenza, split virus, trivalent, preservative 4 completed Not Available [facility] 01/24/2023 06:50:22 Influenza, high-dose, trivalent, PF 0 completed Not Available [facility] 01/24/2023 06:50:22 influenza, unspecified formulation 2 completed Not Available [facility] 01/24/2023 06:50:22 COVID-19, mRNA, LNP-S, PF, 30 mcg/0.3 mL dose 2 completed Not Available [facility] 01/24/2023 06:50:22 COVID-19, mRNA, LNP-S, PF, 30 mcg/0.3 mL dose 1 completed Not Available [facility] 01/24/2023 06:50:22 SARS-COV-2 (COVID-19) vaccine, UNSPECIFIED 1 completed Not Available [facility] 01/24/2023 06:50:22 SARS-COV-2 (COVID-19) vaccine, UNSPECIFIED 1 completed Not Available [facility] 01/24/2023 06:50:22 Influenza, high-dose, trivalent, PF 8 completed Not Available [facility] 01/24/2023 06:50:22 Influenza, high-dose, trivalent, PF 6 completed Not Available [facility] 01/24/2023 06:50:22 Td (adult), 5 Lf tetanus toxoid, preservative free, adsorbed 9 completed Not Available [facility] 01/24/2023 06:50:22 Influenza, split virus, quadrivalent, PF 6 completed Not Available [facility] 01/24/2023 06:50:23 Influenza, split virus, quadrivalent, PF 4 completed Not Available [facility] 01/24/2023 06:50:23 Influenza, high-dose, trivalent, PF 4 completed Ting luevano [place] [facility] 09/01/2024 15:47:14 Pneumococcal conjugate PCV20, polysaccharide [id number] conjugate, adjuvant, PF 4 completed Ting luevano [facility] 09/24/2024 17:31:58 Past Encounters Encounter ID Performer Location Encounter Start Date Encounter Closed Date Diagnosis/Indication Diagnosis SNOMED-CT Code Diagnosis ICD10 Code Diagnosis Note [id number] [facility] [address] [place], [place] [address] [address] 02/02/2021 00:00:00 02/02/2021 12:37:14 [id number] [facility] Internal [facility] [address] [place], [place] [address] [address] 03/09/2021 00:00:00 03/09/2021 13:19:08 [id number] [facility] Internal [facility] [address] [place] [address] [address] 03/24/2021 00:00:00 03/24/2021 12:49:00 [id number] [facility] [address] [address] 04/07/2021 00:00:00 04/07/2021 11:22:08 [id number] [facility] [address] [address] 05/05/2021 00:00:00 05/08/2021 17:00:41 [id number] [facility] Internal [facility] [address] [place] [address] [address] 06/22/2021 00:00:00 06/22/2021 12:49:44 [id number] [facility] [address] [place] [address] 07/07/2021 00:00:00 07/07/2021 12:31:27 [id number] [facility] [address] [place] [address] 07/21/2021 00:00:00 08/14/2021 19:51:03 [id number] [facility] Internal Med [facility] [address] [address] 10/27/2021 00:00:00 10/27/2021 12:24:43 [id number] [facility] Internal Med [facility] [address] [address] 11/24/2021 00:00:00 11/24/2021 11:12:40 [id number] [facility] Internal [facility] [address] [address] 02/09/2022 00:00:00 02/09/2022 11:43:38 [id number] [facility] Internal [facility] [address] [address] 03/02/2022 00:00:00 03/02/2022 12:26:50 [id number] [facility] Internal Med [facility] [address] [address] 03/29/2022 00:00:00 03/29/2022 12:16:23 [id number] [facility] [address] [place] [address] 07/10/2022 00:00:00 07/10/2022 13:02:16 [id number] [facility] [place] [address] [address] 08/02/2022 00:00:00 08/02/2022 13:02:09 [id number] [facility] Internal Med [facility] [address] [address] 08/09/2022 00:00:00 08/09/2022 11:46:10 [id number] [facility] Internal Med [facility] [address] [address] 12/13/2022 00:00:00 12/13/2022 12:08:59 [id number] Wanda Rick MD [facility] Internal Med Akash alexander [address] [facility] [place] [address] 03/06/2023 11:53:23 03/06/2023 12:47:33 Hyperlipidemia [id number] E78.5 Deep venou s thrombosis [id number] I82.409 Gastroesop hageal reflux disease 505752335 K21.9 [id number] Wanda Rick MD [facility] Internal Med [facility] [address] [address] 04/25/2023 11:25:34 04/25/2023 11:59:01 Adult health examination 809126409 Z00.00 Screening for disorder 144020966 Z13.9 Deep venou s thrombosis 277158526 I82.409 Gastroesop hageal reflux disease 477986931 K21.9 Hyperlipidemia 85474499 E78.5 [id number] Wanda Rick MD [facility] Internal Med [facility] [address] [address] 05/28/2023 14:21:08 05/28/2023 14:56:05 Hordeolum externum of lower eyelid of left eye [id number] 31367 H00.015 [id number] Wanda Rick MD [facility] Internal Med Akash alexander [address] [facility] [place] [address] 06/29/2023 10:17:02 06/29/2023 10:36:10 Pain of left hip joint [id number] 51203 M25.787 [id number] Wanda Rick MD [facility] Internal Med [facility] [address] [address] 09/10/2023 11:11:14 09/10/2023 12:07:49 Hyperlipidemia 92269049 E78.5 Gastroesop hageal reflux disease 319808613 K21.9 Pain of le ft hip joint 5373263727 00404 M25.847 [id number] Wanda Rick MD [facility] Internal Med [facility] [address] [address] 11/22/2023 11:03:41 11/22/2023 11:55:52 Paraesophageal hernia 2366608 K44.9 Gastroesop hageal reflux disease 234259209 K21.9 Mild chron ic obstructive pulmonary disease 424255156 J44.9 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 [id number] Wanda Rick MD [facility] Internal Med [facility] [address] [address] 03/20/2024 11:17:22 03/20/2024 11:59:40 Gastroesophageal reflux disease 693617787 K21.9 Anxiety disorder 2741869 06 F41.9 Hyperlipidemia 60967311 E78.5 Hyponatremia 45916212 E8 7.1 [id number] Wanda Rick MD [facility] Internal Med [facility] [address] [address] 04/09/2024 16:52:29 04/09/2024 17:39:59 Gastroesophageal reflux disease 693911045 K21.9 Chronic cough 36918332 R 05.3 R06.00 T78.40XA D89.9 Hyperlipidemia 18725697 E78.5 Transient cerebral ischemia 703815839 G45.9 Edema of l ower extremity 318307065 R60.0 [id number] Wanda Rick MD [facility] Internal Med [facility] [address] [address] 04/23/2024 14:56:04 04/23/2024 15:41:20 Syncope 178092989 R55 Gastroesop hageal reflux disease 932601809 K21.9 Hyperlipidemia 69904144 E78.5 [id number] Wanda Rick MD [facility] Internal Med [facility] [address] [address] 06/25/2024 11:27:43 06/25/2024 15:36:38 Gastroesophageal reflux disease 982081261 K21.9 Hyperlipidemia 11241526 E78.5 Mild chron ic obstructive pulmonary disease 024785159 J44.9 Paraesophageal hernia 36 85761 K44.9 [id number] Wanda Rick MD [facility] Internal [facility] [address] [address] 09/24/2024 11:43:51 09/24/2024 12:21:25 Administration of pneumococcal vaccine 11839804 Z23 Gastroesop hageal reflux disease 269451415 K21.9 Hyperlipidemia 74265681 E78.5 Cough 46500473 R05.9 Acute conjunctivitis 537 09171 H10.31 [id number] Wanda Rick MD [facility] Internal [facility] [address] [address] 01/26/2025 10:57:54 01/26/2025 12:29:59 Gastroesophageal reflux disease 682765156 K21.9 Hyperlipidemia 22408641 E78.5 Mild chron ic obstructive pulmonary disease 660364017 J44.9 Edema of l ower extremity 798813503 R60.0 Vitamin D deficiency 347 33412 E55.9 Health Concerns Section Related Observation LastModified by Organization Detai ls LastModified Time None Recorded Concern Status LastModified by Organization Details LastModified Time None Recorded Advance Directives Directive Y: Payers Encounter Date Sequence Insurance Name Policy Number Policy Samaniego Covered Member ID Samaniego Member ID Guarantor Name 04/09/2024 1 [place] Jossy Lang [id number] Jossy Lang 04/09/2024 2 [employer] Localist (MEDICARE SUPPLEMENT) PLAN G Jossy Lang [id number] Jossy Lang 04/23/2024 1 [place] Jossy Lang [id number] Jossy Lang 04/23/2024 2 [employer] Local[employer] (MEDICARE SUPPLEMENT) PLAN G Jossy Lang [id number] Jossy Lang 06/25/2024 1 [place] Jossy Lang [id number] Jossy Lang 06/25/2024 2 [employer] Local[employer] (MEDICARE SUPPLEMENT) PLAN G Jossy Lang [id number] Jossy Lang 09/24/2024 1 [place] Jossy Lang [id number] Jossy Lang 09/24/2024 2 [employer] (MEDICARE SUPPLEMENT) PLAN G Jossy Lang [id number] Jossy Lang 01/26/2025 1 [place] Jossy Lang [id number] Jossy Lang 01/26/2025 2 [employer] (MEDICARE SUPPLEMENT) PLAN G Jossy Lang [id number] Jossy Lang Notes Date Note Type Note Provider Name and Address Organization Details Recorded Time 04/09/2024 text/html Patient Name: Rose LangDate Of Service: Sunday ( 04.09.2024 ): 1935 Age: 89 There has been approximately a 3 lb weight loss since 03/20/2024. This represents approximately a 2.5% change in weight. Weight change attributable to lifestyle changes. Vital Signs:Blood Pressure: Sitting Rt. Arm 116/62Pulse: Sitting 92 /min and RegularRespiratory Rate: 12Height 62 in or 1.6 mWeight 115 lb or 52.2 kgBMI 21.0Temperature: 97.5 F or 36.4 CPulse Oximetry: 95 % at rest on no oxygen Chief Complaint: Addressed in HPI Problems or conditions discussed in the HPI were the only ones reviewed during the encounter.Only social and family history addressed in the HPI were reviewed during this encounter. Attendant(s): NoneConstitutional and Systemic Symptoms:none Medication Reconciliation: from medication list. Tlvoawumuub55/11/2024 CT of the brain demonstrates no acute process. Mild cerebral atrophy and white matter changes are noted. 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 History of chronic cough and congestion. Has had some purulent sputum production intermittently. Has had some swelling lower extremities more prominent on the left lower leg than the right. No interval complaints of any other associated orthopnea, PND or any other cardiovascular symptoms.: #2. Hx of esophageal reflux currently stable. Hx of Complications: none The severity, duration and intensity of symptoms have remained the same. Frequency: most meals Treatment consists medications taken on no regular basis. Current therapy includes Omeprazole. There has been eructation. No change in he frequency or intensity of symptoms. Has had no melena. Has had no . Discussed use of H2 antagonists and the possibility of trying to reduce the frequency of the use of any PPI inhibitors and try H2 antagonists to see if symptoms can be controlled with lease intensive therapy since a number of complications are associated with chronic prolonged use of PPI inhibitors. #3. Type II Hypercholesterolaemia: Currently not taking medication. No interval complaints of any muscle pain or arthralgia. No significant liver changes with medications. Last lipid panel: suboptimal by ATP III guidelines. Therapy reviewed regarding treatment of cholesterol management and include diet. #4. History of the transient cerebral ischemia currently taking Plavix. No interval complaints of any neurological symptomatology.: Active Medication ListMetolazone 2.5 MG TABLET One DailyPlavix 75 MG (TABLET - ORAL) One DailyFurosemide 40 MG TABLET One DailyVitamin B&c Complex DailyVitamin D 05341 IU WeeklyDocusate 100 MG TABLET One Twice A DayMelatonin 10 MG One At BedtimeTylenol Every Six Hours As NeededBisacodyl 5 MG TABLET 2 Once DailyNorco 5 - 325 MG One Every Six Hours As NeededSimethicone 80 MG TABLET, CHEWABLE DailyClaritin 10 MG TABLET Once DailyAlign DailyBaclofen 10 MG TABLET One Three Times A DayOmeprazole 40 MG CAPSULE, DELAYED RELEASE Daily Adverse Drug Reactions ReviewedPenicillin HivesSulfa Drugs HivesLevaquin Gi Vaccination and Zgmydcvbuahg2863-92 Jvrmzgdlm4094-55 Covid Booster Pchtnu4451-72 Covid Qlprem8938-31 Tetanus Nzxcqqj9243-53 Prevnar 13 Yg1862-07 Pneumovax Surgical Bbuxlwv3830-63 Lap Paraesophageal Hernia Ssipol5006-55 Rt. 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 This represents approximately a 2.6% change in weight. Weight change attributable to lifestyle changes. Vital Signs:Blood Pressure: Sitting Rt. Arm 120/64Pulse: Sitting 71 /min and RegularRespiratory Rate: 12Height 62 in or 1.6 mWeight 118 lb or 53.5 kgBMI 21.6Temperature: 98.3 F or 36.8 CPulse Oximetry: 96 % at rest on no oxygen Chief Complaint: Addressed in HPI Problems or conditions discussed in the HPI were the only ones reviewed during the encounter.Only social and family history addressed in the HPI were reviewed during this encounter. Attendant(s): Tswslpgz-dl-lhePvhlzyuc tional and Systemic Symptoms:none Medication Reconciliation: from medication list. Vrljydonope63/11/2024 CT of the brain demonstrates no acute process. Mild cerebral atrophy and white matter changes are noted. 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 Stable moderate nonspecific cerebral white matter disease representing small vessel ischemic changes. History of Present Illness #1. Recent episode of bleeding from the right ankle secondary to varicosity with rupture. This was treated with compression stocking. Following this had a syncopal episode where the patient apparently just lost consciousness for a period of time. There are no observed tonic-clonic type movements. 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 Denied any history of any headaches, dizziness or any other associated symptoms. On neurological examination has symmetrical reflexes and no localized focal muscular weakness or sensory changes.: #2. Hx of esophageal reflux currently stable. Hx of Complications: none The severity, duration and intensity of symptoms have remained the same. Frequency: every meal Treatment consists medications taken on a regular basis. Current therapy includes Omeprazole. There has been no nausea, eructation, vomiting, hematemesis, dysphagia, velopharyngeal insufficiency and odynophagia. No change in he frequency or intensity of symptoms. Has had no melena. Has had no . Discussed use of H2 antagonists and the possibility of trying to reduce the frequency of the use of any PPI inhibitors and try H2 antagonists to see if symptoms can be controlled with lease intensive therapy since a number of complications are associated with chronic prolonged use of PPI inhibitors. #3. History of hypercholesterolaemia: History of the high cholesterol. Not taking any medications and being controlled by diet. No interval complaints of any chest pain, shortness of breath, orthopnea or other cardiovascular complaints. Last lipid panel: fair control Active Medication ListPlavix 75 MG (TABLET - ORAL) One DailyFurosemide 20 MG TABLET One DailyVitamin B&c Complex DailyVitamin D 62015 IU WeeklyDocusate 100 MG TABLET One Twice A DayMelatonin 10 MG One At BedtimeTylenol Every Six Hours As NeededBisacodyl 5 MG TABLET 2 Once DailyNorco 5 - 325 MG One Every Six Hours As NeededSimethicone 80 MG TABLET, CHEWABLE DailyClaritin 10 MG TABLET Once DailyAlign DailyBaclofen 10 MG TABLET One Three Times A DayOmeprazole 40 MG CAPSULE, DELAYED RELEASE Daily Adverse Drug Reactions ReviewedPenicillin HivesSulfa Drugs HivesLevaquin Gi Vaccination and Zaqghslrupew0950-27 Uybeblqwk2548-16 Covid Booster Zpuunc3634-39 Covid Cetspi8661-62 Tetanus Jjnlayz4505-51 Prevnar 13 Gi8500-83 Pneumovax Surgical Gfqmzsi6747-05 Lap Paraesophageal Hernia Ggpmpy1048-35 Rt. 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 This represents approximately a 5.1% change in weight. Weight change attributable to lifestyle changes. Vital Signs:Blood Pressure: Sitting Rt. Arm 112/80Pulse: Sitting 79 /min and RegularRespiratory Rate: 14Height 62 in or 1.6 mWeight 112 lb or 50.8 kgBMI 20.5Temperature: 97.7 F or 36.5 CPulse Oximetry: 96 % at rest on no oxygen Chief Complaint: Addressed in HPI Problems or conditions discussed in the HPI were the only ones reviewed during the encounter.Only social and family history addressed in the HPI were reviewed during this encounter. Attendant(s): NoneConstitutional and Systemic Symptoms:none Medication Reconciliation: from medication list. Xpqglrzbkzd96/11/2024 CT of the brain demonstrates no acute process. Mild cerebral atrophy and white matter changes are noted. 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 Stable moderate nonspecific cerebral white matter disease representing small vessel ischemic changes. History of Present Illness #1. COPD: Hx of Emphysema currently stable. There has been Other interval change but has a chronic nonproductive cough in exercise tolerance an shortness of breath. No change in sputum production, color or consistency. No fever, chills, weight loss or other constitutional symptoms. Gold Scale: Mild. MRC Scale: only strenuous activity. Smoking: not currently smoking Current medications: none Using nebulizer Treatments: No. Uses does not use supplemental oxygen #2. Hx of esophageal reflux currently stable. Hx of Complications: none The severity, duration and intensity of symptoms have improved. Frequency: most meals Treatment consists medications taken on a regular basis. Current therapy includes no medication. There has been no nausea, eructation, vomiting, hematemesis, dysphagia, velopharyngeal insufficiency and odynophagia. No change in he frequency or intensity of symptoms. Has had no melena. Has had no . Discussed use of H2 antagonists NA. #3. Type II Hypercholesterolaemia: Currently taking medication and tolerating well. No interval complaints of any muscle pain or arthralgia. No significant liver changes with medications. Last lipid panel: fair control. Therapy reviewed regarding treatment of cholesterol management and include diet. #4. History of the significant paraesophageal hernia repair back in December 2023. Clinically doing well but still bothered by considerable amount of gas as well as reflux type symptomatology. No associated pain or discomfort.: Active Medication ListPlavix 75 MG (TABLET - ORAL) One DailyFurosemide 20 MG TABLET One DailyVitamin B&c Complex DailyVitamin D 58271 IU WeeklyMelatonin 10 MG One At BedtimeTylenol Every Six Hours As NeededBisacodyl 5 MG TABLET 2 Once DailySimethicone 80 MG TABLET, CHEWABLE DailyAlign DailyPantoprazole 40 MG CAPSULE, DELAYED RELEASE Daily Adverse Drug Reactions ReviewedPenicillin HivesSulfa Drugs HivesLevaquin Gi Vaccination and Ydrqsovaemsc9802-25 Sddoahbzx4286-95 Covid Booster Gwwatn8049-66 Covid Cjfuil1749-67 Tetanus Zbioylf3557-88 Prevnar 13 Jd3885-15 Pneumovax Surgical Ixrlxll5796-88 Lap Paraesophageal Hernia Gcaisx3542-72 Rt. 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 This represents approximately a 1.8% change in weight. Weight change attributable to lifestyle changes. Vital Signs:Blood Pressure: Sitting Rt. Arm 116/62Pulse: Sitting 66 /min and RegularRespiratory Rate: 16Height 62 in or 1.6 mWeight 114 lb or 51.7 kgBMI 20.8Temperature: 97 F or 36.1 CPulse Oximetry: 98 % at rest on no oxygen Chief Complaint: Addressed in HPI Problems or conditions discussed in the HPI were the only ones reviewed during the encounter.Only social and family history addressed in the HPI were reviewed during this encounter. Attendant(s): NoneConstitutional and Systemic Symptoms:none Medication Reconciliation: from medication list. Xqfarugvchg39/11/2024 CT of the brain demonstrates no acute process. Mild cerebral atrophy and white matter changes are noted. 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 Stable moderate nonspecific cerebral white matter disease representing small vessel ischemic changes. History of Present Illness #1. Hx of esophageal reflux currently stable. Hx of Complications: none The severity, duration and intensity of symptoms have improved. Frequency: most meals Treatment consists medications taken on a regular basis. Current therapy includes Pantoprazole. There has been no nausea, eructation, vomiting, hematemesis, dysphagia, velopharyngeal insufficiency and odynophagia. No change in he frequency or intensity of symptoms. Has had no melena. Has had no . Discussed use of H2 antagonists NA. #2. Type II Hypercholesterolaemia: Currently taking medication and tolerating well. No interval complaints of any muscle pain or arthralgia. No significant liver changes with medications. Last lipid panel: fair control. Therapy reviewed regarding treatment of cholesterol management and include diet. #3. Chronic nonproductive purulence cough but some production of clear sputum. No associated fever chills. No indigestion. Has had recent paraesophageal hernia repair. Be contributing somewhat to the cough. May be still having some reflux as well as possible minor amount of aspiration.: #4. Acute conjunctivitis right eye. Has been placing some old medication in the eye. Will call in a eye drop see if there is any improvement. If not will need to see Ophthalmology.: Active Medication ListPlavix 75 MG (TABLET - ORAL) One DailyFurosemide 20 MG TABLET One DailyVitamin B&c Complex DailyVitamin D 47001 IU WeeklyMelatonin 10 MG One At BedtimeTylenol Every Six Hours As NeededBisacodyl 5 MG TABLET 2 Once DailySimethicone 80 MG TABLET, CHEWABLE DailyAlign DailyPantoprazole 40 MG CAPSULE, DELAYED RELEASE Daily Adverse Drug Reactions ReviewedPenicillin HivesSulfa Drugs HivesLevaquin Gi Vaccination and Immunization( ) 2013-11 PREVNAR 13 GC( ) 2011-11 PNEUMOVAX( ) 2024-08 INFLUENZA( ) 2019-07 TETANUS BOOSTER( ) 2020-12 COVID PFIZER(X) 2022-04 COVID BOOSTER PFIZER( ) 2024-08 PREVNAR 20 Surgical Ktopvou6206-56 Lap Paraesophageal Hernia Ukhxuo1764-80 Rt. 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 Family HistoryMother 84 PUD with hemorrhageFather 62 from cirrhosis secondary to ETOHTwo brothers both [place] Larynx one deceasedNo sistersMenarche 12 Menopause 51 A0 TEST RESULT RANGE UNITSCBC/COMPLETE BLD COUNT W/DIFF Date: 06/25/2024WHITE BLOOD CELLS 7.1 4.2-10.8 X10'3/ULHEMOGLOBIN 11.0 12.0-15.6 G/DLHEMATOCRIT 34.0 35.7-45.7 %PLATELETS 369 150-400 X10'3/ULCOMPREHENSIVE METABOLIC PANEL Date: 06/25/2024SODIUM 134 137-145 MMOL/LPOTASSIUM 4.8 3.5-5.1 MMOL/LGLUCOSE 94 70-99 MG/DLBUN 15 8-19 MG/DLCREATININE 1.08 0.66-1.25 MG/DLGFR 48ALKALINE PHOSPHATASE 122 38-126 U/LALANINE AMINOTRANSFERASE 14 0-35 U/LASPARTATE AMINOTRANSFERASE 29 15-37 U/LBILIRUBIN, TOTAL 0.90 0.20-1.30 MG/DLCALCIUM 9.2 8.4-10.2 MG/DLT4 FREE Date: 06/25/2024FREE T4 1.13 0.78-2.19 NG/DLTSH Date: 06/25/2024THYROID-STIMU LATING HORMONE 1.640 0.465-4.680 UIU/ML Wanda Rick MD [address] [facility], [facility] [address], [place], [address], [place] [facility] [place] [employer] 09/24/2024 12:16:23 01/26/2025 text/html Patient Name: [facility]en[facility]: [facility] ( 01.26.2025 ): 1935 Age: 89 There has been approximately a 18.5 lb weight gain since 09/24/2024. This represents approximately a 16.2% change in weight. Weight change attributable to lifestyle changes. Vital Signs:Blood Pressure: Sitting Rt. Arm 118/68Pulse: Sitting 83 /min and RegularRespiratory Rate: 16Height 62 in or 1.6 mWeight 132.5 lb or 60.1 kgBMI 24.2Temperature: 97 F or 36.1 CPulse Oximetry: 95 % at rest on no oxygen Chief Complaint: Addressed in HPI Problems or conditions discussed in the HPI were the only ones reviewed during the encounter.Only social and family history addressed in the HPI were reviewed during this encounter. Attendant(s): NoneConstitutional and Systemic Symptoms:none Medication Reconciliation: from medication list. Edxuvzanjei60-06-8208: CT the brain showed old infarcts involving the basal ganglia bilaterally. Stable moderate nonspecific cerebral white matter disease representing small vessel ischemic changes. History of Present Illness #1. COPD: Hx of Emphysema currently stable. There has been no interval change in exercise tolerance an shortness of breath. No change in sputum production, color or consistency. No fever, chills, weight loss or other constitutional symptoms. Gold Scale: Moderate. MRC Scale: vigorous walking. Smoking: not currently smoking Current medications: none Using nebulizer Treatments: No. Uses does not use supplemental oxygen #2. Hx of esophageal reflux currently stable. Hx of Complications: none The severity, duration and intensity of symptoms have improved. Frequency: most meals Treatment consists medications taken on intermittent basis. Current therapy includes Pantoprazole. There has been no nausea, eructation, vomiting, hematemesis, dysphagia, velopharyngeal insufficiency and odynophagia. No change in he frequency or intensity of symptoms. Has had no melena. Has had no . Discussed use of H2 antagonists NA. #3. Type II Hypercholesterolaemia: Currently taking medication and tolerating well. No interval complaints of any muscle pain or arthralgia. No significant liver changes with medications. Last lipid panel: fair control. Therapy reviewed regarding treatment of cholesterol management and include diet. #4. Edema of the lower extremity more pronounced over the last week to 10 days. No change in degree of shortness of breath and or cough. Instructed patient to take 40 mg of Lasix for 3-5 days. If his improves and dissipates would go back to 20 mg daily.: Active Medication ListPlavix 75 MG (TABLET - ORAL) One DailyFurosemide 20 MG TABLET One DailyOs-jw D One Twice A DayXyzal DailyMiralax 17 Grms DailyVitamin B&c Complex DailyMelatonin 10 MG One At BedtimeTylenol Every Six Hours As NeededBisacodyl 5 MG TABLET 2 Once DailySimethicone 80 MG TABLET, CHEWABLE DailyAlign DailyPantoprazole 40 MG CAPSULE, DELAYED RELEASE Daily Adverse Drug Reactions ReviewedPenicillin HivesSulfa Drugs HivesLevaquin Gi Vaccination and Immunization( ) 2013-11 PREVNAR 13 GC( ) 2011-11 PNEUMOVAX( ) 2024-08 INFLUENZA( ) 2019-07 TETANUS BOOSTER( ) 2020-12 COVID PFIZER(X) 2022-04 COVID BOOSTER PFIZER( ) 2024-08 PREVNAR 20 Surgical [id number] Lap Paraesophageal Hernia [id number] Rt. 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
--- OUTSIDE RECORDS SUMMARY | 2025-03-23 13:59 | XMS_ITS | Encounter Summary ---
Author Organization [facility] Address [address] [place] [address] Care Team Providers Care Artillery Or Naval Gunfire Observer Name Role Phone Delmer Rick MD Primary Care Provider [phone] Encounter Details Date Type Department Care Team (Late st Contact Info) Description 12/13/[address] [facility] Care DermPath Lab [address] [facility] [place] [address] Alek [place] [address] Social History Tobacco Use Types Packs/Day Years Used Date Smoking Tobacco: Never Smokeless Tobacco: Never Alcohol Use Standard Drinks/Week Comments Yes 0 (1 standard drink = 0.6 oz pur e alcohol) Comments No Sex and Gender Information Value Date Recorded Sex Assigned at Not on file Legal Sex Female 5:20 PM COMMAND AND CONTROL SYSTEMS INTEGRATOR Gender Identity Not on file Sexual Orientation Not on file documented as of this encounter Plan of Treatment Not on file documented as of this encounter Procedures Procedure Name Priority Date/Time Associated Diagnosis Comments DERMATOPATHOLOGY Routine 12/10/2020 3:27 AM COMMAND AND CONTROL SYSTEMS INTEGRATOR documented in this encounter Results * DERMATOPATHOLOGY (12/10/2020 3:27 AM COMMAND AND CONTROL SYSTEMS INTEGRATOR) Case Report Dermatopathology Report Case: [id number] Authorizing Provider: Alek Levin MD Collected: 12/10/2020 03:27 AM Ordering Location: [facility] DermPath Lab Received: 12/13/2020 10:18 AM Pathologist: Nadira Kaba MD Specimens: A) - Skin, right of midline superior forehead B) - Skin, left superior eyebrow C) - Skin, leftnasal tip D) - Skin, left lower medial calf 1 2:23 PM [facility] DERMATOPATHOLOGY LABORATORY Final Diagnosis Specimen A. SKIN, right of midline superior forehead: SEBORRHEIC KERATOSIS, IRRITATED (L82.0) Specimen B. SKIN, left superior eyebrow: ACTINIC KERATOSIS, ACANTHOLYTIC TYPE (L57.0) Specimen C. SKIN, leftnasal tip: ACTINIC KERATOSIS, ACANTHOLYTIC TYPE (L57.0) Specimen D. 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 D: R/O dysplastic nevus vs BCC, SCC, Sorto's. 1 2:23 PM [facility] DERMATOPATHOLOGY LABORATORY Gross Description Specimen A: Received is one formalin filled container labeled with the patient's name and designated right of midline superior forehead. The specimen consists of a shave biopsy measuring [id number]. Jar 0. Specimen B: Received is one formalin filled container labeled with the patient's name and designated left superior eyebrow. The specimen consists of a shave biopsy (2 pieces) measuring [id number] & [id number]. Jar 0. Specimen C: Received is one formalin filled container labeled with the patient's name and designated leftnasal tip. The specimen consists of a shave biopsy measuring [id number]. Jar 0. Specimen D: Received is one formalin filled container labeled with the patients name and designated left lower medial calf. The specimen consists of a shave removal measuring [id number]. The margin is inked green. Jar 0. 1 2:23 PM [facility] DERMATOPATHOLOGY LABORATORY Microscopic Description Specimen A. SKIN, right of midline superior forehead: There is acanthosis consisting of fairly uniform squamous cells with eosinophilic cytoplasm and squamous eddies. Specimen B. SKIN, left superior eyebrow: There is focal parakeratosis. The lower half of the epidermis shows disorderly maturation of keratinocytes with nuclear pleomorphism. Focally there is a suprabasilar cleft with acantholytic cells. Specimen C. SKIN, leftnasal tip: There is focal parakeratosis. The lower half of the epidermis shows disorderly maturation of keratinocytes with nuclear pleomorphism. Focally there is a suprabasilar cleft with acantholytic cells. Specimen D. SKIN, left lower medial calf: Sections show nests of cells with pale cytoplasm and thin strands of relatively normal keratinocytes intervening. There is overlying parakeratosis. MART-1/Melan A highlights a normal distribution of melanocytes and does not highlight the pagetoid cells. This lesion is not present at the sampled margin of the specimen. 1 2:23 PM [facility] DERMATOPATHOLOGY LABORATORY Disclaimer An external and internal positive and negative controls are appropriate for the histochemical, immunohistochemical and immunofluorescence stain(s) in this case (if any), except where stated explicitly. The performance characteristics of the stain(s) cited in this report were developed and its performance characteristic determined by the Dermatopathology Laboratory at [facility], directed by Dr. Dave Kaba. These tests need not be, and therefore are not, approved by the [place] Food and Drug Administration. The tests are used for clinical purposes. Billing Codes Specimen Charges Stain Charges 46240 [id number] 1 1 1 1 [id number] 1 1 2:23 PM COMMAND AND CONTROL SYSTEMS INTEGRATOR DERMATOPATHOLOGY LABORATORY Embedded Images 1 2:23 PM COMMAND AND CONTROL SYSTEMS INTEGRATOR DERMATOPATHOLOGY LABORATORY Pathology/Cytology TISSUE SPECIMEN FROM SKIN / Unknown 12/10/2020 3:27 AM COMMAND AND CONTROL SYSTEMS INTEGRATOR 12/13/2020 10:18 AM COMMAND AND CONTROL SYSTEMS INTEGRATOR Miscellaneous samples (specimen) TISSUE SPECIMEN FROM SKIN / Unknown 12/10/2020 3:27 AM COMMAND AND CONTROL SYSTEMS INTEGRATOR 12/13/2020 10:18 AM COMMAND AND CONTROL SYSTEMS INTEGRATOR Miscellaneous samples (specimen) TISSUE SPECIMEN FROM SKIN / Unknown 12/10/2020 3:27 AM COMMAND AND CONTROL SYSTEMS INTEGRATOR 12/13/2020 10:18 AM COMMAND AND CONTROL SYSTEMS INTEGRATOR Miscellaneous samples (specimen) TISSUE SPECIMEN FROM SKIN / Unknown 12/10/2020 3:27 AM COMMAND AND CONTROL SYSTEMS INTEGRATOR 12/13/2020 10:18 AM COMMAND AND CONTROL SYSTEMS INTEGRATOR us Alek Levin MD LAB - PATHOLOGY/CYTOLOGY ORD ERABLES Final Result DERMATOPATHOLOGY LABORATORY [facility] - Department of Dermatology [facility] [address] [place] [address], [address] [phone] documented in this encounter Visit Diagnoses Not on filedocumented in this encounter Care Teams Artillery Or Naval Gunfire Observer Relationship Specialty Start Date End Date Delmer Rick MD [address] [place] [address] [address] [place] [address] PCP - General 10/02/17 documented as of this encounter
--- OUTSIDE RECORDS SUMMARY | 2025-03-23 13:59 | XMS_ITS | CONTINUITY OF CARE DOCUMENT ---
Author Name ngozi melvin Address Unknown Organization [facility] Address [address] [place] [address] Phone [phone] Care Team Providers Care Administrative Support Assistant Name Role Phone Maurice GLASS, Uma Unavailable [phone] MELVA GLASS, WANDA Unavailable MELVA GLASS, WANDA Unavailable [phone] PROBLEMS Condition Status Date Provider Notes Syncope active Charmaine Gruenenfelder ANEMIA active Nury Yfn GERD active Nury Coulter Shortness of breath- Echo 04/18 - nl lv fn , mild Diastolic dysfunction RVSP 31 mm Hg active Uma Richards MD CHEST PAIN-NL STRESS TEST AN D ECHO completed - Uma Richards MD Cardiology examination completed 5 - Uma Richards MD Carotid arterial disease Stable 5 mm LICA aneurysm active Uma Richards MD Hyponatremia active Uma Richards MD SVT, paroxysmal active Ke Ventura ENCOUNTERS Date Type Provider Location Encounter Diag nosis - In-person encounter Office Visit Uma Richards MD [facility] - In-person encounter Office Visit Uma Richards MD [facility] SVT, paroxysmal - In-person encounter Office Visit Uma Richards MD [facility] Shortness of breath- Echo 04/18 - nl lv fn , mild Diastolic dysfunction RVSP 31 mm HgCHEST PAIN-NL STRESS TEST AND ECHOCardiology examinationCarotid arterial disease Stable 5 mm LICA aneurysmHyponatremia - In-person encounter Office Visit Uma Richards MD [facility] - In-person encounter Office Visit Uma Richards MD [facility] - In-person encounter Office Visit Uma Richards MD [facility] VITAL SIGNS Date Observation Value Provider Body Mass Index (Ratio) 21.61 kg/m2 Bertin Richards MD blood pressure, diastolic 88 mm[Hg[facility] 160 mm[Hg] [facility], oximetry 98 % [facility] pulse rate 68 /min [facility] respiratory rate E&M 12 /min [facility] weight E&M 122 [lb_av] [facility] height E&M 63 [in_i] [facility] blood pressure, cuff size regular [facility] Body Mass Index (Ratio) 20.83 kg/m2 Bertin Richards MD blood pressure, cuff size regular iAme Vazquez blood pressure, diastolic 74 mm[Hg] Aime breanneharman Vazquez blood pressure, systolic 120 mm[Hg] Ross ithradha Vazquez oxygen saturation, oximetry 95 % Veronica Vazquez pulse rate 82 /min Veronica Vazquez weight E&M 117.6 [lb_av] Veronica Vazquez respiratory rate E&M 12 /min Veronica Vazquez height E&M 63 [in_i] Veronica Vazquez Body Mass Index (Ratio) 20.44 kg/m2 Bertin Richards MD pulse rate 94 /min Veronicaradha Vazquez blood pressure, cuff size regular Aime hua [facility] blood pressure, diastolic 82 mm[Hg] Aime hua [facility] blood pressure, systolic 138 mm[Hg] Ross warner [facility] oxygen saturation, oximetry 96 % Veronica Rugby respiratory rate E&M 12 /min [facility] E&M 115.4 [lb_av] [facility] height E&M 63 [in_i] [facility] Body Mass Index (Ratio) 23.03 kg/m2 Bertin Richards MD blood pressure, diastolic 60 mm[Hg] Cami harman [facility] blood pressure, systolic 110 mm[Hg] Allison herbert '[facility] oxygen saturation, oximetry 97 % [facility] respiratory rate E&M 16 /min [facility] pulse rate 76 /min [facility] weight E&M 130 [lb_av] [facility] height E&M 63 [in_i] [facility] blood pressure, resting No Rindge [facility] blood pressure, diastolic 67 mm[Hg] Judge blood pressure, systolic 119 mm[Hg] Silas Torre pulse rate 56 /min Ermias Torre oxygen saturation, oximetry 97 % Ermias Torre respiratory rate E&M 16 /min Ermias Torre weight E&M 132 [lb_av] Ermias Torre blood pressure, diastolic 58 mm[Hg] Perry Silverman blood pressure, systolic 106 mm[Hg] Israel Silverman pulse rate 64 /min Magda Silverman oxygen saturation, oximetry 96 % Magda Silverman respiratory rate E&M 16 /min Armando Silverman weight E&M 133 [lb_av] Magda Silverman ALLERGIES Allergy Name Onset Date Reaction Criticality Status EPINEPHRINE High Criticality active SULFA High Criticality active PENICILLIN High Criticality active HISTORY OF MEDICATION USE Medication Status Instructions Dates Provider Indications Com ments furosemide 20 mg tablet active Uma Richards MD loratadine 10 mg tablet active TAKE 1 TABLET BY MOUTH ONCE DAILY Uma Richards MD omeprazole 40 mg capsule,delayed release(DR/EC) active Uma Richards MD clopidogrel 75 mg tablet active Uma Richards MD Verónica Allergy 180 mg tablet completed 1 tablet once a day 4 - 5 Uma Richards MD Flonase Allergy Relief 50 mcg/actuation spray,suspension active 1 puff into both nostrils 4 Uma Richards MD EXCEDRIN EXTRA STRENGTH TABLET completed take daily - 4 Vanessa Cross CALTRATE 600 D TABLET completed Take once a day - 5 Uma Richards MD STRESS B COMPLEX/IRON TABS active Take once a day Uma Richards MD PRILOSEC CPDR completed take daily - 4 Vanessa Cross SOCIAL HISTORY Date Observation Value Provider drug use none Ke Ventura smoking status Current every day smoker R liam Ventura drug use none Ke Ventura smoking status Current every day smoker R liam Ventura social history reviewed E&M revi ewed - no changes required Uma Richards MD physical exercise, f requency, days per week yes Vanessa Mott'Sami alcohol use, average drinks per day social basis only Vanessa Mott'[facility]ami caffeine use, averag e drinks per day yes Vanessa Corss drug use none Vanessa Mott'Sami smoking status Current every day smoker M kay Cross social history reviewed E&M reviewed Uma Richards MD social history E&M Marital Statu s: L kai alone E thnicity: Uma Richards MD drug use none Uma Richards MD social history reviewed E&M reviewed Uma Richards MD physical exercise, f requency, days per week yes [employer] caffeine use, averag e drinks per day yes [employer] alcohol use, average drinks per day social basis only [employer] smoking status Non-smoker [employer] MENTAL STATUS Date Observation Value Provider assessment of judgme nt and insight E&M Alert and oriented to time, place and person. Mood and affect are normal. Uma Richards MD assessment of judgme nt and insight E&M Alert and oriented to time, place and person. Mood and affect are normal. Uma Richards MD INSURANCE PROVIDERS Payer name Policy type / Coverage type [place] red republican [id number] [place] MEDICARE Medicare [id number] ADVANCE DIRECTIVES Name Date POWER OF [employer]ADING [employer] T[employer]ATMENT PLAN Date Name Performer Cardiology: H er updated medication list for this problem includes: Omeprazole 40 Mg Capsule,delayed Release(dr/ec) (Omeprazole) Uma Richards MD Cardiology: H er updated medication list for this problem includes: Clopidogrel 75 Mg Tablet (Clopidogrel) Uma Richards MD Cardiology:This visi t has been a part of the consistent, comprehensive, and ongoing management of the chronic medical condition(s) listed above for the patient. Her updated medication list for this problem includes: Clopidogrel 75 Mg Tablet (Clopidogrel) Uma Richards MD Cardiology Uma Richards MD Cardiology: H er updated medication list for this problem includes: Furosemide 20 Mg Tablet (Furosemide) Uma Ricahrds MD Cardiology: H er updated medication list for this problem includes: Clopidogrel 75 Mg Tablet (Clopidogrel) Ke Ventura Cardiology: H er updated medication list for this problem includes: Clopidogrel 75 Mg Tablet (Clopidogrel) Ke Ventura Cardiology Ke Freedmedjuan carlos Cardiology Ke Freedmedjuan carlos Cardiology: H er updated medication list for this problem includes: Furosemide 20 Mg Tablet (Furosemide) Ke Ventura Cardiology- Uma Richards MD Cardiology- Uma Richards MD Cardiology- Uma Richards MD Cardiology- Uma Richards MD Cardiology- Uam Richards MD Cardiology-: H er updated medication list for this problem includes: Furosemide 20 Mg Tablet (Furosemide) Uma Richards MD Cardiology Uma Richards MD Cardiology Uma Richards MD Cardiology Uma Richards MD follow up: H er updated medication list for this problem includes: Caltrate 600+d Tabs (Calcium carbonate-vitamin d tabs) ..... Take daily Orders: E KG ([id number]) BP today: 119/67 Prior BP: 106/58 (04/19/2010) N uclear Stress Findings: 1. Regadenoson mediated myocardial perfusion study 2 . Normal left ventricular systolic function with a calculated ejection fraction of 62%. 3 . No obvious significant scintigraphic evidence of myocardial ischemia or scar. (04/12/2010) E chocardiogram: Normal left ventricular systolic function. Normal left ventricular size. Normal left ventricular wall thickness. There is E to A wave reversal consistent with impaired LV relaxation. Left ventricular ejection fraction is estimated at 60%. No significant valvular abnormalities. (04/12/2010) Uma Richards MD follow up: B P today: 119/67 Prior BP: 106/58 (04/19/2010) N uclear Stress Findings: 1. Regadenoson mediated myocardial perfusion study 2 . Normal left ventricular systolic function with a calculated ejection fraction of 62%. 3 . No obvious significant scintigraphic evidence of myocardial ischemia or scar. (04/12/2010) E chocardiogram: Normal left ventricular systolic function. Normal left ventricular size. Normal left ventricular wall thickness. There is E to A wave reversal consistent with impaired LV relaxation. Left ventricular ejection fraction is estimated at 60%. No significant valvular abnormalities. (04/12/2010) Uma Richards MD follow up: H er updated medication list for this problem includes: Prilosec Cpdr (Omeprazole cpdr) ..... Take daily BP today: 119/67 Prior BP: 106/58 (04/19/2010) D iscussed lifestyle modifications, diet, antacids/medications, and preventive measures. Handout provided. Uma Richards MD hospital f/u: H er updated medication list for this problem includes: Caltrate 600+d Tabs (Calcium carbonate-vitamin d tabs) ..... Take daily BP today: 106/58 Prior BP: / () N uclear Stress Findings: 1. Regadenoson mediated myocardial perfusion study 2 . Normal left ventricular systolic function with a calculated ejection fraction of 62%. 3 . No obvious significant scintigraphic evidence of myocardial ischemia or scar. (04/12/2010) E chocardiogram: Normal left ventricular systolic function. Normal left ventricular size. Normal left ventricular wall thickness. There is E to A wave reversal consistent with impaired LV relaxation. Left ventricular ejection fraction is estimated at 60%. No significant valvular abnormalities. (04/12/2010) Uma Richards MD [facility] f/u: B P today: 106/58 Prior BP: / () N uclear Stress Findings: 1. Regadenoson mediated myocardial perfusion study 2 . Normal left ventricular systolic function with a calculated ejection fraction of 62%. 3 . No obvious significant scintigraphic evidence of myocardial ischemia or scar. (04/12/2010) E chocardiogram: Normal left ventricular systolic function. Normal left ventricular size. Normal left ventricular wall thickness. There is E to A wave reversal consistent with impaired LV relaxation. Left ventricular ejection fraction is estimated at 60%. No significant valvular abnormalities. (04/12/2010) Uma Richards MD Date Name Monitor - Telemetry (Mobile Cardiac) Venous Doppler Bilat eral LE - Reflux HISTORY OF PROCEDURES Procedure Date Procedure Name Provider Procedure Notes S tatus Complex e/m visit add on Uma Richards MD completed EKGagan Richards MD completed KATLYN Richards MD completed Holter, 24 or 48 Tashia Treadwell MD c ompleted KATLYN Richards MD completed
--- NOTE | 2025-03-23 14:00 | ECG_ITS ---
Test Date: 2025-03-23 17:38:35 Measurements Intervals [place] Rate: 65 P: 56 AK: 187 QRS: -51 QRSD: 110 T: 55 QT: 411 QTc: 428 Interpretive Statements SINUS RHYTHM INCOMPLETE RIGHT BUNDLE BRANCH BLOCK LEFT ANTERIOR FASCICULAR BLOCK VOLTAGE CRITERIA FOR LVH CANNOT R/O SEPTAL INFARCT, AGE INDETERMINATE ABNORMAL ECG No previous ECG available for comparison Electronically Signed On 03-23-2025 19:48:43 CDT by Shailesh Dowd D.O.
--- NOTE | 2025-03-23 15:20 | PC.NURSE ---
Pt did not answer for VS.
--- NOTE | 2025-03-23 15:49 | PC.NURSE ---
Pt did not answer for VS x 2. Pt did not notify secretarial stenographer declined to be seen and was not seen leaving the ED.
--- NOTE | 2025-03-23 15:57 | PC.NURSE ---
Pt found in waiting room, did not hear call for VS. VS were taken and pt updated. VSS.
--- OUTSIDE RECORDS SUMMARY | 2025-03-23 17:56 | XMS_ITS | Referral Summary ---
Author Organization [facility] Address [address] [place] [address] Care Team Providers Care Renewals Specialist Name Role Phone Delmer Rick MD Primary Care Provider Dominick Nguyen MD Unavailable [phone] Ana Maria Lafleur MD Unavailable [phone] Encounters Date Type Department Care Team Description 01/30/2025 10:36 AM DRY HEAT CABINET ATTENDANT - 01/30/2025 11:59 PM DRY HEAT CABINET ATTENDANT Hospital Encounter [facility] ([facility]) [address] [place] [address] History of repair of hiatal hernia Discharge Disposition: Discharge to home or self care 01/30/2025 1:00 PM DRY HEAT CABINET ATTENDANT Office [facility] ([facility] - [facility] Minimally Invasive Surgery [address]th [address], [place] [address] Olga Lidia Holder NP History of repair of hiatal hernia 01/29/[address] [facility] ([facility] - [facility] Minimally Invasive Surgery [address], [place] [address] Olga Lidia Holder NP Medical [...] on file Legal Sex Female 3:36 AM DRY HEAT CABINET ATTENDANT Gender Identity Not on file Sexual Orientation Not on file Last Filed Vital Signs Vital Sign Reading Time Taken Comments Blood Pressure 125/73 01/30/2025 1:04 PM DRY HEAT CABINET ATTENDANT Pulse 77 01/30/2025 1:04 PM DRY HEAT CABINET ATTENDANT Temperature 36.9 C (98.5 F) 01/30/2025 1:04 PM DRY HEAT CABINET ATTENDANT Respiratory Rate 16 01/19/2024 11:00 AM DRY HEAT CABINET ATTENDANT Oxygen Saturation 97% 01/30/2025 1:04 PM DRY HEAT CABINET ATTENDANT Inhaled Oxygen Concentration - - Weight 53.5 kg (118 lb) 01/30/2025 1:04 PM DRY HEAT CABINET ATTENDANT Height 162.6 cm (5' 4 ) 01/30/2025 1:04 PM DRY HEAT CABINET ATTENDANT Body Mass Index 20.25 01/30/2025 1:04 PM DRY HEAT CABINET ATTENDANT Plan of Treatment Not on file Procedures Procedure Name Priority Date/Time Associated Diagnosis Comments FL ESOPHAGRAM, DOUBLE CONTRAST Schedule KARUNA, Read KARUNA (Appt Today, Awaiting Results) 01/30/2025 11:26 AM DRY HEAT CABINET ATTENDANT History of repair of hiatal hernia from Last 3 Months Results * FL Esophagram, Double Contrast (01/30/2025 11:26 AM DRY HEAT CABINET ATTENDANT) Anatomical Region Laterality Modality Body N/A Radio Fluoroscop y 01/30/2025 11:3 4 AM DRY HEAT CABINET ATTENDANT Impressions 01/30/2025 12:14 PM DRY HEAT CABINET ATTENDANT Postprocedural changes of hiatal hernia repair with fundoplication without evidence of hernia recurrence. Dictated by: Vin Evangelista MD PHD The radiology attending physician has personally reviewed this study, and had reviewed and/or edited this written report and agrees with it. Electronically signed by: Kyle Decker M.D. Narrative 01/30/2025 12:14 PM DRY HEAT CABINET ATTENDANT EXAMINATION: DOUBLE CONTRAST BARIUM ESOPHAGRAM HISTORY: History [...] it. Electronically signed by: Kyle Decker M.D. [facility] Kyle Nguyen MD IM FLUOROSCOPY PROCEDURES F inal Result from Last 3 Months Insurance MEDICARE [facility] MEDICARE [facility] [id number] Advance Directives For more information, please contact: [phone] Documents on File Type Date Recorded Patient Glass Ribbon Machine Operator Expl anation ADVANCE DIRECTIVE 01/16/2024 7:58 AM Power of Cover Stitch Machine Operator-Medical Power of Cover Stitch Machine Operator 10/17/2023 9:02 AM * Full Code (Latest Code Status on File) Date Activated Date Inactivated Comments 01/16/2024 2:30 PM 01/19/2024 7:56 PM * Full Code Date Activated Date Inactivated Comments 10/17/2023 9:16 AM 10/17/2023 2:57 PM * Full Code Date Activated Date Inactivated Comments 09/08/2023 7:54 AM 09/09/2023 6:54 PM Care Teams Renewals Specialist Relationship Specialty Start Date End Date Delmer Rick MD [address] [facility] [address] [place] [address] PCP - General Internal Medicine 05/17/20 Dominick Nguyen MD [address] [place] [address] Referring Physician General Surgery 09/09/23 Ana Maria Lafleur MD [address] [place] [address] Consulting Physician Gastroenterology 01/09/24
--- OUTSIDE RECORDS SUMMARY | 2025-03-23 17:56 | XMS_ITS | Clinical Summary ---
Author Organization [facility] Address [address] [place] [address] Care Team Providers Care Nuclear Reactor Engineer Name Role Phone Delmer Rick MD Primary Care Provider Dominick Nguyen MD Unavailable [phone] Ana Maria Lafleur MD Unavailable [phone] Allergies Active Allergy Reactions Criticality Noted [...] Department Care Team Description 01/30/2025 1:00 PM CLIENT ADVISOR Office [facility] - [facility] Minimally Invasive Surgery [address] [facility] [address] [facility] 12th [address], [place] [address] Olga Lidia Holder NP History of repair of hiatal hernia 01/30/2025 10:36 AM CLIENT ADVISOR - 01/30/2025 11:59 PM CLIENT ADVISOR Hospital Encounter [facility] ([facility]) [address] [place] [address] History of repair of hiatal hernia Discharge Disposition: Discharge to home or self care 01/29/2025 [facility] - [facility] Minimally Invasive Surgery [address] [facility] 12th Floor, [place] [address] Olga Lidia Holder NP Medical Question/Miscellane ous [...] on file Legal Sex Female 3:36 AM CLIENT ADVISOR Gender Identity Not on file Sexual Orientation Not on file Obstetrics History Comments S/p Hysterectomy in 1999 for ovarian cancer Last Filed Vital Signs Vital Sign Reading Time Taken Comments Blood Pressure 125/73 01/30/2025 1:04 PM CLIENT ADVISOR Pulse 77 01/30/2025 1:04 PM CLIENT ADVISOR Temperature 36.9 C (98.5 F) 01/30/2025 1:04 PM CLIENT ADVISOR Respiratory Rate 16 01/19/2024 11:00 AM CLIENT ADVISOR Oxygen Saturation 97% 01/30/2025 1:04 PM CLIENT ADVISOR Inhaled Oxygen Concentration - - Weight 53.5 kg (118 lb) 01/30/2025 1:04 PM CLIENT ADVISOR Height 162.6 cm (5' 4 ) 01/30/2025 1:04 PM CLIENT ADVISOR Body Mass Index 20.25 01/30/2025 1:04 PM CLIENT ADVISOR Plan of Treatment Health Maintenance Due Date [...] (Appt Today, Awaiting Results) 01/30/2025 11:26 AM CLIENT ADVISOR History of repair of hiatal hernia from Last 3 Months Results * FL Esophagram, Double Contrast (01/30/2025 11:26 AM CLIENT ADVISOR) Anatomical Region Laterality Modality Body N/A Radio Fluoroscop y 01/30/2025 11:3 4 AM CLIENT ADVISOR Impressions 01/30/2025 12:14 PM CLIENT ADVISOR Postprocedural changes of hiatal hernia repair with fundoplication without evidence of hernia recurrence. Dictated by: Vin Evangelista MD PHD The radiology attending physician has personally reviewed this study, and had reviewed and/or edited this written report and agrees with it. Electronically signed by: Kyle Decker M.D. Narrative 01/30/2025 12:14 PM CLIENT ADVISOR EXAMINATION: DOUBLE CONTRAST BARIUM ESOPHAGRAM HISTORY: History [...] it. Electronically signed by: Kyle Decker M.D. [facility]. Kyle Nguyen MD IMG FLUOROSCOPY PROCEDURES F inal Result from Last 3 Months Insurance MEDICARE [facility] MEDICARE [facility] MEDICARE [facility] Advance Directives For more information, please contact: [phone] Documents on File Type Date Recorded Patient Calculating Machine Operator Expl anation ADVANCE DIRECTIVE 01/16/2024 7:58 AM Power of Locate Technician-Medical Power of Locate Technician 10/17/2023 9:02 AM * Full Code (Latest Code Status on File) Date Activated Date Inactivated Comments 01/16/2024 2:30 PM 01/19/2024 7:56 PM * Full Code Date Activated Date Inactivated Comments 10/17/2023 9:16 AM 10/17/2023 2:57 PM * Full Code Date Activated Date Inactivated Comments 09/08/2023 7:54 AM 09/09/2023 6:54 PM Care Teams Nuclear Reactor Engineer Relationship Specialty Start Date End Date Delmer Rick MD [address] [place] [address] PCP - General Internal Medicine 05/17/20 Dominick Nguyen MD [address] [place] [address] Referring Physician General Surgery 09/09/23 Ana Maria Lafleur MD [address] [place] [address] Consulting Physician Gastroenterology 01/09/24
--- OUTSIDE RECORDS SUMMARY | 2025-03-23 17:56 | XMS_ITS | Continuity of Care Document ---
Author Organization [facility] Address [address] [place] [address] Phone Care Team Providers Care Paddock Judge Name Role Phone Charles Rodriguez Unavailable Unavailable Procedures Procedure Date Office/outpatient Visit, Est Eye Exam & Treatment No Script Office/outpatient Visit, Est Advance Directives Directive Yes / No Effective Date File Name No Information Encounters Encounter Description Practice Location Reason(s) For Visit Diagnoses Date Provider Providers Copied on Encounter Office/outpat ient Visit, [facility], [address] [place] [address] [address], [place], [place], [id number], [place] tel:[phone] [facility] No Information 5-201 0 Michael Soto. [facility] , [address], [place], [place], [facility], . tel:[phone] [facility]ly [facility], [address] [place] [address] [address], [place], [place], [id number], [place] tel:[phone] [facility] No Information Jan-1 6-200 9 Krishnasamy Jairo. [address] [facility] [address], [place], [address], [place]. tel:[phone] Office/outpat ient Visit, [facility], [address], [place], [place], [id number], [place] tel:[phone] [facility] No Information Mar-0 7-200 8 Krishnasamy Jairo. [address] [facility] [address], [place], [address], [place]. tel:[phone] Family History Family Member Type Diagnosis Age At Onset No Information Payers Payer name Insurance type Covered alliance party ID Authoriza tion(s) Medicare [facility] [id number] [place] [id number] Social History Type Description Quantity Date Captured [...]
--- OUTSIDE RECORDS SUMMARY | 2025-03-23 17:56 | XMS_ITS | Encounter Summary ---
Author Organization [facility] Address [address] [place] [address] Care Team Providers Care Magnetic Healer Name Role Phone Delmer Rick MD Primary Care Provider [phone] Encounter Details Date Type Department Care Team (Late st Contact Info) Description 12/13/2020 Lab Requisition [facility] Care DermPath Lab [address] [facility], [place] [address] [place] [address] Social History Tobacco Use Types Packs/Day Years Used Date Smoking Tobacco: Never Smokeless Tobacco: Never Alcohol Use Standard Drinks/Week Comments Yes 0 (1 standard drink = 0.6 oz pur e alcohol) Comments No Sex and Gender Information Value Date Recorded Sex Assigned at Not on file Legal Sex Female 5:20 PM DECISION UNIT RN Gender Identity Not on file Sexual Orientation Not on file documented as of this encounter Plan of Treatment Not on file documented as of this encounter Procedures Procedure Name Priority Date/Time Associated Diagnosis Comments DERMATOPATHOLOGY Routine 12/10/2020 3:27 AM DECISION UNIT RN documented in this encounter Results * DERMATOPATHOLOGY (12/10/2020 3:27 AM DECISION UNIT RN) Case Report Dermatopathology Report Case: [id number] Authorizing Provider: Alek Levin MD Collected: 12/10/2020 03:27 AM Ordering Location: [facility] DermPath Lab Received: 12/13/2020 10:18 AM Pathologist: Nadira Kaba MD Specimens: A) - Skin, right of midline superior forehead B) - Skin, left superior eyebrow C) - Skin, leftnasal tip D) - Skin, left lower medial calf 1 2:23 PM [facility] DERMATOPATHOLOGY LABORATORY Final Diagnosis Specimen A. SKIN, right of midline superior forehead: SEBORRHEIC KERATOSIS, IRRITATED (L82.0) Specimen B. SKIN, left superior eyebrow: ACTINIC KERATOSIS, ACANTHOLYTIC TYPE (L57.0) Specimen C. SKIN, leftnasal tip: ACTINIC KERATOSIS, ACANTHOLYTIC TYPE (L57.0) Specimen D. 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 D: R/O dysplastic nevus vs BCC, SCC, Sorto's. 1 2:23 PM [facility] DERMATOPATHOLOGY LABORATORY Gross Description Specimen A: Received is one formalin filled container labeled with the patient's name and designated right of midline superior forehead. The specimen consists of a shave biopsy measuring [id number]. Jar 0. Specimen B: Received is one formalin filled container labeled with the patient's name and designated left superior eyebrow. The specimen consists of a shave biopsy (2 pieces) measuring [id number] & [id number]. Jar 0. Specimen C: Received is one formalin filled container labeled with the patient's name and designated leftnasal tip. The specimen consists of a shave biopsy measuring [id number]. Jar 0. Specimen D: Received is one formalin filled container labeled with the patients name and designated left lower medial calf. The specimen consists of a shave removal measuring [id number]. The margin is inked green. Jar 0. 1 2:23 PM [facility] DERMATOPATHOLOGY LABORATORY Microscopic Description Specimen A. SKIN, [...] margin of the specimen. 1 2:23 PM [facility] DERMATOPATHOLOGY LABORATORY Disclaimer An external and internal positive and negative controls are appropriate for the histochemical, immunohistochemical and immunofluorescence stain(s) in this case (if any), except where stated explicitly. The performance characteristics of the stain(s) cited in this report were developed and its performance characteristic determined by the Dermatopathology Laboratory at [facility], directed by Dr. Dave Kaba. These tests need not be, and therefore are not, approved by the [place] Food and Drug Administration. The tests are used for clinical purposes. Billing Codes Specimen Charges Stain Charges 69303 05800 36760 28161 1 1 1 1 [id number] 1 1 2:23 PM DECISION UNIT RN DERMATOPATHOLOGY LABORATORY Embedded Images 1 2:23 PM DECISION UNIT RN DERMATOPATHOLOGY LABORATORY Pathology/Cytology TISSUE SPECIMEN FROM SKIN / Unknown 12/10/2020 3:27 AM DECISION UNIT RN 12/13/2020 10:18 AM DECISION UNIT RN Miscellaneous samples (specimen) TISSUE SPECIMEN FROM SKIN / Unknown 12/10/2020 3:27 AM DECISION UNIT RN 12/13/2020 10:18 AM DECISION UNIT RN Miscellaneous samples (specimen) TISSUE SPECIMEN FROM SKIN / Unknown 12/10/2020 3:27 AM DECISION UNIT RN 12/13/2020 10:18 AM DECISION UNIT RN Miscellaneous samples (specimen) TISSUE SPECIMEN FROM SKIN / Unknown 12/10/2020 3:27 AM DECISION UNIT RN 12/13/2020 10:18 AM DECISION UNIT RN us Alek Levin MD LAB - PATHOLOGY/CYTOLOGY ORD ERABLES Final Result DERMATOPATHOLOGY LABORATORY [facility] - Department of Dermatology [facility] [address] [place] [address], [address] [phone] documented in this encounter Visit Diagnoses Not on filedocumented in this encounter Care Teams Magnetic Healer Relationship Specialty Start Date End Date Delmer Rick MD [address] [place] [address] [address] [place] [address] PCP - General 10/02/17 documented as of this encounter
--- OUTSIDE RECORDS SUMMARY | 2025-03-23 17:56 | XMS_ITS | Clinical Summary ---
Author Organization [facility] Ayi La[facility] Address [address] [facility] [place] [address] Care Team Providers Care Assayer Name Role Phone Delmer Rick MD Primary Care Provider [phone] Source Comments [facility],non-ssm rehab Affiliates and Associated Physician Practices is amultiple site organization consisting of ambulatory clinics and hospital sitesin [place], [place], [place] and [place]. This disclosure is being madepursuant to the Care Everywhere program and may not contain all information available regarding this patient. Last updated 18.[facility] Allergies Active Allergy Reactions Criticality Noted Date [...] on file Legal Sex Female 5:20 PM COSMETIC ACCOUNT COORDINATOR Gender Identity Not on file Sexual Orientation [...] to complete this topic Insurance MEDICARE MEDICARE [facility] MEDICARE Care Teams Assayer Relationship Specialty Start Date End Date Delmer Rick MD [address] [place] [address] [place] [id number] PCP - General 10/02/17
--- OUTSIDE RECORDS SUMMARY | 2025-03-23 17:56 | XMS_ITS ---
Author Organization [facility] Address [address] [place] [address] Care Team Providers Care Program Professional Name Role Phone Delmer Rick MD Primary Care Provider Dominick Nguyen MD Unavailable [phone] Ana Maria Lafleur MD Unavailable [phone] Active Problems Problem Noted Date Diagnosed [...]
--- OUTSIDE RECORDS SUMMARY | 2025-03-23 17:56 | XMS_ITS ---
Author Name Auto Generated, Auto Generated Organization [facility] ices Address [address] [place] [address] Phone [phone] Care Team Providers Care Recreation Therapy Teacher Name Role Phone Oswaldo Garza Unavailable [phone] Kyle Bailey Unavailable Functional Status No Results [...] Every 4 Hours Indication: PAIN 1-3 (2 [id number])DO NOT EXCEED 3GM/DAY APAP FROM ALL SOURCES [...] 2022 * End Date: * Text: * [facility] (current) use of antithrombotics/antiplatelets* Code: * Start [...] SunJul 04 00:00:00 EDT 2022 * Problem termite helper (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
--- OUTSIDE RECORDS SUMMARY | 2025-03-23 17:56 | XMS_ITS | CONTINUITY OF CARE DOCUMENT ---
Author Name ngozi melvin Address Unknown Organization [facility] Address [address] [facility] [address] [place] [address] Phone [phone] Care Team Providers Care Telephone Claims Representative Name Role Phone Maurice GLASS, Uma Unavailable MELVA GLASS, WANDA Unavailable MELVA GLASS, WANDA Unavailable PROBLEMS Condition Status Date Provider Notes Syncope [...] In-person encounter Office Visit Uma Richards MD [facility] - In-person encounter Office Visit Uma Richards MD [facility] SVT, paroxysmal - In-person encounter Office Visit Uma Rcihards MD [facility] Shortness of breath- Echo 04/18 - nl lv fn , mild Diastolic dysfunction RVSP 31 mm HgCHEST PAIN-NL STRESS TEST AND ECHOCardiology examinationCarotid arterial disease Stable 5 mm LICA aneurysmHyponatremia - In-person encounter Office Visit Uma Richards MD [facility] - In-person encounter Office Visit Uma Richards MD [facility] - In-person encounter Office Visit Uma Richards MD [facility] VITAL SIGNS Date Observation Value Provider Body Mass Index (Ratio) 21.61 kg/m2 Bertin Richards MD blood pressure, diastolic 88 mm[Hg] [facility], systolic 160 mm[Hg] [facility] oxygen saturation, oximetry 98 % [facility] pulse rate 68 /min [facility] respiratory rate E&M 12 /min [facility] weight E&M 122 [lb_av] [facility] height E&M 63 [in_i] [facility] blood pressure, cuff size regular [facility] Body Mass Index (Ratio) 20.83 kg/m2 Bertin Richards MD blood pressure, cuff size regular Aime Vazquez blood pressure, diastolic 74 mm[Hg] Aime [...] blood pressure, cuff size regular Aime hua [place] blood pressure, diastolic 82 mm[Hg] Aime hua [place] blood pressure, systolic 138 mm[Hg] Ross warner [place] oxygen saturation, oximetry 96 % Veronica [place] respiratory rate E&M 12 /min [facility] weight E&M 115.4 [lb_av] [facility] height E&M 63 [in_i] [facility] Body Mass Index (Ratio) 23.03 kg/m2 Bertin Richards MD blood pressure, diastolic 60 mm[Hg] Cami harman [facility] blood pressure, systolic 110 mm[Hg] Allison herbert '[facility] oxygen saturation, oximetry 97 % [facility] respiratory rate E&M 16 /min [facility] pulse rate 76 /min [facility] weight E&M 130 [lb_av] [facility] height E&M 63 [in_i] [facility] blood pressure, resting No [place] [facility] blood pressure, diastolic 67 mm[Hg] Judge [...] averag e drinks per day yes Vanessa Cross drug use none Vanessa Mott'[facility] smoking status [...] Payer name Policy type / Coverage type [place] red libertarian ID [employer] Commercial insura [place] [id number] [place] MEDICARE Medicare [id number] ADVANCE DIRECTIVES Name Date POWER OF OREMAN TREATMENT PLAN Date Name Performer Cardiology: H [...] 20 Mg Tablet (Furosemide) Uma Richards MD Cardiology: H er updated medication list for this problem includes: Clopidogrel 75 Mg Tablet (Clopidogrel) [facility] [place] Cardiology: H er updated medication list for this problem includes: Clopidogrel 75 Mg Tablet (Clopidogrel) [facility] [place] Cardiology eK Freedmedjuan carlos Cardiology Ke Freedmedjuan carlos Cardiology: H er updated medication list for this problem includes: Furosemide 20 Mg Tablet (Furosemide) [facility] [place] Cardiology- Uma Richards MD Cardiology- Uma Richards MD Cardiology- Uma Richards MD Cardiology- Uma Richards MD Cardiology- Uma Richards MD Cardiology-: H er updated medication list for this problem includes: Furosemide 20 Mg Tablet (Furosemide) Uma Richards MD Cardiology Uma Richards MD Cardiology Uma Richards MD Cardiology Uma Richards MD follow up: H er updated medication list for this problem includes: Caltrate 600+d Tabs (Calcium carbonate-vitamin d tabs) ..... Take daily Orders: E KG ([id number]) BP today: 119/67 Prior BP: 106/58 (04/19/2010) [...] significant valvular abnormalities. (04/12/2010) Uma Richards MD [facility] f/u: B P today: 106/58 Prior BP: [...]
--- OUTSIDE RECORDS SUMMARY | 2025-03-23 17:56 | XMS_ITS ---
Author Name Auto Generated, Auto Generated Organization [facility] [employer] [facility] ices Address [address] [place] [address] Phone [phone] Care Team Providers Care Sealing And Canceling Machine Operator Name Role Phone Oswaldo Garza Unavailable Kyle Bailey Unavailable [phone] Functional Status No Results Mental Status No [...] Every 4 Hours Indication: PAIN 1-3 (2 [id number])DO NOT EXCEED 3GM/DAY APAP FROM ALL SOURCES [...] 2022 * End Date: * Text: * [facility] (current) use of antithrombotics/antiplatelets* Code: * Start [...] SunJul 04 00:00:00 EDT 2022 * Problem 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
[2025-03-23 18:02] LABS: Basophils Percent Auto 0.3 % (0.2-1.2); Eosinophils Percent Auto 0.6 % (0-4.4); Hematocrit 33.7 % (37.0-47.0); Hemoglobin 10.9 g/dL (12.0-15.0); Immature Granulocyte Absolute 0.02 K/mm3 (0.00-0.031); Immature Granulocyte Percent A 0.3 % (0-0.5); Lymphocytes Absolute Auto 2.25 K/mm3 (0.9-3.2); Lymphocytes Percent Auto 36.5 % (18.3-44.2); Mean Corpuscular HGB Conc 32.3 g/dl (32-36); Mean Corpuscular Hemoglobin 31.1 pg (26-34); Mean Corpuscular Volume 96.3 fl (80-100); Mean Platelet Volume 8.4 fl (7.4-10.4); Monocytes Percent Auto 16.5 % (2.6-8.5); Neutrophils Absolute Auto 2.8 K/mm3 (1.3-6.7); Neutrophils Percent Auto 45.8 % (45.5-73.1); Platelet Count Result 288 k/mm3 (150-375); Red Cell Distribution Width 13.9 % (11.5-14.5); White Blood Count 6.2 K/mm3 (4.5-10.0)
[2025-03-23 18:13] LABS: Alanine Aminotransferase 17 U/L (6-35); Albumin Level 4.1 g/dL (3.5-5.1); Alkaline Phosphatase 73 U/L (38-126); Anion Gap 5 mmol/L (4-12); Aspartate Amino Transferase 36 U/L (14-36); Bilirubin,Total 0.8 mg/dL (0.2-1.3); Blood Urea Nitrogen 14 mg/dL (7-17); Calcium 8.9 mg/dL (8.4-10.2); Carbon Dioxide 28 mmol/L (22-30); Chloride 97 mmol/L (98-107); Estimated CRCL calculation 30 ml/min; Estimated Glomerular Filt Rate > 60; Glucose 99 mg/dL (65-110); Lipase 73 U/L (23-300); Potassium 3.8 mmol/L (3.4-5.0); Sodium 130 mmol/L (137-145)
[2025-03-23 18:25] LABS: NT Pro B Type Natriuretic Pept 336 pg/mL (19.9-100); Troponin I < 0.012 ng/mL (0.000-0.034)
[2025-03-23 18:27] LABS: Influenza A QL RT-PCR Negative (Negative); Influenza B QL RT-PCR Negative (Negative); RSV RNA, RT-PCR Negative (Negative); SARS-CoV-2 RNA PCR Negative (Negative)
--- NOTE | 2025-03-23 18:41 | PC.NURSE ---
patient to bathroom with a hat to provide a urine sample at this time
[2025-03-23 20:13] LABS: Add Urine Microscopic? YES; Appearance Urine Clear (Clear); Bacteria Urine None Seen /hpf; Bilirubin Urine Negative (Negative); Blood Urine Negative (Negative); Color Urine Dark Yellow (Yellow); Glucose Urine UA Negative (Negative); Ketones Urine Trace mg/dL (Negative); Leukocyte Esterase Ur Trace LEU/UL (Negative); Nitrate Urine Negative (Negative); Non Pathogenic Casts 0-2; Protein Urine Negative (Negative); RBC Urine 0-2 /hpf (0-2); Specific Grav Ur 1.011 (1.001-1.035); Squamous Epithelial Cell Urine None Seen /hpf (Few); Urobilinogen Urine 0.2 mg/dL (<2.0); WBC Urine 0-5 /hpf (0-3); pH Urine 6.5 (5.0-9.0)
== END 2025-03-23 21:18 | disposition home or self-care (01) ==
PROVIDERS: Physician Assistant; Emergency Provider Physician Assistant; PCP Internal Medicine
DX: J06.9 Acute upper respiratory infection, unspecified (principal); N30.00 Acute cystitis without hematuria; Z20.822 Contact with and (suspected) exposure to COVID-19; I10 Essential (primary) hypertension; I27.20 Pulmonary hypertension, unspecified; K21.9 Gastro-esophageal reflux disease without esophagitis; Z85.43 Personal history of malignant neoplasm of ovary; Z86.73 Personal history of transient ischemic attack (TIA), and cerebral infarction without residual deficits; Z90.710 Acquired absence of both cervix and uterus; Z79.02 Long term (current) use of antithrombotics/antiplatelets; Z79.899 Other long term (current) drug therapy; I45.10 Unspecified right bundle-branch block; I44.0 Atrioventricular block, first degree; R94.31 Abnormal electrocardiogram [ECG] [EKG]
CPT/HCPCS: 36415; 71046; 80053; 81001; 83690; 83880; 84484; 85025; 87637; 93005; 99284

== ENCOUNTER 2025-08-19 09:13 | Emergency (ER) | payer MEDICARE, OTHER, SELFPAY ==
--- OUTSIDE RECORDS SUMMARY | 2010-09-19 04:15 | XMS_ITS | Continuity of Care Document ---
Author Organization [facility] Address [address] [place] [address] Phone Care Team Providers Care Sprinkler Fitter Apprentice Name Role Phone Charles Rodriguez Unavailable Unavailable Procedures Procedure Date Office/outpatient Visit, Est Eye Exam & Treatment No Script Office/outpatient Visit, Est Advance Directives Directive Yes / No Effective Date File Name No Information Encounters Encounter Description Practice Location Reason(s) For Visit Diagnoses Date Provider Providers Copied on Encounter Office/outpat ient Visit, [facility], [id number] [place] [address] [address], [place], [place], [id number], [place] tel:[phone] [facility] No Information 5-201 0 Michael Soto. Formerly [facility] , [address], [place], [place], [facility], . tel:[phone] [facility], [id number] [place] [address] [address], [place], [place], [id number], [place] tel:[phone] [facility] No Information Jan-1 6-200 9 Krishnasamy Jairo. [address] [facility] [address], [place], [address], [place]. tel:[phone] Office/outpat ient Visit, [facility], [address], [place], [place], [id number], [place] tel:[phone] [facility] No Information Mar-0 7-200 8 Krishnasamy Jairo. [address] [facility] [address], [place], [address], [place]. tel:[phone] Family History Family Member Type Diagnosis Age At Onset No Information Payers Payer name Insurance type Covered libertarian ID Authoriza tion(s) Medicare [facility] [id number] BCBS [place] Commercial [id number] Social History Type Description Quantity Date Captured Comments Sex Female Smoking Status No Information Chief Complaint And Reason For Visit No Information Reason For Referral Reason For Referral No Information History Of Present Illness Encounter Date Complaint History Of Prese nt Illness No Information Functional Status Date Functional Assessmen t No Information Instructions Date Instruction Additional Infor mation No Information Assessments Type Assessment Date No Information Patient Care Teams Name Effective Dates (start - stop) Status Members No Information
--- NOTE | ~2025-08-19 | XR_ITS ---
Examination: XR hip BI 2V w AP pelvis Clinical History: Fall Comparison: CT abdomen and pelvis 09/07/2023 Technique: 2 views bilateral hips with AP pelvis Findings/impression: 1. No acute pelvic fracture identified. However given patient age and osteopenia, if high clinical suspicion persists consider CT. 2. Right hip prosthesis intact. No periprosthetic fracture or dislocation. 3. Left hip screws in place. No acute fracture or dislocation. Reviewed, dictated and finalized at location R.
--- NOTE | ~2025-08-19 | CT_ITS ---
CT HEAD NON-CONTRAST CT C-SPINE Clinical History: Fall Comparison: CT brain 04/14/2024 C-spine 01/06/2023 Technique: Unenhanced axial images skull base to vertex. Coronal, sagittal reformats. Axial images thoracic inlet to skull base. Sagittal and coronal reformats. CT images acquired with automatic exposure control for dose reduction DLP: 605 mGy-cm Findings: Head: Global atrophy. Chronic white matter microvascular ischemic changes. Basal ganglia lacune. Sulci, ventricles: Unremarkable. No intracerebral hemorrhage. No evidence acute territorial infarct. No mass effect, midline shift, intra-/extra-axial fluid collection. Bony calvarium intact. Visualized paranasal sinuses: Clear. Mastoid air cells: Clear. C-spine: No acute fracture or listhesis. Moderate degenerative changes. Prevertebral soft tissues within normal limits. Visualized lung apices: Scarring. Visualized thyroid: Small cystic nodule left lobe. No enlarged cervical nodes. IMPRESSION: HEAD: 1. No acute intracranial findings. C-SPINE: 1. No acute fracture. Reviewed, dictated and finalized at location R. IMPRESSION: HEAD: 1. No acute intracranial findings. C-SPINE: 1. No acute fracture.
--- NOTE | ~2025-08-19 | CT_ITS ---
EXAMINATION: CT pelvis wo con DATE: 08/19/2025 10:47 INDICATION: Left hip pain post fall TECHNIQUE: Computed tomography (CT) of the pelvis was performed without intravenous contrast. Automated exposure control and iterative reconstruction technique were employed.The dose-length product was 213.99 mGy-cm. COMPARISON: Radiograph dated 08/19/[address] dated 09/07/2023 FINDINGS: Bipolar type right hip hemiarthroplasty which appears well seated in near- anatomic alignment with no periprosthetic lucency to suggest loosening. 3 lag screws extend across the left femoral neck presumably for old subcapital fracture which is healed in essentially anatomic alignment. The screw tips do not protrude beyond the articular cortex. No acute fractures identified. No joint effusions or other abnormal fluid collections. Prominent sigmoid diverticulosis without adjacent from trace stranding to suggest diverticulitis. The uterus is not identified and has likely been surgically resected. Surgical clips in the pelvis bilaterally with distribution suggesting prior lymph node dissections. No free fluid in the pelvis. No pathologically enlarged pelvic or inguinal lymphadenopathy. IMPRESSION: 1. Postoperative changes in the pelvis as detailed above. No acute osseous abnormality. Reviewed, dictated and finalized at location A. IMPRESSION: 1. Postoperative changes in the pelvis as detailed above. No acute osseous abno rmality.
--- NOTE | ~2025-08-19 | XR_ITS ---
Examination: XR humerus LT, XR wrist LT min 3V Clinical History: Fall Comparison: None Technique: 2 views left humerus 4 views left wrist Findings/impression: Left humerus: 1. No fracture. Left wrist: 1. No fracture or dislocation left wrist. 2. Radiocarpal joint space narrowing. 3. Early widening of scapholunate interval. 4. Moderate degenerative changes medial proximal carpal bones. Reviewed, dictated and finalized at location R.
[2025-08-19 09:19] VITALS: BP 131/71; PULSE 60; RESP 16; TEMP 36.4; O2SAT 98
--- OUTSIDE RECORDS SUMMARY | 2025-08-19 09:50 | XMS_ITS | Clinical Summary ---
Author Organization [facility] Address [address] [place] [id number] Care Team Providers Care Associate Brand Manager Name Role Phone Delmer Rick MD Primary Care Provider Dominick Nguyen MD Unavailable [phone] Ana Maria Lafleur MD Unavailable [phone] Allergies Active Allergy Reactions Criticality Noted [...] Paraesophageal hernia 10/30/20232024 Hiatal hernia 09/08/2023 01/30/2025 Surgical History Surgery Date Site/Laterality Comments APPENDECTOMY [...] on file Legal Sex Female 3:36 AM FIELD DIRECTOR Gender Identity Not on file Sexual Orientation Not on file Obstetrics History Comments S/p Hysterectomy in 1999 for ovarian cancer Last Filed Vital Signs Vital Sign Reading Time Taken Comments Blood Pressure 125/73 01/30/2025 1:04 PM FIELD DIRECTOR Pulse 77 01/30/2025 1:04 PM FIELD DIRECTOR Temperature 36.9 C (98.5 F) 01/30/2025 1:04 PM FIELD DIRECTOR Respiratory Rate 16 01/19/2024 11:00 AM FIELD DIRECTOR Oxygen Saturation 97% 01/30/2025 1:04 PM FIELD DIRECTOR Inhaled Oxygen Concentration - - Weight 53.5 kg (118 lb) 01/30/2025 1:04 PM FIELD DIRECTOR Height 162.6 cm (5' 4) 01/30/2025 1:04 PM FIELD DIRECTOR Body Mass Index 20.25 01/30/2025 1:04 PM FIELD DIRECTOR Plan of Treatment Health Maintenance Due Date Last Done Comments Depression Screening 1935 Osteoporosis Screening-Bone Density Scan 1935 Hepatitis B Screening 02/11/1954 Pneumococcal vaccine 65+ (1 of 2 - PCV) 02/11/1955 Zoster Vaccine (1 of 2) 02/11/1986 Well Visit 65+ 02/11/2001 DTaP/Tdap/Td Vaccine (1 - Tdap) 09/12/2019 9 Fall Risk Assessment 01/19/2025 01/19/2024 Influenza Vaccine (#1) 2025 4, 08/31/2022, 09/03/2020, Additional history exists Insurance [facility] MEDICARE [facility] MEDICARE [facility] Advance Directives For more information, please contact: [phone] Documents on File Type Date Recorded 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 ADVANCE DIRECTIVE 01/16/2024 7:58 AM Power of Associate Professor Of Mathematics-Medical Power of Associate Professor Of Mathematics 10/17/2023 9:02 AM * Full Code (Latest Code Status on File) Date Activated Date Inactivated Comments 01/16/2024 2:30 PM 01/19/2024 7:56 PM * Full Code Date Activated Date Inactivated Comments 10/17/2023 9:16 AM 10/17/2023 2:57 PM * Full Code Date Activated Date Inactivated Comments 09/08/2023 7:54 AM 09/09/2023 6:54 PM Care Teams Associate Brand Manager Relationship Specialty Start Date End Date Delmer Rick MD [address] [facility] 23 [facility] 23 [place] [address] PCP - General Internal Medicine 05/17/20 Dominick Nguyen MD [address] [place] [address] Referring Physician General Surgery 09/09/23 Ana Maria Lafleur MD [address] [place] [address] Consulting Physician Gastroenterology 01/09/24
--- OUTSIDE RECORDS SUMMARY | 2025-08-19 09:50 | XMS_ITS | Encounter Summary ---
Author Organization [facility] Address [address] [place] [address] Care Team Providers Care Rubble Placer Name Role Phone Delmre Rick MD Primary Care Provider [phone] Encounter Details Date Type Department Care Team (Late st Contact Info) Description 12/13/2020 Lab Requisition [facility] Care DermPath Lab [address] [facility], [place] [address] Alek [place] [address] Social History Tobacco Use Types Packs/Day Years Used Date Smoking Tobacco: Never Smokeless Tobacco: Never Alcohol Use Standard Drinks/Week Comments Yes 0 (1 standard drink = 0.6 oz pur e alcohol) Comments No Sex and Gender Information Value Date Recorded Sex Assigned at Not on file Legal Sex Female 5:20 PM PIN MACHINE TENDER Gender Identity Not on file Sexual Orientation Not on file documented as of this encounter Plan of Treatment Not on file documented as of this encounter Procedures Procedure Name Priority Date/Time Associated Diagnosis Comments DERMATOPATHOLOGY Routine 12/10/2020 3:27 AM PIN MACHINE TENDER documented in this encounter Results * DERMATOPATHOLOGY (12/10/2020 3:27 AM PIN MACHINE TENDER) Case Report Dermatopathology Report Case: [id number] Authorizing Provider: Alek Levin MD Collected: 12/10/2020 03:27 AM Ordering Location: [facility] DermPath Lab Received: 12/13/2020 10:18 AM Pathologist: Nadira Kaba MD Specimens: A) - Skin, right of midline superior forehead B) - Skin, left superior eyebrow C) - Skin, leftnasal tip D) - Skin, left lower medial calf 1 2:23 PM [facility] DERMATOPATHOLOGY LABORATORY Final Diagnosis Specimen A. SKIN, right of midline superior forehead: SEBORRHEIC KERATOSIS, IRRITATED (L82.0) Specimen B. SKIN, left superior eyebrow: ACTINIC KERATOSIS, ACANTHOLYTIC TYPE (L57.0) Specimen C. SKIN, leftnasal tip: ACTINIC KERATOSIS, ACANTHOLYTIC TYPE (L57.0) Specimen D. 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 D: R/O dysplastic nevus vs BCC, SCC, Sorto's. 1 2:23 PM [facility] DERMATOPATHOLOGY LABORATORY Gross Description Specimen A: Received is one formalin filled container labeled with the patient's name and designated right of midline superior forehead. The specimen consists of a shave biopsy measuring [id number]. Jar 0. Specimen B: Received is one formalin filled container labeled with the patient's name and designated left superior eyebrow. The specimen consists of a shave biopsy (2 pieces) measuring [id number] & [id number]. Jar 0. Specimen C: Received is one formalin filled container labeled with the patient's name and designated leftnasal tip. The specimen consists of a shave biopsy measuring 5l9r4wm. Jar 0. Specimen D: Received is one formalin filled container labeled with the patients name and designated left lower medial calf. The specimen consists of a shave removal measuring [id number]. The margin is inked green. Jar 0. 1 2:23 PM [facility] DERMATOPATHOLOGY LABORATORY Microscopic Description Specimen A. [...] margin of the specimen. 1 2:23 PM [facility] DERMATOPATHOLOGY LABORATORY Disclaimer An external and internal positive and negative controls are appropriate for the histochemical, immunohistochemical and immunofluorescence stain(s) in this case (if any), except where stated explicitly. The performance characteristics of the stain(s) cited in this report were developed and its performance characteristic determined by the Dermatopathology Laboratory at [facility], directed by Dr. Dave Kaba. These tests need not be, and therefore are not, approved by the [place] Food and Drug Administration. The tests are used for clinical purposes. Billing Codes Specimen Charges Stain Charges 74042 [id number] 64160 [id number] 1 1 1 1 [id number] 1 1 2:23 PM PIN MACHINE TENDER DERMATOPATHOLOGY LABORATORY Embedded Images 1 2:23 PM PIN MACHINE TENDER DERMATOPATHOLOGY LABORATORY Pathology/Cytology TISSUE SPECIMEN FROM SKIN / Unknown 12/10/2020 3:27 AM PIN MACHINE TENDER 12/13/2020 10:18 AM PIN MACHINE TENDER Miscellaneous samples (specimen) TISSUE SPECIMEN FROM SKIN / Unknown 12/10/2020 3:27 AM PIN MACHINE TENDER 12/13/2020 10:18 AM PIN MACHINE TENDER Miscellaneous samples (specimen) TISSUE SPECIMEN FROM SKIN / Unknown 12/10/2020 3:27 AM PIN MACHINE TENDER 12/13/2020 10:18 AM PIN MACHINE TENDER Miscellaneous samples (specimen) TISSUE SPECIMEN FROM SKIN / Unknown 12/10/2020 3:27 AM PIN MACHINE TENDER 12/13/2020 10:18 AM PIN MACHINE TENDER us Alek Levin MD LAB - PATHOLOGY/CYTOLOGY ORD ERABLES Final Result DERMATOPATHOLOGY LABORATORY [facility] Department of Dermatology [facility] Specialized Medicine [address] [place] [address], [address] [phone] documented in this encounter Visit Diagnoses Not on filedocumented in this encounter Care Teams Rubble Placer Relationship Specialty Start Date End Date Delmer Rick MD [address] [place] [address] [address] [place] [address] PCP - General 10/02/17 documented as of this encounter
--- OUTSIDE RECORDS SUMMARY | 2025-08-19 09:50 | XMS_ITS ---
Author Organization [facility] Address [address] [place] [phone] Care Team Providers Care Research Attorney Name Role Phone Delmer Rick MD Primary Care Provider Dominick Nguyen MD Unavailable [phone] Ana Maria Lafleur MD Unavailable [phone] Active Problems Problem Noted Date Diagnosed [...]
--- OUTSIDE RECORDS SUMMARY | 2025-08-19 09:50 | XMS_ITS | Clinical Summary ---
Author Organization [facility] Address [address] [place] [address] Care Team Providers Care Manager Engagement Name Role Phone Delmer Rick MD Primary Care Provider [phone] Source Comments [facility] Affiliates and Associated Physician Practices is amultiple site organization consisting of ambulatory clinics and hospital sitesin [place], [place], [place]. This disclosure is being madepursuant to the Care Everywhere program and may not contain all information available regarding this patient. 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 Gender Identity Not on file Sexual Orientation [...] 10:43 AM CDT Height 160 cm (5' 3) 09/10/2020 10:43 AM CDT Body Mass Index 22.14 09/10/2020 10:43 AM CDT Plan of Treatment Health Maintenance Due Date Last Done Comments BONE DENSITY TESTING 1935 DTAP/TDAP/TD VACCINES (1 - Tdap) 02/11/1955 PNEUMOCOCCAL VACCINE 50+ (1 of 1 - PCV) 02/11/1986 ZOSTER VACCINE (1 of 2) 02/11/1986 Respiratory Syncytial Virus (RSV) Vaccine Pt: or over 60 yrs (1 - 1-dose 75+ series) 02/11/2011 DEPRESSION SCREENING 11/26/2024 COVID-19 VACCINE (1 - 2023-2 5 season) 2025 INFLUENZA VACCINE (#1) 2025 HEPATITIS B VACCINE Aged Out No [...] to complete this topic Insurance MEDICARE MEDICARE [facility] MEDICARE Care Teams Manager Engagement Relationship Specialty Start Date End Date Delmer Rick MD [address] [place] [address] [place] [phone] PCP - General 10/02/17
--- NOTE | 2025-08-19 09:55 | ED_ITS ---
HPI - General Adult General Chief complaint: Fall Stated complaint: fall last night onto left hip Time Seen by Provider: 08/19/25 09:31 History of Present Illness HPI narrative: Jossy Lang is an 89 y/o female who presents today with reports of having some mechanical ground level fall and fell on her left side yesterday at around 7:30 p.m.. She states that she was able to get herself back up she has ambulated since having continued pain to her left hip. She is also concerned about her right hip that she had a total hip replacement there and wants that checked out as well. She complains of pain to her left wrist her left upper arm and her neck. She does not think that she hit her head she denies having loss of consciousness however she is on Plavix daily. She states that she did not get much sleep last night because of the pain in her left hip. Related Data Home Medications ?Medication ?Instructions ?Recorded ?Confirmed ?Last Taken ?Type B-complex with vitamin C 1 tablet PO DAILY 09/22/20 0 04/14/24 06/29/23 09:00 History Flonase Allergy Relief 1 puff EACH NARE DAILY PRN 0 01/06/23 04/14/24 Unknown History allergies polyethylene glycol 3350 17 gram 17 g PO DAILY PRN Con stipation 01/06/23 04/14/24 Unknown History oral powder packet (Miralax) Miralax 17 mg PO DAILY PRN Constipat ion 06/29/23 04/14/24 Unknown History acetaminophen 325 mg tablet 650 mg PO Q4H PRN pain 1-3 06/29/23 04/14/24 Unknown History (Tylenol) melatonin 10 mg capsule 10 mg PO HS PRN Insomnia 03/1804/14/24 06/28/23 21:00 History simethicone 80 mg chewable tablet 80 mg PO DAILY PRN f latulence 06/29/23 04/14/24 Unknown History furosemide 20 mg tablet 40 mg PO DAILY 04/14/2403/27 Unknown History Held on 04/17/24. Instructions: Resume on 04/24/24. check with your primary care if need resumed baclofen 10 mg tablet 10 mg TID 04/16/24 04/16/24 Unknown History ergocalciferol (vitamin D2) 1,250 50,000 unit PO WEEKL Y 04/16/24 04/16/24 Unknown History mcg (50,000 unit) capsule loratadine 10 mg tablet (Claritin) 10 mg PO DAILY 03/2704/16/24 Unknown History omeprazole 40 mg capsule,delayed 40 mg PO DAILY 04/16/24 Unknown History release Allergies Allergy/AdvReac Type Severity Reaction Status Date / Time cetirizine (From [facility]) Allergy Unknown unknown Verified 08/19/25 09:32 levofloxacin Allergy Unknown unknown Verified 08/19/25 09:32 Penicillins Allergy Unknown unknown Verified 08/19/25 09:32 Sulfa (Sulfonamide Allergy Unknown unknown Verified 08/19/25 09:32 Antibiotics) Review of Systems 2 Review of Systems: All systems reviewed & are unremarkable except as noted in HPI and below PMFSH Past Medical History Medical History Closed left hip fracture Pulmonary HTN History of TIA (transient ischemic attack) Transient ischemic attack (2020) Ovarian cancer (1999) Gastroesophageal reflux disease Closed displaced fracture of right femoral neck Surgical History Surgical History Status post-operative repair of closed fracture of left hip DOS 06/30/23 History of appendectomy History of total hysterectomy Family History Family History Other Family history non-contributory Social History Social History Social History: Surrogate medical decision maker: Francisco Lang, son. Code status: Full code. Smoking status: Never smoker Second hand tobacco smoke exposure: No Alcohol intake: never Alcohol use details: Occasional Substance use: never Do You Feel Safe in your Home?: Yes Lack of Transportation: No Lack of Food: Never True Current Housing: I Have Housing Concerned About Future Housing: No Difficulty Paying Gas/Electric Bills: No Difficulty Paying for Meds: No Currently Unemployed: No Education: Associate Degree Difficulty w/ Childcare or Family Care: No Additional living arrangements comments: Lives alone in [place]. Has 2 sons, 1 passed from lung cancer. She is very active and enjoys dancing several days a week. 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 care concerns: No Exam 2 Narrative: GENERAL: Well-appearing, well-nourished, and in no acute distress. HEAD: Normocephalic, atraumatic. EYES: PERRLA and EOMI. ENT: Nares clear, no rhinorrhea or epistaxis. Mucous membranes moist. Oropharynx without tonsillar hypertrophy exudate or other lesions. NECK: Supple. No adenopathy or masses. No carotid bruits or JVD CHEST: Clear to auscultation. No respiratory distress. No wheezes rales or rhonchi HEART: Regular rate and rhythm. No murmur heard. Normal peripheral pulses. ABDOMEN: Soft, nontender, nondistended, normal active bowel sounds. EXTREMITIES: + pain to left hip/ left upper femur, no obvious deformity, strong distal pulses present. Left inner wrist abrasion without obvious deformity SKIN: Warm, dry, no rash. NEURO: No focal deficits. Alert and oriented x3. PSYCH: Normal mood and affect. Course Vital Signs Vital signs: Vital Signs Temperature 36.4 C 08/19/25 09:19 Pulse Rate 60 08/19/25 09:19 Respiratory Rate 16 08/19/25 09:19 Blood Pressure 131/71 08/19/25 09:19 Pulse Oximetry 98 08/19/25 09:19 Oxygen Delivery Room Air 08/19/25 09:19 Temperature 36.4 C 08/19/25 09:19 Pulse Rate 56 L 08/19/25 12:00 Respiratory Rate 14 08/19/25 12:00 Blood Pressure 141/73 H 08/19/25 12:00 Pulse Oximetry 97 08/19/25 12:00 Oxygen Delivery Room Air 08/19/25 09:19 Medical Decision Making [facility] Narrative Medical decision making narrative: 89-year-old with mechanical ground level fall yesterday continuing to have left hip pain. On exam she is having pain to the left hip,left upper arm, neck, and left wrist, abrasion to the inner upper left wrist Concern for : hip fracture/ wrist fracture/ brain bleed/ contusion plan to check basic labs, imaging and treat her pain CBC-no leukocytosis patient is hemodynamically stable, CMP unremarkable imaging is negative for acute fracture Patient is updated on these results and plan for discharge home. She is agreeable with this plan denies anything further at this time. Close follow-up with PCP recommended and strict return precautions if she develops any new or worsening symptoms. Medical Records Medical records reviewed: Yes I reviewed the external patient's medical records. Vital Signs Vital Signs: Vital Signs Temperature 36.4 C 08/19/25 09:19 Pulse Rate 60 08/19/25 09:19 Respiratory Rate 16 08/19/25 09:19 Blood Pressure 131/71 08/19/25 09:19 Pulse Oximetry 98 08/19/25 09:19 Oxygen Delivery Room Air 08/19/25 09:19 Temperature 36.4 C 08/19/25 09:19 Pulse Rate 56 L 08/19/25 12:00 Respiratory Rate 14 08/19/25 12:00 Blood Pressure 141/73 H 08/19/25 12:00 Pulse Oximetry 97 08/19/25 12:00 Oxygen Delivery Room Air 08/19/25 09:19 Vitals reviewed by me Lab Data Lab results reviewed: Yes I reviewed the patient's lab results. 08/19/25 10:23 08/19/25 10:23 Labs: Lab Results 08/19/25 Range/Units 10:23 WBC 8.0 (4.5-10.0) K/mm3 RBC 3.31 L (4.2-5.4) M/mm3 Hgb 10.9 L (12.0-15.0) g/dL Hct 33.4 L (37.0-47.0) % MCV 100.9 H (80-100) fl MCH 32.9 (26-34) pg MCHC 32.6 (32-36) g/dl RDW 12.5 (11.5-14.5) % Plt Count 275 (150-375) k/mm3 MPV 8.3 (7.4-10.4) fl Immature Gran % (Auto) 0.4 (0-0.5) % Neut % (Auto) 54.7 (45.5-73.1) % Lymph % (Auto) 36.5 (18.3-44.2) % Stanton % (Auto) 7.4 (2.6-8.5) % Eos % (Auto) 0.6 (0-4.4) % Baso % (Auto) 0.4 (0.2-1.2) % Lymph # (Auto) 2.92 (0.9-3.2) K/mm3 Stanton # (Auto) 0.6 (0.1-0.6) K/mm3 Eos # (Auto) 0.1 (0-0.3) K/mm3 Baso # (Auto) 0.0 (0.0-0.1) K/mm3 Abs Immat Gran (auto) 0.03 (0.00-0.031) K/mm3 Absolute Neuts (auto) 4.4 (1.3-6.7) K/mm3 Absolute Nucleated RBC 0.000 (0.0-0.012) K/mm3 Nucleated RBC % 0.0 (0.0-0.2) % Sodium 135 L (137-145) mmol/L Potassium 3.8 (3.4-5.0) mmol/L Chloride 102 (98-107) mmol/L Carbon Dioxide 28 (22-30) mmol/L Anion Gap 5 (4-12) mmol/L BUN 13 (7-17) mg/dL Creatinine 0.91 (0.7-1.0) mg/dL Estim Creat Clear Calc 30 ml/min Estimated GFR 58 L (59 - ) Glucose 108 (65-110) mg/dL Calcium 8.9 (8.4-10.2) mg/dL Total Bilirubin 0.7 (0.2-1.3) mg/dL AST 33 (14-36) U/L ALT 14 (6-35) U/L Alkaline Phosphatase 66 (38-126) U/L Total Protein 6.9 (6.3-8.2) g/dL Albumin 3.8 (3.5-5.1) g/dL Imaging Data Radiologist's impression: Impressions Cervical Spine CT 08/19/25 10:09 IMPRESSION: HEAD: 1. No acute intracranial findings. C-SPINE: 1. No acute fracture. Head CT 08/19/25 10:09 IMPRESSION: HEAD: 1. No acute intracranial findings. C-SPINE: 1. No acute fracture. Pelvis CT 08/19/25 11:21 IMPRESSION: 1. Postoperative changes in the pelvis as detailed above. No acute osseous abnormality. Discharge Plan Discharge Clinical Impression: Fall Qualifiers: Encounter type: initial encounter Qualified Code(s): W19.XXXA - Unspecified fall, initial encounter Patient Disposition: Home Condition: Stable Instructions: Antibiotic Form Additional Instructions: Your imaging today does not show any broken bones. You may take Tylenol for pain as needed Please follow up with your PCP in 1 week If you should devleop any new or worsening symptoms return to the ER> Patient Language: Pashto Prescriptions: No Action B-complex with vitamin C Tablet 1 tablet PO DAILY polyethylene glycol 3350 [Miralax] 17 gram Powder In Packet 17 g PO DAILY PRN (Reason: Constipation) Flonase Allergy Relief aerosol 1 puff EACH NARE DAILY PRN (Reason: allergies) acetaminophen [Tylenol] 325 mg Tablet 650 mg PO Q4H PRN (Reason: pain 1-3) simethicone 80 mg Tablet,Chewable 80 mg PO DAILY PRN (Reason: flatulence) melatonin 10 mg Capsule 10 mg PO HS PRN (Reason: Insomnia) Miralax 17 mg PO DAILY PRN (Reason: Constipation) furosemide 20 mg tablet 40 mg PO DAILY baclofen 10 mg Tablet 10 mg TID omeprazole 40 mg Capsule,Delayed Release(Dr/Ec) 40 mg PO DAILY ergocalciferol (vitamin D2) 1,250 mcg (50,000 unit) capsule 50,000 unit PO WEEKLY loratadine [Claritin] 10 mg Tablet 10 mg PO DAILY benzonatate 200 mg capsule 200 mg PO TID PRN (Reason: cough) Qty: 15 0RF clopidogrel 75 mg Tablet 75 mg PO QAM Qty: 30 0RF docusate sodium 100 mg Capsule 100 mg PO Q12HR Qty: 30 0RF Follow-up/Referrals: Prabhjot,Delmer Dumont MD [Primary Care Provider] - 1 Week Time of Disposition: 11:36
--- OUTSIDE RECORDS SUMMARY | 2025-08-19 10:20 | XMS_ITS | Clinical Summary ---
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 Gender Identity Not on file Sexual Orientation Not on file Obstetrics History Comments S/p Hysterectomy in 1999 for ovarian cancer Last Filed Vital Signs Vital Sign Reading Time Taken Comments Blood Pressure 125/73 01/30/2025 1:04 PM INFORMATION SECURITY ARCHITECT Pulse 77 01/30/2025 1:04 PM INFORMATION SECURITY ARCHITECT Temperature 36.9 C (98.5 F) 01/30/2025 1:04 PM INFORMATION SECURITY ARCHITECT Respiratory Rate 16 01/19/2024 11:00 AM INFORMATION SECURITY ARCHITECT Oxygen Saturation 97% 01/30/2025 1:04 PM INFORMATION SECURITY ARCHITECT Inhaled Oxygen Concentration - - Weight 53.5 kg (118 lb) 01/30/2025 1:04 PM INFORMATION SECURITY ARCHITECT Height 162.6 cm (5' 4) 01/30/2025 1:04 PM INFORMATION SECURITY ARCHITECT Body Mass Index 20.25 01/30/2025 1:04 PM INFORMATION SECURITY ARCHITECT Plan of Treatment Health Maintenance Due Date [...] 4, 08/31/2022, 09/03/2020, Additional history exists Insurance [facility] MEDICARE [facility] MEDICARE [employer] [facility] Advance Directives For more information, please contact: [phone] Documents on File Type Date Recorded Patient Paper Rewinder Expl anation ADVANCE DIRECTIVE 01/16/2024 7:58 AM Power of Bale Breaker Operator-Medical Power of Bale Breaker Operator 10/17/2023 9:02 AM * Full Code (Latest Code Status on File) Date Activated Date Inactivated Comments 01/16/2024 2:30 PM 01/19/2024 7:56 PM * Full Code Date Activated Date Inactivated Comments 10/17/2023 9:16 AM 10/17/2023 2:57 PM * Full Code Date Activated Date Inactivated Comments 09/08/2023 7:54 AM 09/09/2023 6:54 PM Care Teams Brass Polisher Relationship Specialty Start Date End Date Delmer Rick MD [address] [facility] [address] [facility] 23 [place] [address] PCP - General Internal Medicine 05/17/20 Dominick Nguyen MD [address] [place] [address] Referring Physician General Surgery 09/09/23 Ana Maria Lafleur MD [address] [place] [address] Consulting Physician Gastroenterology 01/09/24
--- OUTSIDE RECORDS SUMMARY | 2025-08-19 10:20 | XMS_ITS | Clinical Summary ---
Author Organization [facility] Address [address] [place] [address] Care Team Providers Care Potash Flaker Name Role Phone Delmer Rick MD Primary Care Provider [phone] Source Comments [facility],non-[facility] Affiliates and Associated Physician Practices is amultiple site organization consisting of ambulatory clinics and hospital sitesin [place], [place], [place] and [place]. This disclosure is being madepursuant to the Care Everywhere program and may not contain all information available regarding this patient. 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
--- OUTSIDE RECORDS SUMMARY | 2025-08-19 10:20 | XMS_ITS | Encounter Summary ---
Author Organization [facility] Address [address] [place] [address] Care Team Providers Care Scow Captain Name Role Phone Delmer Rick MD Primary Care Provider [phone] Encounter Details Date Type Department Care Team (Late st Contact Info) Description 12/13/2020 Lab Requisition [facility] Care [facility] [address] [place] [address] Alek Levin [place] [address] Social History Tobacco Use Types Packs/Day Years Used Date Smoking Tobacco: Never Smokeless Tobacco: Never Alcohol Use Standard Drinks/Week Comments Yes 0 (1 standard drink = 0.6 oz pur e alcohol) Comments No Sex and Gender Information Value Date Recorded Sex Assigned at Not on file Legal Sex Female 5:20 PM ASSET PROTECTION MANAGER Gender Identity Not on file Sexual Orientation Not on file documented as of this encounter Plan of Treatment Not on file documented as of this encounter Procedures Procedure Name Priority Date/Time Associated Diagnosis Comments DERMATOPATHOLOGY Routine 12/10/2020 3:27 AM ASSET PROTECTION MANAGER documented in this encounter Results * DERMATOPATHOLOGY (12/10/2020 3:27 AM ASSET PROTECTION MANAGER) Case Report Dermatopathology Report Case: [id number] Authorizing Provider: Alek Levin MD Collected: 12/10/2020 03:27 AM Ordering Location: [facility] Lab Received: 12/13/2020 10:18 AM Pathologist: Nadira Kaba MD Specimens: A) - Skin, right of midline superior forehead B) - Skin, left superior eyebrow C) - Skin, leftnasal tip D) - Skin, left lower medial calf 1 2:23 PM [facility] Final Diagnosis Specimen A. SKIN, right of midline superior forehead: SEBORRHEIC KERATOSIS, IRRITATED (L82.0) Specimen B. SKIN, left superior eyebrow: ACTINIC KERATOSIS, ACANTHOLYTIC TYPE (L57.0) Specimen C. SKIN, leftnasal tip: ACTINIC KERATOSIS, ACANTHOLYTIC TYPE (L57.0) Specimen D. 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 D: R/O dysplastic nevus vs BCC, SCC, Sorto's. 1 2:23 PM [facility] Gross Description Specimen A: Received is one formalin filled container labeled with the patient's name and designated right of midline superior forehead. The specimen consists of a shave biopsy measuring [id number]. Jar 0. Specimen B: Received is one formalin filled container labeled with the patient's name and designated left superior eyebrow. The specimen consists of a shave biopsy (2 pieces) measuring [id number] & [id number]. Jar 0. Specimen C: Received is one formalin filled container labeled with the patient's name and designated leftnasal tip. The specimen consists of a shave biopsy measuring [id number]. Jar 0. Specimen D: Received is one formalin filled container labeled with the patients name and designated left lower medial calf. The specimen consists of a shave removal measuring [id number]. The margin is inked green. Jar 0. 1 2:23 PM [facility] Microscopic Description Specimen [...] margin of the specimen. 1 2:23 PM [facility]MAT[facility] Disclaimer An external and internal positive and negative controls are appropriate for the histochemical, immunohistochemical and immunofluorescence stain(s) in this case (if any), except where stated explicitly. The performance characteristics of the stain(s) cited in this report were developed and its performance characteristic determined by the Dermatopathology Laboratory at [facility], directed by Dr. Dave Kaba. These tests need not be, and therefore are not, approved by the [place] Food and Drug Administration. The tests are used for clinical purposes. Billing Codes Specimen Charges Stain Charges 83290 [id number] 96267 1 1 1 1 66902 1 1 2:23 PM ASSET PROTECTION MANAGER DERMATOPATHOLOGY LABORATORY Embedded Images 1 2:23 PM ASSET PROTECTION MANAGER DERMATOPATHOLOGY LABORATORY Pathology/Cytology TISSUE SPECIMEN FROM SKIN / Unknown 12/10/2020 3:27 AM ASSET PROTECTION MANAGER 12/13/2020 10:18 AM ASSET PROTECTION MANAGER Miscellaneous samples (specimen) TISSUE SPECIMEN FROM SKIN / Unknown 12/10/2020 3:27 AM ASSET PROTECTION MANAGER 12/13/2020 10:18 AM ASSET PROTECTION MANAGER Miscellaneous samples (specimen) TISSUE SPECIMEN FROM SKIN / Unknown 12/10/2020 3:27 AM ASSET PROTECTION MANAGER 12/13/2020 10:18 AM ASSET PROTECTION MANAGER Miscellaneous samples (specimen) TISSUE SPECIMEN FROM SKIN / Unknown 12/10/2020 3:27 AM ASSET PROTECTION MANAGER 12/13/2020 10:18 AM ASSET PROTECTION MANAGER us Alek Levin MD LAB - PATHOLOGY/CYTOLOGY ORD ERABLES Final Result DERMATOPATHOLOGY LABORATORY [facility] - Department of Dermatology [facility] [address] [place] [address], [address] [phone] documented in this encounter Visit Diagnoses Not on filedocumented in this encounter Care Teams Scow Captain Relationship Specialty Start Date End Date Delmer Rick MD [address] [place] [address] [address] [place] [address] PCP - General 10/02/17 documented as of this encounter
--- OUTSIDE RECORDS SUMMARY | 2025-08-19 10:20 | XMS_ITS ---
Author Organization [facility] Address [address] [place] [id number] Care Team Providers Care Hand Ii Thermal Cutter Name Role Phone Delmer Rick MD Primary Care Provider Dominick Nguyen MD Unavailable [phone] Ana Maria Lafleur MD Unavailable [phone] Active Problems Problem Noted Date Diagnosed [...]
[2025-08-19] MEDS: MORPHINE SULFATE (*CRX) 4 MG/ML INJ 2 MG IV PUSH (10:25)
[2025-08-19 10:28] LABS: Hematocrit 33.4 % (37.0-47.0); Hemoglobin 10.9 g/dL (12.0-15.0); Immature Granulocyte Percent A 0.4 % (0-0.5); Lymphocytes Absolute Auto 2.92 K/mm3 (0.9-3.2); Mean Corpuscular HGB Conc 32.6 g/dl (32-36); Mean Corpuscular Hemoglobin 32.9 pg (26-34); Mean Corpuscular Volume 100.9 fl (80-100); Nucleated Red Blood Cells Absolute Auto 0.000 K/mm3 (0.0-0.012); Nucleated Red Blood Cells Perc 0.0 % (0.0-0.2); Platelet Count Result 275 k/mm3 (150-375); Red Blood Count 3.31 M/mm3 (4.2-5.4); White Blood Count 8.0 K/mm3 (4.5-10.0)
[2025-08-19 10:47] LABS: Alanine Aminotransferase 14 U/L (6-35); Albumin Level 3.8 g/dL (3.5-5.1); Alkaline Phosphatase 66 U/L (38-126); Anion Gap 5 mmol/L (4-12); Aspartate Amino Transferase 33 U/L (14-36); Bilirubin,Total 0.7 mg/dL (0.2-1.3); Blood Urea Nitrogen 13 mg/dL (7-17); Calcium 8.9 mg/dL (8.4-10.2); Carbon Dioxide 28 mmol/L (22-30); Chloride 102 mmol/L (98-107); Estimated CRCL calculation 30 ml/min; Estimated Glomerular Filt Rate 58; Glucose 108 mg/dL (65-110); Potassium 3.8 mmol/L (3.4-5.0); Sodium 135 mmol/L (137-145); Total Protein 6.9 g/dL (6.3-8.2)
[2025-08-19 12:00] VITALS: BP 141/73; PULSE 56; RESP 14; O2SAT 97
== END 2025-08-19 12:01 | disposition home or self-care (01) ==
PROVIDERS: Emergency Provider Nurse Practitioner Family; PCP Internal Medicine
DX: S79.912A Unspecified injury of left hip, initial encounter (principal); S19.9XXA Unspecified injury of neck, initial encounter; S49.92XA Unspecified injury of left shoulder and upper arm, initial encounter; S60.812A Abrasion of left wrist, initial encounter; I27.20 Pulmonary hypertension, unspecified; Z86.73 Personal history of transient ischemic attack (TIA), and cerebral infarction without residual deficits; Z85.43 Personal history of malignant neoplasm of ovary; K21.9 Gastro-esophageal reflux disease without esophagitis; Z96.641 Presence of right artificial hip joint; Z90.710 Acquired absence of both cervix and uterus; Z79.02 Long term (current) use of antithrombotics/antiplatelets; W18.30XA Fall on same level, unspecified, initial encounter
CPT/HCPCS: 36415; 70450; 72125; 72192; 73060; 73110; 73521; 80053; 85025; 96374; 99284; J2270